=== PATIENT | female | born 1960 | race Caucasian/White ===

== ENCOUNTER → 2018-02-02 09:23 | Outpatient (CLI) | payer OTHER, SELFPAY ==
--- NOTE | 2018-02-02 09:26 | RAD_ITS ---
STUDY: X-RAY - LEFT KNEE REASON FOR EXAM: Chronic pain. TECHNIQUE: 4 view(s) of the knee. COMPARISON: Radiograph report 11/24/2012. FINDINGS: Normal visualized distal femur. Normal visualized proximal tibia and fibula. Normal proximal tibiofibular articulation. There is mild arthrosis of the medial femorotibial compartment with small marginal osteophytes and mild joint space narrowing. Normal lateral femorotibial compartment. Normal patellofemoral articulation. There are small densities overlying the distal femoral diaphysis on the AP upright view, not included in the lateral [id number]. RAD/Knee 4 or More Views IMPRESSION: Mild arthrosis of the medial femorotibial compartment. Electronically Signed: Tha Alvarenga MD at 9:53 EDT Tel , Service support ,
== END ==
PROVIDERS: Family Provider Physician Assistant; PCP Physician Assistant; Visit Provider Orthopaedic Surgery
DX: M25.562 Pain in left knee (principal)
CPT/HCPCS: 73564

== ENCOUNTER → 2018-06-07 12:41 | Outpatient (CLI) | payer OTHER, SELFPAY ==
--- NOTE | 2018-06-07 12:44 | BI_ITS ---
MAMMOGRAPHY - BILATERAL SCREENING REASON FOR EXAM: Female, 58 years old. Routine annual screening examination. PERTINENT HISTORY: Non-contributory. TECHNIQUE: Digital bilateral breast adeel (3D mammographic acquisition) in the CC and MLO projections. 2-D mediolateral oblique (MLO) and craniocaudad (CC) views of both breasts were obtained. CAD: Full Field Digital Mammography with Computer Added Detection was performed. COMPARISON: Comparison is made with prior study dated December 17, 2015 and November 10, 2012. FINDINGS: Breast Composition: There are scattered areas of fibroglandular density. There are no dominant masses or suspicious calcifications. Stable small bilateral axillary lymph nodes. No other significant abnormalities are identified. There has been no significant change since the prior study. BI/SCREENING MAMM (CAD), BILAT IMPRESSION: Stable bilateral screening mammogram. Yearly follow-up mammogram recommended. (A) ASSESSMENT CATEGORY: BIRADS Category 2: Benign. A letter regarding these results will be sent to the patient by the facility within 30 days. Approximately 10% of breast cancers are not detected by mammography. A normal mammogram should not delay biopsy of a clinically suspicious abnormality. [id number] Electronically Signed: Mannie Dial MD at 15:49 EDT Tel [phone], Service support ,
== END ==
PROVIDERS: Family Provider Physician Assistant; PCP Physician Assistant
DX: Z12.31 Encounter for screening mammogram for malignant neoplasm of breast (principal)
CPT/HCPCS: 77063; 77067

== ENCOUNTER → 2018-07-28 12:33 | Outpatient (CLI) | payer OTHER, SELFPAY ==
--- NOTE | 2018-07-28 12:36 | RAD_ITS ---
STUDY: X-RAY - LEFT HAND REASON FOR EXAM: Female, 58 years old. Pain and swelling for one week involving the fourth digit TECHNIQUE: 3 view(s) of the hand. COMPARISON: None. FINDINGS: Normal radiocarpal articulation. Normal distal radioulnar joint. Normal visualized carpal bones. Normal carpal articulations Normal carpometacarpal articulation of the thumb. Normal second through fifth carpometacarpal joints. Normal metacarpi. Normal metacarpophalangeal joint of the thumb. Normal interphalangeal joint of the thumb. Normal proximal and distal phalanges of the thumb. Normal metacarpophalangeal joints of the second through fifth fingers. Normal proximal and distal interphalangeal joints of the second through fifth fingers. Normal phalanges of the second through fifth fingers. There is soft tissue swelling of the fourth digit adjacent to the PIP joint. RAD/Hand Min 3 Views IMPRESSION: Fourth digit soft tissue swelling without demonstrated fracture. Electronically Signed: Oswaldo Solorio MD at 16:27 EST , Service support ,
--- OUTSIDE RECORDS SUMMARY | 2018-09-13 07:37 | XMS RPT_ITS | Continuity of Care Document ---
:1960 Author Organization [facility] Address [address] [facility] [address] [place] [address] Phone Care Team Providers Name Role Phone Yoanna Chow DO Unavailable Physical Therapy, [facility] Unavailable Susie Brown Unavailable Dr. Dev Herzog Unavailable Pan Carrillo DO Unavailable Erica Tadeo Unavailable Unavailable SCOTT Santoyo Unavailable Unavailable Bobbi Forrest Unavailable Unavailable Unavailable Unavailable Problems Name Dates Details Abortions/Miscarriages Comments: 1 Status: Active Acute sinusitis, unspecified (J01.90, 461.9) Status: Active Adverse reaction to drug, initial encounter (T88.7XXA, E947.9) Status: Active Arthralgia of right hip (M25.551, 719.45) Status: Active Back pain, acute (M54.9, 724.5) Status: Active BMI 31.0-31.9,adult (Z68.31, V85.31) Status: Active BMI 33.0-33.9,adult (Z68.33, V85.33) Status: Active Breast cancer screening (Z12.39, V76.10) Status: Active Bronchitis (J40, 490) Comments: cough productive of yellow green phlegmX 7 day. getting slightly better today, no blood.Started with sore throat.No runny nose, sinus pain, naslal congwestion, fever, SOB, wheeze.No asthma/COPD Status: Active Chest pain at rest (R07.9, 786.50) Status: Active Colon cancer screening (Renamed from Encounter for screening for malignant neoplasm of colon) (Z12.11, V76.51) Status: Active Colon polyp (K63.5, 211.3) Comments: pt sees [facility] Status: Active Contact dermatitis, unspecified contact dermatitis type, unspecified trigger (L25.9, 692.9) Status: Active Cough (R05, 786.2) Status: Active Deliveries (Parity) Comments: 2 Status: Active Dyshidrosis (L30.1, 705.81) Status: Active Dysuria (R30.0, 788.1) Status: Active Dysuria (R30.0, 788.1) Status: Active Eczema (L30.9, 692.9) Status: Active Hypothyroidism (E03.9, 244.9) Status: Active Lymphadenopathy (R59.1, 785.6) Status: Active Muscle strain (T14.8XXA, 848.9) Status: Active Non-smoker (Z78.9, V49.89) Status: Active Obesity (E66.9, 278.00) Status: Active Postmenopausal (Renamed from Postmenopausal status) (Z78.0, V49.81) Status: Active Pregnancies () Comments: 3 Status: Active Pre-operative examination (Z01.818, V72.84) Comments: recetnly started on thyriod med will checlk labs right before surgery to assure better. only slightly off to start Status: Active Rash (R21, 782.1) Status: Active Rash (R21, 782.1) Comments: suspect ring worm --if no better will bx Status: Active Sinusitis, bacterial (J32.9, 473.9) Status: Active Sore throat (J02.9, 462) Status: Active Unspecified Diagnosis Status: Active URI, acute (J06.9, 465.9) Status: Active Vaginal itching (N89.8, 698.1) Status: Active Vaginal yeast infection (B37.3, 112.1) Status: Active Medications Name Dates Details Augmentin 305-125 MG Oral Tablet 1 Tablet bid for 10 days Quantity: 20 {Tablet} Refills: 0 Ordered:09-Jun-2018 Sweta Chow DO, DO, Kathleen Start : 09-Jun-2018 Active LEVOTHYROXINE SODIUM, 75MCG (Oral Capsule) 1 qd (75 MCG) Active Supplements 1 qd Active Comments:ultra pollen, thyroven, adaptogen, alkamin, sea mineral concentrate BENADRYL, 25MG (Oral Tablet) 1 (one) Tablet q6-8hrs prn for 0 days Quantity: 30 {Tablet} Refills: 0 Ordered:15-Jan-2015 Bobbi Santoyo LPN Start : 21-Jan-2014 End : 15-Jan-2015 Inactive BIAXIN, 500MG (Oral Tablet) 1 (one) Tablet bid for 0 days Quantity: 20 {Tablet} Refills: 0 Ordered:08-Dec-2015 Geremias Kramer Start : 10-Nov-2015 End : 08-Dec-2015 Inactive CPD boest 80/20 .5ml qd Inactive CPD Dhea 25mg 1 qd Inactive CPD progeste 100mg/0.5ml 1 prn Inactive Diflucan 150 MG Oral Tablet 1 (one) Tablet Daily x 1 day for 1 days Quantity: 1 {Tablet} Refills: 0 Ordered:06-Apr-2018 Bobbi Forrest Start : 06-Apr-2018 End : 07-Apr-2018 Inactive Diprolene AF 0.05 % External Cream apply to affected Cream bid for 0 days Quantity: 15 {Gram} Refills: 0 Ordered:05-May-2016 Little Zarate LPN Start : 29-Dec-2015 End : 05-May-2016 Inactive ESTRADIOL, 1MG (Oral Tablet) 1 tab qd (1 MG) Inactive Comments:Pt didnt know the actual strength of this pill. ETODOLAC ER, 400MG (Oral Tablet Extended Release 24 Hour) 2 (two) Tablet ER 24HR qd with food for 0 days Quantity: 20 {Tablet} Refills: 0 Ordered:26-Sep-2013 Sweta Chow DO, DO, Kathleen Start : 26-Sep-2013 End : 26-Sep-2013 Inactive HYDROCHLOROTHIAZIDE, 25MG (Oral Tablet) 1 (one) Tablet qd for 0 days Quantity: 30 {Tablet} Refills: 0 Ordered:15-Jan-2015 Bobbi Santoyo LPN Start : 26-Sep-2013 End : 15-Jan-2015 Inactive Hydrocodone-Acetaminophen 5-325 MG Oral Tablet 1 (one) Tablet Tablet prn for 3 days Refills: 0 Ordered:28-May-2016 Bobbi Santoyo LPN Start : 08-Dec-2015 End : 28-May-2016 Inactive KETOCONAZOLE, 2% (External Cream) 1 (one) tsp tsp bid on affected area for 0 days Quantity: 15 {Tube} Refills: 0 Ordered:21-Jan-2014 Saritha Duran LPN Start : 26-Sep-2013 End : 21-Jan-2014 Inactive Comments:15 gram tube LEVAQUIN, 500MG (Oral Tablet) 1 Tablet Daily for 0 days Quantity: 10 {Tablet} Refills: 0 Ordered:14-Oct-2008 SHANNON Rodriguez Start : 14-Oct-2008 End : 30-Jan-2009 Inactive MELOXICAM, 15MG (Oral Tablet) 1 Tablet prn for 30 days Refills: 0 Ordered:10-Nov-2015 Bobbi Santoyo LPN Start : 15-Jan-2015 End : 10-Nov-2015 Inactive Neurontin 300 MG Oral Capsule 1 (one) Capsule Capsule qhs for 4 nights then bid for 0 days Quantity: 30 {Capsule} Refills: 0 Ordered:05-May-2016 Little Zarate LPN Start : 08-Dec-2015 End : 05-May-2016 Inactive OSCAL 500/200 D-3, [id number]-[id number] (Oral Tablet) 1 bid for 0 days Refills: 0 Ordered:08-Dec-2015 Geremias Kramer End : 08-Dec-2015 Inactive PREDNISONE, 10MG (Oral Tablet) 3 (three) Tablet daily for 7 days Quantity: 21 {Tablet} Refills: 0 Ordered:21-Jan-2014 Jenifer TURCIOS Katie Start : 21-Jan-2014 End : 28-Jan-2014 Inactive Comments:with food TOPICORT LP, 0.05% (External Cream) Cream bid for 0 days Quantity: 1 {Cream} Refills: 0 Ordered:20-Jan-2011 Bobbi Santoyo LPN Start : 22-Apr-2009 End : 20-Jan-2011 Inactive VAGIFEM, 25MCG (Vaginal Tablet) 1 2 x weekly for 0 days Refills: 0 Ordered:8-Sep-SHANNON Liu End : 22-Apr-2009 Inactive Valium 5 MG Oral Tablet 1 (one) Tablet Tablet tid for 10 days Refills: 0 Ordered:05-May-2016 Little Zarate LPN Start : 08-Dec-2015 End : 05-May-2016 Inactive WESTCORT, 0.2% (External Ointment) 1 Ointment q am for 0 days Quantity: 60 {Ointment} Refills: 1 Ordered:20-Jan-2011 Bobbi Santoyo LPN Start : 21-Jul-2010 End : 20-Jan-2011 Inactive Allergies and Adverse Reactions Name Dates Details No Known Drug Allergies (Allergy) Status: Active Past Medical History Name Dates Details Bloating (R14.0, 787.3) Status: Inactive as of 15-Jan-2015 Contact dermatitis due to poison hannah (L23.7, 692.6) Status: Inactive as of 08-Dec-2015 Cramp in limb (R25.2, 729.82) Comments: increase water hold water pill. if not better get labs. had before surgery not think related to DVT. Status: Inactive as of 26-Sep-2013 Fever (R50.9, 780.60) Status: Resolved as of 30-Jan-2009 Hip bursitis (726.5) Status: Inactive as of 26-Sep-2013 Hip pain, acute (719.45) Status: Inactive as of 26-Sep-2013 Hot flashes (N95.1, 627.2) Status: Inactive as of 26-Sep-2013 Itching (L29.9, 698.9) Status: Inactive as of 08-Dec-2015 Knee pain, left (M25.562, 719.46) Comments: b/l knee pain Status: Inactive as of 15-Jan-2015 Low back pain without sciatica, unspecified back pain laterality (724.2) Status: Inactive as of 26-Sep-2013 Pain of hand, unspecified laterality (M79.643, 729.5) Comments: R Status: Resolved as of 30-Jan-2009 Pain of muscle of abdomen (M79.1, 729.1) Status: Resolved as of 15-Dec-2015 Pain of toe, unspecified laterality (M79.676, 729.5) Comments: injury got caught on couch Status: Inactive as of 26-Sep-2013 Rib pain on left side (R07.81, 786.50) Status: Inactive as of 08-Dec-2015 Stress reaction (F43.0, 308.9) Status: Inactive as of 26-Sep-2013 Swelling of limb (M79.89, 729.81) Comments: watch salt only use moibc rarely. Status: Inactive as of 26-Sep-2013 trigger thumb Comments: talk about treatment so bad want injected Status: Inactive as of 30-Jan-2009 Upper respiratory disease (J39.9, 478.9) Status: Inactive as of 08-Dec-2015 WWV Comments: yanira rodrigez 2002 polyps goidn to repeat Status: Inactive as of 30-Jan-2009 Procedures Procedure Dates Details Appendectomy Completed Comments: 10/27 Hysterectomy, Total Completed Comments: 1995 Tonsillectomy Completed Comments: as a child vein ligation in legs 2007 Completed Date Value Details 15-Jan-2016 Inital Evaluation (1) - PT Result: Comments: See Note; NOTES: [facility] Physical Therapy [facility] [address] [place] [address]. [address] [place] [address] Fax [facility]HABILITATION [facility] INITIAL EVALUATION MR#: [id number] Acct: [id number] Name: JHONNY PACK Rep #: [id number] : 1960 55 From: Garret Abarca PT, ATC Referring Dr.: Yoanna Chow DO Status: REG RCR Insurance: [facility] OUT OF STATE Patient's Visit Information JHONNY PACK is a 55 year old F referred to Physical Therapy by Yoanna Chow with a diagnosis of LBP. Date of Evaluation: 12/17/15 Physical Therapist: Garret Abarca - Visit Plan Frequency: 1x/Week Duration: 2 Weeks - Subjective Subjective: Pt reports pain for 2 weeks. Pt reports her pain began in her right abdomen that radiated to her LB. Pt reports her pain progressively worsened to the point of not being able to stand upright. Pt reports she does jhave a Hx of LBP, but notes the pain usually would just go a way. Pt reports she went to the ER 3 days ago secondary to the severity of her LBP. Pt has been taking a nerve jordyn and advil and notes her pain is getting much better. Sleep diff seconday to pain. 3/10 at rest, 9/10 in the ER. - Pain LBP Pain Intensity (Out of 10): 3 Pain Intensity Range: 9 - Objective Neuro: B LE sensation is WNL to light touch. B patellar tendon reflex= 2/3. LE MMT : B knee flex= 4-/5. All other B LE MMT= 5/5 throughout. L/S ROM: R SB and extension are both min noland. Both of those movements provoke pain. repeated movements: REIL decreased pain - Goals Goal 1:: Pt will be I with HEP after next Rx Goal Time Frame: 2 Weeks - Rehabilitation Potential Physical Therapy Diagnosis: LBP, decreased ROM, and LE weakness secondary to L/S disc derrangelment Rehabil itation Potential: Good - Anticipated Interventions Patient/Client Instruction: Educate patient on: Condition, Plan of Care For the Purpose of:: To prevent re-injury Therapeutic Exercise to Include : Dynamic Lumbar Stabilization, Renaldo Exercises For the Purpose of:: To decrease pain, To increase ROM, To improve muscle performance and motor function Cryotherapy (ice pack, ice massage): Yes Th ermo therapy (hot pack): Yes For the Purpose of:: To decrease pain Thank you for the opportunity to evaluate your patient. For Medicare and Medicare HMO plans, please review the plan of care and approve it. It will need to be FAXED BACK to us at [phone] for Medicare purposes. Please let me know if there are questions or concerns regarding this plan of care. Physician Signature:____ Date: <Electronically signed by Garret Abarca PT, ATC> 01/15/16 1653 CC: Yoanna Chow DO DT: 6 [facility] Signed For Medicare only, by signing this I certify the plan of care. Physicians Signature Date 15-Jan-2016 PT D/C of Non Returning Pt (1) Result: Comments: See Note; NOTES: [facility] Physical Therapy [facility] [address] [place] [address] Fax REHABILITATION [facility] DISCHARGE SUMMARY MR#: [id number] Acct: [id number] Name: JHONNY PACK Rep #: [id number] : 1960 55 From: Garret Abarca PT, ATC Referring Dr.: Yoanna Chow DO Status: REG R CR Insurance: [employer] OUT OF STATE HP - Discharge Summary (1) - Patient Information JHONNY PACK was seen in my office for initial evaluation on 12/17/15. The following Plan of Care was es tablished for this patient: Initial Frequency: 1x/Week Initial Duration: 2 Weeks - Anticipated Interventions Patient/Client Instruction: Educate patient on: Condition, Plan of Care For the Purpos e of:: To prevent re-injury Therapeutic Exercise to Include: Dynamic Lumbar Stabilization, Renaldo Exercises For the Purpose of:: To decrease pain, To increase ROM, To improve muscle performance and motor function Cryotherapy (ice pack, ice massage): Yes Thermo therapy (hot pack): Yes For the Purpose of:: To decrease pain This patient was last seen in our office 12/17/15. Pertinent comments reg arding their Physical therapy will appear below: Pt was evaluated and issued a HEP on the date of 12/17/15. A followup appointment was scheduled on 01/14/16, however, pt cancelled that appointment noting she felt much better and did not need to come back. Therefore, pt is discharged with Rx goals being achieved At this point I will be discontinuing this patient from physical therapy. I would be hap py to see this patient again in the future if found appropriate by the physician. Thank you! Garret Abarca <Electronically signed by Garret Abarca PT, ATC> 01/15/16 1653 CC: Yoanna Chow DO [facility] Signed 17-Dec-2015 Bilat Scrn Digital AND CAD Result: Comments: See Note; NOTES: [facility] Imaging Services [address] [place] [address] Verdana 4d Bilat Scrn Digital AND CAD MR#: [id number] Acct: [id number] Name: JHONNY PACK Rep #: [id number] : 1960 F 55 From: Mannie Dial MD PCP: Yoanna Chow DO Status: REG CLI Study: Bilat Scrn Digital AND CAD Date of Exam: 12/17/15 Exam# [id number] Ord ering Dr: Yoanna Chow DO MAMMOGRAPHY - BILATERAL SCREENING REASON FOR EXAM: Female, 55 years old. Routine annual screening examination. PERTINENT HISTORY: Non-contributory. TECHNIQUE: Di gital bilateral breast tomosynthesis (3-D mammographic acquisition) in the CC and MLO projections. Synthesized 2-D images (C-View reconstruction from tomosynthesis acquisition) providing bilateral saba ast CC and MLO views. Mediolateral oblique (MLO) and craniocaudad (CC) views of both breasts were obtained. CAD: Full Field Digital Mammography with Computer Added Detection was performed. COMPARIS ON: Comparison is made with prior study dated November 10, 2012 and October 28, 2011. FINDINGS: Breast Composition: There are scattered areas of fibroglandular densit y. There are no dominant masses or suspicious calcifications. No other significant abnormalities are identified. There has been no significant change since the prior study. IMPRESSION: Stable bilateral screening mammogram. Yearly follow- up mammogram recommended. (A) ASSESSMENT CATEGORY: BIRADS Category 1: Negative. A letter regarding these results will be sent to the patient by the facility within 30 days. Approximately 10% of breast cancers are not detected by mammography. A normal mammogram should not delay biopsy of a clinically suspicious abnormality. [id number] Electronically Signed: Mannie Dial MD at 9:48 EDT Tel [phone], Service support [phone], Paddy C: Yoanna Chow DO Television Cameraman: Signed 10-Dec-2015 12 Lead Electrocardiogram Result: Comments: See Note; NOTES: [facility] Cardiovascular Services [address] [place] [address] 12 Lead EKG 12/07/151426 MR#: [id number] Acct: [id number] Name: JHONNY PHELAN Rep #: [id number] : 1960 55 From: Ronnell Alegria MD Attending Dr: Status: DEP ER Ordering Dr: Ravin Bear MD Date: 12/07/15 Location: ED Sex: F C Admitted: Test Reason : Blood Pressure : / mmHG Vent. Rate : 070 BPM Atrial Rate : 070 BPM P-R Int : 136 ms QRS Dur : 080 ms QT Int : 402 ms P-R-T Axes : 012 031 023 degrees QTc Int : 434 ms Normal sinus rhythm Hilaria l ECG Confirmed by DAY SHAFER, RONNELL ([id number]), editor newspaper RINKU FRY ([id number]) on 12/10/2015 12:54:34 PM Referred By: NICCI Confirmed By:RONNELL ALEGRIA MD 12/10/15 1254 Date Ronnell Alegria MD CC: Yoanna Chow DO Date Dictated: 12/07/151426 Date Transcribed: 12/07/151426 Television Cameraman: Signed 08-Dec-2015 Hip 2-3 Views with Pelvis Result: Comments: See Note; NOTES: [facility] Imaging Services [address] [place] [address] Verdana 4d Hip 2-3 Views with Pelvis MR#: [id number] Acct: [id number] Name: JHONNY GRANGER Rep #: [id number] : 1960 F 55 From: Carmen Webb MD PCP: Yoanna Chow DO Status: REG CLI Study: Hip 2-3 Views with Pelvis Date of Exam: 12/08/15 Exam# [id number] Ordering Dr: Yoanna Chow DO STUDY: X-RAY - PELVIS AND RIGHT HIP REASON FOR EXAM: Female, 55 years old. Painful right hip TECHNIQUE: Radiological exam, hip, unilateral, with pelvis when performed; 2 or 3 views. COMPARISON: CT scan December 05, 2015 CT scan pelvis FINDINGS: There is a non-specific bowel gas pattern. There is a nonspecific surgical clip adjacent to the right iliac crest. There is mild degenerative change of the visualized SI joints. Normal bilateral superior and inferior pubic rami. Normal pubic symphysis. Normal bilateral ischial tuberosit ies. Normal visualized femoral heads. Normal acetabulum. Normal hip joints. 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 No evidence of an acute fracture. Electronically Signed: Carmen Webb MD at 13:57 EDT Tel , Service support [phone], RAD/Hip 2-3 Views with Pelvis IMPRESSION: 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 No evidence of an acute fracture. Electronically Signed: Carmen Webb MD at 13:57 EDT Tel , Service support [phone], CC: Yoanna Chow DO Television Cameraman: Signed 08-Dec-2015 Emergency Department Summary Result: Comments: See Note; NOTES: [facility] Medical Records Department [address] [place] [id number] Emergency Department Summary MR#: [id number] Acct: [id number] Name: JHONNY PACK Rep #: [id number] : 1960 55 From: Ravin Bear MD PCP: Yoanna Chow DO Status: DEP ER DATE OF SERVICE: 12/07/2015 HISTORY OF PRESENT ILLNESS: A 55-year-old woman, who pr esents with 3 complaints, #1 right lower back pain and lower quadrant fullness. She was seen for the same symptoms on Tuesday and had an extensive workup, which was unremarkable. She now complains of h eartburn, indigestion that occurred yesterday morning that lasted 4-5 hours and yesterday evening that lasted for a prolonged period as well. She also complains of tightness in her chest. There is no radiation. There are no associated symptoms. There are no alleviating, precipitating or exacerbating factors. She denies history of coronary artery disease. She has no risk factors for coronary arter y disease. History of hypothyroidism. PAST SURGICAL HISTORY: Appendectomy. PRIMARY CARE PHYSICIAN: Payal Rowell DO PHYSICAL EXAMINATION: VITAL SIGNS: Unremarkable. GENERAL: She is a pleasant mi ddle-aged woman, who does not appear in much distress. HEENT: Unremarkable. NECK: Trachea midline. No carotid bruits. LUNGS: Clear to auscultation. HEART: Regular without murmur, gallop, or rub. AB DOMEN: Remarkable for tenderness and fullness in the lower quadrants. She has no guarding, rebound tenderness. Bowel sounds are present. There is no CVA tenderness. There is no evidence of trauma to t he back or abdomen. SKIN: There are no dermatologic lesions noted. NEUROLOGIC: She is alert. She is oriented x3 with a nonfocal neurologic exam. EMERGENCY DEPARTMENT COURSE: Because of the heartbur n, pressure sensation in her chest, EKG was obtained, which was normal. Troponin with multiple hours of pain yesterday and 8 hours of pain today is normal. CBC and electrolyte panel are normal. In lig ht of her negative workup, she was given a GI cocktail with resolution of her pressure, burning sensation. IMPRESSION: 1. Chest pain, gastrointestinal etiology. 2. Musculoskeletal right lower back pain. 3. Abdominal fullness, lower quadrants, unknown cause. DISPOSITION: Discharge. MD Paddy Harlye C: Payal Rowell DO T: NTS JOB: [id number] 12/08/15 0739 <Electronically signed by Ravin Bear MD> Date Ravin Bear MD Cosigner Signature (If Indicated): Date CC: Payal Rowell DO; Yoanna Chow DO Date Dictated: 12/07/151525 Date Transcribed: 12/07/151525 Television Cameraman: Signed 07-Dec-2015 Discharge Instruction Result: Comments: See Note; NOTES: [facility] Medical Records Department [address] [place], [place] [address] [address] Discharge Instruction 12/07/151521 MR#: [id number] Acct: [id number] Name: JHONNY PACK Rep #: [id number] : 1960 55 From: Ravin Bear MD PCP: Yoanna Chow DO Status: REG ER ED Disposition - Plan for ED Patient: Disposition: Home or Assisted Living Chief Complaint: Back Instructions: ED Gastritis Vs. Ulcer, ED Back Pain (Acute Or Chronic) Prescriptions: Diazepam [Valium] 5 mg PO TID #10 tablet Referrals: Yoanna Chow DO [Primary Care Pro vider] - Keep Will appointment What to do if you have Problems For any increased pain, shortness of breath, bleeding, nausea or vomiting, chest pain, or any unexpected problems, contact your docto r. Call [facility] ([phone]) or report to the closest Emergency Room. Call 911 if necessary. 12/07/15 152 <Electronically signed by Ravin Bear MD> Date ___ Ravin Bear MD Cosigner Signature (If Indicated): Date CC: Yoanna Chow DO 05-Dec-2015 Emergency Department Summary Result: Comments: See Note; NOTES: [facility] Medical Records Department [address] [place] [address] Emergency Department Summary MR#: [id number] Acct: [id number] Name: JHONNY PACK Rep #: [id number] : 1960 55 From: Kimberley Hale MD PCP: Yoanna Chow DO Status: DEP ER DATE OF SERVICE: 12/05/2015 CHIEF COMPLAINT: Right low back pain, right lower quadrant pain. HENNESSY HISTORY: The patient is a 55-year-old female who reports a 1-week history of right low back pain and right lower quadrant pain. It does not radiate down her legs. She denies any f ever. No dysuria, but she does leak urine when she first gets up out of bed in the morning. She has no blood in her urine. She does feel that she is urinating frequently. She has had no diarrhea or c onstipation. She has been taking gsez-puv-ziobjmi Aleve. She has an appointment to see her doctor on Tuesday, but pain worsened tonight and was not relieved with the Aleve. She does report that she rec ently got a new mattress. PHYSICAL EXAMINATION: VITAL SIGNS: Unremarkable. GENERAL: The patient is sitting upright in bed. HEART: Regular. LUNGS: Clear. ABDOMEN: Soft with mild suprapubic tendern ess. No guarding or rebound. She has mild mid right lumbar paraspinal tenderness. No true CVA tenderness, no skin changes. Normal strength and sensation, strong distal pulses, HOSPITAL COURSE: The patient has already had an appendectomy and a full hysterectomy. CBC and chemistry studies are unremarkable. Urine is negative. CT flank was obtained that shows no acute process. Disk space narrowing is noted at L5-S1 with osteopenia. The patient was given a dose of morphine and Zofran here. On repeat evaluation, she is more comfortable. We discussed her test results along with a cauda equina. How ever, there has been no trauma and not significant pain. I do not feel this represents cauda equina. She has good strength and sensation in the lower extremities. She will be treated with some Agu[place] o radames the weekend as needed and will follow up with her PCP as planned. She and her are both comfortable with this plan. DISPOSITION: Discharge. IMPRESSION: Right lower flank pain, uncerta in etiology. Kimberley Hale MD T: NTS JOB: [id number] 12/05/152299 <Electronically signed by Kimberley Hale MD> Date Velasquez Hale MD Cosigner Signature (If Indicated): Date CC: Yoanna Chow DO Date Dictated: 12/05/152131 Date Transcribed: 12/05/152131 Television Cameraman: Signed 05-Dec-2015 Discharge Instruction Result: Comments: See Note; NOTES: [facility] Medical Records Department [address] [place] [address] Discharge Instruction 12/05/152128 MR#: [id number] Acct: [id number] Name: JHONNY PACK Rep #: [id number] : 1960 55 From: Kimberley Hale MD PCP: Yoanna Chow DO Status: REG ER ED Disposition - Plan for ED Patient: Disposition: Home or Assisted Do [place] Chief Complaint: Complaint Instructions: ED Flank Pain, Uncertain Cause Prescriptions: Hydrocodone Bitart/Apap 5-325 [Aguanga 5/325] 1 - 2 tablet PO Q4H PRN PRN #20 tablet PRN Reason: Pain R eferrals: Yoanna Chow DO [Primary Care Provider] - Keep Will appointment What to do if you have Problems For any increased pain, shortness of breath, bleeding, nausea or vomiting, chest pain, or any unexpected problems, contact your doctor. Call [facility] ([phone]) or report to the closest Emergency Room. Call 911 if necessary. 12/05/152129 <Electronically signed by Kimberley Hale MD> Date Kimberley Hale MD Cosigner Signature (If Indicated): Date CC: Yoanna Chow DO 05-Dec-2015 Abdomen/Pelvis without Cont Result: Comments: See Note; NOTES: [facility] Imaging Services [address] [place] [address] Verdana 4d Abdomen/Pelvis without Cont MR#: [id number] Acct: [id number] Name: JHONNY PACK Rep #: [id number] : 1960 F 55 From: Kobe Gould MD PCP: Yoanna Chow DO Status: REG ER Study: Abdomen/Pelvis without Cont Date of Exam: 12/05/15 Exam# [id number] Order ing Dr: Kimberley Hale MD STUDY: CT ABDOMEN AND PELVIS WITHOUT CONTRAST REASON FOR EXAM: Female, 55 years old. Right lower quadrant pain worsening since last Tuesday, loss of bladder control when standing. History of hysterectomy and appendectomy. RADIATION DOSAGE (If Supplied By Facility): CTDIvol = ( 19.70 ) mGy, DLP = ( 895.00 ) mGycm TECHNIQUE: Transaxial images were obtained from the dome of the diaphragm to the symphysis pubis without oral contrast, and without intravenous contrast. Sagittal and coronal images were reconstructed. Individualized dose optimization techniques wer e used for this CT. COMPARISON: CT abdomen and pelvis 10/27/14. FINDINGS: Punctate left lower lobe pulmonary granulomas calcification. The visualized portions o f the heart are within normal limits. Hepatomegaly. Normal gallbladder and extrahepatic biliary system. Normal spleen. Redemonstrated punctate calcification in the proximal pancreatic body. Normal bilateral adrenal glands. Normal right kidney. Redemonstrate a 1 cm left renal cyst. Normal visualized stomach. Normal small intestine. Normal colon. There are surgical clips in the region of the appendix consistent with a prior appendectomy. Normal abdominal aorta. Normal inferior vena cava. Normal retroperitoneum. Normal urinary bladder. Normal abdominal wall. Marked disc space narrowi ng at L5-S1 along with osteopenia. IMPRESSION: No CT evidence of an acute intra-abdominal or pelvic process. Hepatomegaly and redemonstrated left renal cyst.. Status post appendectomy. Old granulomatous disease. Marked disc space narrowing at L5-S1 along with osteopenia. Electronically Signed: Kobe Gould MD at 20:51 EDT Tel , Service support [phone], CC: Kimberley Hale MD; Yoanna Chow DO Television Cameraman: Signed 20-Jan-2015 Lower Ext Joint Only (Routine) Result: Comments: See Note; NOTES: [facility] Imaging Services [address] [place] [address] MRI Report MR#: [id number] Acct: [id number] Name: JHONNY PACK Rep #: [id number] : 1960 F 54 From: Luis Olivier MD PCP: Yoanna Chow DO Status: REG CLI Study: Lower Ext Joint Only (Routine) Date of Exam: 01/20/15 Exam# [id number] Ordering Dr: Ozzy Barrow DO STUDY: MRI LEFT KNEE REASON FOR EXAM: Female, 54 years old. Left knee pain. Posterior knee instability. Symptoms for 3 year. Previous arthroscopy. TECHNIQUE: Standardized fat and water weighted pu lse sequences were obtained in all 3 orthogonal planes. COMPARISON: Prior MRI of the left knee on 02-13-13. FINDINGS: The patient is status post partial medial meniscectomy. There are no signs of recurrent tear of the meniscus remnant Normal hyaline cartilage of the medial femorotibial compartment. Normal medial femoral condyle and tibial plateau. Normal medial collateral ligamentous complex (MCL). Normal distal semimembranosus, gracilis and semitendinosus tendons. Normal lateral meniscus. Normal hyaline cartilage of the lateral femorotibial compar tment. Normal lateral femoral condyle and tibial plateau. Normal proximal tibiofibular articulation. Normal lateral collateral (fibular) ligament. Normal popliteus tendon. Normal b iceps femoris tendon. He noted is intrasubstance cystic degeneration of the anterior cruciate ligament Normal posterior cruciate ligament (PCL). Normal congruent patellofemoral articulation. Hilaria l hyaline cartilage of the patellofemoral compartment. Normal medial and lateral patellar retinaculum. Normal quadriceps tendon. Normal patellar tendon. There is linear fibrotic scarring of Hoffa's fat pad, consistent with postsurgical changes from prior arthroscopic portal placements. There is a moderate volume joint effusion. The soft tissues are unremarkable. The otherwise visualized osse ous structures are unremarkable. IMPRESSION: Status post arthroscopy and partial medial meniscectomy without recurrent tear of the meniscal remnant. Redemonst ration of intrasubstance cystic degeneration of the anterior cruciate ligament. Moderate volume joint effusion Electronically Signed: Luis Olivier MD, FACR at 11:45 EDT Tel , Service support [phone], CC: Ozzy Barrow; Yoanna Chow DO Television Cameraman: Signed 26-Oct-2014 Abdomen/Pelvis WITH Contrast Result: Comments: See Note; NOTES: [facility] Imaging Services [address] [place] [id number] CAT Scan Report MR#: [id number] Acct: [id number] Name: JHONNY PACK Rep #: [id number] : 1960 F 54 From: Maryellen Kumar MD PCP: Yoanna Chow DO Status: [facility] ER Study: Abdomen/Pelvis WITH Contrast Date of Exam: 10/27/14 Exam# [id number] Ordering Dr: Ozzy Vizcarra MD STUDY: CT ABDOMEN AND PELVIS WITH CONTRAST REASON FOR EXAM: Female, 54 years old. Right lower quadrant pain RADIATION DOSAGE (If Supplied By Facility): CTDIvol = ( 17.26 ) mGy, DLP = ( 1469.24 ) mGycm TECHNIQUE: Transaxial images were obtained from the dome of the diaphragm to the symphysis pubis with oral contrast. 100ML ml of Isovue 300 contrast was administered. Sagittal and coronal im ages were reconstructed. COMPARISON: None. FINDINGS: The visualized lung bases are unremarkable. The visualized portions of the heart are within normal limits. Normal liver. Normal gallbladder and extrahepatic biliary system. Normal spleen. There is a small punctate calcification of the pancreatic body duct. Normal bilateral adrenal glands. Normal rig ht kidney. There is a 1 x 1 cm cyst of the lower pole of the left kidney. Normal visualized stomach. Normal small intestine. Normal colon. There is a tubular, thick-walled appendix (1.6 cm), consist ent with acute appendicitis. It is located posterior to the cecum. There is periappendiceal inflammatory changes. The inflammatory process is extending adjacent to the ileal loops. Normal abdominal aorta. Normal inferior vena cava. Normal retroperitoneum. Normal urinary bladder. There are surgical armani of the abdominal wall. There is disc narrowing and bulging at L5-S1. IMPRESSION: Small Intrapancreatic duct calcification. 1 x 1 cm cyst of the lower pole of the left kidney. Acute appendicitis as described. Disc narrowing and bulging at L5-S1 . N.B. : The above information has been verbally conveyed by Maryellen Pena MD to [place], covering physician, on 10/27/2014 01:23:00 (ET). Electronically Signed: Maryellen Pena MD at 1:23 EDT , Service support [phone], N.B. : The above information has been verbally conveyed by Maryellen Pena MD to austin Ta, on 10/27/2014 01:23:00 (ET). CC: Ozzy Vizcarra MD; Yoanna Chow DO Television Cameraman: Signed Family History Unknown Family Member Name Dates Details Father Comments: kidney cancer, age 65 Status: Active First Degree Relatives Comments: paternal uncles withType II diabetes Status: Active Social History Name Dates Details Caffeine Use Comments: 2 cans diet soda, 2 cups coffee qd Status: Active No Drug Use Status: Active Non Drinker/No Alcohol Use Status: Active Non Smoker/No Tobacco Use Status: Active Tobacco use: Never smoker. Status: Active Smoking Status Name Dates Details Never smoker Vital Signs Date Test Result Details :47 Temperature 98 f Comments: Method: Temporal Pulse 82 /min Comments: Pattern: Regular Respiration Rate 18 /min Comments: Pattern: Unlabored O2 SAT 98 % Comments: Room air BP Systolic 122 mm[Hg] Comments: Patient Position: Sitting; Cuff Location: Left Arm; Cuff Size: Large BP Diastolic 82 mm[Hg] Comments: Patient Position: Sitting; Cuff Location: Left Arm; Cuff Size: Large Weight 186 lb Height 64 in Body Mass Index Calculated 31.93 kg/m2 Body Surface Area Calculated 1.9 m2 :03 Temperature 97.5 f Comments: Method: Temporal Pulse 79 /min Comments: Pattern: Regular Respiration Rate 18 /min Comments: Pattern: Unlabored O2 SAT 97 % Comments: Room air BP Systolic 110 mm[Hg] Comments: Patient Position: Sitting; Cuff Location: Left Arm; Cuff Size: Standard BP Diastolic 72 mm[Hg] Comments: Patient Position: Sitting; Cuff Location: Left Arm; Cuff Size: Standard Weight 185 lb Height 64 in Body Mass Index Calculated 31.75 kg/m2 Body Surface Area Calculated 1.89 m2 :58 Pulse 87 /min Comments: Pattern: Regular Respiration Rate 18 /min Comments: Pattern: Unlabored O2 SAT 97 % Comments: Room air BP Systolic 122 mm[Hg] Comments: Patient Position: Sitting; Cuff Location: Left Arm; Cuff Size: Standard BP Diastolic 78 mm[Hg] Comments: Patient Position: Sitting; Cuff Location: Left Arm; Cuff Size: Standard Weight 185 lb Height 64 in Body Mass Index Calculated 31.75 kg/m2 Body Surface Area Calculated 1.89 m2 :36 Pulse 81 /min Comments: Pattern: Regular Respiration Rate 18 /min Comments: Pattern: Unlabored O2 SAT 98 % Comments: Room air BP Systolic 142 mm[Hg] Comments: Patient Position: Sitting; Cuff Location: Left Arm; Cuff Size: Large BP Diastolic 80 mm[Hg] Comments: Patient Position: Sitting; Cuff Location: Left Arm; Cuff Size: Large Weight 170 lb Height 64 in Body Mass Index Calculated 29.18 kg/m2 Body Surface Area Calculated 1.83 m2 :03 Temperature 98.2 f Comments: Method: Temporal Pulse 67 /min Comments: Pattern: Regular Respiration Rate 16 /min Comments: Pattern: Unlabored O2 SAT 98 % Comments: Room air BP Systolic 120 mm[Hg] Comments: Patient Position: Sitting; Cuff Location: Left Arm; Cuff Size: Standard BP Diastolic 74 mm[Hg] Comments: Patient Position: Sitting; Cuff Location: Left Arm; Cuff Size: Standard Weight 180 lb Height 64 in Body Mass Index Calculated 30.9 kg/m2 Body Surface Area Calculated 1.87 m2 :22 Pulse 79 /min Comments: Pattern: Regular O2 SAT 97 % Comments: Room air BP Systolic 120 mm[Hg] Comments: Patient Position: Sitting; Cuff Location: Left Arm; Cuff Size: Large BP Diastolic 78 mm[Hg] Comments: Patient Position: Sitting; Cuff Location: Left Arm; Cuff Size: Large Weight 193 lb Height 64 in Body Mass Index Calculated 33.13 kg/m2 Body Surface Area Calculated 1.93 m2 :36 Temperature 98.5 f Comments: Method: Oral Pulse 76 /min Comments: Pattern: Regular Respiration Rate 18 /min Comments: Pattern: Unlabored O2 SAT 96 % Comments: Room air BP Systolic 122 mm[Hg] Comments: Patient Position: Sitting; Cuff Location: Left Arm; Cuff Size: Large BP Diastolic 80 mm[Hg] Comments: Patient Position: Sitting; Cuff Location: Left Arm; Cuff Size: Large Weight 193 lb Height 64 in Body Mass Index Calculated 33.13 kg/m2 Body Surface Area Calculated 1.93 m2 :22 Temperature 98.3 f Pulse 93 /min Comments: Pattern: Regular Respiration Rate 15 /min Comments: Pattern: Unlabored O2 SAT 98 % Comments: Room air BP Systolic 158 mm[Hg] Comments: Patient Position: Sitting; Cuff Location: Left Arm; Cuff Size: Standard BP Diastolic 88 mm[Hg] Comments: Patient Position: Sitting; Cuff Location: Left Arm; Cuff Size: Standard Weight 193 lb Height 64 in Body Mass Index Calculated 33.13 kg/m2 Body Surface Area Calculated 1.93 m2 :56 Temperature 97.8 f Comments: Method: Temporal Pulse 93 /min Comments: Pattern: Regular Respiration Rate 18 /min Comments: Pattern: Unlabored O2 SAT 95 % Comments: Room air BP Systolic 122 mm[Hg] Comments: Patient Position: Sitting; Cuff Location: Left Arm; Cuff Size: Large BP Diastolic 70 mm[Hg] Comments: Patient Position: Sitting; Cuff Location: Left Arm; Cuff Size: Large Weight 193 lb Height 64 in Body Mass Index Calculated 33.13 kg/m2 Body Surface Area Calculated 1.93 m2 :46 Pulse 70 /min Comments: Pattern: Regular Respiration Rate 18 /min Comments: Pattern: Unlabored O2 SAT 98 % Comments: Room air BP Systolic 120 mm[Hg] Comments: Patient Position: Sitting; Cuff Location: Left Arm; Cuff Size: Large BP Diastolic 82 mm[Hg] Comments: Patient Position: Sitting; Cuff Location: Left Arm; Cuff Size: Large Weight 174.5 lb Height 64 in Body Mass Index Calculated 29.95 kg/m2 Body Surface Area Calculated 1.85 m2 :15 Temperature 98.3 f Comments: Method: Oral Pulse 80 /min Comments: Pattern: Regular Respiration Rate 16 /min O2 SAT 96 % Comments: Room air BP Systolic 122 mm[Hg] Comments: Patient Position: Sitting; Cuff Location: Left Arm; Cuff Size: Standard BP Diastolic 80 mm[Hg] Comments: Patient Position: Sitting; Cuff Location: Left Arm; Cuff Size: Standard Weight 169 lb Height 64 in Body Mass Index Calculated 29.01 kg/m2 Body Surface Area Calculated 1.82 m2 :04 Temperature 98.7 f Comments: Method: Oral Pulse 75 /min Comments: Pattern: Regular Respiration Rate 20 /min Comments: Pattern: Unlabored O2 SAT 98 % Comments: Room air BP Systolic 118 mm[Hg] Comments: Patient Position: Sitting; Cuff Location: Left Arm; Cuff Size: Large BP Diastolic 82 mm[Hg] Comments: Patient Position: Sitting; Cuff Location: Left Arm; Cuff Size: Large Weight 170 lb Height 64 in Body Mass Index Calculated 29.18 kg/m2 Body Surface Area Calculated 1.83 m2 :02 Temperature 98.3 f Comments: Method: Oral Pulse 76 /min Comments: Pattern: Regular Respiration Rate 20 /min Comments: Pattern: Unlabored O2 SAT 98 % Comments: Room air BP Systolic 120 mm[Hg] Comments: Patient Position: Sitting; Cuff Location: Left Arm; Cuff Size: Large BP Diastolic 78 mm[Hg] Comments: Patient Position: Sitting; Cuff Location: Left Arm; Cuff Size: Large Weight 168 lb Height 64 in Body Mass Index Calculated 28.84 kg/m2 Body Surface Area Calculated 1.82 m2 :19 Pulse 72 /min Comments: Pattern: Regular Respiration Rate 18 /min Comments: Pattern: Unlabored BP Systolic 128 mm[Hg] Comments: Patient Position: Sitting; Cuff Location: Left Arm; Cuff Size: Standard BP Diastolic 84 mm[Hg] Comments: Patient Position: Sitting; Cuff Location: Left Arm; Cuff Size: Standard Weight 168 lb Height 64 in Body Mass Index Calculated 28.84 kg/m2 Body Surface Area Calculated 1.82 m2 :54 Temperature 97.2 f Comments: Method: Oral Pulse 60 /min Comments: Pattern: Regular Respiration Rate 18 /min Comments: Pattern: Unlabored BP Systolic 124 mm[Hg] Comments: Patient Position: Sitting; Cuff Location: Left Arm; Cuff Size: Large BP Diastolic 78 mm[Hg] Comments: Patient Position: Sitting; Cuff Location: Left Arm; Cuff Size: Large Weight 168 lb Height 64 in Body Mass Index Calculated 28.84 kg/m2 Body Surface Area Calculated 1.82 m2 :55 Temperature 97.6 f Comments: Method: Oral Pulse 64 /min Comments: Pattern: Regular Respiration Rate 18 /min Comments: Pattern: Unlabored BP Systolic 100 mm[Hg] Comments: Patient Position: Sitting; Cuff Location: Left Arm; Cuff Size: Standard BP Diastolic 70 mm[Hg] Comments: Patient Position: Sitting; Cuff Location: Left Arm; Cuff Size: Standard Weight 158 lb Height 64 in Body Mass Index Calculated 27.12 kg/m2 Body Surface Area Calculated 1.77 m2 :37 Temperature 97 f Comments: Method: Oral Pulse 60 /min Comments: Pattern: Regular Respiration Rate 16 /min Comments: Pattern: Unlabored BP Systolic 102 mm[Hg] Comments: Patient Position: Sitting; Cuff Location: Left Arm; Cuff Size: Standard BP Diastolic 62 mm[Hg] Comments: Patient Position: Sitting; Cuff Location: Left Arm; Cuff Size: Standard Weight 159.3125 lb Height 64 in Body Mass Index Calculated 27.35 kg/m2 Body Surface Area Calculated 1.78 m2 :37 Pulse 60 /min Comments: Pattern: Regular Respiration Rate 16 /min Comments: Pattern: Unlabored BP Systolic 108 mm[Hg] Comments: Patient Position: Sitting; Cuff Location: Left Arm; Cuff Size: Standard BP Diastolic 62 mm[Hg] Comments: Patient Position: Sitting; Cuff Location: Left Arm; Cuff Size: Standard Weight 154.3125 lb Height 64 in Body Mass Index Calculated 26.49 kg/m2 Body Surface Area Calculated 1.75 m2 :35 Temperature 98.5 f Comments: Method: Oral Pulse 60 /min Comments: Pattern: Regular Respiration Rate 16 /min Comments: Pattern: Unlabored BP Systolic 98 mm[Hg] Comments: Patient Position: Supine; Cuff Location: Left Arm; Cuff Size: Standard BP Diastolic 64 mm[Hg] Comments: Patient Position: Supine; Cuff Location: Left Arm; Cuff Size: Standard Weight 150.0625 lb Height 64 in Body Mass Index Calculated 25.76 kg/m2 Body Surface Area Calculated 1.73 m2 :50 Temperature 98.1 f Comments: Method: Oral Pulse 68 /min Comments: Pattern: Regular Respiration Rate 18 /min Comments: Pattern: Unlabored BP Systolic 104 mm[Hg] Comments: Patient Position: Sitting; Cuff Location: Left Arm; Cuff Size: Standard BP Diastolic 72 mm[Hg] Comments: Patient Position: Sitting; Cuff Location: Left Arm; Cuff Size: Standard Weight 155 lb Height 64 in Body Mass Index Calculated 26.61 kg/m2 Body Surface Area Calculated 1.76 m2 :35 Temperature 98.1 f Pulse 72 /min Comments: Pattern: Regular Respiration Rate 18 /min Comments: Pattern: Unlabored BP Systolic 96 mm[Hg] Comments: Patient Position: Sitting; Cuff Location: Left Arm; Cuff Size: Standard BP Diastolic 76 mm[Hg] Comments: Patient Position: Sitting; Cuff Location: Left Arm; Cuff Size: Standard :01 Temperature 98.2 f Comments: Method: Oral Pulse 72 /min Comments: Pattern: Regular Respiration Rate 16 /min Comments: Pattern: Unlabored BP Systolic 122 mm[Hg] Comments: Patient Position: Sitting; Cuff Location: Left Arm; Cuff Size: Standard BP Diastolic 74 mm[Hg] Comments: Patient Position: Sitting; Cuff Location: Left Arm; Cuff Size: Standard Weight 0 lb Height 0 in Head Circumference 0.00 cm :00 Temperature 98 f Comments: Method: Oral Pulse 88 /min Comments: Pattern: Regular Respiration Rate 18 /min Comments: Pattern: Unlabored BP Systolic 118 mm[Hg] Comments: Patient Position: Sitting; Cuff Location: Left Arm; Cuff Size: Large BP Diastolic 70 mm[Hg] Comments: Patient Position: Sitting; Cuff Location: Left Arm; Cuff Size: Large Weight 149 lb Height 0 in Head Circumference 0.00 cm :46 Pulse 60 /min Comments: Pattern: Regular Respiration Rate 18 /min Comments: Pattern: Unlabored BP Systolic 120 mm[Hg] Comments: Patient Position: Sitting; Cuff Location: Left Arm; Cuff Size: Standard BP Diastolic 82 mm[Hg] Comments: Patient Position: Sitting; Cuff Location: Left Arm; Cuff Size: Standard Weight 149 lb Height 0 in Head Circumference 0.00 cm :45 Temperature 98.2 f Comments: Method: Oral Pulse 70 /min Comments: Pattern: Regular Respiration Rate 18 /min Comments: Pattern: Unlabored BP Systolic 120 mm[Hg] Comments: Patient Position: Sitting; Cuff Location: Left Arm; Cuff Size: Standard BP Diastolic 80 mm[Hg] Comments: Patient Position: Sitting; Cuff Location: Left Arm; Cuff Size: Standard Weight 149 lb Height 0 in Head Circumference 0.00 cm Results Date Description Value Details [id number] URINE MITUL CULTURE-IDENTIFICATN Comments: PATIENT NOT FASTINGPERFORMED BY: [facility] [id number] [facility] [id number] Information: SRC:UC ([id number]) Result 1 MUG (Normal) Comments: Mixed urogenital flora1,000 Colonies/mL Urine Culture,Comprehensive Final report (Normal) 30-Mar-2018 Urinalysis, Office ([id number]) UA - LEUKOCYTE ESTERASE Negative (Normal) UA - NITRITE Negative (Normal) URINE UROBILINGN FINESSE TIMED Normal mg/dL (Normal) UA - PROTEIN Negative mg/dL (Normal) UA - PH 5.0 (Normal) UA - BLOOD Negative (Normal) UA - SPECIFIC GRAVITY 1.005 (Normal) UA - KETONES Negative mg/dL (Normal) UA - BILIRUBIN Negative (Normal) UA - GLUCOSE Negative (Normal) [id number] Upper Respiratory Culture Comments: PERFORMED BY: [address] [id number] Information: SRC:TH Result 1 RRF (Normal) Comments: Routine respiratory jeanna Upper Respiratory Culture Final report (Normal) [id number] Throat Culture ([id number]) Comments: PATIENT NOT FASTINGPERFORMED BY: [facility] [id number] Information: [id number] SRC: Result 1 RRF (Normal) Comments: Routine respiratory jeanna Upper Respiratory Culture Final report (Normal) [id number] Urinalysis, Office ([id number]) UA - LEUKOCYTE ESTERASE Negative (Normal) UA - NITRITE Negative (Normal) URINE UROBILINGN IFNESSE TIMED Normal mg/dL (Normal) UA - PROTEIN Negative mg/dL (Normal) UA - PH 6 (Abnormal) UA - BLOOD Negative (Normal) UA - SPECIFIC GRAVITY 1.030 (Abnormal) UA - KETONES Negative mg/dL (Normal) UA - BILIRUBIN Negative (Normal) UA - GLUCOSE Negative (Normal) [id number]:00 Basic Metabolic Profile (BMP) Comments: [facility] [id number] [place], [address] GAP 7 (Normal) Range: 5-15 CO2 24.0 mmol/L (Normal) Range: 21.0-32.0 CL 110 mmol/L (Abnormal) Range: 98-107 K 3.8 mmol/L (Normal) Range: 3.5-5.1 NA 141 mmol/L (Normal) Range: 136-145 CA 9.0 mg/dL (Normal) Range: 8.5-10.1 BUN/CRE 18.5 {RATIO} (Normal) Range: 10-20 Estimated CRCL 57.92 ml/min (Normal) EST GFR - AA 77 mL/min (Normal) Comments: GFR Calc EST GFR 64 mL/min (Normal) Comments: Non- GFR Calc CREAT,SERUM 0.97 mg/dL (Normal) Range: 0.55-1.20 Comments: The validity of the calculated GFR AND GFRAA in patients over70 years has not been determined. Clinical correlation isessential. BUN 18 mg/dL (Normal) Range: 7-18 GLU 101 mg/dL (Normal) Range: 70-110 [id number]-[id number]:00 CBC W/Diff, Automated Comments: [facility] [id number] [place], [place], [id number] Absolute Lymph 2.73 {X10_3/ul} (Normal) Range: 0.83-4.51 Absolute Neut 5.1 {X10_3/uL} (Normal) Range: 2.0-7.7 IM GRAN % 0.200 % (Normal) Range: 0.0-0.9 Comments: IG% - Immature Granulocytes (promyelocytes, myelocytes andmetamyelocytes) > 1% indicates that a LEFT SHIFT is Present. BASO% 0.3 % (Normal) Range: 0-1 EO% 1.0 % (Normal) Range: 0-5 MONO% 10.2 % (Abnormal) Range: 0-10 LY% 30.7 % (Normal) Range: 19-41 NEUT% 57.6 % (Normal) Range: 47-70 MPV 10.0 fL (Normal) Range: 6.2-12.0 PLT 259 K/mm3 (Normal) Range: 150-450 RDW SD 44.0 fL (Abnormal) Range: 35.1-43.9 RDW CV 13.5 % (Normal) Range: 11.6-14.6 MCHC 33.4 {g/gl} (Normal) Range: 32-36 MCH 29.8 pg (Normal) Range: 27.0-32.0 MCV 89.3 fL (Normal) Range: 81-99 HCT 40.7 % (Normal) Range: 37-47 HGB 13.6 g/dL (Normal) Range: 12.0-15.0 RBC 4.56 {M/mm3} (Normal) Range: 4.2-5.4 WBC 8.9 K/mm3 (Normal) Range: 4.4-11.0 [id number]:50 Urinalysis, Complete Comments: Order Date: 12/05/15How was Urine Obtained? [facility] [address] [place] [address], [address] MUCUS, URINE 0 SEEN {/hpf} (Normal) BACTERIA 0 SEEN {/hpf} (Normal) SQUAM EPI 0-5 SEEN {/hpf} (Normal) Range: 5-10 RBC-UA 0 SEEN {/hpf} (Normal) Range: 0-5 WBC 0 SEEN {/hpf} (Normal) Range: 0-5 LEUK ESTERASE Negative /ul (Normal) OCCULT BLOOD-UR Negative /ul (Normal) NITRITE UR Negative (Normal) UROBILI Normal mg/dL (Normal) PROT DIPSTX Negative mg/dL (Normal) pH UR 6.5 (Normal) Range: 5.0 - 8.0 SP.GR. DIPSTX 1.010 (Normal) Range: 1.002-1.030 KETONE UR Negative mg/dL (Normal) BILIRUBIN URINE Negative mg/dL (Normal) GLUCOSE, UR Normal mg/dL (Normal) CLARITY Clear (Normal) COLOR Yellow (Normal) :07 ANTINUCLEAR ANTIBODIES DIRECT Comments: Test performed at:[facility] [address] [place] [address] CLEVE-DIRECT Negative (Normal) Comments: Performed at: - [facility] [id number] Director: Yomi Dorman PhD, Phone: [phone] [id number] CRP Comments: Test performed at:[facility] [address] [place] [address] C-REACTIVE PROT < 2.90 mg/L (Normal) Range: 0.0-3.0 Comments: C-Reactive Protein (CRP) provides useful information for thediagnosis, therapy and monitoring of inflammatory processesand associated diseases. For the evaluation of Relative Riskfor Cardiovascular Dise ase, a High Sensitivity CRP (HSCRP)should be ordered. : HLA B27 Negative (Normal) Comments: Test performed at:[facility] [address] [place] [id number] Comments: [facility] CLIA ID Number [id number] test was performed using PCR (Polymerase ChainReaction)/SSOP (Sequence Specific Oligonucleotide Probes)technique. SBT (Sequence Based Typing) and/ or SSP(Sequence Specific Primers) may be used as supplementalmethods when necessary. Please contact HLA CustomerService at if you have any questions. Director of HLA Laboratory Dr Carlos Obando, PhDPerformed at: [facility] [address] [place], [place] [id number] Director: Carlos Obando PhD, Phone: [phone] 01-Sli-014416:07 Rheumatoid Factor Comments: Test performed at:[facility] [address] [place] [place] [address] RHEUMATOID FAC < 10.0 {IU/mL} (Normal) 16-Vcp-080840:50 Basic Metabolic Profile (BMP) Comments: Test performed at:[facility] [address] [facility]. [place], [place] [id number] GAP 7 (Normal) Range: 5-15 CO2 25.0 mmol/L (Normal) Range: 21.0-32.0 CL 104 mmol/L (Normal) Range: 98-107 K 3.5 mmol/L (Normal) Range: 3.5-5.1 NA 136 mmol/L (Normal) Range: 136-145 CA 8.9 mg/dL (Normal) Range: 8.5-10.1 BUN/CRE 15.6 {RATIO} (Normal) Range: 10-20 Estimated CRCL 63.14 ml/min (Normal) EST GFR - AA 85 mL/min (Normal) EST GFR 70 mL/min (Normal) CREAT,SERUM 0.9 mg/dL (Normal) Range: 0.6-1.0 BUN 14 mg/dL (Normal) Range: 7-18 GLU 115 mg/dL (Abnormal) Range: 70-110 Comments: Fasting Glucose result from 110 to <126 mg/dLsuggests IMPAIRED HOMEOSTASIS per A.D.A. criteria. :50 CBC W/Diff, Automated Comments: Test performed at:[facility] [address] [facility] [place] [address] Absolute Lymph 1.18 {X10_3/ul} (Normal) Range: 0.83-4.51 Absolute Neut 11.4 {X10_3/uL} (Abnormal) Range: 2.0-7.7 IM GRAN % 0.200 % (Normal) Range: 0.0-0.9 Comments: IG% - Immature Granulocytes (promyelocytes, myelocytes andmetamyelocytes) > 1% indicates that a LEFT SHIFT is Present. BASO% 0.1 % (Normal) Range: 0-1 EO% 0.1 % (Normal) Range: 0-5 MONO% 9.7 % (Normal) Range: 0-10 LY% 8.4 % (Abnormal) Range: 19-41 NEUT% 81.5 % (Abnormal) Range: 47-70 MPV 10.7 fL (Normal) Range: 6.2-12.0 PLT 232 K/mm3 (Normal) Range: 150-450 RDW SD 42.2 fL (Normal) Range: 35.1-43.9 RDW CV 13.0 % (Normal) Range: 11.6-14.6 MCHC 34.0 {g/gl} (Normal) Range: 32-36 MCH 30.5 pg (Normal) Range: 27.0-32.0 MCV 89.7 fL (Normal) Range: 81-99 HCT 41.8 % (Normal) Range: 37-47 HGB 14.2 g/dL (Normal) Range: 12.0-15.0 RBC 4.66 {M/mm3} (Normal) Range: 4.2-5.4 WBC 14.0 K/mm3 (Abnormal) Range: 4.4-11.0 34-Bpe-501027:50 Urinalysis, Complete Comments: Order Date: 10/26/14How was Urine Obtained? CLEAN CATCHTest performed at:[facility] [address] [place], [place] [id number] MUCUS, URINE 0 SEEN {/hpf} (Normal) BACTERIA 0 SEEN {/hpf} (Normal) SQUAM EPI 0 SEEN {/hpf} (Normal) Range: 5-10 RBC-UA 0-5 SEEN {/hpf} (Normal) Range: 0-5 WBC 0 SEEN {/hpf} (Normal) Range: 0-5 LEUK ESTERASE Negative /ul (Normal) OCCULT BLOOD-UR 10 /ul (Abnormal) NITRITE UR Negative (Normal) UROBILI Normal mg/dL (Normal) PROT DIPSTX Negative mg/dL (Normal) pH UR 7.0 (Normal) Range: 5.0 - 8.0 SP.GR. DIPSTX 1.010 (Normal) Range: 1.002-1.030 KETONE UR 5 mg/dL (Abnormal) BILIRUBIN URINE Negative mg/dL (Normal) GLUCOSE, UR Normal mg/dL (Normal) CLARITY Clear (Normal) COLOR Yellow (Normal) 58-Xdy-551491:59 MITUL CULTURE-OTHER (81349) Comments: PATIENT NOT FASTINGPERFORMED BY: [facility] [facility] [id number] Information: SRC:THRT [id number] Result 1 RRF (Normal) Comments: Routine respiratory jeanna Upper Respiratory Culture Final report (Normal) 50-Yff-191198:24 Rapid Strep Test, Office (46374) Rapid Strep Test, Office Negative (Normal) 77-Esa-469922:55 TSH (17790) Comments: PATIENT NOT FASTINGPERFORMED BY: [facility] [facility] [id number] Information: [id number] TSH 1.560 {uIU/mL} (Normal) Range: 0.450-4.500 35-Cuy-537775:07 TOE(S) MIN 2 VIEWS Radiology Report See Note (Normal) Comments: PROCEDURE: X-RAY LEFT FOOT, FIFTH TOE REASON FOR EXAM: Female, 52 years old. Pain and bruising followinginjury. TECHNIQUE: Three view(s) of the toe was obtained. COMPARISON: None. FINDINGS:Norm al visualized metatarsus. There is a nondisplaced oblique fractureofthe proximal phalanx of the fifth toe. Soft tissue swelling. Normal visualized metatarsophalangeal (M.T.P) joint. Normal visualized interphalangeal joints. IMPRESSION:Nondisplaced oblique fracture along the proximal phalanx of the fifth toewith overlying soft tissue swelling. Signed:Mannie Dial M.D.December 26, 2012 at 3:28:33 PM [id number] Signed GP/GP If you are the referring physician and would like to consult with theradiologist who provided this interpretation, please contact Cristian Marti at [phone]. If this radiologist is unavailable, youwill be directed to another radiologist to assist. If you are a patient with a question regarding this report, pleasecontactyour referring physician mike gibbs. Professional Interpretation Provided By: [employer], Phone , These documents contain legally protected and confidential healthinformation intended only for the us e of the individual or entity namedabove. If you are not the intended recipient, you are hereby notifiedthatany disclosure, copying, distribution, or other use of these documents isstrictly prohibited. If you have received this information in error,pleasenotify the sender immediately and arrange for the return or destructionofthese documents. Dictated on 12/26/12 1431 by Abelardo Dial MD ribed on 12/26/12 1532 by ITS IMPORTSign by Mannie Dial MD on 12/26/12 1533 Sign by: Mannie Dial MD 71-Naf-998789:23 HIP MIN 2 VIEWS Radiology Report See Note (Normal) Comments: PROCEDURE: X-RAY - RIGHT HIP REASON FOR EXAM: Female, 52 years old. Acute hip pain. TECHNIQUE: Two views of the hip. COMPARISON: None. FINDINGS: Normal femoral head, neck, intertrochanteric reg ion and visualizedproximalfemur. Normal acetabulum. Normal hip joint. Normal visualized superior and inferior pubic rami and ischialtuberosities. IMPRESSION:Normal x-ray examination of the hip. Signed :Thierry Barrios M.D.November 24, 2012 at 11:11:15 PM [id number] Signed [place] If you are the referring physician and would like to consult with theradiologist who provided this inte rpretation, please contact Thierry Otero M.D. at [phone]. If this radiologist is unavailable, youwillbe directed to another radiologist to assist. If you are a patient with a question regardi ng this report, pleasecontactyour referring physician directly. Professional Interpretation Provided By: [employer], Phone , These documents contain legally protected and confidential healthinformation intended only for the use of the individual or entity namedabove. If you are not the intended recipient, you are hereby notifiedthatany disclosure, copying, distribution, or other use of these documents isstrictly prohibited. If you have received this information in error,pleasenotify the sender immediately and arrange for the return or destructionofthese documents. D ictated on 11/24/12 1523 by Thierry Barrios MDTranscribed on 11/24/122312 by ITS IMPORTSign by Thierry Barrios MD on 11/24/122313 Sign by: Thierry Barrios MD 57-Rkq-016589:23 KNEE 4 OR MORE VIEWS Radiology Report See Note (Normal) Comments: PROCEDURES: X-RAY - LEFT KNEE REASON FOR EXAM: Female, 52 years old. Acute pain. TECHNIQUE: Four views of the knee. COMPARISON: None. FINDINGS:Normal medial femorotibial compartment . Normal la teral femorotibialcompartment. Normal patellofemoral articulation. Normal visualized distal femur. Normal visualized proximal tibia andfibula. Normal proximal tibiofibular articulation. IMPRESSION:No rmal x-ray examination of the knee. Signed:Thierry Barrios M.D.November 24, 2012 at 11:13:45 PM [id number] Signed [place] If you are the referring physician and would like to consult with theradiologist who provided this interpretation, please contact Thierry Otero M.D. at [phone]. If this radiologist is unavailable, youwillbe directed to another radiologist to assist. If you are a patient with a question regarding this report, pleasecontactyour referring physician directly. Professional Interpretation Provided By: [employer], Phone , Thes e documents contain legally protected and confidential healthinformation intended only for the use of the individual or entity namedabove. If you are not the intended recipient, you are hereby notifiedt hatany disclosure, copying, distribution, or other use of these documents isstrictly prohibited. If you have received this information in error,pleasenotify the sender immediately and arrange for the re turn or destructionofthese documents. Dictated on 11/24/12 1542 by Thierry Barrios MDTranscribed on 11/24/12 2315 by ITS IMPORTSign by Thierry Barrios MD on 11/24/12 2316 Sign by: Thierry Barrios MD 04-Noe-383627:23 KNEE 4 OR MORE VIEWS Radiology Report See Note (Normal) Comments: PROCEDURES: X-RAY - RIGHT KNEE REASON FOR EXAM: Female, 52 years old. Acute knee pain. TECHNIQUE: Four views of the knee. COMPARISON: None. FINDINGS:Normal medial femorotibial rika rtment. Nor mal lateral femorotibialcompartment. Normal patellofemoral articulation. Normal visualized distal femur. Normal visualized proximal tibia andfibula. Normal proximal tibiofibular articulation. IMPRESS ION:Normal x-ray examination of the knee. Signed:Thierry Barrios M.D.November 24, 2012 at 11:14:45 PM [id number] Signed [place] If you are the referring physician and would like to co nsult with theradiologist who provided this interpretation, please contact Thierry Otero M.D. at [phone]. If this radiologist is unavailable, youwillbe directed to another radiologist to beth greenfield. If you are a patient with a question regarding this report, pleasecontactyour referring physician directly. Professional Interpretation Provided By: [employer], Phone ,Fax These documents contain legally protected and confidential healthinformation intended only for the use of the individual or entity namedabove. If you are not the intended recipient, you are hereby not ifiedthatany disclosure, copying, distribution, or other use of these documents isstrictly prohibited. If you have received this information in error,pleasenotify the sender immediately and arrange for the return or destructionofthese documents. Dictated on 11/24/12 1542 by Sophie SHAFER,ThierryTranscribed on 11/24/12 2316 by ITS IMPORTSign by Sophie SHAFER,Thierry on 11/24/12 2317 Sign by: Thierry Barrios MD 23-Gzw-672980:49 TSH ([id number]) Comments: PATIENT NOT FASTINGPERFORMED BY: [facility] [facility] [id number] TSH 3.400 {uIU/mL} (Normal) Range: 0.450-4.500 62-Syv-014455:49 CBC (Auto) (04823) Comments: PATIENT NOT FASTINGPERFORMED BY: [facility] [facility] [id number] Information: [id number] Platelets 226 {x10E3/uL} (Normal) Range: 140-415 RDW 13.0 % (Normal) Range: 11.7-15.0 MCHC 33.2 g/dL (Normal) Range: 32.0-36.0 MCH 29.9 pg (Normal) Range: 27.0-34.0 MCV 90 fL (Normal) Range: 80-98 Hematocrit 42.5 % (Normal) Range: 34.0-44.0 Hemoglobin 14.1 g/dL (Normal) Range: 11.5-15.0 RBC 4.72 {x10E6/uL} (Normal) Range: 3.80-5.10 WBC 4.5 {x10E3/uL} (Normal) Range: 4.0-10.5 91-Xeo-110628:49 Metabolic Panel, Basic Comments: PATIENT NOT FASTINGPERFORMED BY: [facility] [facility] [id number] ([id number]) Calcium, Serum 9.2 mg/dL (Normal) Range: 8.7-10.2 Carbon Dioxide, Total 24 mmol/L (Normal) Range: 20-32 Chloride, Serum 104 mmol/L (Normal) Range: 97-108 Potassium, Serum 4.1 mmol/L (Normal) Range: 3.5-5.2 Sodium, Serum 140 mmol/L (Normal) Range: 134-144 BUN/Creatinine Ratio 22 (Normal) Range: 9-23 eGFR If Africn Am 99 mL/min/1.73 (Normal) eGFR If NonAfricn Am 86 mL/min/1.73 (Normal) Creatinine, Serum 0.81 mg/dL (Normal) Range: 0.57-1.00 BUN 18 mg/dL (Normal) Range: 6-24 Glucose, Serum 79 mg/dL (Normal) Range: 65-99 19-Aug-20109:43 KIDNEY Radiology Report See Note (Normal) Comments: CLINICAL:This is a 50-year-old female patient with history of low back pain. RENAL ULTRASOUND TECHNIQUE:The kidneys and bladder were evaluated at real-time sonographically withstatic persaud scale images o btained for image documentation. COMPARISON:None. FINDINGS:Normal location of the right kidney. Normal length of the right kidney.The right kidney measures 11.1 cm. There is no focal parenchymalthinn ingof the right kidney. There is no right renal mass or cyst. There arenoright renal calculi. There is no right hydronephrosis. There is no dilatation of the visualized distal right ureter. There i snodemonstrated right ureteral calculus. Normal location of the left kidney. Normal length of the left kidney.Theleft kidney measures 11.1 cm. There is no focal parenchymal thinningofthe left kidney . There is no left renal mass or cyst. There are noleftrenal calculi. There is no left hydronephrosis. There is no dilatation of the visualized distal left ureter. There is nodemonstrated left uret eral calculus. There is a minimally distended urinary bladder. The visualized aorta and IVC are unremarkable. IMPRESSION:Normal ultrasound examination of the bilateral kidneys. Dictated on 08/19/10 0 940 by Elizabeth Dialranscribed on 08/19/10 1116 by ITS IMPORTSign by Mannie Dial on 08/19/10 1117 Sign by: Mannie Dial 10-Aug-2010 FREE T3 2.6 pg/mL Range: 2.18-3.98 14:23 (Normal) 10-Aug-2010 T4 FREE DIRECT 0.85 ng/dL Range: 0.76-1.46 14:23 (Normal) 10-Aug-2010 TSH 4.32 {uIU/mL} Range: 0.358-3.74 14:23 (Abnormal) 77-Lot-88950:56 Urinalysis, Office (80745) UA - BILIRUBIN Negative (Normal) UA - BLOOD Hemolyzed Trace (Normal) UA - GLUCOSE Negative (Normal) UA - KETONES Negative mg/dL (Normal) UA - LEUKOCYTE ESTERASE Negative (Normal) UA - NITRITE Negative (Normal) UA - PH 7.0 (Normal) UA - PROTEIN Negative mg/dL (Normal) UA - SPECIFIC GRAVITY 1.015 (Normal) URINE UROBILINGN FINESSE TIMED 2 mg/dL (Normal) 2-Kzy-425421:04 Urinalysis, Office (03808) UA - BILIRUBIN Negative (Normal) UA - BLOOD Negative (Normal) UA - GLUCOSE Negative (Normal) UA - KETONES Negative mg/dL (Normal) UA - LEUKOCYTE ESTERASE Trace (Normal) UA - NITRITE Negative (Normal) UA - PH 6.0 (Normal) UA - PROTEIN Negative mg/dL (Normal) UA - SPECIFIC GRAVITY 1.010 (Normal) URINE UROBILINGN FINESSE TIMED 2 mg/dL (Normal) 7-Nxe-267495:08 INFLUENZA IMMUNOASSY DIRECT OPTICAL OBSERV ([id number]) Comments: a and b INFLUENZA IMMUNOASSY DIRECT OPTICAL OBSERV neg (Normal) 0-Uzz-208236:59 HAND,MIN 3 VIEWS (MT) Radiology Report See Note (Normal) Comments: Exam Number: [id number] RIGHT HAND, 3 VIEWS INDICATIONPain. COMPARISONNone. FINDINGSBone mineralization is within normal limits. No acute fracture ordislocation. Joint spaces are unremarkable. No radi opaque foreignbody is seen. IMPRESSIONUnremarkable right hand. Reported By: CARMEN HUNT M.D. 62-Hao-325371:44 CBC HCT 37.7 % (Normal) Range: 37-47 HGB 12.9 g/dL (Normal) Range: 12.0-16.0 MCH 31.1 pg (Normal) Range: 27.0-32.0 MCHC 34.4 g/dL (Normal) Range: 32-36 MCV 90.3 fL (Normal) Range: 81-99 MPV 9.0 fL (Normal) Range: 6.5-12.0 PLT 221 K/mm3 (Normal) Range: 150-450 RBC 4.17 {M/mm3} (Abnormal) Range: 4.2-5.4 RDW 12.9 % (Normal) Range: 11.6-14.6 WBC 4.6 K/mm3 (Normal) Range: 4.4-11.0 :44 COMP METABOLIC A/G 1.1 {RATIO} (Normal) Range: 0.9-2.4 ALB 3.6 g/dL (Normal) Range: 3.4-5.0 ALK P 60 U/L (Normal) Range: 50-136 ALT 33 U/L (Normal) Range: 30-65 AST 20 U/L (Normal) Range: 15-37 BUN 15 mg/dL (Normal) Range: 7-18 BUN/CRE 16.7 {RATIO} (Normal) Range: 10-20 CA 8.7 mg/dL (Normal) Range: 8.5-10.1 CL 108 mmol/L (Abnormal) Range: 98-107 CO2 27.9 mmol/L (Normal) Range: 21.0-32.0 CREAT,SERUM 0.9 mg/dL (Normal) Range: 0.6-1.0 GAP 6 (Normal) Range: 5-15 GLOB 3.2 g/dL (Normal) Range: 2.7-4.2 GLU 85 mg/dL (Normal) Range: 70-110 K 3.9 mmol/L (Normal) Range: 3.5-5.1 NA 142 mmol/L (Normal) Range: 136-145 T BILI 0.72 mg/dL (Normal) Range: 0.00-1.00 T PROT 6.8 g/dL (Normal) Range: 6.4-8.2 :44 LIPID CHOL 186 mg/dL (Normal) Comments: <200 mg/dL Desirable 200-240 mg/dL Borderline >240 mg/dL High Risk HDL 72 mg/dL (Normal) Comments: Reference Range HDL <40 mg/dL Low HDL Cholesterol HDL >or= 60 mg/dL High HDL Cholesterol LDL 103 mg/dL (Normal) Range: 0-130 TRIG 53 mg/dL (Normal) Comments: Serum Triglycerides Reference Interval Normal <150 mg/dL Borderline high 150 - 199 mg/dL High 200 - 499 mg/dL Very High > or = 500 mg/dL VLDL 11 mg/dL (Normal) Range: 5-40 Plan of Care Name Dates Details Instructions Sinusitis, bacterial : *URI Symptoms Indication: Sinusitis, bacterial Sinusitis, bacterial : *Antibiotic Usage Education - Female Indication: Sinusitis, bacterial Vaginal yeast infection : Yeast Infection (Candidiasis) *: yeast infection Indication: Vaginal yeast infection Dysuria : Follow up if no improvement or if symptoms worsen Indication: Dysuria BMI 31.0-31.9,adult : Eprescribed prescriptions (G8553) Indication: BMI 31.0-31.9,adult Non-smoker : Eprescribed prescriptions (G8553) Indication: Non-smoker Bronchitis : Eprescribed prescriptions (G8553) Indication: Bronchitis Bronchitis : *Antibiotic Usage Education - Female Indication: Bronchitis Bronchitis : *URI Treatment Indication: Bronchitis Cough : *URI Treatment Indication: Cough Cough : *URI Symptoms Indication: Cough Cough : *Antibiotic Usage Education - Female Indication: Cough Cough : Eprescribed prescriptions (G8553) Indication: Cough Contact dermatitis, unspecified contact dermatitis type, unspecified trigger : Eprescribed prescriptions (G8553) Indication: Contact dermatitis, unspecified contact dermatitis type, unspecified trigger Arthralgia of right hip : Diet, Exercise, and Wt loss Indication: Arthralgia of right hip Arthralgia of right hip : Reviewed Diagnostic Tests Indication: Arthralgia of right hip Back pain, acute : Follow up - Make appt after diagnostic tests Indication: Back pain, acute Back pain, acute : Eprescribed prescriptions (G8553) Indication: Back pain, acute Back pain, acute : Reviewed Lab Indication: Back pain, acute Back pain, acute : Reviewed Diagnostic Tests Indication: Back pain, acute Back pain, acute : Reviewed Extraction Supervisor Letter Indication: Back pain, acute Back pain, acute : Eprescribed prescriptions (G8553) Indication: Back pain, acute Back pain, acute : Urinary Tract Infection in Women *: uti Indication: Back pain, acute Cough : Eprescribed prescriptions (G8553) Indication: Cough Cough : *URI Symptoms Indication: Cough Cough : *Antibiotic Usage Education - Female Indication: Cough Contact dermatitis due to poison hannah : Poison Hannah Education Indication: Contact dermatitis due to poison hannah Acute sinusitis, unspecified : *Antibiotic Usage Education - Female Indication: Acute sinusitis, unspecified Hip bursitis : Hip Bursa Indication: Hip bursitis Knee pain, left : Allergies: allergies Indication: Knee pain, left Dyshidrosis : Continue Current Prescription(s) Indication: Dyshidrosis Acute sinusitis, unspecified : *URI Treatment Indication: Acute sinusitis, unspecified Acute sinusitis, unspecified : Antibiotic Usage Education - Female Indication: Acute sinusitis, unspecified Acute sinusitis, unspecified : URI Symptoms Indication: Acute sinusitis, unspecified trigger thumb : Trigger Point Injections Indication: trigger thumb trigger thumb : *Trigger Point Injections Indication: trigger thumb Planned Observations Throat Culture (22143)Indication: Sore throat On: 8-Khw-198587:00 Request Rapid Strep Test, Office (95031)Indication: Sore throat On: 7-Tiv-596775:00 Request THROAT CULTURE (09462)Indication: Sore throat On: 57-Ooc-595414:40 Request Rapid Strep Test, Office (08050)Indication: Sore throat On: 46-Avp-722178:44 Request Renal function Panel (60297)Indication: Cramp in limb On: 79-Syb-354273:07 Request Creatine Kinase Total (28299)Indication: Cramp in limb On: 80-Kpv-235555:07 Request TSH (53838)Indication: Hot flashes On: 17-Yzt-724920:39 Request T4, FREE (THYROXINE) (46543)Indication: Hot flashes On: 25-Jbw-294975:39 Request T3, FREE (TRIDOTHYRONINE) (02877)Indication: Hot flashes On: 20-Cxw-252403:39 Request CBC (Auto) (68771)Indication: WWV On: 10-Wnq-955218:12 Request Metabolic Panel, Comprehensive (10123)Indication: WWV On: 13-Fpx-375678:12 Request Lipid Panel (74935)Indication: WWV On: 45-Izi-999001:12 Request Planned Procedures DEXA SCAN AXIAL SKELETON (28161)By: On: 09-Jun-2018 Intent Yoanna Chow DO, DO, Kathleen MAMMOGRAM, SCREENING, BOTH BREAST On: 17-Dec-2015 Intent (74158)By: Yoanna Chow DO, DO, Kathleen MRI LUMBAR AND SACRAL SPINE W On: 08-Dec-2015 Intent CONTRAST (98686)By: Yoanna Chow DO, DO, Kathleen X-RAY OF HIP, AP VIEW (21885)By: On: 08-Dec-2015 Intent Claudine DOYoanna Claudine DOYoanna MRI OF ABDOMEN (WITH CONTRAST) On: 08-Dec-2015 Intent (30930)By: Yoanna Chow DO Comments: extending into muscles laterally from RLQ/Pelvic area Yoanna Chow DO Solu -Medrol Injection, 125 mg On: 21-Jan-2014 Intent (J2930)By: Charlene Burgess CNP Comments: Lot: [id number]: 06/2016Amt: 125mg/2mlRoute: IMSite: LUOQ Gluteal, pt tolerated without difficulty or c/o voiced.Given by: SCOTT Villarreal Eprescribed prescriptions (G8553)By: On: 31-Oct-2013 Intent Yoanna Chow DO, DO, Kathleen SPECIMEN HNDLNG/TRNSPRT, OFFC > LAB On: 31-Oct-2013 Intent (89861)By: Yoanna Chow DO Claudine DOYoanna Eprescribed prescriptions (G8553)By: On: 26-Sep-2013 Intent Claudine DOYoanna Claudine DOYoanna Radiology - Toe(s) - LeftBy: Claudine On: 26-Dec-2012 Intent Yoanna RAYMOND Claudine DOYoanna Comments: attention 5th (baby) toe Doppler Ultrasound b/lBy: Claudine DO, On: 24-Nov-2012 Intent Yoanna Chow DOYoanna Comments: attention posterior fossa Radiology - Hip - RightBy: Claudine On: 24-Nov-2012 Intent DOSolYoanna Claudine DO, Yoanna Radiology - Knee - RightBy: Claudine On: 24-Nov-2012 Intent DOSolYoanna Claudine DO, Yoanna Radiology - Knee - LeftBy: Claudine On: 24-Nov-2012 Intent DO, Yoanna Claudine DO, Yoanna Eprescribed prescriptions (G8553)By: On: 24-Nov-2012 Intent Bobbi Santoyo LPN EKG (49285)By: Bobbi Santoyo LPN On: 17-Dec-[address] - OtherBy: Roseline Barnett MD On: 11-Nov-2010 Intent Comments: left jaw with mass. Ultrasound - RenalBy: Anibal SHAFER, On: 10-Aug-2010 Intent Roseline Monsalve Radiology - Hand - RightBy: Claudine On: 23-Aug-2008 Intent Yoanna RAYMOND DO, Kathleen Planned Medications INJECTION, METHYLPREDNISOLONE SODIUM SUCCINATE, UP TO 125 MG Ordered: 21-Jan-2014 Pending Charlene Burgess CNP Instructions Name Dates Details BMI 31.0-31.9,adult : How to access health information online Indication: BMI 31.0-31.9,adult BMI 31.0-31.9,adult : How to access health information online - Detail Indication: BMI 31.0-31.9,adult Vaginal yeast infection : Patient Instructions Indication: Vaginal yeast infection Non-smoker : How to access health information online Indication: Non-smoker Non-smoker : How to access health information online - Detail Indication: Non-smoker Non-smoker : Patient Instructions Indication: Non-smoker Bronchitis : How to access health information online Indication: Bronchitis Bronchitis : How to access health information online - Detail Indication: Bronchitis Cough : How to access health information online Indication: Cough Cough : How to access health information online - Detail Indication: Cough Cough : Patient Instructions Indication: Cough Contact dermatitis, unspecified contact dermatitis type, unspecified trigger : How to access health information online Indication: Contact dermatitis, unspecified contact dermatitis type, unspecified trigger Contact dermatitis, unspecified contact dermatitis type, unspecified trigger : How to access health information online - Detail Indication: Contact dermatitis, unspecified contact dermatitis type, unspecified trigger Arthralgia of right hip : Patient Instructions Indication: Arthralgia of right hip Back pain, acute : How to access health information online Indication: Back pain, acute Back pain, acute : How to access health information online - Detail Indication: Back pain, acute Back pain, acute : Patient Instructions Indication: Back pain, acute Cough : How to access health information online Indication: Cough Cough : How to access health information online - Detail Indication: Cough Cough : Patient Instructions Indication: Cough Muscle strain : How to access health information online Indication: Muscle strain Muscle strain : How to access health information online - Detail Indication: Muscle strain Muscle strain : Patient Instructions Indication: Muscle strain Acute sinusitis, unspecified : Patient Instructions Indication: Acute sinusitis, unspecified Rash : Patient Instructions Indication: Rash Pain of toe, unspecified laterality : Patient Instructions Indication: Pain of toe, unspecified laterality Knee pain, left : Patient Instructions Indication: Knee pain, left Encounters Office Visit On: 09-Jun-2018 10:45 Encounter Reason: Sinusitis - No changes in management were made at the last visit. Symptoms include nasal congestion, cheek pressure, upper tooth pain, ear fullness, ear pain, ear pressure and headache. Onset was sudden End: 09-Jun-2018 11:50 2 day(s) ago. The symptoms occur constantly. The patient describes this as moderate in severity. Current treatment includes increased oral fluid intake and non- prescription analgesics.Encounter Diagnosis: Sinusitis, bacterial, BMI 31.0-31.9,adult, Non-smoker, Colon cancer screening (Renamed from Encounter for screening for malignant neoplasm of colon), Postmenopausal (Renamed from Postmenopausal status) [facility] Annotation/Addendum On: 06-Apr-2018 10:07 Encounter Diagnosis: Vaginal itching, Vaginal yeast infection End: 06-Apr-2018 10:08 [facility] Office Visit On: 30-Mar-2018 15:02 Encounter Reason: UTI - The urinary symptoms are described as burning. The symptoms have been occurring for 3 days. The patient has been using antibiotics (just finished atb). Note for Infection: Symptoms started 3 day End: 30-Mar-2018 15:24 s ago after finishing an antibiotic for ear. Symptoms include vaginal itching, burning and burning with urination. No vaginal discharge, fever, or chills, frequency or urgency, abd pain or back pain.Encounter Diagnosis: Non-smoker, BMI 31.0-31.9,adult, Vaginal yeast infection, Dysuria, Vaginal itching [facility] Office Visit On: 16-Mar-2018 11:55 Encounter Reason: Upper Respiratory Infection (URI) - No changes in management were made at the last visit. Symptoms include sneezing, nasal congestion, runny nose, sore throat, hoarseness, dry cough and general malaise, End: 16-Mar-2018 12:38 while symptoms do not include fever or chills. Onset was sudden 4 day(s) ago. The symptoms occur constantly.Encounter Diagnosis: BMI 31.0-31.9,adult, Non-smoker, Sore throat, URI, acute [facility] Office Visit On: 28-May-2016 8:32 Encounter Reason: Cold Symptoms - Onset was 1 week(s) ago.Encounter Diagnosis: Bronchitis, Cough End: 28-May-2016 9:09 [facility] Office Visit On: 05-May-2016 10:59 Encounter Reason: Cold Symptoms - Onset was 1 week(s) ago.Encounter Diagnosis: Cough, Sore throat, Bronchitis End: 05-May-2016 16:59 [facility] Office Visit On: 29-Dec-2015 10:22 Encounter Reason: Rash - No changes in management were made at the last visit. Symptoms include skin blistering, pain, pruritus and skin redness. The skin rash is located on the left leg and right leg. Onset was sudden. End: 29-Dec-2015 10:53 There is no known event that preceded symptom onset. The symptoms occur constantly. The patient describes this as moderate in severity and worsening. The patient is not currently being treated for this problem.Encounter Diagnosis: Rash, Contact dermatitis, unspecified contact dermatitis type, unspecified trigger [facility] Phone Encounter On: 17-Dec-2015 15:11 Encounter Diagnosis: Breast cancer screening End: 17-Dec-2015 15:16 [facility] Office Visit On: 15-Dec-2015 14:34 Encounter Diagnosis: Arthralgia of right hip, Pain of muscle of abdomen, Back pain, acute End: 15-Dec-2015 15:36 [facility] Office Visit On: 08-Dec-2015 10:39 Encounter Reason: UTI - The urinary symptoms are described as flank pain (front and back pain) and incontinence (usually only when she stands up because she is bent over). The symptoms have been occurring for 8 days and End: 08-Dec-2015 15:44 have been ??increasing (at times). The urine is described as yellow. The symptoms have been associated with abdominal pain and low back pain. The patient denies the use of antibiotics., [ADDITIONAL REASON] Follow up ER - Reason for hospitalization abdominal pain. Hospitalization details include: chest pain Patient has been compliant with instructions. Current medication use: experien cing side effects (tightness in my chest). The patient does not feel well, has decreased energy level (has no energy and unexplained weight gain) and is sleeping poorly. Patient sleeps 7 hours per night . Nutrition: inappropriate diet and supplemental vitamins. Encounter Diagnosis: Back pain, acute, BMI 33.0-33.9,adult, Pain of muscle of abdomen, Arthralgia of right hip, Chest pain at rest, Adverse reaction to drug, initial encounter [facility] Office Visit On: 10-Nov-2015 11:54 Encounter Reason: Upper Respiratory Infection (URI) - No changes in management were made at the last visit. Symptoms include nasal congestion, runny nose, hoarseness, productive cough and wheezing. Onset was sudden 5 day End: 10-Nov-2015 12:48 (s) ago. The symptoms occur constantly. The patient describes this as moderate in severity and worsening. Current treatment includes non-prescription cold medication.Encounter Diagnosis: Upper respiratory disease, Cough [facility] Office Visit On: 15-Jan-2015 15:41 Encounter Reason: Rib PainEncounter Diagnosis: Rib pain on left side, Muscle strain End: 15-Jan-2015 16:39 [facility] Office Visit On: 21-Jan-2014 13:09 Encounter Reason: Skin Problems - The onset of the skin problems has been sudden and they have been occurring in a persistent pattern for 3 days. The course has been increasing. The problem is characterized as a rash and End: 21-Jan-2014 13:34 itching. Lesions are described as red and raised above the skin. The spots were first seen on the neck. It spread to the lower extremity. There has been associated itching.Encounter Diagnosis: CONTACT DERMATITIS D/T POISON HANNAH, (692.6), Itching [facility] Office Visit On: 31-Oct-2013 14:03 Encounter Reason: Upper Respiratory Infection (URI) - The last clinic visit was 1 week(s) ago. No changes in management were made at the last visit. Symptoms include nasal congestion, runny nose, sore throat and dry coug End: 31-Oct-2013 15:21 h, while symptoms do not include fever or chills. Onset was sudden. The symptoms occur constantly. The patient describes this as moderate in severity and improving. Associated symptoms include headache, while associated symptoms do not include ear pain or ear plugging.Encounter Diagnosis: Sore throat, Upper respiratory disease, Acute sinusitis, unspecified (461.9) [facility] Office Visit On: 26-Sep-2013 10:00 Encounter Reason: Rash - The last clinic visit was month(s) ago. No changes in management were made at the last visit. Symptoms include pain, pruritus and skin redness. The skin rash is located on the right leg. There is End: 26-Sep-2013 15:46 no known event that preceded symptom onset., [ADDITIONAL REASON] Follow up for chronic medical issues - The patient feels well with minor complaints. Nutrition: balanced diet. Encounter Diagnosis: Rash (782.1), Hypothyroidism(244.9), Bloating, Colon polyp (211.3) [facility] Office Visit On: 26-Dec-2012 14:16 Encounter Reason: Foot Problem - This condition occurred following a specific injury. The injury involved the left foot. This occurred hour(s) ago at home. Symptoms include foot pain and foot swelling. Symptoms are locat End: 26-Dec-2012 14:55 ed in the left foot. Onset was sudden. The symptoms occur constantly. The patient describes symptoms as moderate in severity and unchanged. Current treatment includes ice. Note for Foot problem: toe g ot bent underneath and she manually put it back in place bc it was flpping around- l;ots of pain nad swelling Encounter Diagnosis: TOE PAIN (729.5) [facility] Office Visit On: 24-Nov-2012 10:44 Encounter Reason: Leg pain - The leg pain began gradually over time and has been occurring for years. The symptoms have been occurring in an increasing pattern. The symptoms are described as a cramping, discomfort, dull End: 24-Nov-2012 11:44 ache, ache and pain and are ??severe. The symptoms occur at rest and on exertion. There is involvement of the lower extremities (both). There are no precipitating factors. Aggravating factors include exertion. There are no relieving factors. Encounter Diagnosis: Knee pain, left (719.46), Hip bursitis (726.5), Hip pain, acute (719.45) [facility] Office Visit On: 10-Mar-2012 11:54 Encounter Diagnosis: Swelling of limb (729.81), Cramp in limb (729.82) End: 10-Mar-2012 12:10 [facility] Office Visit On: 17-Dec-2011 11:37 Encounter Reason: Pre-Op Visit - The procedure scheduled is a Tummy tuck on 5/17/12. The surgeon for the procedure will be DR. Briceño.Encounter Diagnosis: Pre- operative examination, unspecified (V72.84), Hypothyroidism(244.9) End: 17-Dec-2011 12:29 [facility] Office Visit On: 20-Jan-2011 9:31 Encounter Reason: Rash - The onset of the rash has been gradual and has been occurring in a persistent pattern for 6 months. The course has been recurrent (THE CREAMS WILL HELP BUT IT JUST COMES BACK). The rash is charac End: 20-Jan-2011 10:22 terized as red and raised above the skin. The rash was first seen on the upper extremity (RT HAND). There has been no progression. There has been associated itching. Note for Rash: DID SEE DR CAMILO Cochran SHE GAVE HER A CREAM (ULTRAVATE) AND NO HELP WITH IT. GETTING IT WET MAKES IT WORSEEncounter Diagnosis: Dyshidrosis (705.81) [facility] Office Visit On: 11-Nov-2010 11:34 Encounter Reason: Lumps - The onset of the lumps has been sudden and has been occurring in a persistent pattern for 3 weeks. The course has been increasing. The lumps are described as moderate.Encounter Diagnosis: lymphadenopathy (785.6) End: 11-Nov-2010 11:55 [facility] Office Visit On: 10-Aug-2010 9:50 Encounter Reason: Follow up for chronic medical issues - The patient feels well with minor complaints and has decreased energy level. Patient has been compliant with instructions. Current medication use: no side effects End: 10-Aug-2010 10:45 and compliant with dosing regimen. Patient sleeps 7 hours per night. Impact of disease: emotional impact-mild. Nutrition: balanced diet and supplemental vitamins. The medical issues the patient is following up for include other (obesity ). Encounter Diagnosis: Lumbago (724.2), Obesity (278.00), Colon polyp (211.3), Hot Flashes (782.62), Stress Reaction (308.4) [facility] Office Visit On: 21-Jul-2010 14:29 Encounter Reason: Rash - The onset of the rash has been sudden and has been occurring in a persistent pattern for 2 weeks. The course has been increasing. The rash is characterized as red and raised above the skin. The r End: 21-Jul-2010 22:51 tim was first seen on the upper extremity (right hand and fingers). There has been no progression. There has been associated itching, while there has been no chills, fever, loss of sensation or pain. Note for Rash: has contact dermatitis- Encounter Diagnosis: Eczema (692.9) [facility] Office Visit On: 22-Apr-2009 16:01 Encounter Reason: UTI - The urinary symptoms are described as painful urination and frequency. Encounter Diagnosis: SYMPTOMS INVOLVING URINARY SYSTEM; DYSURIA (788.1), Rash (782.1) End: 22-Apr-2009 16:22 [facility] Office Visit On: 14-Oct-2008 12:00 Encounter Reason: Sinus pain - The onset of the pain has been sudden and has been occurring in a persistent pattern for 2 days. The course has been recurrent. The pain is characterized as moderate and tightness. The pain End: 14-Oct-2008 12:35 is experienced upon awakening. The pain is described as being located in the entire head. The symptoms are not aggravated by noise or bright light. The symptoms have been associated with ear pain ,eye pain and fever. Encounter Diagnosis: FEVER (780.6), Acute sinusitis, unspecified (461.9) [facility] Office Visit On: 23-Aug-2008 10:46 Encounter Reason: Hand Pain - The onset of the hand pain has been sudden and has been occurring in a persistent pattern for 3 months. The course has been gradually worsening. The hand pain is severe. The hand pain is chirag End: 23-Aug-2008 11:02 racterized as a sharp stabbing. The hand pain is described as being located in the palmar hand (right hand by thumb. Last time she got a shot and it went away. But it started back up again in Nov not barrientos re if it is related to cold weather.). The hand pain is aggravated by physical activity. There have been no relieving factors. The symptoms have been associated with painful ROM and decreased ROM. Encounter Diagnosis: Hand Pain (719.44) [facility] Office Visit On: 04-Jan-2008 12:45 Encounter Reason: Physical female exam - Last seen more than 1 year ago. General health: feels well with minor complaints ,has decreased energy level and is sleeping poorly. The patient's appetite is normal. Nutrition: n End: 04-Jan-2008 13:19 ormal/adequate. Exercises 5 days per week. Sleeps on average 6 hours per night. Normal bowel and bladder habits. Safety measures include appropriate use of safety belts and home smoke detectors. Current emotional problems include depression. screening, colonoscopy (2002 ) ,screening, mammography (2006 ) ,screening, Pap smear (2005 Dr. Granda ) and screening, visual acuity (2006 ). Encounter Diagnosis: Swelling of limb (729.81), Obesity (278.00), Colon polyp (211.3), WWV, trigger thumb [facility] Office Visit On: 21-Jun-2006 9:52 Encounter Diagnosis: Unspecified Diagnosis End: 21-Jun-2006 9:57 [facility] Payers Kendra phipps guarantor
--- OUTSIDE RECORDS SUMMARY | 2018-09-13 07:38 | XMS RPT_ITS ---
:1960 Author Organization OHIP Care Team Providers Name Role Phone Yoanna Chow DO Attending Unavailable Yoanna Chow DO Referring Unavailable Yoanna Chow DO Consulting Unavailable DR. EDWARD SOLOMON DO Attending Unavailable JANETTE DOUGLAS, Alysha JACK Primary Care Unavailable Charlene Burgess Attending Unavailable Charelne Burgess Referring Unavailable Yoanna Chow Primary Care Unavailable Yoanna Chow Primary Care Unavailable Kimberley Hale Attending Unavailable Susie Brown Attending Unavailable Pérez Fatima Referring Unavailable Pérez Fatima Primary Care Unavailable Susie Brown Attending Unavailable Susie Brown Referring Unavailable Pérez Fatima Primary Care Unavailable Edward Solomon Attending Unavailable Pérez Fatima Primary Care Unavailable Bharti Mcallister Attending Unavailable Bharti Mcallister Referring Unavailable ClaudineYoanna telles Primary Care Unavailable PROBLEMS PROBLEMS DATE TYPE CONDITION / CODE ATTENDING STATUS SOURCE 09/05/2018 Unknown M79.645 - Pain in [place], Bharti Active [facility] left finger(s) / Community M79.645(ICD-10) Hospital Repository 06/27/2018 Unknown Z12.31 - Edward Solomon Active [facility] Encounter for [facility] screening Hospital mammogram for Repository malignant neoplasm of breast / Z12.31(ICD-10) 05/09/2018 Admitting Cele, NEHA RAYMOND, Active [facility] Diagnosis unspecified / EDWARD Chauhan E03.9(ICD-10) Repository 05/09/2018 Admitting Encounter for NEHA RAYMOND DR. Active [facility] Diagnosis screening for [facility] other suspected Repository endocrine disorder / Z13.29(ICD-10) 05/09/2018 Admitting Encounter for NEHA RAYMOND DR. Active [facility] Diagnosis screening for [facility] diseases of the Repository blood and blood-forming organs and certain disorders inv / Z13.0(ICD-10) 05/09/2018 Admitting Encounter for NEHA RAYMOND, Active [facility] Diagnosis screening for [facility] other metabolic Repository disorders / Z13.228(ICD-10) 02/02/2018 Unknown M25.562 - [facility] left knee / [facility] M25.562(ICD-10) Hospital Repository 02/02/2018 Unknown M17.12 - Chicorelli, Active [place] Unilateral [facility] osteoarthritis, Repository left knee / M17.12(ICD-10) PROCEDURES PROCEDURES No Procedure Records FoundRESULTS RESULTS OT GENERAL EVALUATION Observed: 08/23/2018 Status: F Source: [place] 8:50 AM [facility] REPOSITORY [facility] Occupational Therapy [address] [place] [address] / REHABILITATION SERVICES INITIAL EVALUATION MR#: [id number] Acct: [id number] Name: JHONNY FELICIANO Rep #: [id number] : 1960 58 From: Laila Ames OTR/Mckayla, KOBIT Referring Dr.: Bharti Mcallister Status: REG RCR Insurance: [employer] Eval Date: SELF PAY INSURANCE Patient's Visit Information JHONNY FELICIANO is a 58 year old F, referred to Occupational Therapy by Bharti Mcallister, with a diagnosis of left RF pain. Date of Evaluation: 08/22/18 Occupational Therapist: Laila Ames, NATASHAR/Mckayla, CHT - Subjective Subjective: Pt states she woke up four weeks ago with left finger pain and swelling. Pt did see her doctor and when swelling did not go away- pt did go to the ER to have her ring removed. pt states she is having difficulty with motion and swelling. pt is right handed- pt states she feels more pain with activities- pt states she is using a wrap around her finger- states she did not notice a change in swelling- - Pain left hand 1 Pain Intensity Range: 0, 6 - ROM MP: right RF 0/90 left 0/90 PIP: right RF 0/110 left 0/110 DIP: right RF 0/50 left 0/40 - Strength Statement Clerks Manager: right 35# left 35# Lateral Pinch: right 10# left 12# Tripod Pinch: right 10# left 10# - Edema PIP: rigt RF 5.2 left RF 5.5 - Goals Goal:: pt will demo the ability to wear her wedding ring ind. with no report of pain by d/c Goal:: pt will demo a reduction in left RF edema by .5 and the ability for pt to wear her ring by d/c - Rehabilitation General Assessment: pt demo with edema in left RF- she is unable to wear her wedding ring. Pt would benefit from skilled OT services 1x week for 4 weeks to decrease edema to left RF. Today pt was ed. on end range motion ex, edema control venessa. and use of digi sleeve to decrease edema. Pt demo understanding of ex. given and agreed to POC. Rehabilitation Potential: Good - Anticipated Interventions Anticipated Interventions: Edema Control, Modalities - Visit Plan Frequency: Every Other Week Duration: 6 Weeks TEXT: Thank you for the opportunity to evaluate your patient. For Medicare and Medicare HMO plans, please review the plan of care and approve it. It will need to be FAXED BACK to us at [phone] for Medicare purposes. Please let me know if there are questions or concerns regarding this plan of care. Physician Signature: Date: <Electronically signed by Laila BENNETT CHT> 08/23/18 0850 CC: Bharti Mcallister; Yoanna Chow DO MK Signed For Medicare only, by signing this I certify the plan of care. Physicians Signature Date EMERGENCY DEPARTMENT Observed: 08/01/2018 Status: F Source: [place] SUMMARY 12:32 AM [facility] REPOSITORY [facility] Medical Records Department [address] [place] [address] Emergency Department Summary 07/31/18 1531 MR#: [id number] Acct: [id number] Name: JHONNY FELICIANO Rep #: [id number] : 1960 58 From: Kimberley Hale MD PCP: Yoanna Chow DO Status: DEP ER - ER Visit Summary Date of Service: 07/31/18 Chief Complaint: Fourth finger pain and swelling History of Present Illness: The patient is a 58 F reports swelling to the left fourth finger for the past 1 week. She denies any injury. No signs of infection. She was seen by her PCPs office last week. X-rays revealed soft tissue swelling only. Labs were unremarkable. Patient was told to follow-up with either orthopedics or the emergency room if she was not improving. She was not able to see orthopedics until late August so came to the ER today. Patient has not felt ill. She does have full range of motion of her finger without difficulty. Physical Examination: Vital signs significant for blood pressure of 153/90, otherwise unremarkable. Patient sitting upright in bed no acute distress. Left upper extremity examination reveals left fourth finger edema distal to her rings. She has no focal erythema or warmth. She has full range of motion of the digit with good cap refill. Test Results: [] Emergency Department Course and Treatment: Surgical loop was used to assist in removing her rings. At this time there is no sign of acute infection. My suspicion is that the rings were just tight enough to block venous return from her finger. She was instructed on icing and elevating her hand above the level of her heart tonight. If she develops any focal erythema, warmth, pain, or sign of infection she is to return immediately for repeat evaluation. She voices understanding and agreement. Treatment Plan: [] Disposition: Discharge Impression: Left fourth finger edema This note was generated with Remoov dictation software. It may contain incorrect words, spelling, and punctuation that were not noted in review of the chart prior to signing ED Disposition - Plan for ED Patient: Disposition: Home or Assisted Living Chief Complaint: Other, Pain/Inj Referrals: Yoanna Chow DO [Primary Care Provider] - Additional Instructions: Your ring was removed from your left 4th finger. Sit with it elevated tonight above the level of your heart with an ice pack as discussed. Return for redness, excessive warmth, focal pain at the joints, or difficulty moving the finger. What to do if you have Problems For any increased pain, shortness of breath, bleeding, nausea or vomiting, chest pain, or any unexpected problems, contact your Primary Care Provider. Call [facility] ([phone]) or report to the closest Emergency Room. Call 911 if necessary. 08/01/18 0032 <Electronically signed by Kimberley Hale MD> Date Kimberley Hale MD Cosigner Signature (If Indicated): Date CC: Yoanna Chow DO DISCHARGE INSTRUCTION Observed: 07/31/2018 Status: F Source: MAYELIN 3:33 PM [facility] Medical Records Department [address] [place] [address] Discharge Instruction 07/31/18 1531 MR#: [id number] Acct: [id number] Name: JHONNY FELICIANO Rep #: [id number] : 1960 58 From: Kmiberley Hale MD PCP: Yoanna Chow DO Status: PRE ER ED Disposition - Plan for ED Patient: Disposition: Home or Assisted Living Chief Complaint: Other, Pain/Inj Referrals: Yoanna Chow DO [Primary Care Provider] - Additional Instructions: Your ring was removed from your left 4th finger. Sit with it elevated tonight above the level of your heart with an ice pack as discussed. Return for redness, excessive warmth, focal pain at the joints, or difficulty moving the finger. What to do if you have Problems For any increased pain, shortness of breath, bleeding, nausea or vomiting, chest pain, or any unexpected problems, contact your Primary Care Provider. Call [facility] ([phone]) or report to the closest Emergency Room. Call 911 if necessary. 07/31/18 1533 <Electronically signed by Kimberley Hale MD> Date Kimberley Hale MD Cosigner Signature (If Indicated): Date CC: Yoanna Chow DO HAND MIN 3 VIEWS Observed: 07/28/2018 Status: F Source: [place] 12:36 PM [facility] Imaging Services [address] [place] [address] Hand Min 3 Views MR#: [id number] Acct: [id number] Name: JHONNY FELICIANO Rep #: [id number] : 1960 F 58 From: Oswaldo Solorio MD PCP: Yoanna Chow DO Status: REG CLI Study: Hand Min 3 Views Date of Exam: 07/28/18 Exam# [id number] Ordering Dr: Charlene Burgess OCULAR PATHOLOGIST-C STUDY: X-RAY - LEFT HAND REASON FOR EXAM: Female, 58 years old. Pain and swelling for one week involving the fourth digit TECHNIQUE: 3 view(s) of the hand. COMPARISON: None. FINDINGS: Normal radiocarpal articulation. Normal distal radioulnar joint. Normal visualized carpal bones. Normal carpal articulations Normal carpometacarpal articulation of the thumb. Normal second through fifth carpometacarpal joints. Normal metacarpi. Normal metacarpophalangeal joint of the thumb. Normal interphalangeal joint of the thumb. Normal proximal and distal phalanges of the thumb. Normal metacarpophalangeal joints of the second through fifth fingers. Normal proximal and distal interphalangeal joints of the second through fifth fingers. Normal phalanges of the second through fifth fingers. There is soft tissue swelling of the fourth digit adjacent to the PIP joint. RAD/Hand Min 3 Views IMPRESSION: Fourth digit soft tissue swelling without demonstrated fracture. Electronically Signed: Oswaldo Solorio MD at 16:27 EST , Service support , CC: Charlene Burgess NP; Yoanna Chow DO Block Mechanic: Signed SCREENING MAMM (CAD), Observed: 06/07/2018 Status: F Source: [place] BILAT 12:45 PM [facility] REPOSITORY [facility] Imaging Services [address] [place] [address] SCREENING MAMM (CAD), BILAT MR#: [id number] Acct: [id number] Name: JHONNY FELICIANO Rep #: [id number] : 1960 F 58 From: Mannie Dial MD PCP: MISAEL Ivory Status: REG CLI Study: SCREENING MAMM (CAD), BILAT Date of Exam: 06/07/18 Exam# [id number] Ordering Dr: Edward Solomon DO MAMMOGRAPHY - BILATERAL SCREENING REASON FOR EXAM: Female, 58 years old. Routine annual screening examination. PERTINENT HISTORY: Non-contributory. TECHNIQUE: Digital bilateral breast adeel (3D mammographic acquisition) in the CC and MLO projections. 2-D mediolateral oblique (MLO) and craniocaudad (CC) views of both breasts were obtained. CAD: Full Field Digital Mammography with Computer Added Detection was performed. COMPARISON: Comparison is made with prior study dated December 17, 2015 and November 10, 2012. FINDINGS: Breast Composition: There are scattered areas of fibroglandular density. There are no dominant masses or suspicious calcifications. Stable small bilateral axillary lymph nodes. No other significant abnormalities are identified. There has been no significant change since the prior study. BI/SCREENING MAMM (CAD), BILAT IMPRESSION: Stable bilateral screening mammogram. Yearly follow-up mammogram recommended. (A) ASSESSMENT CATEGORY: BIRADS Category 2: Benign. A letter regarding these results will be sent to the patient by the facility within 30 days. Approximately 10% of breast cancers are not detected by mammography. A normal mammogram should not delay biopsy of a clinically suspicious abnormality. [id number] Electronically Signed: Mannie Dial MD at 15:49 EDT Tel [phone], Service support , CC: MISAEL Fatima; Edward Solomon DO Block Mechanic: Signed TSH Collected: 05/09/2018 Status: F Source: [facility] 3:28 PM [facility] REPOSITORY TYPE CODE TESTS RESULT OUT OF RANGE REFERENCE UNITS LAB TSH(LOINC) 0.36-3.74 mcIU/mL TSH 1.95 Performed By: #### TSH, LIPID, CMP, GFR #### [place] [id number] LIPID Collected: 05/09/2018 Status: F Source: [facility] 3:28 PM [facility] REPOSITORY TYPE CODE TESTS RESULT OUT OF REFERENCE UNITS RANGE LAB CHOL(LOINC 0-200 mg/dL ) Cholesterol High 219 Result Comment: Cholesterol Reference Interval: Less than 200 Desirable 200-239 Borderline high risk 240 and above High risk LAB TRIG(LOINC) 0-150 mg/dL Triglycerides High 157 Result Comment: Triglyceride Reference Interval: Less than 150 Normal 150-199 Borderline high risk 200-499 High risk 500 or higher Very high risk LAB HD(LOINC) 40-60 mg/dL HDL High Cholesterol 64 LAB LDL(LOINC) 0-130 mg/dL LDL Cholesterol 124 Performed By: #### TSH, LIPID, CMP, GFR #### [place] [id number] CMP Collected: 05/09/2018 Status: F Source: [facility] 3:28 PM [facility] REPOSITORY TYPE CODE TESTS RESULT OUT OF REFERENCE UNITS RANGE LAB GLU(LOINC) 70-105 mg/dL Glucose Level 79 LAB NA(LOINC) 136-145 mmol/L Sodium Level 138 LAB K(LOINC) 3.5-5.1 mmol/L Potassium Level 4.4 LAB CL(LOINC) 98-107 mmol/L Chloride 103 LAB CO2(LOINC) 22-29 mmol/L CO2 27 LAB EBAL(LOINC mEq/L ) Electrolyte Balance 8.0 LAB BUN(LOINC) 7-18 mg/dL BUN High 19 LAB CRE(LOINC) 0.55-1.02 mg/dL Creatinine Lvl (s) 0.90 LAB BC(LOINC) 7-27 ratio BUN/Creatinine 21 Ratio LAB CA(LOINC) 8.4-10.2 mg/dL Calcium Lvl 9.6 LAB PROT(LOINC 6.4-8.2 G/dL ) Total Protein 6.9 LAB ALB(LOINC) 3.5-5.0 G/dL Albumin Level 3.8 LAB GLB(LOINC) G/dL Globulin 3.1 LAB AG(LOINC) 1.1-2.5 ratio A/G Ratio 1.2 LAB BILT(LOINC 0.2-1.0 mg/dL ) Bili Total 0.5 LAB AP(LOINC) 40-135 U/L Alk Phos 84 LAB AST(LOINC) 10-40 U/L AST/SGOT 14 LAB ALT(LOINC) 10-35 U/L ALT/SGPT 22 Performed By: #### TSH, LIPID, CMP, GFR #### [place] [address] .GFR Collected: 05/09/2018 Status: F Source: [facility] 3:28 PM [facility] REPOS[facility] TYPE CODE TESTS RESULT OUT OF REFERENCE UNITS RANGE LAB GFRAA(LOINC ml/min/1.73 ) sqm GFR 79 [place] Result Comment: GFR Population mean for , Non- Americans Ages 20-29 = 116 mL/min/1.73 sq.m. Ages 30-39 = 107 mL/min/1.73 sq.m. Ages 40-49 = 99 mL/min/1.73 sq.m. Ages 50-59 = 93 mL/min/1.73 sq.m. Ages 60-69 = 85 mL/min/1.73 sq.m. Ages 70+ = 75 mL/min/1.73 sq.m. Chronic Kidney Disease: Less than 60 mL/min/1.73 square meters End Stage Renal Disease: Less than 15 mL/min/1.73 square meters LAB GFRNO(LOINC) ml/min/1.73sqm GFR Non- 65 Result Comment: GFR Population mean for , Non- Americans Ages 20-29 = 116 mL/min/1.73 sq.m. Ages 30-39 = 107 mL/min/1.73 sq.m. Ages 40-49 = 99 mL/min/1.73 sq.m. Ages 50-59 = 93 mL/min/1.73 sq.m. Ages 60-69 = 85 mL/min/1.73 sq.m. Ages 70+ = 75 mL/min/1.73 sq.m. Chronic Kidney Disease: Less than 60 mL/min/1.73 square meters End Stage Renal Disease: Less than 15 mL/min/1.73 square meters Performed By: #### TSH, LIPID, CMP, GFR #### [facility] [address] [place] [address] ORTHOPEDIC VISIT Observed: 02/02/2018 Status: F Source: [place] REPORT 12:33 PM [facility] REPOSITORY [facility] Orthopaedics AND Sports Medicine [address] [place] [address] 5 [place] [address] OFFICE VISIT Date of Service: 02/02/18 MR#: [id number] Acct: [id number] Name: JHONNY FELICIANO Rep #: [id number] : 1960 Provider: Susie Brown DO Age/Sex: 57/F [place] [facility] Status: Signed Intake Intake Visit Reasons: LEFT KNEE Is patient in pain?: Yes Pain scale (1-10): 7 Allergies oxycodone HCl [From Percocet] Adverse Reaction (Verified 12/07/15 14:09) Nausea Medications Levothyroxine [Synthroid] 75 mcg PO DAILY 06/13/13 [History Confirmed 12/07/15] Hydrocodone Bitart/Apap 5-325 [Modena 5/325] 1 - 2 tab PO Q4H PRN PRN #20 tab 12/05/15 [Rx Confirmed 12/07/15] Diazepam [Valium] 5 mg PO TID #10 tab 12/07/15 [Rx] PFSH Social History Smoking Status: Never smoker HPI LEFT KNEE: Details: JHONNY FELICIANO is a 57 year old F here today for increasing left knee pain. She has had a knee scope, injections, aspirations, MRI in 2014 and has tried a brace but has not worn it recently. She complains of swelling and pain with flexion, walking and stairs. Denies numbness, tingling or other associated symptoms. Patient has tried to lose weight but it tends to fluctuate. ROS Musc Reports limited joint movement, Reports stiffness, Reports joint pain, Reports joint swelling, Reports abnormal walking, Reports as per HPI Neuro Yes abnormal walking Office Procedures Ortho Injections Injections Yes Knee Left Details: Obtained consent for injection. Under sterile conditions, injected the patients left knee with a 10cc cocktail of 8cc bupivacaine and 2cc kenalog . The patient tolerated the injection well without any noted complication. Patient should call our office if redness develops, pain worsens or if they have any concerns. Office Meds Kenalog Performing Provider: Susie Brown DO Administered by: Susie Brown DO on 02/02/18 10:10 Dose Route Admin Location Lot Number Expiration DateNDC Bottle Filler 2 mg Intra-Articularleft knee [id number] 12/13/18 7385-7940-26 [facility] Assessment AND Plan 1. Primary osteoarthritis of left knee M17.12 Plan X-rays were reviewed. There is no obvious fracture, dislocation, or lucency noted, progressing OA is noted in the medial compartment. Her treatment options are steroid injection, gateman brace and if the conservative treatment fails consult for TKA. She can have injections every 3-4 months. Instructed to adjust her diet plan and work on strengthening to reduce the force through the anterior knee. Follow up in 3 months or sooner if pain, swelling, numbness or associated symptoms, or concerns develop. All questions answered. Patient in agreement of plan. 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 ([id number]) 02/02/18 1233 <Electronically signed by Susie Brown DO> Date Susie Brown DO Cosigner Signature: Date (if applicable) CC: KNEE 4 OR MORE Observed: 02/02/2018 Status: F Source: [place] SEEMA 9:26 AM [facility] REPOSITORY [facility] Imaging Services [address] [place] [address] Knee 4 or More Views MR#: [id number] Acct: [id number] Name: JHONNY FELICIANO Rep #: [id number] : 1960 F 57 From: Tha Alvarenga MD PCP: MISAEL Ivory Status: REG CLI Study: Knee 4 or More Views Date of Exam: 02/02/18 Exam# [id number] Ordering Dr: Susie Brown DO STUDY: X-RAY - LEFT KNEE REASON FOR EXAM: Chronic pain. TECHNIQUE: 4 view(s) of the knee. COMPARISON: Radiograph report 11/24/2012. FINDINGS: Normal visualized distal femur. Normal visualized proximal tibia and fibula. Normal proximal tibiofibular articulation. There is mild arthrosis of the medial femorotibial compartment with small marginal osteophytes and mild joint space narrowing. Normal lateral femorotibial compartment. Normal patellofemoral articulation. There are small densities overlying the distal femoral diaphysis on the AP upright view, not included in the lateral jmabf-da-mcdy. RAD/Knee 4 or More Views IMPRESSION: Mild arthrosis of the medial femorotibial compartment. Electronically Signed: Tha Alvarenga MD at 9:53 EDT Tel , Service support , CC: MISAEL Fatima; Susie Brown DO Block Mechanic: Signed ALLERGIES ALLERGIES DATE TYPE / CODE NAME / CODE REACTION SEVERITY SOURCE 12/07/2015 Drug oxycodone Nausea Unknown [facility] Allergy/416 HCl/[id number]( Hospital 521927(SNOM XNORM) Repository ED CT) ENCOUNTERS ENCOUNTERS ADMIT/DISCHARGE ACCOUNT NUMBER ADMITTING ENCOUNTER LOCATION SOURCE CLASS 09/05/2018 [id number] Ambulatory [facility] ding:OT Repository 09/04/2018 [id number] Ambulatory Building:[facility] Practices Repository 07/31/2018/07/31/20 [id number] Emergency [address] ding:ED Repository 07/28/2018 [id number] Ambulatory [facility] ding:MTLAB Repository 06/07/2018 [id number] Ambulatory [facility] ding:OPBI Repository 05/09/2018/05/13/20 [id number] Ambulatory BBuilding:DR [place] [facility] access hospital Repository 02/02/2018 [id number] Ambulatory [facility] ding:HPRAD Repository 02/02/2018/02/03/20 [id number] Ambulatory BMSBuilding: [facility] Repository PAYERS PAYERS ENCOUNTER GUARANTOR PAYER SUBSCRIBER SOURCE 09/05/2018 JHONNY De Leon Primary Insurance:S JHONNY De Leon Mayelin [id number] FOR CASMEYDOB: [facility] [place] [facility] Number: [id number], [place] [id number] Repository [address]Vfs: 330) Date:[id number] [phone] () [address] [place] [phone]: 09/05/2018 Secondary NOT GIVENUNK [place] Insurance:SELF PAY [facility] Number: Effective Repository Date:2018-08-17 09/04/2018 Jhonny De Leon Primary Bhavna L OHIP Practices CasmeyDOB: Insurance: CasmeyDOB: Repository [id number] [facility]: [id number] Platinum [id number] [address] [place], [place] Date:4957-35-93QzmlAlloway, [place] [address]Vlt: ([phone]) Name:[address] [address]Gus: [address] [place] [address] [phone] () ()Tel: [phone]: [phone] 09/04/2018 Secondary Bhavna L OHIP Practices Insurance:ReferralsPo CasmeyDOB: Repository licy Number: [id number] Effective Date: - [address] [id number] Name:F [place], [place] [address]Wvo: () 09/04/2018 Tertiary Bhavna L OHIP Practices Insurance:[place] CasmeyDOB: Repository /BSPolicy Number: [id number] [address] Date: - [place], [place] [id number] [address]Dec: (330) Name:[facility] [phone] () [id number] [id number]: 09/04/2018 Tertiary Bhavna L OHIP Practices Insurance:AETGeo JeanmeyDOB: Repository Number: [id number] [address] Date: - [place], [place] [id number] [id number]: (330) Name:[facility] [id number] [phone] () HERO DE LA PAZ [id number]: 09/04/2018 Tertiary Bhavna L OHIP Practices Insurance:United TedmeyDOB: Repository [facility] CarePolicy [id number] Number: [address] [id number] [place], [place] Date:2014-08-15 [address]Qej: [phone]) 1887-06-08Kbod [phone] () Name:[facility] [address] [address]ED: 09/04/2018 Tertiary Bhavna L OHIP Practices Insurance:[place] CasmeyDOB: Repository /[facility]OSPITALolicy Number: [id number] [address] Date:2015-08-15 - [place], [place] [id number] [id number]: ([phone]) Name:[phone] () [address]86[address], [place] [id number]: 07/31/2018 LOYCE A Primary Insurance:WPS LOYCE A Mayelin [id number] FOR CASMEYDOB: [facility] [place] [facility]EBanner [facility] Centericy Number: [id number], [place] [id number] Repository [address]Kfe: ([phone]) Date:5740-27-33GL [phone] () [address] [place] [phone]: 07/31/2018 Secondary NOT GIVENUNK [place] Insurance:SELF PAY [facility] Number: Effective Repository Date:2018-07-31 07/28/2018 LOYCE A Primary Insurance:WPS LOYCE A [place] [id number] FOR CASMEYDOB: [facility] Number: [id number], [place] [id number] Repository [address]Lon: ([phone]) Date:5036-01-56NG [phone] () [address] [place] [phone]: 07/28/2018 Secondary NOT GIVENUNK [place] Insurance:SELF PAY [facility] Number: Effective Repository Date:2018-07-28 06/07/2018 LOYCE A Primary LOYCE A [place] [id number] Insurance: CASMEYDOB[facility] Number: [id number], [place] [id number] Repository [address]Zur: ([phone]) Date:0881-24-16DLKHOZ [phone] () [facility] [address], [place] [address]IM: 06/07/2018 Secondary NOT GIVENUNK [place] Insurance:SELF PAY [facility] Number: Effective Repository Date:2018-05-10 05/09/2018 LOYCE A Primary ROBINA L CASMEYDOB: [facility] CASMEYDOB: Insurance: [id number] [facility] CHAMPUSPolicy Number: [address] [place] [address] Repository [place] [id number] [place] Date:2017-02-26 [address]Ufs: [phone]: [phone] [id number] [phone] Name:[facility] Box (HP)Tel: (000) (HP)Tel: ([phone]) [id number] Hospital [facility] 000-0000 () 000-0000 () [place] [address]XD: 02/02/2018 LOYCE A Primary Insurance:[facility] LOYCE A [place] [id number] FOR CASMEYDOB: [facility]EB[facility] Hospitaly Number: [id number] [place], [place] [id number] Repository [address]Zqw: ([phone]) Date:4890-61-63GH [phone] () [address] [place] [phone]: 02/02/2018 Secondary NOT GIVENUNK [place] Insurance:SELF PAY [facility] Number: Effective Repository Date:2018-02-02 02/02/2018 LOYCE A Primary NOT GIVENUNK [place] [id number] Insurance:SELF [facility]Y [facility] [place] Number: Effective Repository [id number]: ([phone]) Date:2018-01-12 [phone] ()
--- OUTSIDE RECORDS SUMMARY | 2018-09-13 07:38 | XMS RPT_ITS | Continuity of Care Document ---
:1960 Author Organization [facility] Address [address] [facility] [address] [place] [address] Phone Care Team Providers Name Role Phone Yoanna Chow DO Unavailable Physical Therapy, [facility] Unavailable Susie rBown Unavailable Dr. Dev Herzog Unavailable Pan Carrillo DO Unavailable Erica Tadeo Unavailable Unavailable SCOTT Santoyo Unavailable Unavailable Charlene Burgess CNP Unavailable Unavailable Unavailable Problems Name Dates Details [...] Status: Active Eczema (L30.9, 692.9) Status: Active Finger pain, left (M79.645, 729.5) Comments: denies hurting finger, but joint swelling Status: Active Hypothyroidism (E03.9, 244.9) Status: Active [...] 112.1) Status: Active Medications Name Dates Details LEVOTHYROXINE SODIUM, 75MCG (Oral Capsule) Active 1 qd (75 MCG) Supplements Active 1 qd Comments: ultra pollen, thyroven, adaptogen, alkamin, sea mineral concentrate Augmentin 875-125 MG Oral Tablet 1 Tablet bid for 10 days Quantity: 20 {Tablet} Refills: 0 Ordered:09-Jun-2018 Sweta Chow DO, DO, Kathleen Start : 09-Jun-2018 End : 19-Jun-2018 Inactive BENADRYL, 25MG (Oral Tablet) 1 (one) Tablet [...] End : 05-May-2016 Inactive OSCAL 500/200 D-3, 090-178AZ-AKOZ (Oral Tablet) 1 bid for 0 days Refills: 0 Ordered:08-Dec-2015 Geremias Kramer End : 08-Dec-2015 Inactive PREDNISONE, 10MG (Oral Tablet) 3 (three) Tablet daily for 7 days Quantity: 21 {Tablet} Refills: 0 Ordered:21-Jan-2014 Charlene Burgess CNP Start : 21-Jan-2014 End : 28-Jan-2014 Inactive Comments:with food TOPICORT LP, 0.05% (External Cream) Cream bid for 0 days Quantity: 1 {Cream} Refills: 0 Ordered:20-Jan-2011 Bobbi Santoyo LPN Start : 22-Apr-2009 End : 20-Jan-2011 Inactive VAGIFEM, 25MCG (Vaginal Tablet) 1 2 x weekly for 0 days Refills: 0 Ordered:22-Apr-2009 SHANNON Rodriguez End : 22-Apr-2009 Inactive Valium 5 MG Oral Tablet 1 (one) Tablet Tablet tid for 10 days Refills: 0 Ordered:05-May-2016 Ellito CHAVEZ [place] Start : 08-Dec-2015 End : 05-May-2016 Inactive [...] - PT Result: Comments: See Note; NOTES: [facility] [address] [place] [address]. [address] [place] [address] Fax REHABILITATION [facility] INITIAL EVALUATION MR#: [id number] Acct: [id number] Name: JHONNY PACK Rep #: [id number] : 1960 55 From: Garret Abarca PT, ATC Referring DrAlysha: Yoanna Chow DO Status: REG RCR Insurance: [facility] OUT OF STATE Patient's Visit Information [...] to be FAXED BACK to us at [phone] for Medicare purposes. Please let me know if there are questions or concerns regarding this plan of care. Physician Signature:____ Date: <Electronically signed by Garret Abarca PT, ATC> 01/15/16 1653 CC: Yoanna Chow DO DT: 6 [facility] Signed For Medicare only, by signing this I certify the plan of care. Physicians Signature Date 15-Jan-2016 PT D/C of Non Returning Pt (1) Result: Comments: See Note; NOTES: [facility] [address] [facility] [place] [address] Fax REHABILITATION [facility] DISCHARGE SUMMARY MR#: [id number] Acct: [id number] Name: JHONNY PACK Rep #: [id number] : 1960 55 From: Garret Abarca PT, ATC Referring DrAlysha: Yoanna Chow DO Status: REG R CR Insurance: [employer] OUT OF STATE HP - Discharge Summary [...] in our office 12/17/15. Pertinent comments reg milanding their Physical therapy will appear below: Pt [...] ATC> 01/15/16 1653 CC: Yoanna Chow DO [facility] Signed 17-Dec-2015 Bilat Scrn Digital AND CAD Result: Comments: See Note; NOTES: [facility] Imaging Services [address] [place] [address] Verdana 4d Bilat Scrn Digital AND CAD MR#: [id number] Acct: [id number] Name: JHONNY PACK Rep #: [id number] : 1960 F 55 From: Mannie Dial MD PCP: Yoanna Chow DO Status: REG CLI Study: Bilat Scrn Digital AND CAD Date of Exam: 12/17/15 Exam# [id number] Ord ering Dr: Yoanna Chow DO MAMMOGRAPHY [...] delay biopsy of a clinically suspicious abnormality. 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 Operator: Signed 10-Dec-2015 12 Lead Electrocardiogram Result: Comments: See Note; NOTES: [facility] Cardiovascular Services [address] [place] [address] 12 Lead EKG 12/07/151426 MR#: [id number] Acct: [id number] Name: JHONNY PHELAN Rep #: [id number] : 1960 55 From: Ronnell Alegria MD [...] ECG Confirmed by DAY SHAFER, RONNELL ([id number]), web content editor RINKU FRY ([id number]) on 12/10/2015 12:54:34 PM Referred By: NICCI Confirmed By:RONNELL ALEGRIA MD 12/10/15 1254 Date Ronnell Alegria MD CC: Yoanna Chow DO Date Dictated: 12/07/151426 Date Transcribed: 12/07/151426 Single Spindle Screw Machine Operator: Signed 08-Dec-2015 Hip 2-3 Views with Pelvis Result: Comments: See Note; NOTES: [facility] Imaging Services [address] [place] [address] Verdana 4d Hip 2-3 Views with Pelvis MR#: [id number] Acct: [id number] Name: JHONNY GRANGER Rep #: [id number] : 1960 F 55 From: Carmen Webb MD PCP: Yoanna Chow DO Status: REG CLI Study: Hip 2-3 Views with Pelvis Date of Exam: 12/08/15 Exam# [id number] Ordering Dr: Yoanna Chow DO STUDY: X-RAY [...] at 13:57 EDT Tel , Service support [phone], RAD/Hip 2-3 Views with Pelvis IMPRESSION: 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 No evidence of an acute fracture. Electronically Signed: Carmen Webb MD at 13:57 EDT Tel , Service support [phone], CC: Yoanna Chow DO Single Spindle Screw Machine Operator: Signed 08-Dec-2015 Emergency Department Summary Result: Comments: See Note; NOTES: [facility] Medical Records Department [address] [place] [address] Emergency Department Summary MR#: [id number] Acct: [id number] Name: JHONNY PACK Rep #: [id number] : 1960 55 From: Ravin Bear MD [...] quadrants, unknown cause. DISPOSITION: Discharge. MD Paddy Harley C: Payal Rowell DO T: NTS JOB: [id number] 12/08/15 0739 <Electronically signed by Ravin eBar MD> Date Ravin Bear MD Cosigner Signature (If Indicated): Date CC: Payal Rowell DO; Yoanna Chow DO Date Dictated: 12/07/151525 Date Transcribed: 12/07/151525 Single Spindle Screw Machine Operator: Signed 07-Dec-2015 Discharge Instruction Result: Comments: See Note; NOTES: [facility] Medical Records Department [address] [place] [address] Discharge Instruction 12/07/151521 MR#: [id number] Acct: [id number] Name: JHONNY PACK Rep #: [id number] : 1960 55 From: Ravin Bear MD [...] contact your docto r. Call Doctors [facility] ([phone]) or report to the closest Emergency Room. Call 911 if necessary. 12/07/151526 <Electronically signed by Ravin Bear MD> Date ___ Ravin Bear MD Cosigner Signature (If Indicated): Date CC: Yoannamahnaz Chow 05-Dec-2015 Emergency Department Summary Result: Comments: See Note; NOTES: [facility] Medical Records Department [address] [facility] [place] [address] Emergency Department Summary MR#: [id number] Acct: [id number] Name: JHONNY PACK Rep #: [id number] : 1960 55 From: Kimberley Hale MD PCP: Yoanna Chow DO Status: [facility] DATE OF SERVICE: 12/05/2015 CHIEF COMPLAINT: Right [...] or c onstipation. She has been taking xhhr-rvr-gcsdxoq Aleve. She has an appointment to see [...] extremities. She will be treated with some [place] o radames the weekend as needed and will follow up with her PCP as planned. She and her are both comfortable with this plan. DISPOSITION: Discharge. IMPRESSION: Right lower flank pain, uncerta in etiology. Kimberley Hale MD T: [facility] JOB: [id number] 12/05/152299 <Electronically signed by Kimberley Hale MD> Date Velasquez Hale MD Cosigner Signature (If Indicated): Date CC: Yoanna Chow DO Date Dictated: 12/05/152131 Date Transcribed: 12/05/152131 Single Spindle Screw Machine Operator: Signed 05-Dec-2015 Discharge Instruction Result: Comments: See Note; NOTES: [facility] Medical Records Department [address] [place] [address] Discharge Instruction 12/05/152128 MR#: [id number] Acct: [id number] Name: JHONNY PACK Rep #: [id number] : 1960 55 From: Kimberley Hale MD PCP: Yoanna Chow DO Status: REG ER ED Disposition - Plan for ED Patient: Disposition: Home or Assisted Do [place] Chief Complaint: Complaint Instructions: ED Flank Pain, Uncertain Cause Prescriptions: Hydrocodone Bitart/Apap 5-325 [[place] 5/325] 1 - 2 tablet PO Q4H PRN PRN #20 tablet PRN Reason: Pain R eferrals: Yoanna Chow DO [Primary Care Provider] - Keep Will appointment What to do if you have Problems For any increased pain, shortness of breath, bleeding, nausea or vomiting, chest pain, or any unexpected problems, contact your doctor. Call Doctors Registry ([phone]) or report to the closest Emergency Room. Call 911 if necessary. 12/05/152129 <Electronically signed by Kimberley Hale MD> Date Kimberley Hale MD Cosigner Signature (If Indicated): Date CC: Yoanna Chow DO 05-Dec-2015 Abdomen/Pelvis without Cont Result: Comments: See Note; NOTES: [facility] Imaging Services [address] [place] [address] Verdana 4d Abdomen/Pelvis without Cont MR#: [id number] Acct: [id number] Name: JHONNY PACK Rep #: [id number] : 1960 F 55 From: Kobe Gould MD PCP: Yoanna Chow DO Status: REG ER Study: Abdomen/Pelvis without Cont Date of Exam: 12/05/15 Exam# [id number] Order ing Dr: Kimberley Hale MD STUDY: [...] at 20:51 EDT Tel , Service support [phone], CC: Kimberley Hale MD; Yoanna Chow DO Single Spindle Screw Machine Operator: Signed 20-Jan-2015 Lower Ext Joint Only (Routine) Result: Comments: See Note; NOTES: [facility] Imaging Services [address] [place] [address] MRI Report MR#: [id number] Acct: [id number] Name: JHONNY PACK Rep #: [id number] : 1960 F 54 From: Luis Olivier MD PCP: Yoanna Chow DO Status: REG CLI Study: Lower Ext Joint Only (Routine) Date of Exam: 01/20/15 Exam# [id number] Ordering Dr: Ozzy Barrow DO STUDY: MRI [...] at 11:45 EDT Tel , Service support [phone], CC: Ozzy Barrow; Yoanna Chow DO Single Spindle Screw Machine Operator: Signed 26-Oct-2014 Abdomen/Pelvis WITH Contrast Result: Comments: See Note; NOTES: [facility] Imaging Services [address] [place] [address] CAT Scan Report MR#: [id number] Acct: [id number] Name: JHONNY PACK Rep #: [id number] : 1960 F 54 From: Maryellen Kumar MD PCP: Yoanna Chow DO Status: [facility] ER Study: Abdomen/Pelvis WITH Contrast Date of Exam: 10/27/14 Exam# [id number] Ordering Dr: Ozzy Vizcarra MD STUDY: CT [...] verbally conveyed by Maryellen Pena MD to [place] [facility] physician, on 10/27/2014 01:23:00 (ET). Electronically Signed: Maryellen Pena MD at 1:23 EDT , Service support [phone], N.B. : The above information has been verbally conveyed by Maryellen Pena MD to austin Ta on 10/27/2014 01:23:00 (ET). CC: Ozzy Vizcarra MD; Yoanna Chow DO Single Spindle Screw Machine Operator: Signed Family History Unknown Family Member Name [...] smoker Vital Signs Date Test Result Details :40 Temperature 97.8 f Comments: Method: Temporal Pulse 72 /min Comments: Pattern: Regular Respiration Rate 16 /min Comments: Pattern: Unlabored O2 SAT 96 % Comments: Room air BP Systolic 122 mm[Hg] Comments: Patient Position: Sitting; Cuff Location: Left Arm; Cuff Size: Standard BP Diastolic 84 mm[Hg] Comments: Patient Position: Sitting; Cuff Location: Left Arm; Cuff Size: Standard Weight 186 lb Height 64 in Body Mass Index Calculated 31.93 kg/m2 Body Surface Area Calculated 1.9 m2 38-Qqi-351351:47 Temperature 98 f Comments: Method: Temporal Pulse [...] 0.00 cm Results Date Description Value Details 99-Gvl-784449:04 URINE MITUL CULTURE-IDENTIFICATN Comments: PATIENT NOT FASTINGPERFORMED BY: [facility] [id number] Information: SRC: ([id number]) Result 1 MUG (Normal) Comments: Mixed urogenital flora1,000 Colonies/mL Urine Culture,Comprehensive Final report (Normal) 30-Mar-2018 Urinalysis, Office (13339) UA - LEUKOCYTE ESTERASE Negative (Normal) UA - NITRITE Negative (Normal) URINE UROBILINGN FINESSE TIMED Normal mg/dL (Normal) UA - PROTEIN Negative mg/dL (Normal) UA - PH 5.0 (Normal) UA - BLOOD Negative (Normal) UA - SPECIFIC GRAVITY 1.005 (Normal) UA - KETONES Negative mg/dL (Normal) UA - BILIRUBIN Negative (Normal) UA - GLUCOSE Negative (Normal) 8-Wnp-626872:30 Upper Respiratory Culture Comments: PERFORMED BY: [facility] [id number] Information: SRC: Result 1 RRF (Normal) Comments: Routine respiratory jeanna Upper Respiratory Culture Final report (Normal) 44-Sjr-659304:42 Throat Culture (47606) Comments: PATIENT NOT FASTINGPERFORMED BY: [facility] [id number] Information: [id number] SRC: Result 1 RRF (Normal) Comments: Routine respiratory jeanna Upper Respiratory Culture Final report (Normal) 37-Nss-413737:40 Urinalysis, Office (44017) UA - LEUKOCYTE ESTERASE Negative (Normal) UA - NITRITE Negative (Normal) URINE UROBILINGN FINESSE TIMED Normal mg/dL (Normal) UA - PROTEIN Negative mg/dL (Normal) UA - PH 6 (Abnormal) UA - BLOOD Negative (Normal) UA - SPECIFIC GRAVITY 1.030 (Abnormal) UA - KETONES Negative mg/dL (Normal) UA - BILIRUBIN Negative (Normal) UA - GLUCOSE Negative (Normal) 60-Zly-57601:00 Basic Metabolic Profile (BMP) Comments: [facility] [address] [place], [place], [address] GAP 7 (Normal) Range: 5-15 CO2 24.0 [...] 7-18 GLU 101 mg/dL (Normal) Range: 70-110 63-Gkx-32328:00 CBC W/Diff, Automated Comments: [facility] [address] [place], [address] Absolute Lymph 2.73 {X10_3/ul} (Normal) Range: 0.83-4.51 [...] 4.2-5.4 WBC 8.9 K/mm3 (Normal) Range: 4.4-11.0 31-Elz-130455:50 Urinalysis, Complete Comments: Order Date: 12/05/15How was Urine Obtained? CLEAN [facility] [address] [place] [address], [address] MUCUS, URINE 0 SEEN {/hpf} (Normal) [...] (Normal) CLARITY Clear (Normal) COLOR Yellow (Normal) 32-Yda-996189:07 ANTINUCLEAR ANTIBODIES DIRECT Comments: Test performed at:[facility] [address] [place] [address] CLEVE-DIRECT Negative (Normal) Comments: Performed at: - [facility] [id number] Director: Yomi Dorman PhD, Phone: [phone] 92-Pam-284425:07 CRP Comments: Test performed at:[facility] [address] [place], [place] [address] C-REACTIVE PROT < 2.90 mg/L (Normal) Range: 0.0-3.0 Comments: C-Reactive Protein (CRP) provides useful information for thediagnosis, therapy and monitoring of inflammatory processesand associated diseases. For the evaluation of Relative Riskfor Cardiovascular Dise ase, a High Sensitivity CRP (HSCRP)should be ordered. : HLA B27 Negative (Normal) Comments: Test performed at:[facility] [address] [place] [address] 07 Comments: HLA-B*27 NegativeA Lab CLIA ID Number [id number] test was performed using PCR (Polymerase ChainReaction)/SSOP (Sequence Specific Oligonucleotide Probes)technique. SBT (Sequence Based Typing) and/ or SSP(Sequence Specific Primers) may be used as supplementalmethods when necessary. Please contact HLA CustomerService at if you have any questions. Director of HLA Laboratory Dr Carlos Obando, PhDPerformed at: 2Q - [facility] [place], [place] [id number] Director: Carlos Obando PhD, Phone: [phone] Rheumatoid Factor Comments: Test performed at:[facility] [address] [place] [address] RHEUMATOID FAC < 10.0 {IU/mL} (Normal) 91-Nyl-626483:50 Basic Metabolic Profile (BMP) Comments: Test performed at:[facility] [address] [place] [address] GAP 7 (Normal) Range: 5-15 CO2 25.0 [...] <126 mg/dLsuggests IMPAIRED HOMEOSTASIS per A.D.A. criteria. 37-Txh-710157:50 CBC W/Diff, Automated Comments: Test performed at:[facility] [address] [place] [address] Absolute Lymph 1.18 {X10_3/ul} (Normal) Range: 0.83-4.51 [...] 4.2-5.4 WBC 14.0 K/mm3 (Abnormal) Range: 4.4-11.0 18-Rag-577994:50 Urinalysis, Complete Comments: Order Date: 10/26/14How was Urine Obtained? CLEAN CATCHTest performed at:[facility] [address] [place], [place] [address] MUCUS, URINE 0 SEEN {/hpf} (Normal) BACTERIA [...] (Normal) CLARITY Clear (Normal) COLOR Yellow (Normal) 03-Hdr-402912:59 MITUL CULTURE-OTHER (34109) Comments: PATIENT NOT FASTINGPERFORMED BY: [facility] [id number] Information: SRC:THRT [id number] Result 1 RRF (Normal) Comments: Routine respiratory jeanna Upper Respiratory Culture Final report (Normal) 30-Mdy-708889:24 Rapid Strep Test, Office (86051) Rapid Strep Test, Office Negative (Normal) 92-Wli-123027:55 TSH (89833) Comments: PATIENT NOT FASTINGPERFORMED BY: [employer] [facility]ACK[facility] Networks6370 [facility] [id number] Information: [id number] TSH 1.560 {uIU/mL} (Normal) Range: 0.450-4.500 46-Ifl-427290:07 TOE(S) MIN 2 VIEWS Radiology Report See [...] Dial M.D.December 26, 2012 at 3:28:33 PM [id number] Signed GP/GP If you are the referring physician and would like to consult with theradiologist who provided this interpretation, please contact Cristian Marti at . If this radiologist is unavailable, youwill be directed to another radiologist to assist. If you are a patient with a question regarding this report, pleasecontactyour referring physician mike gibbs. Professional Interpretation Provided By: [employer], Phone , These documents contain legally protected [...] 12/26/12 1533 Sign by: Mannie Dial MD 53-Rqr-579456:23 HIP MIN 2 VIEWS Radiology Report See [...] Barrios M.D.November 24, 2012 at 11:11:15 PM [id number] Signed [place] If you are the referring physician and would like to consult with theradiologist who provided this inte rpretation, please contact Thierry Otero M.D. at [phone]. If this radiologist is unavailable, youwillbe directed to another radiologist to assist. If you are a patient with a question regardi ng this report, pleasecontactyour referring physician directly. Professional Interpretation Provided By: [employer], Phone , These documents contain legally protected [...] 11/24/12 1523 by Thierry Barrios MDTranscribed on 11/24/12 2313 by ITS IMPORTSign by Thierry Barrios MD on 11/24/12 2314 Sign by: Thierry Barrios MD 70-Gnd-225569:23 KNEE 4 OR MORE VIEWS Radiology Report [...] IMPRESSION:No rmal x-ray examination of the knee. Signed:Julieth MonteroD.November 24, 2012 at 11:13:45 PM [id number] Signed [place] If you are the referring physician and would like to consult with theradiologist who provided this interpretation, please contact Thierry Otero M.D. at [phone]. If this radiologist is unavailable, youwillbe directed to another radiologist to assist. If you are a patient with a question regarding this report, pleasecontactyour referring physician directly. Professional Interpretation Provided By: [employer], Phone , Thes e documents contain legally [...] 11/24/12 2316 Sign by: Thierry Barrios MD 65-Ras-631611:23 KNEE 4 OR MORE VIEWS Radiology Report [...] ION:Normal x-ray examination of the knee. Signed:Thierry Bariros M.D.November 24, 2012 at 11:14:45 PM [id number] Signed [place] If you are the referring physician and would like to co nsult with theradiologist who provided this interpretation, please contact Thierry Otero M.D. at [phone]. If this radiologist is unavailable, ellyllbe directed to another radiologist to beth greenfield. If you are a patient with a question regarding this report, pleasecontactyour referring physician directly. Professional Interpretation Provided By: [employer], Phone ,Fax These documents contain legally protected [...] 1542 by Thierry Barrios MDTranscribed on 11/24/12 2316 by ITS IMPORTSign by Thierry Barrios MD on 11/24/127 Sign by: Thierry Barrios MD 80-Ewj-645991:49 TSH (15185) Comments: PATIENT NOT FASTINGPERFORMED BY: [facility]Snsled3602 [facility] [id number] TSH 3.400 {uIU/mL} (Normal) Range: 0.450-4.500 37-Bas-792597:49 CBC (Auto) (04842) Comments: PATIENT NOT FASTINGPERFORMED BY: [facility]Zqtmrr9617 [facility] [id number] Information: [id number] Platelets 226 {x10E3/uL} (Normal) Range: 140-415 RDW 13.0 % (Normal) Range: 11.7-15.0 MCHC 33.2 g/dL (Normal) Range: 32.0-36.0 MCH 29.9 pg (Normal) Range: 27.0-34.0 MCV 90 fL (Normal) Range: 80-98 Hematocrit 42.5 % (Normal) Range: 34.0-44.0 Hemoglobin 14.1 g/dL (Normal) Range: 11.5-15.0 RBC 4.72 {x10E6/uL} (Normal) Range: 3.80-5.10 WBC 4.5 {x10E3/uL} (Normal) Range: 4.0-10.5 70-Xdt-192777:49 Metabolic Panel, Basic Comments: PATIENT NOT FASTINGPERFORMED BY: [facility]Toolse8847 [facility] [id number] (63082) Calcium, Serum 9.2 mg/dL (Normal) Range: 8.7-10.2 [...] TSH 4.32 {uIU/mL} Range: 0.358-3.74 14:23 (Abnormal) 86-Vke-07045:56 Urinalysis, Office (86105) UA - BILIRUBIN Negative (Normal) UA - BLOOD Hemolyzed Trace (Normal) UA - GLUCOSE Negative (Normal) UA - KETONES Negative mg/dL (Normal) UA - LEUKOCYTE ESTERASE Negative (Normal) UA - NITRITE Negative (Normal) UA - PH 7.0 (Normal) UA - PROTEIN Negative mg/dL (Normal) UA - SPECIFIC GRAVITY 1.015 (Normal) URINE UROBILINGN FINESSE TIMED 2 mg/dL (Normal) 8-Qbw-224088:04 Urinalysis, Office (01440) UA - BILIRUBIN Negative (Normal) UA - BLOOD Negative (Normal) UA - GLUCOSE Negative (Normal) UA - KETONES Negative mg/dL (Normal) UA - LEUKOCYTE ESTERASE Trace (Normal) UA - NITRITE Negative (Normal) UA - PH 6.0 (Normal) UA - PROTEIN Negative mg/dL (Normal) UA - SPECIFIC GRAVITY 1.010 (Normal) URINE UROBILINGN FINESSE TIMED 2 mg/dL (Normal) 8-Luv-352559:08 INFLUENZA IMMUNOASSY DIRECT OPTICAL OBSERV (16193) Comments: a and b INFLUENZA IMMUNOASSY DIRECT OPTICAL OBSERV neg (Normal) 3-Ibd-922397:59 HAND,MIN 3 VIEWS (MT) Radiology Report See Note (Normal) Comments: Exam Number: [id number] RIGHT HAND, 3 VIEWS INDICATIONPain. COMPARISONNone. FINDINGSBone mineralization is within normal limits. No acute fracture ordislocation. Joint spaces are unremarkable. No radi opaque foreignbody is seen. IMPRESSIONUnremarkable right hand. Reported By: CARMEN HUNT M.D. :44 CBC HCT 37.7 % (Normal) Range: 37-47 [...] T PROT 6.8 g/dL (Normal) Range: 6.4-8.2 76-Pwc-199003:44 LIPID CHOL 186 mg/dL (Normal) Comments: <200 [...] Plan of Care Name Dates Details Instructions Non-smoker : Eprescribed prescriptions (G8553) Indication: Non-smoker Sinusitis, bacterial : *URI Symptoms Indication: Sinusitis, [...] pain, acute Back pain, acute : Reviewed Commercial Sales Manager Letter Indication: Back pain, acute Back pain, [...] Point Injections Indication: trigger thumb Planned Observations URIC ACID BLOOD (65862)Indication: Finger pain, left On: 85-Xuu-419169:20 Request Throat Culture (52115)Indication: Sore throat On: 8-Efc-273173:00 Request Rapid Strep Test, Office (00933)Indication: Sore throat On: 4-Hsk-876691:00 Request THROAT CULTURE (63196)Indication: Sore throat On: 94-Jdj-131302:40 Request Rapid Strep Test, Office (95417)Indication: Sore throat On: 27-Ivx-916405:44 Request Renal function Panel (35460)Indication: Cramp in limb On: 50-Iep-591584:07 Request Creatine Kinase Total (36358)Indication: Cramp in limb On: 33-Uhm-812266:07 Request TSH (59738)Indication: Hot flashes On: 31-Zqm-814989:39 Request T4, FREE (THYROXINE) (12773)Indication: Hot flashes On: 69-Jph-429594:39 Request T3, FREE (TRIDOTHYRONINE) (95433)Indication: Hot flashes On: 66-Vdo-797940:39 Request CBC (Auto) (64703)Indication: WWV On: 43-Gxa-049524:12 Request Metabolic Panel, Comprehensive (92329)Indication: WWV On: 43-Mdi-409148:12 Request Lipid Panel (52140)Indication: WWV On: [id number] Request Planned Procedures XR HAND COMPLETE (94348)By: Jenifer On: 28-Jul-2018 Intent Charlene TURCIOS Comments: left DEXA SCAN AXIAL SKELETON (51418)By: On: 09-Jun-2018 Intent Yoanna Chow DO, DO, Kathleen MAMMOGRAM, SCREENING, BOTH BREAST On: 17-Dec-2015 Intent (26393)By: Yoanna Chow DO, DO, Kathleen MRI LUMBAR AND SACRAL SPINE W On: 08-Dec-2015 Intent CONTRAST (04990)By: Yoanna Chow DO, DO, Kathleen X-RAY OF HIP, AP VIEW (02581)By: On: 08-Dec-2015 Intent Yoanna Chow DO, DO, Kathleen MRI OF ABDOMEN (WITH CONTRAST) On: 08-Dec-2015 Intent (03658)By: Yoanna Chow DO Comments: extending into muscles laterally from RLQ/Pelvic area Yoanna Chow DO Solu -Medrol Injection, 125 mg On: 21-Jan-2014 Intent (J2930)By: Charlene Burgess CNP Comments: Lot: [id number]: 06/2016Amt: 125mg/2mlRoute: IMSite: LUOQ Gluteal, pt tolerated without difficulty or c/o voiced.Given by: SCOTT Villarreal Eprescribed prescriptions (G8553)By: On: 31-Oct-2013 Intent Yoanna Chow DO, DO, Kathleen SPECIMEN HNDLNG/TRNSPRT, OFFC > LAB On: 31-Oct-2013 Intent (89608)By: Claudine DO, Yoanna Claudine DO, Yoanna Eprescribed prescriptions (G8553)By: On: 26-Sep-2013 Intent Cluadine DORonaldoYoanna Claudine DO, Yoanna Radiology - Toe(s) - LeftBy: Claudine On: 26-Dec-2012 Intent DOYoanna Claudine DOYoanna Comments: attention 5th (baby) toe Doppler Ultrasound b/lBy: Claudine DO, On: 24-Nov-2012 Intent Yoanna Chow DOYoanna Comments: attention posterior fossa Radiology - Hip - RightBy: Claudine On: 24-Nov-2012 Intent DO, Yoanna Claudine DO, Yoanna Radiology - Knee - RightBy: Claudine On: 24-Nov-2012 Intent DO, Yoanna Claudine DO, Yoanna Radiology - Knee - LeftBy: Claudine On: 24-Nov-2012 Intent DO, Yoanna Claudine DO, Yoanna Eprescribed prescriptions (G8553)By: On: 24-Nov-2012 Intent Bobbi Santoyo LPN EKG (96669)By: Bobbi Santoyo LPN On: 17-Dec-[address] - OtherBy: Roseline Barnett MD On: 11-Nov-2010 Intent Comments: left jaw with mass. Ultrasound - RenalBy: Anibal SHAFER, On: 10-Aug-2010 Intent Roseline Monsalve Radiology - Hand - RightBy: Claudine On: 23-Aug-2008 Intent Yoanna RAYMOND DO, Kathleen Planned Medications INJECTION, METHYLPREDNISOLONE SODIUM SUCCINATE, UP TO 125 MG Ordered: 21-Jan-2014 Pending Charlene Burgess CNP Instructions Name Dates Details Finger pain, left : Patient Instructions Indication: Finger pain, left Non-smoker : How to access health information online Indication: Non-smoker Non-smoker : How to access health information online - Detail Indication: Non-smoker Non-smoker : Patient Instructions Indication: Non-smoker BMI 31.0-31.9,adult : How to access health [...] Knee pain, left Encounters Office Visit On: 28-Jul-2018 11:39 Encounter Reason: Edema - The onset of the edema has been acute and has been occurring for 4 days. Note for Edema: left ring finger and painfulEncounter Diagnosis: BMI 31.0-31.9,adult, Non-smoker, Finger pain, left End: 28-Jul-2018 12:21 [facility] Office Visit On: 09-Jun-2018 10:45 Encounter Reason: [...] procedure scheduled is a Tummy tuck on 12/30/11. The surgeon for the procedure will be [...] But it started back up again in Jun not barrientos re if it is related [...] 21-Jun-2006 9:57 [facility] Payers Kendra Pack; moise guarantor
== END ==
PROVIDERS: Family Provider Internal Medicine; PCP Internal Medicine; Referring Provider Nurse Practitioner; Visit Provider Nurse Practitioner
DX: M79.645 Pain in left finger(s) (principal)
CPT/HCPCS: 73130

== ENCOUNTER 2018-07-31 14:59 | Emergency (ER) | payer OTHER, SELFPAY ==
[2018-07-31 15:00] VITALS: BP 153/90; PULSE 75; RESP 16; TEMP 36.8; O2SAT 98; BMI 31.7
--- NOTE | 2018-07-31 15:31 | ED.VISSUMM ---
- ER Visit Summary Date of Service: 07/31/18 Chief Complaint: Fourth finger pain and swelling History of Present Illness: The patient is a 58 F reports swelling to the left fourth finger for the past 1 week. She denies any injury. No signs of infection. She was seen by her PCPs office last week. X-rays revealed soft tissue swelling only. Labs were unremarkable. Patient was told to follow-up with either orthopedics or the emergency room if she was not improving. She was not able to see orthopedics until late August so came to the ER today. Patient has not felt ill. She does have full range of motion of her finger without difficulty. Physical Examination: Vital signs significant for blood pressure of 153/90, otherwise unremarkable. Patient sitting upright in bed no acute distress. Left upper extremity examination reveals left fourth finger edema distal to her rings. She has no focal erythema or warmth. She has full range of motion of the digit with good cap refill. Test Results: [] Emergency Department Course and Treatment: Surgical loop was used to assist in removing her rings. At this time there is no sign of acute infection. My suspicion is that the rings were just tight enough to block venous return from her finger. She was instructed on icing and elevating her hand above the level of her heart tonight. If she develops any focal erythema, warmth, pain, or sign of infection she is to return immediately for repeat evaluation. She voices understanding and agreement. Treatment Plan: [] Disposition: Discharge Impression: Left fourth finger edema This note was generated with [employer] dictation software. It may contain incorrect words, spelling, and punctuation that were not noted in review of the chart prior to signing ED Disposition - Plan for ED Patient: Disposition: Home or Assisted Living Chief Complaint: Other, Pain/Inj Referrals: Yoanna Chow DO [Primary Care Provider] - Additional Instructions: Your ring was removed from your left 4th finger. Sit with it elevated tonight above the level of your heart with an ice pack as discussed. Return for redness, excessive warmth, focal pain at the joints, or difficulty moving the finger.
[2018-07-31 15:43] VITALS: PULSE 88; RESP 16; O2SAT 98
--- OUTSIDE RECORDS SUMMARY | 2018-11-02 08:06 | XMS RPT_ITS ---
:1960 Author Organization OHIP Care Team Providers Name Role Phone DR. EDWARD SOLOMON DO Attending Unavailable JANETTE DOUGLAS, MRAlysha JACK Primary Care Unavailable Yoanna Chow DO Attending Unavailable Yoanna Chow DO Referring Unavailable Yoanna Chow DO Consulting Unavailable Charlene Burgess Attending Unavailable Charlene Burgess Referring Unavailable Yoanna Chow Primary Care [...] M79.645 - Pain in [place], Bharti Active [place] left finger(s) / Community M79.645(ICD-10) Hospital Repository 06/27/2018 Unknown Z12.31 - Edward Solomon Active [place] Encounter for [facility] screening Hospital mammogram for Repository malignant neoplasm of breast / Z12.31(ICD-10) 05/09/2018 Admitting Cele, NEHA RAYMOND, Active [facility] Diagnosis unspecified / EDWARD Chauhan E03.9(ICD-10) Repository 05/09/2018 Admitting Encounter for NEHA RAYMOND DR. Active [facility] Diagnosis screening for EDWARD [facility] other suspected Repository endocrine disorder / Z13.29(ICD-10) 05/09/2018 Admitting Encounter for NEHA RAYMOND DR. Active [facility] Diagnosis screening for [facility] diseases of the Repository blood and blood-forming organs and certain disorders inv / Z13.0(ICD-10) 05/09/2018 Admitting Encounter for NEHA RAYMOND, Active [facility] Diagnosis screening for EDWARD [facility] other metabolic Repository disorders / Z13.228(ICD-10) 02/02/2018 Unknown M25.562 - Pain in [facility], Active [place] left knee / [facility] M25.562(ICD-10) Hospital Repository 02/02/2018 Unknown M17.12 - Chicorelli, Active [place] Unilateral [facility] Hospital osteoarthritis, Repository left knee / M17.12(ICD-10) PROCEDURES PROCEDURES No Procedure Records FoundRESULTS RESULTS OT GENERAL EVALUATION Observed: 08/23/2018 Status: F Source: [place] 8:50 AM [facility] REPOSITORY [facility] Occupational Therapy [address] [place] [address] / REHABILITATION SERVICES INITIAL EVALUATION MR#: [id number] Acct: [id number] Name: JHONNY FELICIANO Rep #: [id number] : 1960 58 From: Laila Ames OTR/Mckayla, [...] right RF 0/50 left 0/40 - Strength Medical Claims Processor: right 35# left 35# Lateral Pinch: right [...] to be FAXED BACK to us at [phone] for Medicare purposes. Please let me know if there are questions or concerns regarding this plan of care. Physician Signature: Date: <Electronically signed by Laila BENNETT CHT> 08/23/18 0850 CC: Bharti Mcallister; Yoanna Chow DO MK Signed For Medicare only, by signing this I certify the plan of care. Physicians Signature Date EMERGENCY DEPARTMENT Observed: 08/01/2018 Status: F Source: [place] SUMMARY 12:32 AM [facility] REPOSITORY [facility] Medical Records Department [address] [facility] [place] [address] Emergency Department Summary 07/31/18 1531 MR#: [id number] Acct: [id number] Name: JHONNY FELICIANO Rep #: [id number] : 1960 58 From: Kimberley Hale MD [...] finger edema This note was generated with [employer] dictation software. It may contain incorrect words, [...] your Primary Care Provider. Call [facility] ([phone]) or report to the closest Emergency Room. Call 911 if necessary. 08/01/18 0032 <Electronically signed by Kimberley Hale MD> Date Kimberley Hale MD Cosigner Signature (If Indicated): Date CC: Yoanna Chow DO DISCHARGE INSTRUCTION Observed: 07/31/2018 Status: F Source: [place] 3:33 PM [facility] Medical Records Department [address] [place] [address] Discharge Instruction 07/31/18 1531 MR#: [id number] Acct: [id number] Name: JHONNY FELICIANO Rep #: [id number] : 1960 58 From: Kimberley Hale MD [...] your Primary Care Provider. Call [facility] ([phone]) or report to the closest Emergency Room. Call 911 if necessary. 07/31/18 1533 <Electronically signed by Kimberley Hale MD> Date Kimberley Hale MD Cosigner Signature (If Indicated): Date CC: Yoanna Chow DO HAND MIN 3 VIEWS Observed: 07/28/2018 Status: F Source: [place] 12:36 PM [facility] Imaging Services [address] [place] [address] Hand Min 3 Views MR#: [id number] Acct: [id number] Name: JHONNY FELICIANO Rep #: [id number] : 1960 F 58 From: Oswaldo Solorio MD PCP: Yoanna Chow DO Status: REG CLI Study: Hand Min 3 Views Date of Exam: 07/28/18 Exam# [id number] Ordering Dr: Charlene Burgess CAR LUBRICATOR-C STUDY: X-RAY - LEFT HAND REASON FOR [...] CC: Charlene Burgess NP; Yoanna Chow DO Pipe Fitter: Signed SCREENING MAMM (CAD), Observed: 06/07/2018 Status: F Source: [place] BILAT 12:45 PM [facility] REPOSITORY [facility] Imaging Services [address] [place] [address] SCREENING MAMM (CAD), BILAT MR#: [id number] Acct: [id number] Name: JHONNY FELICIANO Rep #: [id number] : 1960 F 58 From: Mannie Dial MD PCP: MISAEL Ivory Status: REG CLI Study: SCREENING MAMM (CAD), BILAT Date of Exam: 06/07/18 Exam# [id number] Ordering Dr: Edward Solomon DO MAMMOGRAPHY - [...] delay biopsy of a clinically suspicious abnormality. [id number] Electronically Signed: Mannie Dial MD at 15:49 EDT Tel [phone], Service support , CC: MISAEL Fatima; Edward Solomon DO Pipe Fitter: Signed TSH Collected: 05/09/2018 Status: F Source: [facility] 3:28 PM [facility] EMERGENCY DEPARTMENT REPOSITORY TYPE CODE TESTS RESULT OUT OF RANGE REFERENCE UNITS LAB TSH(LOINC) 0.36-3.74 mcIU/mL TSH 1.95 Performed By: #### TSH, LIPID, CMP, GFR #### [place] [id number] LIPID Collected: 05/09/2018 Status: F Source: [facility] 3:28 PM [facility] EMERGENCY DEPARTMENT REPOSITORY TYPE CODE TESTS RESULT OUT OF [...] By: #### TSH, LIPID, CMP, GFR #### [place] [address] CMP Collected: 05/09/2018 Status: F Source: [facility] 3:28 PM [facility] EMERGENCY DEPARTMENT REPOSITORY TYPE CODE TESTS RESULT OUT OF [...] By: #### TSH, LIPID, CMP, GFR #### [place] [address] .GFR Collected: 05/09/2018 Status: F Source: [facility] 3:28 PM [facility]OUNDATION REPOSITORY TYPE CODE TESTS RESULT OUT OF REFERENCE UNITS RANGE LAB GFRAA(LOINC ml/min/1.73 ) sqm GFR 79 [place] Result Comment: GFR Population mean for , [...] By: #### TSH, LIPID, CMP, GFR #### [facility] [address] [place] [address] ORTHOPEDIC VISIT Observed: 02/02/2018 Status: F Source: [place] REPORT 12:33 PM [facility] REPOSITORY [facility] Orthopaedics AND Sports Medicine [address] [place] [address] 5 [place] [address] OFFICE VISIT Date of Service: 02/02/18 MR#: [id number] Acct: [id number] Name: JHONNY FELICIANO Rep #: [id number] : 1960 Provider: Susie Brown DO Age/Sex: 57/F Location[place] [facility] [place]: Signed Intake Intake Visit Reasons: LEFT KNEE Is patient in pain?: Yes Pain scale (1-10): 7 Allergies oxycodone HCl [From Percocet] Adverse Reaction (Verified 12/07/15 14:09) Nausea Medications Levothyroxine [Synthroid] 75 mcg PO DAILY 06/13/13 [History Confirmed 12/07/15] Hydrocodone Bitart/Apap 5-325 [[place] 5/325] 1 - 2 tab PO Q4H [...] Route Admin Location Lot Number Expiration DateNDC Print Support Specialist 2 mg Intra-Articularleft knee [id number] 12/13/18 5744-8562-61 [facility] Assessment AND Plan 1. Primary osteoarthritis of left knee M17.12 Plan X-rays were reviewed. There is no obvious fracture, dislocation, or lucency noted, progressing OA is noted in the medial compartment. Her treatment options are steroid injection, steel unloader brace and if the conservative treatment fails [...] knee M17.12 Osteoarthritis type: primary Additional Codes adjunct communications faculty member.knee (03410) 02/02/18 1233 <Electronically signed by Susie Brown DO> Date Susie Brown DO Cosigner Signature: Date (if applicable) CC: KNEE 4 OR MORE Observed: 02/02/2018 Status: F Source: [place] SEEMA 9:26 AM [facility] REPOSITORY [facility] Imaging Services [address] [facility] [place] [address] Knee 4 or More Views MR#: [id number] Acct: [id number] Name: JHONNY FELICIANO Rep #: [id number] : 1960 F 57 From: Tha Alvarenga MD PCP: MISAEL Ivory Status: REG CLI Study: Knee 4 or More Views Date of Exam: 02/02/18 Exam# [id number] Ordering Dr: Susie Brown DO STUDY: X-RAY [...] upright view, not included in the lateral zgsce-fu-dopw. RAD/Knee 4 or More Views IMPRESSION: Mild arthrosis of the medial femorotibial compartment. Electronically Signed: Tha Alvarenga MD at 9:53 EDT Tel , Service support , CC: MISAEL Fatima; Susie Brown DO Pipe Fitter: Signed ALLERGIES ALLERGIES DATE TYPE / CODE NAME / CODE REACTION SEVERITY SOURCE 12/07/2015 Drug oxycodone Nausea Unknown [facility] Allergy/416 HCl/[id number]( Hospital 852562(SNOM XNORM) Repository ED CT) ENCOUNTERS ENCOUNTERS ADMIT/DISCHARGE ACCOUNT NUMBER ADMITTING ENCOUNTER LOCATION SOURCE CLASS 09/05/2018 [id number] Ambulatory [facility] ding:OT Repository 09/04/2018 5355 Ambulatory Building:[facility] Practices Repository 07/31/2018/07/31/20 [id number] Emergency [address] ding:ED Repository 07/28/2018 [id number] Ambulatory [facility] ding:MTLAB Repository 06/07/2018 [id number] Ambulatory [facility] ding:OPBI Repository 05/09/2018/05/13/20 [id number] Ambulatory BBuilding:DR [place] [facility] Repository 02/02/2018 [id number] Ambulatory [facility] ding:HPRAD Repository 02/02/2018/02/03/20 [id number] Ambulatory BMSBuilding: [place] 18 [facility] Repository PAYERS PAYERS ENCOUNTER GUARANTOR PAYER SUBSCRIBER SOURCE 09/05/2018 JHONNY [place] Primary Insurance:S JHONNY De Leon [place] [id number] FOR CASMEYDOB: [facility] [place] [facility]CAREPolicy Number: [id number] [id number] Repository [address]Ilq: 330) Date:7432-23-88[phone] () [address] [place] [phone]: 09/05/2018 Secondary NOT GIVENUNK [place] Insurance:SELF PAY [facility] Number: Effective Repository Date:2018-08-17 09/04/2018 Jhonny De [place] Primary Bhavna L OHIP Practices CasmeyDOB: Insurance: CasmeyDOB: Repository [id number] [facility] Number: [id number] [place] [id number] [address] [place], [place] Date:0303-69-32DrloNaples, [place] [address]Ddn: ([phone]) Name:[address] [address]Swe: [address] [place] [address] [phone] () ()Tel: [phone]: [phone] 09/04/2018 Secondary Bhavna L OHIP Practices Insurance:ReferralsPo CasmeyDOB: Repository licy Number: [id number] Effective Date: - [address] 2608-13-30Ault Name:F [place], [place] [address]Bhp: () 09/04/2018 Tertiary Bhavna L OHIP Practices Insurance:[place] CasmeyDOB: Repository /BSPolicy Number: [id number] [address] e Date: - [place], [place] 8878-97-07Ljoy [address]Wxj: ([phone]) Name:[facility] [phone] () [id number] [place] [id number]: 09/04/2018 Tertiary Bhavna L OHIP Practices Insurance:AETGeo JeanmeyDOB: Repository Number: [id number] [address] Date: - [place], [place] 8101-50-61Myvk [address]Gvn: ([phone]) Name:[facility] [id number] [phone] () [place] [id number]: 09/04/2018 Tertiary Bhavna L OHIP Practices Insurance:United TedmeyDOB: Repository [facility] CarePolicy [id number] Number: [address] [id number] [place] Date:2014-08-15 [address]Opl: [phone] [phone] () Name:[facility] [address]Spckuwe [place] [address]NL: 09/04/2018 Tertiary Bhavna L OHIP Practices Insurance:[place] CasmeyDOB: Repository /[facility]ITAL[facility] Number: [id number] [address] Date:2015-08-15 - [place] 5741-74-17Dmtb [address]Grb: ([phone]) Name:[phone] () [id number], [place] [id number]: 07/31/2018 LOYCE A Primary Insurance:WPS LOYCE A [place] [id number] FOR CASMEYDOB: Community [place] [facility] Number: [id number], [place] [id number] Repository [address]Zmt: ([phone]) Date:4639-54-54FM [phone] () [address] [place] [phone]: 07/31/2018 Secondary NOT GIVENUNK [place] Insurance:SELF PAY [facility] Number: Effective Repository Date:2018-07-31 07/28/2018 LOYCE A Primary Insurance:WPS LOYCE A [place] [id number] FOR CASMEYDOB: [facility] Number: [id number], [place] [id number] Repository [address]Dzx: ([phone]) Date:0068-28-27EH [phone] () [address] [place] [phone]: 07/28/2018 Secondary NOT GIVENUNK [place] Insurance:SELF PAY [facility] Number: Effective Repository Date:2018-07-28 06/07/2018 LOYCE A Primary LOYCE A [place] [id number] Insurance: CASMEYDOB: [facility] Number: [id number], [place] [id number] Repository [address]Zjc: ([phone]) Date:0339-57-99SDCEPQ [phone] () [facility] [address], [place] [address]VS: 06/07/2018 Secondary NOT GIVENUNK [place] Insurance:SELF PAY [facility] Number: Effective Repository Date:2018-05-10 05/09/2018 LOYCE A Primary ROBINA L CASMEYDOB: [facility] CASMEYDOB: Insurance: [id number] [facility] CHAMPUSPolicy Number: 3 [place] Repository [place] [id number] [place] Date:2017-02-26 [address]Cle: [phone]: [phone]) [phone] [phone] Name:[facility] [place] [place] Box (HP)Tel: (000) (HP)Tel: [phone]) [phone] [facility] [phone] () [phone] () [place] [address]MT: 02/02/2018 LOYCE A Primary Insurance:[facility] LOYCE A [place] [id number] FOR CASMEYDOB: Community [place] [facility] Centery Number: [id number] [place], [place] [id number] Repository [address]Luk: ([phone]) Date:6437-90-25GO [phone] () [address] [place] [phone]: 02/02/2018 Secondary NOT GIVENUNK [place] Insurance:SELF PAY [facility] Number: Effective Repository Date:2018-02-02 02/02/2018 LOYCE A Primary NOT GIVENUNK [place] [id number] Insurance:SELF PAY [facility] [place] Number: Effective Repository [id number]: ([phone]) Date:2018-01-12 [phone] ()
== END 2018-07-31 15:44 | disposition home or self-care (01) ==
LOC: ED 15:42
PROVIDERS: Emergency Provider Emergency Medicine; Family Provider Internal Medicine; PCP Internal Medicine
DX: R60.0 Localized edema (principal)
CPT/HCPCS: 99282

== ENCOUNTER 2018-10-03 13:00 | Outpatient (RCR) | payer OTHER, SELFPAY ==
--- NOTE | 2018-08-22 13:53 | HP.OTEVAL_ITS ---
Patient's Visit Information STEPHEN FELICIANO is a 58 year old F, referred to Occupational Therapy by Bharti Mcallister, with a diagnosis of left RF pain. Date of Evaluation: 08/22/18 Occupational Therapist: Laila Ames, OTR/L, CHT - Subjective Subjective: Pt states she woke up four weeks ago with left finger pain and swelling. Pt did see her doctor and when swelling did not go away- pt did go to the ER to have her ring removed. pt states she is having difficulty with motion and swelling. pt is right handed- pt states she feels more pain with activities- pt states she is using a wrap around her finger- states she did not notice a change in swelling- - Pain left hand 1 Pain Intensity Range: 0, 6 - ROM MP: right RF 0/90 left 0/90 PIP: right RF 0/110 left 0/110 DIP: right RF 0/50 left 0/40 - Strength Reverberatory Furnace Operator: right 35# left 35# Lateral Pinch: right 10# left 12# Tripod Pinch: right 10# left 10# - Edema PIP: rigt RF 5.2 left RF 5.5 - Goals Goal:: pt will demo the ability to wear her wedding ring ind. with no report of pain by d/c Goal:: pt will demo a reduction in left RF edema by .5 and the ability for pt to wear her ring by d/c - Rehabilitation General Assessment: pt demo with edema in left RF- she is unable to wear her wedding ring. Pt would benefit from skilled OT services 1x week for 4 weeks to decrease edema to left RF. Today pt was ed. on end range motion ex, edema control venessa. and use of digi sleeve to decrease edema. Pt demo understanding of ex. given and agreed to POC. Rehabilitation Potential: Good - Anticipated Interventions Anticipated Interventions: Edema Control, Modalities - Visit Plan Frequency: Every Other Week Duration: 6 Weeks TEXT: Thank you for the opportunity to evaluate your patient. For Medicare and Medicare HMO plans, please review the plan of care and approve it. It will need to be FAXED BACK to us at [phone] for Medicare purposes. Please let me know if there are questions or concerns regarding this plan of care. Physician Signature: Date:
--- NOTE | 2018-10-03 13:22 | HP.OTDCSUM ---
HP - OT D/C Summary It has been my pleasure to treat STEPHEN FELICIANO under orders from Bharti Mcallister, for the diagnosis of left RF pain for a total of 4 visit(s). Please see the following information for a summary of their discharge status. - Overall Improvement % Improvement: 80 - Objective Objective/Function: left PIP 5.5 a reduction. right PIP 5.2. left RF PIP 0/102. left RF DIP 0/65. right 35# left rn forensic 45# - Goals Patient Goals: Regain Mobility, Decrease Swelling/Stiffness, Decrease Sensitivity Other: be able to wear ring again Goal:: pt will demo the ability to wear her wedding ring ind. with no report of pain by d/c Goal:: pt will demo a reduction in left RF edema by .5 and the ability for pt to wear her ring by d/c - Plan Plan: d/c - D/C Information Discharge Comments: pt was seen for 4 visits following a left RF injury. Pt demo great gains with ROM and strength. Pt still c/o edema that limits her ind. with donning her wedding band. Pt has been ed. on edema contorl venessa. and has been instructed to use them for about 6 months prior to attempting to put her wedding band on or getting it sized. pt has met all goals with ROM, and strength. Pt d/c with HEP to cont with edema control. If there are questions or concerns regarding this patient's occupational therapy, please fell free to call me at [phone]. Thank you for the referral of this patient. Sincerely, Laila Amse, OTR/L, CHT
== END 2018-10-03 19:00 | disposition home or self-care (01) ==
LOC: OT 13:00
PROVIDERS: Family Provider Internal Medicine; PCP Internal Medicine; Referring Provider Physician Assistant; Visit Provider Physician Assistant
DX: M79.645 Pain in left finger(s) (principal)
CPT/HCPCS: 97110; 97140; 97166; 97530

== ENCOUNTER 2018-11-20 20:11 | Emergency (ER) | payer OTHER, SELFPAY ==
[2018-11-20 20:12] VITALS: BP 144/96; PULSE 74; RESP 16; TEMP 36.6; O2SAT 95; BMI 33.5
--- NOTE | 2018-11-20 21:20 | ED.VIS.LOWEX ---
History of Present Illness Chief Complaint: Wound Detail of Chief Complaint: Pain left toe status post nail removal Informant: Patient Occurred: Today Onset: Today Context: Sudden Onset Timing: Continuous Quality of Pain: Dull, Throbbing Location: Second left toe Current Severity: Mild Maximum Severity: Severe Worsened by: Walking Relieved by: Nothing, decreased with ibuprofen Associated Symptoms: Negative for: Parasthesia, Weakness, Loss of Funtion Narrative: Patient seen by cooling room attendant for chronically infected left second toenail. The toenail was removed. She had pain as she was leaving the office of the cooling room attendant. She did not informant. She did contact him and he recommended NSAIDs and she does not have contraindication. Patient states she is still having severe pain. She denies fever, chills night sweats. She is not diabetic. There is no history rheumatic fever, heart murmur, SPE or being immune suppressed. Past Medical History - Allergies and Home Meds Allergies/Adverse Reactions: Allergies oxycodone HCl [From Percocet] Adverse Reaction (Verified 11/20/18 20:14) Nausea Primary Care Physician: Yoanna Chow DO [Primary Care Provider] - Prior records reviewed: Yes Surgical History: - - Removal left second toenail Lives: Spouse/ Significant Other Smoking Status: Never smoker Alcohol: None Drugs: None Review of Systems General: Denies: Chills, Fever, Malaise, Sweats Musculoskeletal: Reports: Extremity Pain - Second left toe. Denies: Myalgias, Arthralgias, Back pain, Swelling Skin: Reports: Rash, Wounds Endocrine: Denies: Polyuria, Polydipsia Hematologic: Denies: Easy bruising, Easy bleeding Physical Exam Vital Signs/Narrative: Vital Signs Temp Pulse Resp BP Pulse Ox 11/20/18 20:12 97.9 F 74 16 144/96 H 95 - Extremity Exam Right Ankle: Negative for: Abrasion, Contusion, Deformity, Edema, Hematoma, Limited ROM, - Right Foot: Negative for: Abrasion, Contusion, Deformity, Edema, Hematoma, Limited ROM, - Right Toe: Negative for: Abrasion, Contusion, Deformity, Edema, Hematoma, Limited ROM, - - White count is the nail has been removed. There is erythema of the second toe. There is no lymphangitis. DP and PT pulse are palpable. General: Well nourished, Well developed Head: Normocephalic, Atraumatic Eyes: Perrl, EOMI Cardiovascular: Regular rate, Regular rhythm, No murmurs Respiratory: No distress Skin: Normal color, Rash Neurological: Alert, Oriented x3, Cranial nerves II-XII grossly intact, Normal Strength, Normal Sensation Psychological: Normal affect Diagnostic/Tx/Re-eval - Medical Decision Making Patient with pain status post removal of toenail second left toe. Will prescribe opiate analgesia. Patient reports nausea with Percocet, which is not an allergy ED Disposition - Plan for ED Patient: Disposition: Home or Assisted Living Diagnosis: Status post surgical removal of nail matrix of toe of left foot Instructions: ED Post Op Pain Prescriptions: Hydrocodone Bitart/Apap 5-325 [[place] 5MG-325MG] 1 tab PO Q6H PRN PRN 3 Days #10 tab PRN Reason: Pain Referrals: Yoanna Chow DO [Primary Care Provider] -
--- NOTE | 2018-11-20 21:25 | ED.DCSUM_ITS ---
History of Present Illness Chief Complaint: Wound Detail of Chief Complaint: Pain left toe status post nail removal Informant: Patient Occurred: Today Onset: Today Context: Sudden Onset Timing: Continuous Quality of Pain: Dull, Throbbing Location: Second left toe Current Severity: Mild Maximum Severity: Severe Worsened by: Walking Relieved by: Nothing, decreased with ibuprofen Associated Symptoms: Negative for: Parasthesia, Weakness, Loss of Funtion Narrative: Patient seen by apartment rental agent for chronically infected left second toenail. The toenail was removed. She had pain as she was leaving the office of the apartment rental agent. She did not informant. She did contact him and he recommended NSAIDs and she does not have contraindication. Patient states she is still having severe pain. She denies fever, chills night sweats. She is not diabetic. There is no history rheumatic fever, heart murmur, SPE or being immune suppressed. Past Medical History - Allergies and Home Meds Allergies/Adverse Reactions: Allergies oxycodone HCl [From Percocet] Adverse Reaction (Verified 11/20/18 20:14) Nausea Primary Care Physician: Yoanna Chow DO [Primary Care Provider] - Prior records reviewed: Yes Surgical History: - - Removal left second toenail Lives: Spouse/ Significant Other Smoking Status: Never smoker Alcohol: None Drugs: None Review of Systems General: Denies: Chills, Fever, Malaise, Sweats Musculoskeletal: Reports: Extremity Pain - Second left toe. Denies: Myalgias, Arthralgias, Back pain, Swelling Skin: Reports: Rash, Wounds Endocrine: Denies: Polyuria, Polydipsia Hematologic: Denies: Easy bruising, Easy bleeding Physical Exam Vital Signs/Narrative: Vital Signs Temp Pulse Resp BP Pulse Ox 11/20/18 20:12 97.9 F 74 16 144/96 H 95 - Extremity Exam Right Ankle: Negative for: Abrasion, Contusion, Deformity, Edema, Hematoma, Limited ROM, - Right Foot: Negative for: Abrasion, Contusion, Deformity, Edema, Hematoma, Limited ROM, - Right Toe: Negative for: Abrasion, Contusion, Deformity, Edema, Hematoma, Limited ROM, - - White count is the nail has been removed. There is erythema of the second toe. There is no lymphangitis. DP and PT pulse are palpable. General: Well nourished, Well developed Head: Normocephalic, Atraumatic Eyes: Perrl, EOMI Cardiovascular: Regular rate, Regular rhythm, No murmurs Respiratory: No distress Skin: Normal color, Rash Neurological: Alert, Oriented x3, Cranial nerves II-XII grossly intact, Normal Strength, Normal Sensation Psychological: Normal affect Diagnostic/Tx/Re-eval - Medical Decision Making Patient with pain status post removal of toenail second left toe. Will prescribe opiate analgesia. Patient reports nausea with Percocet, which is not an allergy ED Disposition - Plan for ED Patient: Disposition: Home or Assisted Living Diagnosis: Status post surgical removal of nail matrix of toe of left foot Instructions: ED Post Op Pain Prescriptions: Hydrocodone Bitart/Apap 5-325 [[place] 5MG-325MG] 1 tab PO Q6H PRN PRN 3 Days #10 tab PRN Reason: Pain Referrals: Yoanna Chow DO [Primary Care Provider] -
[2018-11-20 21:49] VITALS: PULSE 72; RESP 16; O2SAT 97
== END 2018-11-20 21:50 | disposition home or self-care (01) ==
LOC: ED 21:39
PROVIDERS: Emergency Provider Emergency Medicine; Family Provider Internal Medicine; PCP Internal Medicine
DX: M79.675 Pain in left toe(s) (principal); G89.18 Other acute postprocedural pain; Z98.890 Other specified postprocedural states
CPT/HCPCS: 99282

== ENCOUNTER → 2019-05-03 16:02 | Outpatient (CLI) | payer OTHER, SELFPAY ==
--- NOTE | 2019-05-03 16:15 | CT_ITS ---
HISTORY: MASS, LATERAL NECK, RIGHT SIDE TECHNIQUE: Helically acquired images were obtained of the neck following the intravenous administration of 70 ml of Isovue 370 Iodinated, IV contrast. A radiation dose optimization technique was used for this scan. COMPARISON: None FINDINGS: # of images incl. paperwork: 311 Pulmonary venous congestion. Within the cervical spine and upper thoracic spine there is minimal degenerative disc disease and some facet arthropathy. Prevertebral and paraspinal soft tissues are normal. Mastoid air cells are free of disease. Visualized paranasal sinuses are free of disease. The ascending thoracic aorta is minimally distended to 4.2 cm. The aortic arch is elongated and slightly tortuous. Trace calcific plaque at the ligamentum arteriosum. Patient has a normal anatomic variant, origin of the left vertebral artery directly from the aortic arch. Flow is normal within the brachiocephalic artery, bilateral common carotid, subclavian, and vertebral arteries. Both vertebral arteries remain patent within their respective vertebral foramina to join and form the basilar artery. Flow is normal within bilateral CCAs, ICAs, and ECAs. Bilateral ICA remains patent into the brain do demonstrate flow to the ACAs and MCAs. The basilar artery fills and provides flow to the leather carver. The anterior communicating artery is patent. The airway is widely patent. The thyroid, submandibular, and parotid glands are normal. No adenopathy. Within the cervical spine bony alignment is normal. Some degenerative disc disease. Some arthropathy. CT/Soft Tissue Neck WITH Contrast IMPRESSION: Some degenerative disease within the thoracic aorta. Some mild pulmonary venous congestion. No right-sided neck mass or nodule perceived. No adenopathy. Individualized dose optimization techniques were used for this CT. at 0354 Reported and signed by: Roberto Hatfield MD Electronically Signed: Roberto Hatfield MD at 3:53 EDT Tel , Service support ,
== END ==
PROVIDERS: Family Provider Internal Medicine; PCP Internal Medicine; Referring Provider Internal Medicine; Visit Provider Internal Medicine
DX: R22.1 Localized swelling, mass and lump, neck (principal)
CPT/HCPCS: 70491; Q9967

== ENCOUNTER → 2019-06-12 10:21 | Outpatient (CLI) | payer OTHER, SELFPAY ==
--- NOTE | 2019-06-12 10:27 | BI_ITS ---
MAMMOGRAPHY - BILATERAL SCREENING REASON FOR EXAM: Female, 59 years old. Routine annual screening examination. PERTINENT HISTORY: Non-contributory. TECHNIQUE: Digital bilateral breast jomar (3D mammographic acquisition) in the CC and MLO projections. 2-D mediolateral oblique (MLO) and craniocaudad (CC) views of both breasts were obtained. CAD: Full Field Digital Mammography with Computer Added Detection was performed. COMPARISON: Comparison is made with prior study June 07, 2018 and December 17, 2015. FINDINGS: Breast Composition: There are scattered areas of fibroglandular density. There are no dominant masses or suspicious calcifications. Stable small benign-appearing bilateral axillary lymph nodes. No other significant abnormalities are identified. There has been no significant change since the prior study. BI/SCREEN MAMM (CAD) W/JOMAR BILAT IMPRESSION: Stable bilateral screening mammogram. Yearly follow-up mammogram recommended. (A) ASSESSMENT CATEGORY: BIRADS Category 2: Benign. A letter regarding these results will be sent to the patient by the facility within 30 days. Approximately 10% of breast cancers are not detected by mammography. A normal mammogram should not delay biopsy of a clinically suspicious abnormality. [id number] Electronically Signed: Mannie Dial, at 14:55 EDT , Service support ,
== END ==
PROVIDERS: Family Provider Internal Medicine; PCP Internal Medicine
DX: Z12.31 Encounter for screening mammogram for malignant neoplasm of breast (principal)
CPT/HCPCS: 77063; 77067

== ENCOUNTER 2019-09-23 18:29 | Emergency (ER) | payer OTHER, SELFPAY ==
[2019-09-23 18:29] VITALS: BP 156/91; PULSE 85; RESP 16; TEMP 36.6; O2SAT 96; BMI 34.3
--- NOTE | 2019-09-23 18:42 | ED.VIS.GEN ---
History of Present Illness Chief Complaint: Wound Detail of Chief Complaint: Burning pain distal right long finger Informant: Patient Onset: Days Context: Sudden Onset Timing: Continuous Quality: Burning Location: Distal PIP joint Current Severity: Mild Maximum Severity: Moderate Worsened by: Touch Relieved by: Nothing Associated Symptoms: Reported initially blisters and drainage also paper cut Narrative: Patient is a 59-year-old [id number] woman who has no history of diabetes on no immunosuppressive meds who presents with burning pain distal aspect of the right long finger. She states she was seen by nurse practitioner and placed on cephalexin. She also has a rash on the palm of her hands. She does admit to having her hands in water a lot. She denies symptoms to suggest ray nods phenomenon. She has a history of peripheral arterial disease. He has no symptoms to suggest autoimmune disorder. Prior similar symptoms: No Recent Illness/Hospitalization: Yes - Past Medical History (1) No significant past medical history Status: Acute Past Medical History - Allergies and Home Meds Allergies/Adverse Reactions: Allergies oxycodone HCl [From Percocet] Adverse Reaction (Verified 11/20/18 20:14) Nausea Primary Care Physician: Yoanna Chow DO [Primary Care Provider] - Prior records reviewed: Yes Surgical History: noncontributory, - - Removal left second toenail Lives: Spouse/ Significant Other Smoking Status: Never smoker Drugs: None Review of Systems General: Denies: Chills, Fever, Malaise Gastrointestinal: Denies: Nausea, Vomiting Musculoskeletal: Denies: Myalgias, Arthralgias, Neck pain, Back pain, Swelling, Extremity Pain, -, - Skin: Reports: Rash - Dyshidrotic eczema right hand and open wounds distal right long finger radial side. Neurological: Reports: - - Pain distal right long finger. Denies: Weakness, Parasthesia Hematologic: Denies: Easy bruising, Easy bleeding Physical Exam Vital Signs/Narrative: Vital Signs Temp Pulse Resp BP Pulse Ox 09/23/19 18:29 98 F 85 16 156/91 H 96 Inital Vital Signs reviewed: Yes General: Well nourished, Well developed, No Acute Distress Head: Normocephalic, Atraumatic Eyes: Perrl, EOMI. Negative for: Pale conjunctiva, Scleral icterus ENT: Moist mucous membranes, No rhinorrhea Cardiovascular: Regular rate Respiratory: No distress Extremities: Tenderness, - - There is swelling of the right long finger compared to her other digits and left long finger. There is no fluctuance. There is no erythema. There is open wounds noted distal radial long finger. There is no pain the patient over the flexor tendon sheath. There is no pain with active or passive flexion extension at the DIP or PIP joint. There is no bogginess or swelling of the MCP joint of the long finger. There is evidence of dyshidrotic eczema. This involves all of her digits and the palm of her right hand.. Negative for: Nontender, No edema Skin: Normal color, Rash - Initially described Neurological: Alert, Oriented x3, Cranial nerves II-XII grossly intact, Normal Strength, Normal Sensation Psychological: Normal affect Diagnostic/Tx/Re-eval - Medical Decision Making History of blisters with drainage and now pain that is suggestive of neuropathy suspect patient had herpetic hilda. Patient was informed there is no treatment at this point. She was instructed to apply Eucerin cream 2-3 times a day and thick coat at night for her dry skin. Patient was informed of this pain becomes unbearable there is medication; however, there are potentially significant side effects with that medication. ED Disposition - Plan for ED Patient: Disposition: Home or Assisted Living Diagnosis: Neuropathic pain of finger of right hand, Dyshidrotic eczema Instructions: Atopic Dermatitis (Eczema) Referrals: Yoanna Chow DO [Primary Care Provider] - Additional Instructions: This done your symptoms and description of rash I suspect you have what is known as herpetic hilda. This is the cause of your burning pain. At this point there is no specific treatment.
== END 2019-09-23 19:00 | disposition home or self-care (01) ==
PROVIDERS: Emergency Provider Emergency Medicine; PCP Internal Medicine
DX: M79.2 Neuralgia and neuritis, unspecified (principal); M79.641 Pain in right hand; L30.1 Dyshidrosis [pompholyx]; Z88.5 Allergy status to narcotic agent
CPT/HCPCS: 99282

== ENCOUNTER → 2020-07-23 13:25 | Outpatient (CLI) | payer OTHER, SELFPAY ==
--- NOTE | 2020-07-23 13:25 | BI_ITS ---
MAMMOGRAPHY - BILATERAL SCREENING REASON FOR EXAM: Female, 60 years old. Routine annual screening examination. PERTINENT HISTORY: Non-contributory. TECHNIQUE: Digital bilateral breast jomar (3D mammographic acquisition) in the CC and MLO projections. 2-D mediolateral oblique (MLO) and craniocaudad (CC) views of both breasts were obtained. CAD: Full Field Digital Mammography with Computer Added Detection was performed. COMPARISON: Comparison is made with prior study dated 06/12/2019 and 06/07/2018. FINDINGS: Breast Composition: There are scattered areas of fibroglandular density. There are no dominant masses or suspicious calcifications. Stable benign-appearing bilateral axillary No other significant abnormalities are identified. There has been no significant change since the prior study. BI/SCREEN MAMM (CAD) W/JOMAR BILAT IMPRESSION: Stable bilateral screening mammogram. Yearly follow-up mammogram recommended. (A) ASSESSMENT CATEGORY: BIRADS Category 2: Benign. A letter regarding these results will be sent to the patient by the facility within 30 days. Approximately 10% of breast cancers are not detected by mammography. A normal mammogram should not delay biopsy of a clinically suspicious abnormality. [id number] Pending Final Proof Editing
== END ==
PROVIDERS: PCP Internal Medicine
DX: Z12.31 Encounter for screening mammogram for malignant neoplasm of breast (principal)
CPT/HCPCS: 77063; 77067

== ENCOUNTER → 2020-08-11 13:16 | Outpatient (CLI) | payer OTHER, SELFPAY ==
--- NOTE | 2020-08-11 13:18 | US_ITS ---
STUDY: SUPERFICIAL ULTRASOUND - RIGHT NECK. REASON FOR EXAM: Female, 60 years old. RIGHT NECK AREA OF PALP LUMP TECHNIQUE: A superficial ultrasound was performed with real-time and static persaud-scale imaging. COMPARISON: None. FINDINGS: Images in the region of clinical concern reveal an elongated hypoechoic structure with fatty hilum consistent with a lymph node measuring 1.1 x 1.0 x 0.3 cm. This maintains normal morphology. US/Head/Neck Soft Tissue IMPRESSION: Lymph node in the region of clinical concern measuring 1.1 x 1.0 x 0.3 cm with normal appearing morphology. No distinct mass or fluid collection. Electronically Signed: Griselda Gill MD at 3:25 EST , Service support ,
== END ==
PROVIDERS: PCP Internal Medicine; Referring Provider Internal Medicine; Visit Provider Internal Medicine
DX: R22.9 Localized swelling, mass and lump, unspecified (principal)
CPT/HCPCS: 76536

== ENCOUNTER 2020-10-15 18:01 | Outpatient (RCR) | payer OTHER, SELFPAY ==
--- NOTE | 2020-10-29 09:54 | HP.PTEVAL_ITS ---
Patient's Visit Information STEPHEN FELICIANO is a 60 year old F referred to Physical Therapy by Dr. Susie Brown DO with a diagnosis of B knee pain. Date of Evaluation: 10/15/20 Physical Therapist: Albert Grimaldo DPT - Visit Plan Frequency: 2x /Week Duration: 4 Weeks Plan: Start in aquatic setting working on BLE strength and knee extension ROM. - Subjective Pt is here today for her initial evaluation with diagnosis of B knee pain. Pt. reports having overall increasing knee pain for a few years and has finally decided to get them checked. She did get them looked at previously, early last year and was given a injection which helped. She had only went to this physician due to her previous physician being on leave due to COVID. She followed up with Dr. Brown who offered PT, bracing or injection and patient chose PT. Pt. i s having pain with standing, walking, and stairs. She reports swelling throuhgout B knees. No N/T noted, and no giving out. Pt. reports pain through B medial compartment of knees. - Pain R knee Pain Intensity (Out of 10): 3 Pain Intensity Range: 1, 6 L knee Pain Intensity (Out of 10): 2 Pain Intensity Range: 1, 6 - Objective POSTURE: Pt. lacks TKE in stance in BLEs, crouched pattern. FH posture. Normal iliac crest heights. PALPATION: Pt. has tenderness at B medial joint lines and posterior medial compartment. NEURO: normal sensation, normal DTR of BLEs. Pt. is able to rise on heels and toes without issues. ROM: R knee 0-6-118deg, L knee 0-10-122deg. Hip: flexion 120deg bilat, ext 10deg bilat. Tightness throughout B hamstrings and hip flexors. MMT: Pt. has 5-/5 general strength throughout BLEs, except 4+/5 B knee ext and 4-/5 B hip abduction. GAIT: Pt. ambulates without AD. Pt. has antalgic pattern during L stance phase of gait. Pt. lacks TKE in B knees. STAIRS: heavy use of BHR, descends in lateral fashion, loading RLE mostly. - Goals Goal 1:: LTG: Pt. to be I with HEP. Goal Time Frame: 4-6 Weeks Goal 2:: LTG: Pt. to have increased B knee extension to 0deg allowing for improved gait mechanics. Goal Time Frame: 4-6 Weeks Goal 3:: LTG: Pt. to have increased knee extension and hip abd strength by 1/2 grade. Goal Time Frame: 4-6 Weeks Goal 4:: LTG: Pt. to ambulate unlimited distances with 0-1/10 pain in BLEs. Goal Time Frame: 4-6 Weeks - Rehabilitation Potential Physical Therapy Diagnosis: Pt. has signs and symptoms consistent with B knee OA. Pt. has limited ROM and increased weaknes. Pt. would benefit from working into increase ROM and strength. Rehabilitation Potential: Good - Anticipated Interventions Patient/Client Instruction: Educate patient on: Condition, Plan of Care, Risk Factors, Benefits of Fitness Program For the Purpose of:: To decrease pain, To decrease swelling/inflammation, To increase ROM, To improve nutrient delivery to tissue Therapeutic Exercise to Include: Strength training, Power training, Endurance training, In an aquatic setting For the Purpose of:: To decrease pain, To decrease swelling/inflammation, To increase ROM, To improve nutrient delivery to tissue, To increase oxygenation perfusion, To improve muscle performance and motor function, To improve gait and locomotor functions, To improve health of tissue, To decrease soft tissue restriction, To increase flexibility/ROM Thank you for the opportunity to evaluate your patient. For Medicare and Medicare HMO plans, please review the plan of care and approve it. It will need to be FAXED BACK to us at [phone] for Medicare purposes. For Medicare only, by signing this I certify the plan of care. Please let me know if there are questions or concerns regarding this plan of care. Physician Signature: Date:
--- NOTE | 2021-01-19 16:52 | HP.PT.NRP ---
STEPHEN FELICIANO was seen in my office for initial evaluation on 10/15/20. The following Plan of Care was established for this patient: Initial Frequency: 2x /Week Initial Duration: 4 Weeks Patient/Client Instruction: Educate patient on: Condition, Plan of Care, Risk Factors, Benefits of Fitness Program For the Purpose of:: To decrease pain, To decrease swelling/inflammation, To increase ROM, To improve nutrient delivery to tissue Therapeutic Exercise to Include: Strength training, Power training, Endurance training, In an aquatic setting For the Purpose of:: To decrease pain, To decrease swelling/inflammation, To increase ROM, To improve nutrient delivery to tissue, To increase oxygenation perfusion, To improve muscle performance and motor function, To improve gait and locomotor functions, To improve health of tissue, To decrease soft tissue restriction, To increase flexibility/ROM This patient was last seen in our office 10/15/20. Pertinent comments regarding their Physical therapy will appear below: Pt. was seen for her initial evaluation with diagnosis of bilateral knee OA. Pt. did not return for any follow up therapy and will be DC from PT at this point in time. At this point I will be discontinuing this patient from physical therapy. I would be happy to see this patient again in the future if found appropriate by the physician. Thank you! AME AlvaradoT
== END 2020-10-15 19:00 | disposition home or self-care (01) ==
LOC: PT 18:01
PROVIDERS: PCP Internal Medicine; Visit Provider Orthopaedic Surgery
DX: M17.0 Bilateral primary osteoarthritis of knee (principal)
CPT/HCPCS: 97161

== ENCOUNTER → 2021-06-25 14:50 | Outpatient (CLI) | payer OTHER, SELFPAY ==
--- NOTE | 2021-06-25 15:20 | RAD_ITS ---
EXAM: XR CHEST, 2 VIEWS CLINICAL INDICATION: COUGH TECHNIQUE: Frontal and lateral views of the chest. This report was created using [employer] report generation technology. COMPARISON: 12.07.15 FINDINGS: LUNGS AND PLEURAL SPACES: Unremarkable. No consolidation or edema. No pneumothorax. No effusion. HEART: Unremarkable. Cardiac silhouette not enlarged. MEDIASTINUM: Central airways and mediastinal contour are unremarkable. BONES/JOINTS: Unremarkable. SOFT TISSUES: Unremarkable. RAD/Chest PA and Lateral IMPRESSION: No radiographic evidence of acute cardiopulmonary disease. Electronically Signed: Garret Don MD at 16:33 EST , Service support ,
== END ==
PROVIDERS: PCP Internal Medicine; Referring Provider Internal Medicine; Visit Provider Internal Medicine
DX: R05.9 Cough, unspecified (principal)
CPT/HCPCS: 71046

== ENCOUNTER 2021-06-28 20:10 | Emergency (ER) | payer OTHER, SELFPAY ==
[2021-06-28 20:11] VITALS: BP 176/126; PULSE 107; RESP 24; TEMP 36.6; O2SAT 98; BMI 36.3
[2021-06-28 20:44] VITALS: O2SAT 97
--- NOTE | 2021-06-28 20:53 | EDS_ITS ---
HPI HPI - URI History of Present Illness Chief Complaint: Cough Informant: patient Onset/Context/Timing Onset: Weeks Context: Gradual Onset Timing: Continuous Current Severity: Mild Maximum Severity: Mild Worsened by: Not Worsened By Swallowing and Eating Solids Associated Symptoms Associated Symptoms: Positive for Nasal Congestion, Headache, Sinus Pressure, Shortness of Breath and Productive Cough; Negative for Nausea, Vomiting and Hemoptysis Narrative Narrative: 11-year-old female past medical history of hypothyroidism. 2 weeks ago her watches her grandson who had a cough. He was diagnosed with otitis and had a negative Covid test however then the patient, her and other family members all became ill with similar symptoms. The rest of gotten better. Those that were tested all tested negative for Covid but she is progressively gotten worse. She denies vomiting or diarrhea. She has a cough and now wheezing. She was on a Z-Evert this past week and has not gotten any better nicely feels worse. She had a reported negative chest x-ray and negative Covid test in the last 7 days. Prior similar symptoms: Yes Recent Illness/Hospitalization: No ROS ROS ED ROS Narrative Cough, sinus congestion, headache and wheezing. Review of Systems ROS Unobtainable: Denies due to encephalopathy Constitutional Constitutional ED: Reports chills and fever(s) Eyes Eyes: Denies change in vision ENT ENT ED: Reports rhinorrhea; Denies ear pain Cardiovascular Cardiovascular: Denies chest pain or palpitations Respiratory/Chest Respiratory/Chest: Reports cough and dyspnea Gastrointestinal Gastrointestinal: Denies abdominal pain, diarrhea, nausea or vomiting Genitourinary Genitourinary ED: Denies dysuria Musculoskeletal Musculoskeletal: Denies myalgias Integumentary Denies rash Neurologic Neurologic: Denies headache(s) Psychiatric Psychiatric: Denies depression Endocrine Endocrinology: Denies polyuria Hematologic/Lymphatic Hematologic/Lymphatic: Denies easy bruising Allergic/Immunologic Allergic/Immunologic ED: Denies urticaria [facility] Medical History Rachel's disease Thyroid disorder Home Medications levothyroxine 88 mcg capsule 88 mcg PO DAILY 09/01/20 [History Last Taken Unknown] thyrovin PO DAILY 10/14/20 [History Last Taken Unknown] levofloxacin 500 mg PO DAILY #7 tab 06/28/21 [Rx Last Taken Unknown] prednisone 40 mg PO DAILY 7 Days #14 tab 06/28/21 [Rx Last Taken Unknown] Allergy/AdvReac Type Severity Reaction Status Date / Time oxycodone HCl [From Percocet] AdvReac Nausea Verified 06/28/21 20:43 Surgical History H/O: hysterectomy Hx of appendectomy Social History Smoking Status: Never smoker EXAM Physical Exam Narrative Exam Narrative: Middle-aged woman no acute distress vital signs stable afebrile blood pressure elevated 176/126. Pulse ox 90% on room air no signs hypoxia. HEENT exam TMs normal bilaterally. Posterior pharynx moist and pink. No particular frontal or maxillary sinus tenderness. Neck nontender no meningismus no lymphadenopathy. Lungs dry cough with few scattered expiratory wheezes bilaterally. No rales or rhonchi. Heart regular rate and rhythm no murmur rate about 100. Abdomen soft nontender. Moving all 4 extremities. Calves nontender no edema. Neurologically awake and alert with no focal motor deficits. Const Vital Signs: 06/28/21 20:11 06/28/21 20:44 Temperature 97.8 F Temperature Source Oral Pulse Rate 107 H Respiratory Rate 24 H Respiratory Effort Short of Breath Respiratory Depth Normal Respiratory Pattern Tachypnea Blood Pressure 176/126 H Blood Pressure Mean 142 Pulse Ox 98 Oxygen Delivery Method Room Air Positive well nourished and well developed; Negative for obese, cachectic or contractures General Appearance ED: well developed and NAD; Negative for cachectic, contractures, cyanotic, diaphoretic or pallor Nutritional Appearance: Negative for cachectic or obese HEENT Reports TM's clear and moist mucous membranes; Denies dry mucous membranes normocephalic and atraumatic Face and Sinus: Negative for sinus tenderness, maxillary instability or facial tenderness External Ear: external ears normal External Auditory Canal: EAC's normal Tympanic Membrane ED: Yes TM's clear Mouth ED: No dry mucous membranes Mouth: No dry mucous membranes Throat: Negative for posterior oropharynx normal Eyes PERRL and EOMs intact bilaterally General Eye ED: Negative for pale conjunctiva or scleral icterus Neck no lymphadenopathy, supple, no meningeal signs and no JVD General: Negative for anterior neck swelling or lymphadenopathy Resp normal respiratory effort and No clear to auscultation bilaterally Auscultation: wheezes; Negative for rales or rhonchi Cardio S1 normal heart sound, S2 normal heart sound and no murmurs Rate: regular rate Rhythm: regular rhythm GI non-tender, non-distended and no masses Auscultation: normoactive bowel sounds; Negative for hyperactive bowel sounds Palpation: soft; Negative for tender or guarding Back/Spine no CVA tenderness and normal ROM General Back: Negative for CVA tenderness Cervical Spine: Negative for cervical spine tenderness Extremity normal to inspection and full ROM General Extremety ED: Negative for cyanosis or tenderness General Extremity: Negative for cyanosis Psych mental status grossly normal Skin General Skin Exam: Negative for jaundice or pallor Lesions: no lesions Rashes: no rashes MDM MDM MDM Narrative Medical decision making narrative: Female with 12-day history of URI symptoms. Not getting better in spite of antibiotics. Now wheezing. She will be started on p.o. prednisone I will repeat a Covid test and a chest x-ray. Does not need lab work. Repeat exam patient doing well. She and I discussed her test results. She will be placed on Levaquin and prednisone and outpatient follow-up. Lab Data Attestation: I reviewed the patient's lab results. Lab results narrative: Covid test negative. Radiography Diagnostic Testing: Clinical Impression(s) from Imaging Studies Chest X-Ray 06/28/21 21:03 IMPRESSION: 1. Subtle area of atelectasis versus infiltrate in the RIGHT infrahilar region. Remaining lung zones clear. 2. No consolidation, congestive failure or effusion. Electronically Signed: Pan Shin MD at 21:32 EST Tel , Service support , Chest x-ray portable, 1 view interpreted by myself shows questionable infiltrate right hilar region also interpreted by the radiologist as similar. This could also be atelectasis. I did compare to the prior film. Discharge Plan Triage Chief Complaint: Cough ED Provider: Ilan Vizcarra Dx/Rx/DC Orders Clinical Impression: Pneumonia Instructions: ED Pneumonia (Adult) Prescriptions: New levofloxacin 500 mg tablet 500 mg PO DAILY Qty: 7 RF: 0 prednisone 20 mg tablet 40 mg PO DAILY 7 Days Qty: 14 RF: 0 No Action levothyroxine 88 mcg capsule 88 mcg PO DAILY RF: 0 thyrovin PO DAILY RF: 0 Primary Care Provider: Yoanna Chow Referrals: Yoanna Chow, [Primary Care Provider] - 3-5 Days if not improving Activity Restrictions/Additional Instructions: Plenty fluids and rest. Tylenol and Motrin for pain and fever. Prednisone daily for wheezing and lung inflammation. Levaquin daily for possible pneumonia and/or sinusitis. You should progressively be starting to feel better at around 3 to 5 days if not you need to follow-up with your primary care physician. Disposition Disposition: Home, Self Care
[2021-06-28] MEDS: predniSONE 20 MG Tablet 60 MG PO (20:54)
--- NOTE | 2021-06-28 21:03 | RAD_ITS ---
INDICATION: cough EXAMINATION/TECHNIQUE: X-RAY - XR Chest 1 View COMPARISON: 06/25/2021 FINDINGS: LIFE-SUPPORT AND LINES: 1. None HEART AND VESSELS: The cardiac silhouette, pulmonary vasculature have normal appearance. No evidence of congestive failure. LUNGS AND PLEURAL SPACES: Lungs are clear with the exception of subtle area of infrahilar infiltrate versus atelectasis on the RIGHT. No consolidation, no effusion. MEDIASTINUM AND HILAR REGIONS: No masses adenopathy noted. No areas of calcification. Visualized upper airway is normal in position. BONY ELEMENTS: No acute bony changes noted. RAD/Chest 1 View (Portable) IMPRESSION: 1. Subtle area of atelectasis versus infiltrate in the RIGHT infrahilar region. Remaining lung zones clear. 2. No consolidation, congestive failure or effusion. Electronically Signed: Pan Shin MD at 21:32 EST Tel , Service support ,
[2021-06-28] MEDS: Acetaminophen 500 MG Tablet 1000 MG PO (21:25)
[2021-06-28] MEDS: levoFLOXacin 750 MG Tablet PO (21:47)
[2021-06-28 21:51] VITALS: BP 141/85; O2SAT 95
== END 2021-06-28 21:56 | disposition home or self-care (01) ==
PROVIDERS: Emergency Provider Emergency Medicine; PCP Internal Medicine
DX: J18.9 Pneumonia, unspecified organism (principal); E03.9 Hypothyroidism, unspecified
CPT/HCPCS: 71045; 87426; 99283

== ENCOUNTER → 2021-08-11 10:56 | Outpatient (CLI) | payer OTHER, SELFPAY ==
--- NOTE | 2021-08-11 11:01 | US_ITS ---
STUDY: RENAL ULTRASOUND - COMPLETE REASON FOR EXAM: Female, 61 years old. Back and flank pain TECHNIQUE: Ultrasound evaluation of the kidneys was performed with real-time and static driscoll-scale imaging. COMPARISON: None. FINDINGS: RIGHT KIDNEY: Normal location of the right kidney, which is normal in size. The right kidney measures 10.2 x 5.1 x 3.9 cm. There is a normal cortex of the right kidney. The renal cortex measures 1.3 cm. There is no right renal mass or cyst. There are no right renal calculi. There is no right hydronephrosis, there is an extrarenal pelvis. DISTAL RIGHT URETER: There is non-visualization of the distal right ureter. There is no demonstrated right ureterovesical junction calculus. There is a visualized right ureteral jet. LEFT KIDNEY: Normal location of the left kidney, which is normal in size. The left kidney measures 10.6 x 4.2 x 4.6 cm. There is a normal cortex of the left kidney. The renal cortex measures 1.1 cm. There is no left renal mass or cyst. There are no left renal calculi. There is no left hydronephrosis. DISTAL LEFT URETER: There is non-visualization of the distal left ureter. There is no demonstrated left ureterovesical junction calculus. There is a visualized left ureteral jet. AORTA: There is no elongation or tortuosity of the abdominal aorta. I.V.C.: The IVC is patent. BLADDER: The distended urinary bladder has a volume of 281.29 ml. The empty urinary bladder has a volume of less than 5 ml. There is a normal wall thickness of the distended urinary bladder. There is no demonstrated mass within the urinary bladder. There are no demonstrated bladder calculi. US/Kidney and Bladder IMPRESSION: No suspicious sonographic findings Electronically Signed: Clint Guerrero MD at 11:57 EST , Service support ,
== END ==
PROVIDERS: PCP Internal Medicine; Referring Provider Nurse Practitioner; Visit Provider Nurse Practitioner
DX: M54.9 Dorsalgia, unspecified (principal)
CPT/HCPCS: 76770

== ENCOUNTER 2021-09-04 12:15 | Outpatient (CLI) | payer OTHER, SELFPAY ==
--- NOTE | 2021-09-04 12:21 | BI_ITS ---
MAMMOGRAPHY - BILATERAL SCREENING REASON FOR EXAM: Female, 61 years old. Routine annual screening examination. PERTINENT HISTORY: Non-contributory. TECHNIQUE: Digital bilateral breast jomar (3D mammographic acquisition) in the CC and MLO projections. 2-D mediolateral oblique (MLO) and craniocaudad (CC) views of both breasts were obtained. CAD: Full Field Digital Mammography with Computer Added Detection was performed. COMPARISON: Comparison is made with prior study dated 07/23/2020 and 06/12/2019. FINDINGS: Breast Composition: There are scattered areas of fibroglandular density. There are no dominant masses or suspicious calcifications. Stable asymmetry of breast tissue with more breast tissue is seen in the retroareolar region of the right breast as compared to the left side. Stable appearance of the bilateral axillary lymph nodes. No other significant abnormalities are identified. There has been no significant change since the prior study. BI/SCRN MAMM (CAD)W/JOMAR BILAT IMPRESSION: Stable bilateral screening mammogram. Yearly follow-up mammogram recommended. (A) ASSESSMENT CATEGORY: BIRADS Category 2: Benign. A letter regarding these results will be sent to the patient by the facility within 30 days. Approximately 10% of breast cancers are not detected by mammography. A normal mammogram should not delay biopsy of a clinically suspicious abnormality. [id number] Electronically Signed: Mannie Dial MD at 13:17 EST , Service support ,
== END 2021-09-04 23:59 | disposition short-term general hospital (02) ==
LOC: OPBI 12:16
PROVIDERS: PCP Internal Medicine
DX: Z12.31 Encounter for screening mammogram for malignant neoplasm of breast (principal)
CPT/HCPCS: 77063; 77067

== ENCOUNTER 2022-03-02 10:19 | Emergency (ER) | payer OTHER, SELFPAY ==
[2022-03-02 10:20] VITALS: BP 175/105; PULSE 90; RESP 18; TEMP 36.2; O2SAT 95; BMI 36.0
[2022-03-02] MEDS: Oxymetazoline 0.05% 1 SPRAY SPRAY.BTL 2 SPRAY NASAL (11:08)
--- NOTE | 2022-03-02 11:27 | EX.ED.DYSGE1 ---
HPI History of Present Illness Chief Complaint: Nosebleed Informant: patient Narrative Narrative: Patient is a 61-year-old female no significant past medical history presenting with epistaxis. Patient states she started having a nosebleed around 545 this morning and it bled for about an hour despite pressure. It did stop and then she started cleaning her house. She was vacuuming and then the bleeding started again around 930. She decided come to the emergency room for further evaluation. She is not on any blood thinners. Denies any trauma. States she is had mild nosebleeds before but none were they recurred so quickly after stopping and she is never had large clots passed before. She denies any lightheadedness or dizziness. She does note that she is feeling overwhelmed because her son left for the [place] this morning. No other complaints at this time. Has previously seen Dr. Mock ENT for vocal cord evaluation but not for epistaxis. [facility] Medical History Rachel's disease Thyroid disorder Home Medications levothyroxine 88 mcg capsule 88 mcg PO DAILY 09/01/20 [History Last Taken Unknown] Allergy/AdvReac Type Severity Reaction Status Date / Time oxycodone HCl [From Percocet] AdvReac Nausea Verified 03/02/22 10:21 Surgical History H/O: hysterectomy Hx of appendectomy Social History Smoking Status: Never smoker ROS [facility] ED Constitutional Constitutional ED: Denies chills or fever(s) Eyes Eyes: Denies change in vision ENT ENT ED: Reports other Details: Positive epistaxis?right ; Denies ear pain, rhinorrhea or sore throat Cardiovascular Cardiovascular: Denies chest pain Respiratory/Chest Respiratory/Chest: Denies cough or dyspnea Gastrointestinal Gastrointestinal: Denies abdominal pain, nausea or vomiting Musculoskeletal Musculoskeletal: Denies arthralgias or myalgias Integumentary Denies rash Neurologic Neurologic: Denies headache(s) or weakness Psychiatric Psychiatric: Denies anxiety Hematologic/Lymphatic Hematologic/Lymphatic: Denies easy bleeding or easy bruising EXAM Physical Exam Const Vital Signs: 03/02/22 10:20 03/02/22 11:46 Temperature 97.2 F L Temperature Source Temporal Pulse Rate 90 88 Respiratory Rate 18 18 Blood Pressure 175/105 H 129/86 H Blood Pressure Mean 128 Pulse Ox 95 98 Oxygen Delivery Method Room Air Positive well nourished and well developed General Appearance ED: well developed and NAD; Negative for pallor HEENT Reports TM's clear and moist mucous membranes HEENT Narrative: Some red blood noted in the right nares but no active bleeding. No obvious bleeding vessel noted on bilateral septum. No large clots appreciated. No bleeding or clot noted in the oropharynx. Negative for trauma or tenderness Tympanic Membrane ED: Yes TM's clear Eyes PERRL and EOMs intact bilaterally Neck no lymphadenopathy and supple Chest Wall inspection of chest normal Resp normal respiratory effort and clear to auscultation bilaterally Cardio regular rate, regular rhythm and no murmurs GI non-distended Extremity normal to inspection Neuro oriented x3, CN's II-XII intact bilaterally and no sensory deficits noted Motor Exam: Negative for general weakness Skin no rashes or lesions noted and no wounds General Skin Exam: Negative for pallor MDM MDM MDM Narrative Medical decision making narrative: Evaluated for epistaxis. She appears nontoxic in no acute distress. Blood pressure is mildly elevated 175/105 however I do not think that is the cause of her epistaxis and probably more related to stress of the situation. Direct pressure was applied prior to my arrival patient has no further bleeding. I did have her blow out any potential clots however there is no blood clots retained. Afrin then sprayed into the nose bilaterally. Patient tolerated this well with no further bleeding. We will ambulate. If patient is no further bleeding will discharge home to follow-up with ENT outpatient. I do not think patient requires packing at this time. There is no obvious area amenable to cautery at this time. Repeat blood pressure normalized. Patient no further bleeding with ambulation. Discharge Plan Triage Chief Complaint: Nosebleed ED Provider: Yadira Clarke Dx/Rx/DC Orders Clinical Impression: Acute anterior epistaxis Prescriptions: No Action levothyroxine 88 mcg capsule 88 mcg PO DAILY Primary Care Provider: Yoanna Chow Referrals: Yoanna Chow, [Primary Care Provider] - Benjamin Villalpando MD [STAFF PHYSICIAN] - As Needed (if not improving ) Disposition Disposition: Home, Self Care Discharge Date/Time: 03/02/22 11:47
[2022-03-02 11:46] VITALS: BP 129/86; PULSE 88; RESP 18; O2SAT 98
== END 2022-03-02 11:47 | disposition home or self-care (01) ==
PROVIDERS: Emergency Provider Emergency Medicine; PCP Internal Medicine; Visit Provider Emergency Medicine
DX: R04.0 Epistaxis (principal); E06.3 Autoimmune thyroiditis; Z79.899 Other long term (current) drug therapy
CPT/HCPCS: 99282

== ENCOUNTER → 2022-03-26 | Outpatient (CLI) | payer OTHER, SELFPAY ==
--- NOTE | 2022-03-26 13:28 | CT_ITS ---
STUDY: CT SOFT TISSUE NECK WITH CONTRAST REASON FOR EXAM: Female, 61 years old. R NECK MASS MARKED WITH BB X 1 YEAR RADIATION DOSAGE (If Supplied By Facility): CTDIvol = ( 17.97 ) mGy, DLP = ( 543.34 ) mGycm TECHNIQUE: The patient was scanned in a multi-detector CT scanner. High resolution transaxial imaging was performed following intravenous administration of IV 100mL [id number]-300. Sagittal and coronal images were reconstructed. Individualized dose optimization techniques were used for this CT. COMPARISON: Neck soft tissue May 03, 2019 FINDINGS: Normal bilateral parotid glands. Normal bilateral ramp agent spaces. Normal bilateral parapharyngeal spaces. Normal bilateral carotid spaces. There is a BB marker just posterior to the right ear. There is no visualized soft tissue. This is just behind the parotid gland which appears fatty infiltrated normal. There are multiple subcentimeter mediastinal lymph nodes. Leftward nasal spur. Normal bilateral sublingual and submandibular glands and spaces. Normal visualized nasopharynx. Normal retropharyngeal space. Normal perivertebral space. Normal visualized bilateral faucial tonsils. The visualized tongue, tongue base and oropharynx are normal. The visualized cervical lymph nodes (levels I-) are within normal size limits, and maintain normal morphology. There is no demonstrated solid or cystic mass lesion. There is no abnormal contrast enhancement. Normal epiglottis, bilateral vallecula and hypopharynx. The pre-epiglottic and paraglottic adipose spaces are normal. Normal visualized bilateral piriform sinuses, aryepiglottic folds, vocal cords, and arytenoid-cricoid articulations. Normal subglottic trachea. Normal bilateral lobes of the thyroid gland. Normal visualized pulmonary apices. Normal visualized paranasal sinuses. Normal visualized cervical spine. CT/Soft Tissue Neck WITH Contrast IMPRESSION: Nonvisualized space-occupying mass within the neck. There is no visualized underlying mass or nodularity within the underlying region of the right side vocal cords. Underlying this area is a normal-appearing sternocleidomastoid muscle and vessels. Electronically Signed: Carmen Webb MD at 7:59 EDT ,
== END | disposition home or self-care (01) ==
LOC: CT 13:25
PROVIDERS: PCP Internal Medicine; Referring Provider Otolaryngology; Visit Provider Otolaryngology
DX: R22.1 Localized swelling, mass and lump, neck (principal)
CPT/HCPCS: 70491

== ENCOUNTER 2022-04-02 20:30 | Emergency (ER) | payer OTHER, SELFPAY ==
[2022-04-02 20:31] VITALS: BP 145/102; PULSE 105; RESP 15; TEMP 36.4; O2SAT 95; BMI 36.0
--- NOTE | 2022-04-02 20:39 | RAD_ITS ---
EXAM: XR RIGHT HUMERUS, 2 OR MORE VIEWS CLINICAL INDICATION: FALL TECHNIQUE: Frontal and lateral views of the right humerus. This report was created using [employer] report generation technology. COMPARISON: None. FINDINGS: BONES/JOINTS: Unremarkable. No acute fracture. No subluxation. Normal alignment. Preservation of the joint space. No sclerotic or destructive changes observed. SOFT TISSUES: Unremarkable. No soft tissue swelling or gas. No radiopaque foreign body. RAD/Humerus min 2 Views IMPRESSION: Negative right humerus x-rays. Electronically Signed: Armando Lizarraga MD at 21:31 EDT ,
--- NOTE | 2022-04-02 20:39 | RAD_ITS ---
EXAM: XR RIGHT FOOT COMPLETE, 3 OR MORE VIEWS CLINICAL INDICATION: FALL TECHNIQUE: Frontal, lateral and oblique views of the right foot. This report was created using [employer] report generation technology. COMPARISON: None. FINDINGS: BONES/JOINTS: Mild degenerative changes of the first metatarsophalangeal joint without hallux varus deformity. Bone island suspected involving the distal shaft/neck of the third metatarsal. No acute or healing fracture or malalignment. No unusual lytic or sclerotic lesions of bone. Prominent type II accessory navicular with degenerative changes of the synchondrosis. Prominent plantar calcaneal enthesophyte. No significant tibiotalar joint effusion. SOFT TISSUES: Diffuse soft tissue swelling. No radiopaque foreign body. RAD/Foot min 3 Views IMPRESSION: No acute or healing fracture or malalignment Electronically Signed: Armando Lizarraga MD at 21:27 EDT ,
--- NOTE | 2022-04-02 21:01 | RAD_ITS ---
EXAM: XR RIGHT ANKLE COMPLETE, 3 OR MORE VIEWS CLINICAL INDICATION: FALL TECHNIQUE: Frontal, lateral and oblique views of the right ankle. This report was created using [employer] report generation technology. COMPARISON: None. FINDINGS: BONES/JOINTS: Prominent plantar calcaneal enthesophyte. Tiny posterior calcaneal enthesophyte. No acute or healing fracture or malalignment. No significant tibiotalar joint effusion. Ankle mortise is intact. Tiny cortical avulsion fracture at the fibular tip. No sclerotic or destructive changes observed. SOFT TISSUES: Soft tissues swelling along the lateral greater than medial malleolus. No radiopaque foreign body. RAD/Ankle min 3 Views IMPRESSION: 1. Tiny cortical avulsion fracture at the fibular tip. 2. Soft tissues swelling along the lateral malleolus. Electronically Signed: Armando Lizarraga MD at 21:18 EDT ,
--- NOTE | 2022-04-02 23:24 | EDS_ITS ---
HPI HPI - Fall History of Present Illness Chief Complaint: Fall Narrative Narrative: 61-year-old female presenting after mechanical fall. States he was backing out of a car with a shop vac and tripped over the mat. She fell injuring her right upper arm and twisting her right ankle. She was ambulatory on scene. She states there was a lot of cars in the parking lot of the hospital and she was able to walk all the way up from a distance. She does have antalgic gait. She took nothing for pain prior to arrival. She complains of pain in the right lateral aspect of the right ankle as well as the right mid bicep region PFSH [facility] Medical History Rachel's disease Thyroid disorder Home Medications levothyroxine 88 mcg capsule 88 mcg PO DAILY 09/01/20 [History Last Taken Unknown] Allergy/AdvReac Type Severity Reaction Status Date / Time oxycodone HCl [From Percocet] AdvReac Nausea Verified 04/02/22 20:35 Surgical History H/O: hysterectomy Hx of appendectomy Social History Smoking Status: Never smoker ROS ROS ED Constitutional Constitutional ED: Denies chills or fever(s) Eyes Eyes: Denies change in vision or diplopia ENT ENT ED: Denies rhinorrhea or sore throat Cardiovascular Cardiovascular: Denies chest pain or palpitations Respiratory/Chest Respiratory/Chest: Denies cough or dyspnea Gastrointestinal Gastrointestinal: Denies abdominal pain or constipation Genitourinary Genitourinary ED: Denies dysuria or hematuria Musculoskeletal Musculoskeletal: Reports other Details: Right arm pain, right ankle pain Integumentary Denies abscess or rash Neurologic Neurologic: Denies headache(s) or paresthesias EXAM Physical Exam Const Vital Signs: 04/02/22 20:31 04/02/22 22:35 Temperature 97.5 F L Temperature Source Temporal Pulse Rate 105 H Respiratory Rate 15 Respiratory Effort Normal Blood Pressure 145/102 H Blood Pressure Mean 116 Pulse Ox 95 Oxygen Delivery Method Room Air Positive well nourished General Appearance ED: NAD HEENT Reports normocephalic atraumatic Eyes PERRL and EOMs intact bilaterally Neck full ROM and no lymphadenopathy Chest Wall palpation of chest normal Resp normal respiratory effort Cardio regular rate and regular rhythm Extremity Extremity Narrative: There is tenderness to palpation in the mid right bicep. Does not appear to any bicep tears. Patient has full range of motion in flexion of the bicep. The right shoulder is nontender to palpation. Patient is full range of motion of the right shoulder. There is no bruising here. Right ankle: There is tenderness at the lateral aspect of the right ankle over the lateral malleoli. No obvious deformities. There are some mild bruising and swelling here. This does extend into the right lateral foot. No pain with the navicular. No pain at the base of the fifth metatarsal. Right foot neurovascular intact brisk cap refill to all 5 toes Neuro oriented x3 and CN's II-XII intact bilaterally Sensorium / Orientation: alert and oriented to person Motor Exam: strength 5/5 throughout Psych mental status grossly normal Skin Skin Narrative: Bruising is noted above MDM MDM MDM Narrative Medical decision making narrative: Patient offered analgesia she states that she will take a Motrin when she gets home. She does not want thing here. X-rays of the right foot and right humerus on my interpretation shows no acute fracture or subluxation. The radiologist agree. X-rays of the right ankle do show a small cortical avulsion fracture at the distal fibular region. No other acute fractures. Radiology agrees with this as well. Patient was placed in a walking boot. She is given follow-up with podiatry. She will take Tylenol and ibuprofen for pain. She does not need crutches as she is ambulatory. Impression: 1. Mechanical fall 2. Right arm contusion 3. Avulsion fracture right distal fibula 4. Right foot contusion Lab Data Attestation: I reviewed the patient's lab results. Radiography Diagnostic Testing: Clinical Impression(s) from Imaging Studies Foot X-Ray 04/02/22 20:39 IMPRESSION: No acute or healing fracture or malalignment Electronically Signed: Armando Lizarraga MD at 21:27 EDT , Humerus X-Ray 04/02/22 20:39 IMPRESSION: Negative right humerus x-rays. Electronically Signed: Armando Lizarraga MD at 21:31 EDT , Ankle X-Ray 04/02/22 21:01 IMPRESSION: 1. Tiny cortical avulsion fracture at the fibular tip. 2. Soft tissues swelling along the lateral malleolus. Electronically Signed: Armando Lizarraga MD at 21:18 EDT , Discharge Plan Triage Chief Complaint: Fall ED Provider: Mikel Fisher Dx/Rx/DC Orders Prescriptions: No Action levothyroxine 88 mcg capsule 88 mcg PO DAILY Primary Care Provider: Yoanna Chow Referrals: Yoanna Chow DO [Primary Care Provider] -
== END 2022-04-02 23:44 | disposition home or self-care (01) ==
PROVIDERS: Emergency Provider Student in an Organized Health Care Education/Training Program; PCP Internal Medicine; Visit Provider Student in an Organized Health Care Education/Training Program
DX: S82.401A Unspecified fracture of shaft of right fibula, initial encounter for closed fracture (principal); W01.0XXA Fall on same level from slipping, tripping and stumbling without subsequent striking against object, initial encounter; Y92.481 Parking lot as the place of occurrence of the external cause; S90.31XA Contusion of right foot, initial encounter; E06.3 Autoimmune thyroiditis
CPT/HCPCS: 73060; 73610; 73630; 99282

== ENCOUNTER → 2022-06-17 | Outpatient (CLI) | payer OTHER, SELFPAY ==
--- NOTE | 2022-06-17 16:59 | MRI_ITS ---
STUDY: MRI RIGHT SHOULDER REASON FOR EXAM: Female, 62 years old. Right shoulder pain. Right shoulder sprain. TECHNIQUE: Standardized fat and water weighted pulse sequences were obtained in all 3 orthogonal planes. COMPARISON: Right humerus x-rays dated April 02, 2022. FINDINGS: Marked supraspinatus tendinosis with thickening of the posterior fibers, thinning of the anterior fibers and a full thickness partial width tear of far anterior fibers measuring 13 mm in widest diameter comparing coronal series 5 images 12-16). Infraspinatus tendinosis with thickening and increased signal intensity without a full-thickness tear (coronal series 5 images 6-11). Subscapularis tendinosis with a longitudinal partial tear of the distal fibers and medial subluxation/dislocation of the long head of the biceps into the partial tear (hidden lesion) (axial series 2 images 7-13). Normal teres minor tendon. Normal supraspinatus muscle. Normal infraspinatus muscle. Normal subscapularis muscle. Normal teres minor muscle. Mild arthrosis of the glenohumeral joint with a large septated glenohumeral joint effusion (axial series 2 images 5-17). Cystic change of the lateral aspect of the humeral head (axial series 2 image 8). Normal biceps labral complex. Medial dislocation of the long head of the biceps, as described above. Increased signal intensity within the superior labrum without a detached tear (coronal series 5 image 11). Normal capsulo- ligamentous complex. Normal rotator interval. AC joint hypertrophy with minimal narrowing of the subacromial space (coronal series 5 images 8-12). There is a Type II morphology (curved), with a neutral orientation. Moderate amount of fluid in the subacromial-subdeltoid bursa (coronal series 5 images 7-11). Normal visualized coracohumeral and coracoacromial ligaments. Normal quadrilateral space. Normal axillary space. Normal deltoid muscle. Normal trapezius muscle. MRI/Upper Ext Joint Only(Routine) IMPRESSION: Marked supraspinatus tendinosis with a full-thickness partial width tear of the anterior fibers as described. Infraspinatus tendinosis without a full-thickness tear. Subscapularis tendinosis with a longitudinal partial tear of the distal fibers and medial dislocation of the long head of the biceps into the partial longitudinal tear (hidden lesion). Mild arthrosis of the glenohumeral joint. Cystic change in the humeral head. Increased signal intensity within the superior labrum without a detached tear. AC joint hypertrophy with narrowing of the subacromial space. Moderate to large glenohumeral joint effusion with moderate fluid in the subacromial-subdeltoid bursa. Electronically Signed: Luis E Wesley, at 9:32 EDT ,
== END | disposition home or self-care (01) ==
LOC: MRI 16:53
PROVIDERS: PCP Internal Medicine; Visit Provider Physician Assistant
DX: S43.491D Other sprain of right shoulder joint, subsequent encounter (principal)
CPT/HCPCS: 73221

== ENCOUNTER → 2022-10-18 | Outpatient (CLI) | payer OTHER, SELFPAY ==
--- NOTE | 2022-10-18 14:41 | CT_ITS ---
STUDY: CT CHEST WITH CONTRAST REASON FOR EXAM: Female, 62 years old. CHEST PAIN AT REST RADIATION DOSAGE (If Supplied By Facility): CTDIvol = ( 20.14 ) mGy, DLP = ( 653.00 ) mGycm TECHNIQUE: Transaxial imaging was performed following intravenous administration of IV 100mL Isovue-300. Multiplanar coronal and sagittal images were reformatted. Individualized dose optimization techniques were used for this CT. COMPARISON: Comparison is made with prior chest radiograph dated June 28, 2021. FINDINGS: CHEST The lungs are normal. There is no demonstrated pleural abnormality. Normal heart and pericardium. No coronary calcification is seen. There are multiple small lymph nodes within the mediastinum, which are normal in size and morphology most compatible with reactive lymph hyperplasia. Normal hilar regions. Normal unenhanced pulmonary arteries. Normal aorta arch and descending thoracic aorta. There are multi-level degenerative changes of the thoracic spine. There is no demonstrated abnormality of the visualized upper abdomen. CT/Chest WITH Contrast IMPRESSION: No acute abnormality is present. Electronically Signed: Mannie Dial MD at 15:21 EST ,
--- NOTE | 2022-10-18 15:04 | ECHOCS_ITS ---
Reason For Study: Chest Pain Procedure This was a 2D Doppler, Color Flow transthoracic echocardiogram. The study was technically difficult. Contrast injection was performed. Exam performed in department. Left Ventricle Normal LV size. Left ventricular systolic function is normal. The estimated ejection fraction is 65 %. Stage 1 diastolic dysfunction. No regional wall motion abnormalities noted. Right Ventricle Normal RV size. Normal systolic function. Atria Normal left atrium. Normal right atrium. Mitral Valve Normal mitral valve. Tricuspid Valve Normal tricuspid valve. Mild tricuspid valve insufficiency. Pulmonary artery systolic pressure is 28 mmHg. Aortic Valve Trisinus/trileaflet aortic valve. Pulmonic Valve The pulmonic valve is not well visualized. Great Vessels Mild to moderately dilated aortic root. The pulmonary artery is normal size. Normal inferior vena cava. Pericardium/Pleural No pericardial effusion. Medication 20 gauge I.V. with prn adaptor inserted into right arm. Diluted definity 2.5ml given slow IV push to enhance endocardial definition. MMode/2D Measurements & Calculations LVIDd: 4.6 cm IVSd: 1.1 cm Ao root diam: 4.3 cm LVIDs: 2.8 cm LVPWd: 0.78 cm LA dimension: 3.3 cm FS: 38.0 % LAV(MOD-bp): 31.8 ml LA A4 area: 11.5 cm2 LAV(MOD-bp) Indexed: 15.8 ml/m2 LAV(MOD-sp2): 38.8 ml LAV(MOD-sp4): 24.6 ml Time Measurements MV dec time: 0.23 sec Doppler Measurements & Calculations MV E max rodrigue: 66.4 cm/sec Lat Peak E' Rodrigue: 13.7 cm/sec Med Peak E' Rodrigue: 9.4 cm/sec MV A max rodrigue: 96.3 cm/sec E/E' lat: 4.8 E/E' med: 7.1 MV E/A: 0.69 MV V2 max: 102.0 cm/sec MV dec slope: 294.9 cm/sec2 Ao V2 max: 128.4 cm/sec MV max P.2 mmHg Ao max P.6 mmHg MV V2 mean: 55.8 cm/sec MV mean P.5 mmHg MV V2 VTI: 18.5 cm LV V1 max: 121.9 cm/sec PA V2 max: 100.2 cm/sec TR max rodrigue: 248.1 cm/sec LV V1 max P.0 mmHg PA V2 mean: 72.2 cm/sec TR max P.6 mmHg ECHO/Echo Complete W/ Contrast Interpretation Summary Normal LV size. Left ventricular systolic function is normal. The estimated ejection fraction is 65 %. Stage 1 diastolic dysfunction. Pulmonary artery systolic pressure is 28 mmHg. Mild to moderately dilated aortic root. Contrast injection was performed. Ordering Physician: Yoanna Chow Performed By: Mark Hernández RCS
[2022-10-18 15:11] LABS: CREATININE FINGERSTICK 1.2 mg/dL (0.55-1.02)
== END | disposition home or self-care (01) ==
LOC: CT 14:38
PROVIDERS: PCP Internal Medicine; Visit Provider Internal Medicine
DX: R07.9 Chest pain, unspecified (principal)
CPT/HCPCS: 71260; 93306; Q9957; Q9967; A4216; C8929

== ENCOUNTER → 2023-01-03 | Outpatient (CLI) | payer OTHER, SELFPAY ==
--- NOTE | 2023-01-03 10:06 | VDUE_ITS ---
Reason For Study: RUE PAIN Right Proximal Left Proximal Right jugular vein is spontaneous, widely Left subclavian vein is spontaneous, widely patent, phasic, with no intraluminal patent, phasic, with no intraluminal echogenicity noted. echogenicity noted. Right subclavian vein is spontaneous, widely patent, phasic, with no intraluminal echogenicity noted. Right Lower Arm Right radial vein is compressible. Right ulnar vein is compressible. Right Arm Right axillary vein is spontaneous, patent, phasic, competent, compressible and demonstrates augmentation. Right brachial vein is compressible. Right cephalic vein is compressible. Right basilic vein is compressible. Patient Safety IMAGE #8 is the Radial V. VL/Venous Duplex US, Unilateral Interpretation Summary Deep veins of the right upper extremity are patent and compressible segmentally . There is no evidence of deep vein thrombosis. Superficial veins of the right upper extremity are patent and compressible segm entally. There is no evidence of superficial vein thrombosis. Ordering Physician: Yoanna Chow Referring Physician: Yoanna Chow Performed By: Rach Ag, AYANNA, RVT ???
== END | disposition home or self-care (01) ==
LOC: CVS 10:02
PROVIDERS: PCP Internal Medicine; Referring Provider Internal Medicine; Visit Provider Internal Medicine
DX: M79.601 Pain in right arm (principal)
CPT/HCPCS: 93971

== ENCOUNTER 2023-03-20 12:02 | Emergency (ER) | payer OTHER, SELFPAY ==
[2023-03-20 12:02] VITALS: BP 130/110; PULSE 98; RESP 18; TEMP 35.9; O2SAT 96; BMI 35.4
[2023-03-20 12:08] VITALS: O2SAT 95
--- NOTE | 2023-03-20 12:24 | EDS_ITS ---
HPI HPI - URI History of Present Illness Chief Complaint: Shortness of Breath Detail of Chief Complaint: Sore throat and cough. Informant: patient Onset/Context/Timing Onset: Days Context: Gradual Onset Timing: Continuous Current Severity: Mild Maximum Severity: Mild Associated Symptoms Associated Symptoms: Positive for Shortness of Breath and Nonproductive cough; Negative for Nausea, Vomiting or Diarrhea Narrative Narrative: 62-year-old female history of hypothyroidism.. States that her recently had strep throat as any other family numbers. She has had a nonproductive cough recently was worked up felt to be a viral bronchitis. She also developed a sore throat last several days and felt fatigued. She went to make sure she did not have strep throat or was developing pneumonia. She denies any hemoptysis. No nausea Prior similar symptoms: Yes Recent Illness/Hospitalization: No ROS ROS ED ROS Narrative Sore throat. Cough. Fatigue. Review of Systems ROS Unobtainable: Denies due to encephalopathy Constitutional Constitutional ED: Denies chills or fever(s) Eyes Eyes: Denies blurry vision ENT ENT ED: Reports sore throat; Denies ear pain or rhinorrhea Cardiovascular Cardiovascular: Denies chest pain Respiratory/Chest Respiratory/Chest: Reports cough and dyspnea Gastrointestinal Gastrointestinal: Denies abdominal pain Genitourinary Genitourinary ED: Denies dysuria Musculoskeletal Musculoskeletal: Denies arthralgias Integumentary Denies abscess Neurologic Neurologic: Denies headache(s) Psychiatric Psychiatric: Denies anxiety Endocrine Endocrinology: Denies cold intolerance Hematologic/Lymphatic Hematologic/Lymphatic: Denies easy bleeding Allergic/Immunologic Allergic/Immunologic ED: Denies mouth swelling PFSH PFSH Medical History Rachel's disease Thyroid disorder Home Medications levothyroxine 88 mcg capsule 88 mcg PO DAILY 09/01/20 [History Last Taken Unknown] naltrexone 8 mg-bupropion 90 mg tablet,extended release (Contrave) 2 tab PO BID 03/20/23 [History Last Taken Unknown] Allergy/AdvReac Type Severity Reaction Status Date / Time oxycodone HCl [From Percocet] AdvReac Nausea Verified 04/02/22 20:35 Surgical History H/O: hysterectomy Hx of appendectomy Social History household members: spouse Smoking Status: Never smoker EXAM Physical Exam Narrative Exam Narrative: Well-appearing 62-year-old female. Vital signs are stable. She is afebrile. She does not look septic or toxic. Her pulse ox is 96% on room air no signs hypoxia. HEENT exam TMs normal bilaterally. Posterior pharynx unremarkable. No erythema or exudate. Status post tonsillectomy. No swelling. No trouble swallowing or breathing. No stridor or drooling. Moist mucous membranes. Neck nontender no lymphadenopathy. Lungs clear equal symmetrical bilaterally. No rales, rhonchi or wheezing. Heart regular rate and rhythm no murmur. Rate about 90. Abdomen is soft and nontender. Moving all 4 extremities. Calves are nontender without edema or cords. Neurologically she is awake alert with no focal motor deficits. Const Vital Signs: 03/20/23 12:02 03/20/23 12:08 Temperature 96.7 F L Temperature Source Temporal Pulse Rate 98 Respiratory Rate 18 Respiratory Effort Short of Breath Respiratory Depth Shallow Respiratory Pattern Normal Blood Pressure 130/110 H Blood Pressure Mean 116 Pulse Ox 96 Oxygen Delivery Method Room Air Room Air Positive well nourished and well developed; Negative for cachectic or contractures General Appearance ED: well developed and NAD; Negative for cachectic, contractures, cyanotic or diaphoretic Nutritional Appearance: Negative for cachectic HEENT Reports moist mucous membranes; Denies dry mucous membranes normocephalic and atraumatic; Negative for scalp tenderness Face and Sinus: Negative for sinus tenderness, maxillary instability or facial tenderness Mouth ED: No dry mucous membranes Mouth: No dry mucous membranes Teeth and Gingiva: Negative for caries Throat: posterior oropharynx normal; Negative for tonsils abnormal or posterior oropharynx abnormal Eyes PERRL and EOMs intact bilaterally General Eye ED: Negative for pale conjunctiva or scleral icterus Neck no lymphadenopathy, supple, no meningeal signs and no JVD General: Negative for anterior neck swelling or lymphadenopathy Resp normal respiratory effort and clear to auscultation bilaterally Effort and Inspection: Negative for retractions Auscultation: Negative for rales, rhonchi or wheezes Cardio S1 normal heart sound, S2 normal heart sound and no murmurs Rate: regular rate Rhythm: regular rhythm GI non-tender, non-distended and no masses Inspection: Negative for abdominal distention Auscultation: normoactive bowel sounds Palpation: soft; Negative for tender or guarding Back/Spine no CVA tenderness; Negative for normal ROM General Back: Negative for CVA tenderness Cervical Spine: Negative for cervical spine tenderness Thoracic Spine / Upper Back: Negative for thoracic spinal tenderness Lumbar Spine / Lower Back: Negative for lumbar spinal tenderness Sacrum: Negative for tenderness Extremity normal to inspection and full ROM General Extremety ED: Negative for cyanosis or tenderness General Extremity: Negative for cyanosis Neuro oriented x3 and CN's II-XII intact bilaterally Sensorium / Orientation: alert, oriented to person, oriented to place and oriented to time; Negative for orientation impaired, lethargic or stuporous Motor Exam: strength 5/5 throughout Psych Appearance: Negative for other Attitude: No agitated Mood & Affect: Negative for depressed, anxious or tearful Skin General Skin Exam: Negative for jaundice Lesions: no lesions Rashes: no rashes Trauma: Negative for abrasion MDM MDM MDM Narrative Medical decision making narrative: 62-year-old female URI symptoms. Rapid strep was obtained but clinically I do not think this is strep throat and she has had a prior tonsillectomy. Chest x- ray will be obtained to evaluate for possible pneumonia even though clinically I do not think this pneumonia either. Repeat exam at 139 unchanged. We discussed her normal test results. She will be discharged home treated as a viral syndrome. Follow-up with primary care physician as needed. Return if worse. History & Record Review Discussion w/independent historian: Patient Lab Data Lab results narrative: Rapid strep test is negative. Radiography Chest X-Ray - ED: 2 View, Read by ED Physician, Read by Radiologist, Normal, Heart, Lungs, Mediastinum, Bony Structures, No Acute Disease and Chronic Changes Diagnostic Testing: Clinical Impression(s) from Imaging Studies Chest X-Ray 03/20/23 12:25 IMPRESSION: No acute pulmonary process Electronically Signed: Clint Guerrero MD at 12:42 EDT , Discharge Plan Triage Chief Complaint: Shortness of Breath Other Complaint: Sore Throat ED Provider: Ilan Vizcarra Dx/Rx/DC Orders Clinical Impression: Viral URI Instructions: ED URI, Viral, No Abx (Adult) Prescriptions: No Action levothyroxine 88 mcg capsule 88 mcg PO DAILY Contrave 8-90 mg tablet extended release 2 tab PO BID Primary Care Provider: Yoanna Chow Referrals: Yoanna Chow, [Primary Care Provider] - 1 Week if not improving Activity Restrictions/Additional Instructions: Your rapid strep and chest x-ray were both normal. No signs of infection. Plenty of fluids and rest. Motrin and Tylenol. Follow-up with your doctor if not improving. Disposition Disposition: Home, Self Care
--- NOTE | 2023-03-20 12:25 | RAD_ITS ---
STUDY: X-RAY CHEST REASON FOR EXAM: Female, 62 years old. Fever and cough TECHNIQUE: PA and lateral views of the chest. COMPARISON: 06/28/2021 FINDINGS: EKG leads overlie the chest The lungs are clear and expanded. There is no demonstrated pleural abnormality. Normal size heart. Normal mediastinum and blanca. Normal visualized pulmonary arteries. Normal visualized aortic arch and descending thoracic aorta. Normal visualized thoracic spine. Normal visualized ribs, clavicles, and shoulders. There is no demonstrated abnormality of the visualized soft tissue structures of the upper abdomen. RAD/Chest PA and Lateral IMPRESSION: No acute pulmonary process Electronically Signed: Clint Guerrero MD at 12:42 EDT ,
[2023-03-20 13:48] VITALS: RESP 18
== END 2023-03-20 13:48 | disposition home or self-care (01) ==
PROVIDERS: Emergency Provider Emergency Medicine; PCP Internal Medicine; Visit Provider Emergency Medicine
DX: J06.9 Acute upper respiratory infection, unspecified (principal); B34.9 Viral infection, unspecified; E06.3 Autoimmune thyroiditis
CPT/HCPCS: 71046; 87880; 99282

== ENCOUNTER 2023-06-21 12:09 | Emergency (ER) | payer OTHER, SELFPAY ==
[2023-06-21 12:10] VITALS: BP 126/99; PULSE 97; RESP 18; TEMP 36.1; O2SAT 97; BMI 32.2
--- NOTE | 2023-06-21 12:22 | EDS_ITS ---
HPI <MISAEL Underwood - Last Filed: 06/21/23 13:31> History of Present Illness Chief Complaint: Chest Other Narrative Narrative: 3 days ago patient leaned over in her vehicle to get something out of the opposite door when she lost her balance and struck her left rib cage on the center console. The area was sore but seem to worsen after she took a walk. It woke her from sleep this morning. It did improve with Motrin. She has no shortness of breath or difficulty breathing. No abdominal pain. PFSH <MISAEL Underwood - Last Filed: 06/21/23 13:31> PFSH Medical History Rachel's disease Thyroid disorder Home Medications levothyroxine 88 mcg capsule 88 mcg PO DAILY 09/01/20 [History Last Taken Unknown] naltrexone 8 mg-bupropion 90 mg tablet,extended release (Contrave) 2 tab PO BID 03/20/23 [History Last Taken Unknown] naproxen 500 mg tablet (Naprosyn) 500 mg PO BID PRN pain #20 tabs 06/21/23 [Rx Last Taken Unknown] Allergy/AdvReac Type Severity Reaction Status Date / Time oxycodone HCl [From Percocet] AdvReac Nausea Verified 06/21/23 12:11 Surgical History H/O: hysterectomy Hx of appendectomy Social History household members: spouse Smoking Status: Never smoker ROS <MISAEL Underwood - Last Filed: 06/21/23 13:31> ROS ED ROS Narrative Constitutional: Negative for fever, chills, malaise. CVS: Positive for rib pain. Respiratory: Negative for shortness of breath. GI: Negative for abdominal pain, nausea, vomiting. EXAM <MISAEL Underwood Last Filed: 06/21/23 13:31> Physical Exam Narrative Exam Narrative: CONST: Patient sitting in no acute distress. EYES: Normal inspection. NECK: Normal inspection. RESP: No respiratory distress, CTAB. CVS: Regular rate and rhythm, no murmur, no gallop. Point tenderness left lower rib cage in the midclavicular line, no deformity or crepitus ABD: Soft and nontender, no guarding or rebound, nondistended. SKIN: Color normal, no rash, warm, dry, intact. EXTREMITIES: Normal appearance, 2+ radial and DP pulses. Moving all extremities, no tenderness. NEURO: Oriented x4. PSYCH: Normal affect. Const Vital Signs: 06/21/23 12:10 06/21/23 12:26 Temperature 97 F L Temperature Source Temporal Pulse Rate 97 Respiratory Rate 18 Respiratory Effort Normal Non-Labored Blood Pressure 126/99 H Blood Pressure Mean 108 Pulse Ox 97 Oxygen Delivery Method Room Air <Dr. Tessy Perdue DO - Last Filed: 06/21/23 13:29> Physical Exam Const Vital Signs: 06/21/23 12:10 06/21/23 12:26 Temperature 97 F L Temperature Source Temporal Pulse Rate 97 Respiratory Rate 18 Respiratory Effort Normal Non-Labored Blood Pressure 126/99 H Blood Pressure Mean 108 Pulse Ox 97 Oxygen Delivery Method Room Air MDM <MISAEL Underwood - Last Filed: 06/21/23 13:31> [facility] Narrative Medical decision making narrative: Patient has tenderness over left lower ribs from hitting a car console couple days ago. There is no external signs of injury. Normal heart and lung sounds. Stable vital signs. Rib series x-rays show no evidence of traumatic injury. She declined pain medication and is comfortable taking [id number]. She was discharged in stable condition. I have personally performed a face to face assessment of the patient and have reviewed the MERLENE Note. I performed a substantive portion of the visit including all aspects of the following. My greenwood findings include: History is [patient presents to the emergency department with injury to her left chest that occurred 4 days ago. Patient states that she was reaching across the vehicle to get something out of the car door and she was braced with her arm against the center console. Patient states that her arm slipped and her weight came down onto the center console with her left chest. Patient complaining of pain with certain movements. She denies shortness of breath.] Exam is [HEENT-PERRLA, EOMI. Cranial nerves II through XII grossly intact. TMs clear. Mucous membranes moist. No adenopathy. Cardiovascular-regular rate and rhythm without murmur or ectopy Lungs-clear to auscultation, chest wall stable without crepitus or subcu emp hysema. Patient has tenderness to palpation over the left anterior chest wall just inferior to her left breast that seems to reproduce her pain. There is no ecchymosis or bruising noted. Abdomen-normoactive bowel sounds, soft, nontender, no rebound or rigidity, no peritoneal signs. Extremities-intact ?4, normal range of motion, normal pulses, atraumatic] Medical Decison Making [x-rays of the left ribs and chest x-ray obtained showed no evidence of pneumothorax or obvious rib fractures on my interpretation. Radiology in agreement. Patient unable to take narcotics for pain. We will write a prescription for naproxen. Advised to follow-up with her primary care physician within next 3 to 5 days] Other additions or changes: [None] Radiography Diagnostic Testing: Clinical Impression(s) from Imaging Studies Ribs w/Chest X-Ray 06/21/23 12:32 IMPRESSION: RIBS: Normal x-ray examination of the ribs. CHEST: Stable minimal increased linear markings at the left lung base suggestive of mild scarring. Electronically Signed: Mannie Dial MD at 13:14 EST , <Dr. Tessy Perdue, DO - Last Filed: 06/21/23 13:29> [facility] Narrative Medical decision making narrative: I have personally performed a face to face assessment of the patient and have reviewed the MERLENE Note. I performed a substantive portion of the visit including all aspects of the following. My greenwood findings include: History is [patient presents to the emergency department with injury to her left chest that occurred 4 days ago. Patient states that she was reaching across the vehicle to get something out of the car door and she was braced with her arm against the center console. Patient states that her arm slipped and her weight came down onto the center console with her left chest. Patient complaining of pain with certain movements. She denies shortness of breath.] Exam is [HEENT-PERRLA, EOMI. Cranial nerves II through XII grossly intact. TMs clear. Mucous membranes moist. No adenopathy. Cardiovascular-regular rate and rhythm without murmur or ectopy Lungs-clear to auscultation, chest wall stable without crepitus or subcu emphysema. Patient has tenderness to palpation over the left anterior chest wall just inferior to her left breast that seems to reproduce her pain. There is no ecchymosis or bruising noted. Abdomen-normoactive bowel sounds, soft, nontender, no rebound or rigidity, no peritoneal signs. Extremities-intact ?4, normal range of motion, normal pulses, atraumatic] Medical Decison Making [x-rays of the left ribs and chest x-ray obtained showed no evidence of pneumothorax or obvious rib fractures on my interpretation. Radiology in agreement. Patient unable to take narcotics for pain. We will write a prescription for naproxen. Advised to follow-up with her primary care physician within next 3 to 5 days] Other additions or changes: [None] Radiography Diagnostic Testing: Clinical Impression(s) from Imaging Studies Ribs w/Chest X-Ray 06/21/23 12:32 IMPRESSION: RIBS: Normal x-ray examination of the ribs. CHEST: Stable minimal increased linear markings at the left lung base suggestive of mild scarring. Electronically Signed: Mannie Dial MD at 13:14 EST , Three-view x-rays of left ribs and chest x-ray obtained interpreted by myself as no evidence of fracture or pneumothorax. Radiology in agreement. Discharge Plan Triage Chief Complaint: Chest Other ED Midlevel Provider: Fay Billy ED Provider: Tessy Perdue Dx/Rx/DC Orders Clinical Impression: Contusion of rib on left side Instructions: Bone Contusion Prescriptions: New naproxen [Naprosyn] 500 mg tablet 500 mg PO BID PRN (Reason: pain) Qty: 20 0RF No Action levothyroxine 88 mcg capsule 88 mcg PO DAILY Contrave 8-90 mg tablet extended release 2 tab PO BID Primary Care Provider: Renee Grey Referrals: Renee Grey, [Primary Care Provider] - Activity Restrictions/Additional Instructions: Take Tylenol Motrin as needed. Use ice, you can also try [id number] lidocaine patches. Avoid aggravating activities. Follow-up with your primary care Disposition Disposition: Home, Self Care Discharge Date/Time: 06/21/23 13:30
--- NOTE | 2023-06-21 12:32 | RAD_ITS ---
STUDY: X-RAY - UNILATERAL RIBS ( LEFT ) WITH CHEST REASON FOR EXAM: Female, 63 years old. Left rib pain following injury. TECHNIQUE - RIBS: 5 view(s) of the ribs. TECHNIQUE - CHEST: Frontal and lateral views of the chest. COMPARISON: Comparison is made with prior chest regressed dated March 20, 2023. FINDINGS - RIBS: Normal visualized ribs without a demonstrated fracture. FINDINGS - CHEST: Stable minimal increased markings at the left lung base suggestive of a mild linear scarring. There is no demonstrated pleural abnormality. Normal size heart. Normal mediastinum and blanca. Normal visualized pulmonary arteries. There is atherosclerotic tortuosity of the aortic arch and descending thoracic aorta. There are diffuse degenerative changes of the visualized thoracic spine. Normal visualized ribs, clavicles, and shoulders. There is no demonstrated abnormality of the visualized soft tissue structures of the upper abdomen. RAD/Ribs Uni Min 3V w/PA Chest IMPRESSION: RIBS: Normal x-ray examination of the ribs. CHEST: Stable minimal increased linear markings at the left lung base suggestive of mild scarring. Electronically Signed: Mannie Dial MD at 13:14 EST ,
== END 2023-06-21 13:30 | disposition home or self-care (01) ==
PROVIDERS: Emergency Provider Emergency Medicine; Visit Provider Emergency Medicine
DX: S20.212A Contusion of left front wall of thorax, initial encounter (principal); W22.09XA Striking against other stationary object, initial encounter; Y93.89 Activity, other specified; Y92.818 Other transport vehicle as the place of occurrence of the external cause; E07.9 Disorder of thyroid, unspecified; Z79.899 Other long term (current) drug therapy; Z90.710 Acquired absence of both cervix and uterus; Z90.49 Acquired absence of other specified parts of digestive tract
CPT/HCPCS: 71101; 99282

== ENCOUNTER 2023-07-31 12:15 | Emergency (ER) | payer OTHER, SELFPAY ==
[2023-07-31 12:16] VITALS: BP 137/89; PULSE 95; RESP 18; TEMP 36.1; O2SAT 96; BMI 31.0
--- NOTE | 2023-07-31 12:44 | EX.ED.DYSGE1 ---
HPI <MISAEL Herndon - Last Filed: 07/31/23 15:22> History of Present Illness Chief Complaint: Headache Narrative Narrative: Patient presenting today with a headache that she has had since yesterday. She reports that she tested positive for COVID yesterday and has been symptomatic since . Her has COVID as well. She has had nausea, rhinorrhea, headache, mild cough, and a few episodes of vomiting. She reports that her headache was gradual in onset, she denies thunderclap headache. She reports that she called her PCP and asked what she should take and she encouraged her to come into the ED to be seen. She denies chest pain, shortness of breath, diarrhea. PFSH <MISAEL Herndon - Last Filed: 07/31/23 15:22> PFSH Medical History Rachel's disease Thyroid disorder Home Medications levothyroxine 88 mcg capsule 88 mcg PO DAILY 09/01/20 [History Last Taken Unknown] naltrexone 8 mg-bupropion 90 mg tablet,extended release (Contrave) 2 tab PO BID 03/20/23 [History Last Taken Unknown] naproxen 500 mg tablet (Naprosyn) 500 mg PO BID PRN pain #20 tabs 06/21/23 [Rx Last Taken Unknown] guaifenesin 600 mg tablet, extended release 12 hr (Mucinex) 600 mg PO BID #14 tabs 07/31/23 [Rx Last Taken Unknown] ondansetron 4 mg disintegrating tablet 4 mg PO Q8H PRN PRN Nausea #10 tabs 07/31/23 [Rx Last Taken Unknown] Allergy/AdvReac Type Severity Reaction Status Date / Time oxycodone HCl [From Percocet] AdvReac Nausea Verified 07/31/23 12:16 Surgical History H/O: hysterectomy Hx of appendectomy Social History household members: spouse Smoking Status: Never smoker ROS <MISAEL Herndon - Last Filed: 07/31/23 15:22> ROS ED Constitutional Constitutional ED: Denies chills or fever(s) Cardiovascular Cardiovascular: Denies chest pain or palpitations Respiratory/Chest Respiratory/Chest: Reports cough; Denies dyspnea or dyspnea on exertion Gastrointestinal Gastrointestinal: Reports nausea and vomiting; Denies abdominal pain, constipation or diarrhea Musculoskeletal Musculoskeletal: Denies arthralgias or myalgias Integumentary Denies rash Neurologic Neurologic: Reports headache(s); Denies paresthesias or weakness EXAM <MISAEL Herndon - Last Filed: 07/31/23 15:22> Physical Exam Const Vital Signs: 07/31/23 12:16 Temperature 97 F L Temperature Source Temporal Pulse Rate 95 Respiratory Rate 18 Blood Pressure 137/89 H Blood Pressure Mean 105 Pulse Ox 96 Oxygen Delivery Method Room Air Positive well nourished, well developed and no apparent distress General Appearance ED: well developed HEENT Reports normocephalic, head/scalp atraumatic and TM's clear Tympanic Membrane ED: Yes TM's clear bilateral Mouth ED: Yes moist mucous membranes normal Eyes PERRL and EOMs intact bilaterally Neck full ROM and supple Chest Wall inspection of chest normal Resp normal respiratory effort and clear to auscultation bilaterally Cardio regular rate and regular rhythm GI soft to palpation, non-tender, non-distended and no masses Back/Spine normal ROM and normal to inspection Extremity normal to inspection and full ROM Neuro oriented x3, CN's II-XII intact bilaterally, moves all extremities, no focal motor deficits and no sensory deficits noted Sensorium / Orientation: awake and alert Psych mental status grossly normal and thought process normal Skin no rashes or lesions noted and no wounds <Dr. Bennie Sweeney, - Last Filed: 07/31/23 13:24> Physical Exam Const Vital Signs: 07/31/23 12:16 Temperature 97 F L Temperature Source Temporal Pulse Rate 95 Respiratory Rate 18 Blood Pressure 137/89 H Blood Pressure Mean 105 Pulse Ox 96 Oxygen Delivery Method Room Air MDM <MISAEL Herndon - Last Filed: 07/31/23 15:22> [facility] Narrative Medical decision making narrative: Patient presenting with a headache after testing positive for COVID yesterday. She has been symptomatic since . She reports that she called her PCP to ask her what to take and she encouraged her to come into the ED to be seen. Patient is nontoxic-appearing and in no acute distress, vitals are unremarkable. I did offer to give patient a migraine cocktail including IV fluids, Reglan, Toradol, and Benadryl. However, patient does not want an IV line to be established and does not want IV fluids. She would prefer the medication be given p.o./IM. She will be given Zofran and Toradol. She is drinking fluids. I did discuss treatment with Paxlovid but patient is not interested. On reexamination she reports she still does have a slight headache but it is better. She is not interested in any additional treatment and would like to go home. She will be given an prescription for Mucinex and Zofran. She will be discharged home in stable condition and is comfortable with plan. <Dr. Bennie Sweeney, DO - Last Filed: 07/31/23 13:24> [facility] Treatment and Re-Evaluation :: I have personally performed a face to face assessment of the patient and have reviewed the MERLENE Note. I performed a substantive portion of the visit including all aspects of the following. My greenwood findings include: History: Patient presents with a headache that began yesterday. Patient describes it as a pressure sensation. Patient states it is mainly over the frontal portion of her head. Patient admits to some nausea with an episode of vomiting. Patient admits to some subjective fevers. Patient also admits to some photophobia. Patient states she was diagnosed with COVID-19 yesterday. Patient denies any chest pain or shortness of breath. Patient denies any paresthesias or weakness. Patient denies any sore throat or sinus pressure. Exam: Vital signs are stable. Patient is afebrile. Patient is in no acute distress. Oral mucosa is pink and moist. Neck is supple. Trachea is midline. There is no JVD. Heart was regular rate and rhythm. Lungs are clear and equal bilaterally. Abdomen is soft. Bowel sounds are normal. There is no tenderness. Cranial nerves II through XII are intact. There are no focal motor or sensory deficits noted. There is no tenderness to percussion over the frontal and maxillary sinuses. Medical Decision Making: Patient was given Toradol and Zofran here. Patient was advised that this is likely a result of her COVID-19 infection. Patient is was instructed to follow-up with her primary care physician in 5 to 7 days. Patient was instructed return if worse in any way. Patient understood and was agreeable with the plan. All questions were answered. Discharge Plan Triage Chief Complaint: Headache ED Midlevel Provider: Concha Bullard ED Provider: Bennie Sweeney Dx/Rx/DC Orders Clinical Impression: COVID-19, Headache Instructions: Coronavirus Disease 2019 (COVID-19): Caring for Yourself or Others Prescriptions: New ondansetron 4 mg tablet,disintegrating 4 mg PO Q8H PRN PRN (Reason: Nausea) Qty: 10 0RF guaifenesin [Mucinex] 600 mg tablet extended release 12hr 600 mg PO BID Qty: 14 0RF No Action levothyroxine 88 mcg capsule 88 mcg PO DAILY Contrave 8-90 mg tablet extended release 2 tab PO BID naproxen [Naprosyn] 500 mg tablet 500 mg PO BID PRN (Reason: pain) Qty: 20 0RF Primary Care Provider: Renee Grey Referrals: Renee Grey, [Primary Care Provider] - 5-7 Days Activity Restrictions/Additional Instructions: Return for any worsening of your symptoms. You can alternate Tylenol and ibuprofen every 4 hours. Disposition Disposition: Home, Self Care Discharge Date/Time: 07/31/23 14:23
[2023-07-31] MEDS: Ketorolac 15 MG/ML Vial IM (12:49)
[2023-07-31] MEDS: Ondansetron ODT 4 MG Tablet PO (12:49)
== END 2023-07-31 14:23 | disposition home or self-care (01) ==
PROVIDERS: Emergency Provider Emergency Medicine; Visit Provider Emergency Medicine
DX: U07.1 COVID-19 (principal); R51.9 Headache, unspecified
CPT/HCPCS: 96372; 99282; A4216

== ENCOUNTER → 2023-08-23 | Outpatient (CLI) | payer OTHER, SELFPAY ==
[2023-08-23 12:12] LABS: Absolute Lymphocyte Count 1.57 X10^3/uL (0.83-4.51); Absolute Neutrophil Count 4.3 X10^3/uL (2.0-7.7); Basophil# 0.06 X10^3/uL; Basophil% 0.9 % (0-1); Eosinophil# 0.09 X10^3/uL; Eosinophils% 1.4 % (0-5); Hematocrit 44.3 % (37-47); Hemoglobin 14.3 g/dL (12.0-15.0); Lymphocyte # 1.57 X10^3/ul (0.83-4.51); Mean Corp Hgb Conc 32.3 g/dL (32-36); Mean Corpuscular Hgb 29.9 pg (27.0-32.0); Mean Corpuscular Volume 92.5 fL (81-99); Mean Platelet Vol. 10.5 fl (6.2-12.0); Monocyte# 0.51 X10^3/uL; Monocyte% 7.8 % (0-10); NRBC Flagged by Analyzer 0 % (0-5); Neutrophil % 65.7 % (47-70); Platelet Count 322 K/mm3 (150-450); RBC Distribution Width CV 13.4 % (11.6-14.6); Red Blood Count 4.79 M/mm3 (4.2-5.4); White Blood Count 6.5 K/mm3 (4.4-11.0)
[2023-08-23 12:40] LABS: Anion Gap 4 (5-15); BUN 8 mg/dL (7-18); BUN/Creat Ratio 8.2 RATIO (10-20); Calcium,Total 8.9 mg/dL (8.5-10.1); Chloride 108 mmol/L (98-107); Creatinine, Serum 0.98 mg/dL (0.55-1.02); EST Glomerular Filtration Rate 62 mL/min (>60); Est Glom Filt Rate - Afr Amer 75 mL/min (>60); Glucose 98 mg/dL (74-106); Potassium 4.2 mmol/L (3.5-5.1); Sodium Level 140 mmol/L (136-145)
== END | disposition home or self-care (01) ==
LOC: LAB 11:19
PROVIDERS: Referring Provider Physician Assistant Surgical; Visit Provider Physician Assistant Surgical
DX: Z01.818 Encounter for other preprocedural examination (principal)
CPT/HCPCS: 36415; 80048; 85025

== ENCOUNTER → 2023-08-29 | Outpatient (CLI) | payer OTHER, SELFPAY ==
--- NOTE | 2023-08-29 07:07 | EKG12_ITS ---
Test Reason : PRE-OP Blood Pressure : / mmHG Vent. Rate : 070 BPM Atrial Rate : 070 BPM P-R Int : 146 ms QRS Dur : 080 ms QT Int : 386 ms P-R-T Axes : 008 018 011 degrees QTc Int : 416 ms Normal sinus rhythm Inferior infarct , age undetermined Abnormal ECG When compared with ECG of 07-DEC-2015 14:27, No significant change was found Confirmed by DAY SHAFER, LYN ([id number]), desk editor SOURAV VARGAS ([id number]) on 08/29/2023 2:22:07 PM Referred By: Angus Albert Confirmed By:LYN BERNSTEIN MD
--- OUTSIDE RECORDS SUMMARY | 2023-08-29 07:15 | XMS RPT_ITS | CCD ---
Author Name Unknown Address [address] [place] [address] Organization [facility] Care Team Providers Care Activated Sludge Attendant Name Role Phone Yoanna Chow Unavailable [facility] Unavailable Susie Brown Unavailable Dev Herzog Unavailable Pan Carrillo Unavailable Erica Tadeo Unavailable Unavailable Bobbi Santoyo Unavailable Unavailable Bobbi Forrest Unavailable Unavailable Unavailable Unavailable Charlene Burgess Unavailable Liu Campos Unavailable Unavailable Yoanna Chow Unavailable [facility] Unavailable [phone] Jasmeet Batres Unavailable Susie Brown Unavailable [phone] Dev Herzog Unavailable Pan Carrillo Unavailable Bobbi Santoyo Unavailable Unavailable Erica Tadeo Unavailable Unavailable Jenifer Katie Unavailable Unavailable Unavailable Kylee Medel Unavailable Unavailable Debra Choudhury Unavailable Unavailable Bobbi Forrest Unavailable Unavailable Samanta Dang Unavailable Unavailable Liu Campos Unavailable Unavailable Bobbi Santoyo Unavailable Unavailable Liu Sena Unavailable Unavailable Elina Arroyo Unavailable Unavailable DR EDWARD GREY DO Primary Care Physician Yoanna Chow DO Unavailable [facility] Unavailable Jasmeet Batres MD Unavailable Paulina Vazquez Unavailable Susie Brown Unavailable Dr. Dev Herzog Unavailable Pan Carrillo DO Unavailable Reyna Marroquin MA Unavailable Unavailable Ciesa COMMUNITY MIDWIFE, Katie Unavailable Nathen PER DIEM CLERK, Liu Unavailable Unavailable Gravius LABOR ECONOMICS TEACHER, Samanta Unavailable Unavailable Manchak LABOR ECONOMICS TEACHER, Bhavani Unavailable Unavailable Erica Tadeo Unavailable Unavailable Slarb PER DIEM CLERK, Kylee Unavailable Unavailable Unavailable Unavailable Yoanna Chow DO Unavailable Wally Vang Unavailable Ciesa, Charlene Unavailable Ciesa Charlene Unavailable NEHA RAYMOND, DR LEON Primary Care Physician Nicola LABOR ECONOMICS TEACHER, Kayela Unavailable Unavailable Amber PER DIEM CLERK, Paola Unavailable Unavailable Yoanna Chow DO Attending Unavailable Yoanna Chow DO Referring Unavailable Yoanna Chow DO Consulting Unavailable Manuel Mendez DO Unavailable [phone] NEHA RAYMOND, DR LEON Attending Unavailable NEHA RAYMOND, DR LEON Primary Care Unavailable NEHA RAYMOND, DR LEON Primary Care Unavailable NEHA RAYMOND, DR LEON Attending Unavailable NEHA RAYMOND, DR LEON Primary Care Unavailable NEHA RAYMOND, DR LEON Attending Unavailable VERA ARREAGA MD Attending Unavailable NEHA RAYMOND, DR LEON Primary Care Unavailable Allergies Allergy Classification Reported Allergen(s) Allergy Type Date of Onset Reaction(s) Facility (4 sources) Acetaminophen / oxyCODONE; Translations: [acetaminophen-oxy codone] Drug Allergy [facility] Medications Current Medications Medication Drug Class(es) Dates Sig (Normalized) Sig (Original) 12 hr buPROPion hydrochloride 90 mg / naltrexone hydrochloride 8 mg extended release oral tablet (1 source) Opioid Antagonist, Aminoketone Start: 03-08-2023 take 1 tablet by mouth once daily, then take 1 tablet by mouth once daily, then take 2 tablets by mouth twice daily Contrave 8 mg-90 mg oral tablet, extended release See Instructions, Take 1 tablet p.o. daily x1 week, increase by 1 tablet/day each subsequent week until daily maintenance dose of 2 tablets twice daily is achieved at the start of week for, # 70 tab(s), 0 Refill(s), [id number], 160.5, cm, 03/03/23 14:03:00 EDT, Height, kg, 03/03/23 14:03:00 EDT, Dosing Weight Start Date: 03/08/23 Status: Ordered Misc Medication (4 sources) Start: 10-23-2019 Misc Medication XenoStat, ThyroVen, 0 Refill(s), 90.45 Start Date: 10/23/19 Status: Ordered naproxen 500 mg oral tablet (1 source) Nonsteroidal Anti-inflammatory Drug Start: 03-12-2023 naproxen 500 mg oral tablet Dose : 500 mg = 1 tab(s), Oral, BID, PRN as needed for pain, # 20 tab(s), 0 Refill(s) Start Date: 03/12/23 Status: Ordered predniSONE 20 mg oral tablet (20 sources) Corticosteroid Start: 03-13-2023 End: 03-22-2023 prednisone 20mg tab (TAPER) Taper 40-30-20-10 x 2 days each dose, Oral, Daily, # 10 tab(s), 0 Refill(s) Start Date: 03/13/23 Stop Date: 03/22/23 Status: Ordered Completed/Discontinued Medications Medication Drug Class(es) Dates Sig (Normalized) Sig (Original) acetaminophen 325 mg / HYDROcodone bitartrate 5 mg oral tablet (20 sources) Opioid Agonist Start: 12-08-2015 End: 05-28-2016 Hydrocodone-Aceta minophen 5-325 MG Oral Tablet 1 (one) Tablet Tablet prn for 3 days Refills: 0 Ordered: 28-May-2016 Bobbi Santoyo RN Start : 08-Dec-2015 End : 28-May-2016 Inactive acyclovir 800 mg oral tablet (19 sources) Herpesvirus Nucleoside Analog DNA Polymerase Inhibitor, Herpes Simplex Virus Nucleoside Analog DNA Polymerase Inhibitor, Herpes Zoster Virus Nucleoside Analog DNA Polymerase Inhibitor Start: 12-14-2019 End: 12-21-2019 take 1 tablet by mouth once daily Acyclovir 800 MG Oral Tablet 1 (one) Tablet 5x daily for 7 days Quantity: 35 {Tablet} Refills: 0 Ordered: 14-Dec-2019 Charlene Burgess Start : 14-Dec-2019 End : 21-Dec-2019 Inactive amoxicillin 875 mg / clavulanate 125 mg oral tablet (20 sources) Penicillin-class Antibacterial Start: 11-07-2019 End: 11-21-2019 take 1 tablet by mouth twice daily at mealtime Amoxicillin-Pot Clavulanate 875-125 MG Oral Tablet 1 (one) Tablet PO BID for 14 days Quantity: 28 {Tablet} Refills: 0 Ordered: 07-Nov-2019 Claudine Yoanna Claudine RAYMOND Yoanna Start : 07-Nov-2019 End : 21-Nov-2019 Inactive Comments: Take with food Problems Active Problems Problem Classification Problem Date Documented Da te Episodic/Chronic Abdominal pain (20 sources) Pain in pelvis; Translations: [Pelvic pain] Resolved: 09-20-2022 07-20-2021 Episodic Past or Other Problems Problem Classification Problem Date Documented Date Episodic/Chronic Chronic obstructive pulmonary disease and bronchiectasis (20 sources) Chronic obstructive pulmonary disease and bronchiectasis Headache; including migraine (4 sources) Headache; including migraine Malaise and fatigue (2 sources) Other malaise; Translations: [Other malaise] Onset: 08-13-2022 Episodic Other connective tissue disease (8 sources) Pain in finger of left hand; Translations: [Finger pain, left] Resolved: 09-04-2018 09-04-2018 Results Test Name Value Interpretation Reference Range Facil it Vital Signs Date Time Vital Sign Value Performing Clinician Facility 03-12-2023 18:47-0400 Diastolic Blood Pressure Non-Invasive 83 1 VERA ARREAGA MD [facility] 03-12-2023 18:47-0400 Heart rate 82 /min VERA ARREAGA MD [facility] 03-12-2023 18:47-0400 Respiratory rate 15 /min VERA ARREAGA MD [facility] 03-12-2023 18:47-0400 Systolic Blood Pressure Non-Invasive 111 1 VERA ARREAGA MD [facility] 03-12-2023 18:34-0400 Diastolic Blood Pressure Non-Invasive 80 1 VERA ARREAGA MD [facility] 03-12-2023 18:34-0400 Heart rate 72 /min VERA ARREAGA MD [facility] 03-12-2023 18:34-0400 Respiratory rate 19 /min VERA ARREAGA MD [facility] 03-12-2023 18:34-0400 Systolic Blood Pressure Non-Invasive 129 1 VERA ARREAGA MD [facility] 03-12-2023 18:00-0400 Diastolic Blood Pressure Non-Invasive 90 1 VERA ARREAGA MD [facility] 03-12-2023 18:00-0400 Heart rate 83 /min VERA ARREAGA MD [facility] 03-12-2023 18:00-0400 Respiratory rate 17 /min VERA ARREAGA MD [facility] 03-12-2023 18:00-0400 Systolic Blood Pressure Non-Invasive 137 1 VERA ARREAGA MD [facility] 03-12-2023 16:42-0400 Body temperature 98.96 [degF] VERA ARREAGA MD [facility] 09-20-2022 14:49-0500 Body height 162.56 cm Haley Petersen CMA [facility] Work Phone: 09-20-2022 14:49-0500 Body mass index (BMI) [Ratio] 36.9 kg/m2 [facility]; [facility] Work Phone: 09-20-2022 14:49-0500 Body surface area Derived from formula 2.02 m2 [facility] Work Phone: 09-20-2022 14:49-0500 Body temperature 96.8 [degF] [facility]; [facility] Work Phone: 09-20-2022 14:49-0500 Body weight 97.52 kg [facility]; [facility] Work Phone: 09-20-2022 14:49-0500 Diastolic blood pressure 80 mm[Hg] [facility] Work Phone: Encounters Encounter Date Encounter Type Care Provider Facility Start: 03-12-2023 End: 03-12-2023 Emergency department patient visit VERA ARREAGA MD Facility:[facility] Start: 03-12-2023 End: 03-12-2023 Emergency department patient visit VERA ARREAGA MD [facility] Start: 01-12-2023 End: 01-12-2023 Phone Encounter Yoanna Chow DO Work Phone: [facility] Start: 12-29-2022 End: 01-05-2023 Patient encounter procedure Yoanna Bobon DO Work Phone: [facility] Start: 12-29-2022 End: 12-29-2022 Annotation/Addendum Yoanna Claudine DO Work Phone: [facility] Start: 11-24-2022 End: 11-25-[address] EDWARD GREY DO Facility:[facility] Start: 10-22-2022 End: 10-22-2022 Phone Encounter Yoanna Chow DO Work Phone: [facility] Start: 10-20-2022 End: 10-20-2022 Office outpatient visit 15 minutes Yoanna Claudine DO Work Phone: [facility] Start: 10-20-2022 ambulatory [facility] Start: 09-30-2022 End: 09-30-2022 Annotation/Addendum Yoanna Claudine DO Work Phone: [facility] Start: 09-20-2022 Review Yoanna Fearo n DO Work Phone: [facility] Start: 09-20-2022 End: 09-22-2022 Office outpatient visit 15 minutes Yoanna Claudine DO Work Phone: [facility] Start: 08-13-2022 End: 08-18-[address] EDWARD GREY DO Facility:[facility] Start: 08-13-2022 End: 08-17-[address] EDWARD GREY DO [facility] Start: 06-01-2022 End: 06-02-[address] EDWARD GREY DO Facility:[facility] Start: 11-20-2021 End: 11-20-[address] EDWARD GREY DO [facility] Start: 11-04-2021 End: 11-04-2021 Office outpatient visit 15 minutes Yoanna Claudine DO Work Phone: [facility] Start: 10-28-2021 End: 10-28-2021 Office outpatient visit 15 minutes Yoanna Claudine DO Work Phone: [facility] Start: 07-23-2021 Review Yoanna Fearo n DO Work Phone: [facility] Start: 07-20-2021 End: 07-20-2021 Office outpatient visit 25 minutes Yoanna Claudine DO Work Phone: [facility] Start: 06-26-2021 End: 07-06-2021 Phone Encounter Yoanna Claudine DO Work Phone: [facility] Start: 06-26-2021 End: 06-26-2021 Office outpatient visit 15 minutes Yoanna Claudine DO Work Phone: [facility] Start: 06-24-2021 End: 06-24-2021 Annotation/Addendum Yoanna Claudine DO Work Phone: [facility] Start: 06-22-2021 End: 06-22-2021 Office outpatient visit 10 minutes Yoanna Claudine DO Work Phone: [facility] Start: 06-10-2021 End: 06-10-[address] EDWARD GREY DO [facility] Start: 04-23-2021 End: 04-23-2021 Office outpatient visit 10 minutes Yoanna Claudine DO Work Phone: [facility] Start: 03-20-2021 End: 03-20-2021 Office outpatient visit 15 minutes Yoanna Claudine DO Work Phone: [facility] Start: 09-08-2020 End: 09-08-2020 Office outpatient visit 15 minutes Yoanna Claudine [facility] Start: 09-01-2020 End: 09-01-2020 Office outpatient visit 15 minutes Yoanna Claudine [facility] Start: 08-29-2020 End: 08-29-2020 Office outpatient visit 15 minutes Yoanna Claudine [facility] Start: 07-30-2020 End: 07-30-2020 Office outpatient visit 10 minutes Yoanna Claudine [facility] Start: 03-18-2020 End: 03-18-2020 Office outpatient visit 10 minutes Yoanna Claudine [facility] Start: 12-27-2019 End: 12-27-2019 Office outpatient visit 10 minutes Yoanna Claudine [facility] Start: 12-14-2019 End: 12-14-2019 Office outpatient visit 15 minutes Yoanna Claudine [facility] Start: 11-28-2019 End: 11-28-2019 Phone Encounter Yoanna Chow [facility] Start: 11-07-2019 End: 11-07-2019 Office outpatient visit 15 minutes Yoanna Claudine [facility] Start: 09-18-2019 End: 09-18-2019 Office outpatient visit 15 minutes Yoanna [facility] Start: 05-17-2019 End: 05-17-2019 Office outpatient visit 15 minutes Yoanna [facility] Start: 04-25-2019 End: 04-25-2019 Office outpatient visit 10 minutes Yoanna Doug[facility] Start: 09-04-2018 End: 09-04-2018 Office outpatient visit 25 minutes Yoanna Chow [facility] Start: 09-04-2018 Review Yoanna Chow [facility] Start: 08-07-2018 End: 08-07-2018 Lab Order Yoanna [facility] Start: 08-04-2018 End: 08-04-2018 Office outpatient visit 25 minutes Yoanna Doug[facility] Start: 07-28-2018 End: 07-28-2018 Office outpatient visit 10 minutes Yoanna Doug[facility] Start: 06-09-2018 End: 06-09-2018 Office outpatient visit 15 minutes Yoanna Doug[facility] Start: 04-06-2018 End: 04-06-2018 Annotation/Addendum Yoanna Doug[facility] Start: 03-30-2018 End: 03-30-2018 Office outpatient visit 15 minutes Yoanna Douglass [facility] Start: 03-16-2018 End: 03-16-2018 Office outpatient visit 15 minutes Yoanna Doug[facility] Start: 05-28-2016 End: 05-28-2016 Office outpatient visit 15 minutes Yoanna Douglass [facility] Start: 05-05-2016 End: 05-05-2016 Patient encounter Yoanna [facility] Start: 12-29-2015 End: 12-29-2015 Office outpatient visit 10 minutes Yoanna Douglass [facility] Start: 12-17-2015 End: 12-17-2015 Phone Encounter Yoanna [facility] Start: 12-15-2015 End: 12-15-2015 Office outpatient visit 15 minutes Yoanna Douglass [facility] Start: 12-08-2015 End: 12-08-2015 Office outpatient visit 40 minutes Yoanna Douglass [facility] Start: 11-10-2015 End: 11-10-2015 Office outpatient visit 15 minutes Yoanna Chow [facility] Start: 01-15-2015 End: 01-15-2015 Office outpatient visit 10 minutes Yoanna Chow [facility] Start: 01-21-2014 End: 01-21-2014 Office outpatient visit 15 minutes Yoanna Chow [facility] Start: 10-31-2013 End: 10-31-2013 Patient encounter Yoanna Chow [facility] Start: 09-26-2013 End: 09-26-2013 Patient encounter Yoanna Chow [facility] Start: 12-26-2012 End: 12-26-2012 Patient encounter Yoanna Chow [facility] Start: 11-24-2012 End: 11-24-2012 Patient encounter Yoanna Chow [facility] Start: 03-10-2012 End: 03-10-2012 Patient encounter Yoanna Chow [facility] Start: 12-17-2011 End: 12-17-2011 Patient encounter Yoanna Chow [facility] Start: 12-17-2011 End: 12-17-2011 Preprocedural examination done Yoanna Chow DO Work Phone: [facility] Start: 01-20-2011 End: 01-20-2011 Patient encounter Yoanna Chow [facility] Start: 11-11-2010 End: 11-11-2010 Patient encounter Yoanna Chow [facility] Start: 08-10-2010 End: 08-10-2010 Patient encounter Yoanna Chow [facility] Start: 07-21-2010 End: 07-21-2010 Patient encounter Yoanna Chow [facility] Start: 04-22-2009 End: 04-22-2009 Patient encounter Yoanna Chow [facility] Start: 10-14-2008 End: 10-14-2008 Patient encounter Yoanna Chow [facility] Start: 08-23-2008 End: 08-23-2008 Patient encounter Yoanna Chow [facility] Start: 01-04-2008 End: 01-04-2008 Patient encounter Yoanna Chow [facility] Start: 06-21-2006 End: 06-21-2006 Patient encounter Yoanna Chow [facility] Encounter for other preprocedural examination Yoannaarnel Bobon [facility] Work Phone: Procedures Date Procedure Procedure Detail Performing Clinician Start: 03-20-2023 End: 03-20-2023 Chest PA and Lateral Procedure Note: See Note; NOTES: [facility] Imaging Services [address] [place] [address] Chest PA and Lateral MR#: [id number] Acct: [id number] Name: JHONNY PACK Rep #: [id number] : 1960 F 62 From: Amador Guerrero MD PCP: Dr. Yoanna Chow DO Status: REG ER Study: Chest PA and Lateral Date of Exam: 03/20/23 Exam# [id number] Ordering Dr: Ilan Vizcarra MD STUDY: X-RAY CHEST REASON FOR EXAM: Female, 62 years old. Fever and cough TECHNIQUE: PA and lateral views of the chest. COMPARISON: 06/28/2021 FINDINGS: EKG leads overlie the chest The lungs are clear and expanded. There is no demonstrated pleural abnormality. Normal size heart. Normal mediastinum and blanca. Normal visualized pulmonary arteries. Normal visualized aortic arch and descending thoracic aorta. Normal visualized thoracic spine. Normal visualized ribs, clavicles, and shoulders. There is no demonstrated abnormality of the visualized soft tissue structures of the upper abdomen. RAD/Chest PA and Lateral IMPRESSION: No acute pulmonary process Electronically Signed: Clint Guerrero MD at 12:42 EDT , CC: Dr. Ilan Vizcarra MD; Dr. Yoanna Chow DO Core Analyst: Signed Yoanna Chow DO Work Phone: Start: 03-20-2023 End: 03-20-2023 Emergency Department Summary Procedure Note: See Note; NOT[facility]: [facility] [address] [place] [address] Emergency Department Summary 03/20/23 MR#: [id number] Acct: [id number] Name: JHONNY PACK Rep #: [id number] : [id number] 62 From: Ilan Vizcarra MD PCP: Dr. Yoanna Chow, DO Status:REG ER Location: ED HPI HPI - URI History of Present Illness Chief Complaint: Shortness of Breath Detail of Chief Complaint: Sore throat and cough. Informant: patient Onset/Context/Timing Onset: Days Context: Gradual Onset Timing: Continuous Current Severity: Mild Maximum Severity: Mild Associated Symptoms Associated Symptoms: Positive for Shortness of Breath and Nonproductive cough; Negative for Nausea, Vomiting or Diarrhea Narrative Narrative: 62-year-old female history of hypothyroidism.. States that her recently had strep throat as any other family numbers. She has had a nonproductive cough recently was worked up felt to be a viral bronchitis. She also developed a sore throat last several days and felt fatigued. She went to make sure she did not have strep throat or was developing pneumonia. She denies any hemoptysis. No nausea Prior similar symptoms: Yes Recent Illness/Hospitalization: No ROS ROS ED ROS Narrative Sore throat. Cough. Fatigue. Review of Systems ROS Unobtainable: Denies due to encephalopathy Constitutional Constitutional ED: Denies chills or fever(s) Eyes Eyes: Denies blurry vision ENT ENT ED: Reports sore throat; Denies ear pain or rhinorrhea Cardiovascular Cardiovascular: Denies chest pain Respiratory/Chest Respiratory/Chest: Reports cough and dyspnea Gastrointestinal Gastrointestinal: Denies abdominal pain Genitourinary Genitourinary ED: Denies dysuria Musculoskeletal Musculoskeletal: Denies arthralgias Integumentary Denies abscess Neurologic Neurologic: Denies headache(s) Psychiatric Psychiatric: Denies anxiety Endocrine Endocrinology: Denies cold intolerance Hematologic/Lymphatic Hematologic/Lymphatic: Denies easy bleeding Allergic/Immunologic Allergic/Immunologic ED: Denies mouth swelling PFSH PFSH Medical History Daniel's disease Thyroid disorder Home Medications levothyroxine 88 mcg capsule 88 mcg PO DAILY 09/01/20 [History Last Taken Unknown] naltrexone 8 mg-bupropion 90 mg tablet,extended release (Contrave) 2 tab PO BID 03/20/23 [History Last Taken Unknown] Allergy/AdvReac Type Severity Reaction Status Date / Time oxycodone HCl [From Percocet] AdvReac Nausea Verified 04/02/22 20:35 Surgical History H/O: hysterectomy Hx of appendectomy Social History household members: spouse Smoking Status: Never smoker EXAM Physical Exam Narrative Exam Narrative: Well-appearing 62-year-old female. Vital signs are stable. She is afebrile. She does not look septic or toxic. Her pulse ox is 96% on room air no signs hypoxia. HEENT exam TMs normal bilaterally. Posterior pharynx unremarkable. No erythema or exudate. Status post tonsillectomy. No swelling. No trouble swallowing or breathing. No stridor or drooling. Moist mucous membranes. Neck nontender no lymphadenopathy. Lungs clear equal symmetrical bilaterally. No rales, rhonchi or wheezing. Heart regular rate and rhythm no murmur. Rate about 90. Abdomen is soft and nontender. Moving all 4 extremities. Calves are nontender without edema or cords. Neurologically she is awake alert with no focal motor deficits. Const Vital Signs: 03/20/23 12:02 03/20/23 12:08 Temperature 96.7 F L Temperature Source Temporal Pulse Rate 98 Respiratory Rate 18 Respiratory Effort Short of Breath Respiratory Depth Shallow Respiratory Pattern Normal Blood Pressure 130/110 H Blood Pressure Mean 116 Pulse Ox 96 Oxygen Delivery Method Room Air Room Air Positive well nourished and well developed; Negative for cachectic or contractures General Appearance ED: well developed and NAD; Negative for cachectic, contractures, cyanotic or diaphoretic Nutritional Appearance: Negative for cachectic HEENT Reports moist mucous membranes; Denies dry mucous membranes normocephalic and atraumatic; Negative for scalp tenderness Face and Sinus: Negative for sinus tenderness, maxillary instability or facial tenderness Mouth ED: No dry mucous membranes Mouth: No dry mucous membranes Teeth and Gingiva: Negative for caries Throat: posterior oropharynx normal; Negative for tonsils abnormal or posterior oropharynx abnormal Eyes PERRL and EOMs intact bilaterally General Eye ED: Negative for pale conjunctiva or scleral icterus Neck no lymphadenopathy, supple, no meningeal signs and no JVD General: Negative for anterior neck swelling or lymphadenopathy Resp normal respiratory effort and clear to auscultation bilaterally Effort and Inspection: Negative for retractions Auscultation: Negative for rales, rhonchi or wheezes Cardio S1 normal heart sound, S2 normal heart sound and no murmurs Rate: regular rate Rhythm: regular rhythm GI non-tender, non-distended and no masses Inspection: Negative for abdominal distention Auscultation: normoactive bowel sounds Palpation: soft; Negative for tender or guarding Back/Spine no CVA tenderness; Negative for normal ROM General Back: Negative for CVA tenderness Cervical Spine: Negative for cervical spine tenderness Thoracic Spine / Upper Back: Negative for thoracic spinal tenderness Lumbar Spine / Lower Back: Negative for lumbar spinal tenderness Sacrum: Negative for tenderness Extremity normal to inspection and full ROM General Extremety ED: Negative for cyanosis or tenderness General Extremity: Negative for cyanosis Neuro oriented x3 and CN's II-XII intact bilaterally Sensorium / Orientation: alert, oriented to person, oriented to place and oriented to time; Negative for orientation impaired, lethargic or stuporous Motor Exam: strength 5/5 throughout Psych Appearance: Negative for other Attitude: No agitated Mood Affect: Negative for depressed, anxious or tearful Skin General Skin Exam: Negative for jaundice Lesions: no lesions Rashes: no rashes Trauma: Negative for abrasion MDM MDM MDM Narrative Medical decision making narrative: 62-year-old female URI symptoms. Rapid strep was obtained but clinically I do not think this is strep throat and she has had a prior tonsillectomy. Chest x-ray will be obtained to evaluate for possible pneumonia even though clinically I do not think this pneumonia either. Repeat exam at 139 unchanged. We discussed her normal test results. She will be discharged home treated as a viral syndrome. Follow-up with primary care physician as needed. Return if worse. History Record Review Discussion w/independent historian: Patient Lab Data Lab results narrative: Rapid strep test is negative. Radiography Chest X-Ray - ED: 2 View, Read by ED Physician, Read by Radiologist, Normal, Heart, Lungs, Mediastinum, Bony Structures, No Acute Disease and Chronic Changes Diagnostic Testing: Clinical Impression(s) from Imaging Studies Chest X-Ray 03/20/23 12:25 IMPRESSION: No acute pulmonary process Electronically Signed: Clint Guerrero MD at 12:42 EDT Reading Location ID and State: [facility] / [place] , Service support , Discharge Plan Triage Chief Complaint: Shortness of Breath Other Complaint: Sore Throat ED Provider: Ilan Vizcarra Dx/Rx/DC Orders Clinical Impression: Viral URI Instructions: ED URI, Viral, No Abx (Adult) Prescriptions: No Action levothyroxine 88 mcg capsule 88 mcg PO DAILY Contrave 8-90 mg tablet extended release 2 tab PO BID Primary Care Provider: Yoanna Chow Referrals: Yoanna Chow DO [Primary Care Provider] - 1 Week if not improving Activity Restrictions/Additional Instructions: Your rapid strep and chest x-ray were both normal. No signs of infection. Plenty of fluids and rest. Motrin and Tylenol. Follow-up with your doctor if not improving. Disposition Disposition: Home, Self Care What to do if you have Problems For any increased pain, shortness of breath, bleeding, nausea or vomiting, chest pain, or any unexpected problems, contact your Primary Care Provider. Call [facility] ([phone]) or report to the closest Emergency Room. Call 911 if necessary. 03/20/23 1341 <Electronically signed by Ilan Vizcarra MD> Cosigner Signature (if applicable): CC: Dr. Yoanna Chow DO Signed Yoanna Chow DO Work Phone: Start: 01-03-2023 End: 01-03-2023 Venous Duplex US, Unilateral Procedure Note: See Note; NOTES: [facility] [address] [place] [address] Venous Duplex US, Unilateral 01/03/23 1008 MR#: [id number] Acct: [id number] Name: JHONNY PACK Rep #: [id number] : 1960 62 From: Bennie Dee MD Attending Dr: Dr. Yoanna Chow DO Status: R EG CLI Ordering Dr: Yoanna Chow DO Date: 01/03/23 Location: [facility]S Sex: F C Admitted: Reason For Study: RUE PAIN Right Proximal Left Proximal Right jugular vein is spontaneous, widely Left subclavian vein is spontaneous, widely patent, phasic, with no intraluminal patent, phasic, with no intraluminal echogenicity noted. echogenicity noted. Right subclavian vein is spontaneous, widely patent, phasic, with no intraluminal echogenicity noted. Right Lower Arm Right radial vein is compressible. Right ulnar vein is compressible. Right Arm Right axillary vein is spontaneous, patent, phasic, competent, compressible and demonstrates augmentation. Right brachial vein is compressible. Right cephalic vein is compressible. Right basilic vein is compressible. Patient Safety IMAGE #8 is the Radial V. VL/Venous Duplex US, Unilateral Interpretation Summary Deep veins of the right upper extremity are patent and compressible segmentally. There is no evidence of deep vein thrombosis. Superficial veins of the right upper extremity are patent and compressible segmentally. There is no evidence of superficial vein thrombosis. Ordering Physician: Yoanna Chow Referring Physician: Yoanna Chow Performed By: Rach Ag, RDBENNY, RVT ??? 01/03/23 1255 Date Bennie Dee MD CC: Dr. Yoanna Chow DO Date Dictated: 01/03/23 1008 Date Transcribed: 01/03/23 1255 Core Analyst: Gretchen Chow DO Work Phone: Start: 10-18-2022 End: 10-18-2022 Echo Complete W/ Contrast Procedure Note: See Note; NOTES: [facility] [address] [place] [address] Echo Complete W/ Contrast 10/18/22 1521 MR#: [id number] Acct: [id number] Name: JHONNY PACK Rep #: [id number] : 1960 62 From: Ronnell Alegria MD Attending Dr: Dr. Yoanna Chow DO Status: R EG CLI Ordering Dr: Yoanna Chow DO Date: 10/18/22 Location: CT Sex: F C Admitted: Reason For Study: Chest Pain Procedure This was a 2D Doppler, Color Flow transthoracic echocardiogram. The study was technically difficult. Contrast injection was performed. Exam performed in department. Left Ventricle Normal LV size. Left ventricular systolic function is normal. The estimated ejection fraction is 65 %. Stage 1 diastolic dysfunction. No regional wall motion abnormalities noted. Right Ventricle Normal RV size. Normal systolic function. Atria Normal left atrium. Normal right atrium. Mitral Valve Normal mitral valve. Tricuspid Valve Normal tricuspid valve. Mild tricuspid valve insufficiency. Pulmonary artery systolic pressure is 28 mmHg. Aortic Valve Trisinus/trileaflet aortic valve. Pulmonic Valve The pulmonic valve is not well visualized. Great Vessels Mild to moderately dilated aortic root. The pulmonary artery is normal size. Normal inferior vena cava. Pericardium/Pleural No pericardial effusion. Medication 20 gauge I.V. with prn adaptor inserted into right arm. Diluted definity 2.5ml given slow IV push to enhance endocardial definition. MMode/2D Measurements Calculations LVIDd: 4.6 cm IVSd: 1.1 cm Ao root diam: 4.3 cm LVIDs: 2.8 cm LVPWd: 0.78 cm LA dimension: 3.3 cm FS: 38.0 % LAV(MOD-bp): 31.8 ml LA A4 area: 11.5 cm2 LAV(MOD-bp) Indexed: 15.8 ml/m2 LAV(MOD-sp2): 38.8 ml LAV(MOD-sp4): 24.6 ml Time Measurements MV dec time: 0.23 sec Doppler Measurements Calculations MV E max ashok: 66.4 cm/sec Lat Peak E' Ashok: 13.7 cm/sec Med Peak E' Ashok: 9.4 cm/sec MV A max ashok: 96.3 cm/sec E/E' lat: 4.8 E/E' med: 7.1 MV E/A: 0.69 MV V2 max: 102.0 cm/sec MV dec slope: 294.9 cm/sec2 Ao V2 max: 128.4 cm/sec MV max P.2 mmHg Ao max P.6 mmHg MV V2 mean: 55.8 cm/sec MV mean P.5 mmHg MV V2 VTI: 18.5 cm LV V1 max: 121.9 cm/sec PA V2 max: 100.2 cm/sec TR max ashok: 248.1 cm/sec LV V1 max P.0 mmHg PA V2 mean: 72.2 cm/sec TR max P.6 mmHg ECHO/Echo Complete W/ Contrast Interpretation Summary Normal LV size. Left ventricular systolic function is normal. The estimated ejection fraction is 65 %. Stage 1 diastolic dysfunction. Pulmonary artery systolic pressure is 28 mmHg. Mild to moderately dilated aortic root. Contrast injection was performed. Ordering Physician: Yoanna Chow Performed By: Mark Hernández RCS 10/18/22 1631 Date Ronnell Alegria MD CC: Dr. Yoanna Chow DO Date Dictated: 10/18/22 1521 Date Transcribed: 10/18/22 1631 Core Analyst: Signed Yoanna Chow DO Work Phone: Start: 10-18-2022 End: 10-18-2022 Chest WITH Contrast Procedure Note: See Note; NOTES: [facility] Imaging Services [address] [place] [address] Chest WITH Contrast MR#: [id number] Acct: [id number] Name: JHONNY PACK Rep #: [id number] : 1960 F 62 From: Mannie delaney MD PCP: Dr. Yoanna Chow DO Status: REG CLI Study: Chest WITH Contrast Date of Exam: 10/18/22 Exam# [id number] Ordering Dr: Yoanna Chow DO STUDY: CT CHEST WITH CONTRAST REASON FOR EXAM: Female, 62 years old. CHEST PAIN AT REST RADIATION DOSAGE (If Supplied By Facility): CTDIvol = ( 20.14 ) mGy, DLP = ( 653.00 ) mGycm TECHNIQUE: Transaxial imaging was performed following intravenous administration of IV 100mL Isovue-300. Multiplanar coronal and sagittal images were reformatted. Individualized dose optimization techniques were used for this CT. COMPARISON: Comparison is made with prior chest radiograph dated June 28, 2021. FINDINGS: CHEST The lungs are normal. There is no demonstrated pleural abnormality. Normal heart and pericardium. No coronary calcification is seen. There are multiple small lymph nodes within the mediastinum, which are normal in size and morphology most compatible with reactive lymph hyperplasia. Normal hilar regions. Normal unenhanced pulmonary arteries. Normal aorta arch and descending thoracic aorta. There are multi-level degenerative changes of the thoracic spine. There is no demonstrated abnormality of the visualized upper abdomen. CT/Chest WITH Contrast IMPRESSION: No acute abnormality is present. Electronically Signed: Mannie Dial MD at 15:21 EST , CC: Dr. Yoanna Chow DO Core Analyst: Signed Yoanna Chow DO Work Phone: Start: 06-17-2022 End: 06-18-2022 Upper Ext Joint Only(Routine) Procedure Note: See Note; NOTES: [facility] Imaging Services [address] [place] [address] Upper Ext Joint Only(Routine) MR#: [id number] Acct: [id number] Name: JHONNY PACK Rep #: [id number] : 1960 F 62 From: Luis E Wesley MD PCP: Dr. Yoanna Chow DO Status: REG CLI Study: Upper Ext Joint Only(Routine) Date of Exam: 08/17/21 Exam# [id number] Ordering Dr: Bharti Mcallister STUDY: MRI RIGHT SHOULDER REASON FOR EXAM: Female, 62 years old. Right shoulder pain. Right shoulder sprain. TECHNIQUE: Standardized fat and water weighted pulse sequences were obtained in all 3 orthogonal planes. COMPARISON: Right humerus x-rays dated April 02, 2022. FINDINGS: Marked supraspinatus tendinosis with thickening of the posterior fibers, thinning of the anterior fibers and a full thickness partial width tear of far anterior fibers measuring 13 mm in widest diameter comparing coronal series 5 images 12-16). Infraspinatus tendinosis with thickening and increased signal intensity without a full-thickness tear (coronal series 5 images 6-11). Subscapularis tendinosis with a longitudinal partial tear of the distal fibers and medial subluxation/dislocation of the long head of the biceps into the partial tear ( hidden lesion ) (axial series 2 images 7-13). Normal teres minor tendon. Normal supraspinatus muscle. Normal infraspinatus muscle. Normal subscapularis muscle. Normal teres minor muscle. Mild arthrosis of the glenohumeral joint with a large septated glenohumeral joint effusion (axial series 2 images 5-17). Cystic change of the lateral aspect of the humeral head (axial series 2 image 8). Normal biceps labral complex. Medial dislocation of the long head of the biceps, as described above. Increased signal intensity within the superior labrum without a detached tear (coronal series 5 image 11). Normal capsulo- ligamentous complex. Normal rotator interval. AC joint hypertrophy with minimal narrowing of the subacromial space (coronal series 5 images 8-12). There is a Type II morphology (curved), with a neutral orientation. Moderate amount of fluid in the subacromial-subdeltoid bursa (coronal series 5 images 7-11). Normal visualized coracohumeral and coracoacromial ligaments. Normal quadrilateral space. Normal axillary space. Normal deltoid muscle. Normal trapezius muscle. MRI/Upper Ext Joint Only(Routine) IMPRESSION: Marked supraspinatus tendinosis with a full-thickness partial width tear of the anterior fibers as described. Infraspinatus tendinosis without a full-thickness tear. Subscapularis tendinosis with a longitudinal partial tear of the distal fibers and medial dislocation of the long head of the biceps into the partial longitudinal tear ( hidden lesion ). Mild arthrosis of the glenohumeral joint. Cystic change in the humeral head. Increased signal intensity within the superior labrum without a detached tear. AC joint hypertrophy with narrowing of the subacromial space. Moderate to large glenohumeral joint effusion with moderate fluid in the subacromial-subdeltoid bursa. Electronically Signed: Luis E Wesley, at 9:32 EDT , CC: MISAEL Mcallister; Dr. Yoanna Chow DO Core Analyst: Signed Yoanna Chow DO Work Phone: Start: 04-02-2022 End: 04-02-2022 Emergency Department Summary Procedure Note: See Note; NOTES: [facility] Medical Records Department [address] [place] [address] Emergency Department Summary 04/02/22 MR#: [id number] Acct: [id number] Name: JHONNY PACK Rep #: [id number] : 1960 61 From: Mikel Fisher DO PCP: Dr. Yoanna Chow DO Status:REG ER Location: ED HPI HPI - Fall History of Present Illness Chief Complaint: Fall Narrative Narrative: 61-year-old female presenting after mechanical fall. States he was backing out of a car with a shop vac and tripped over the mat. She fell injuring her right upper arm and twisting her right ankle. She was ambulatory on scene. She states there was a lot of cars in the parking lot of the hospital and she was able to walk all the way up from a distance. She does have antalgic gait. She took nothing for pain prior to arrival. She complains of pain in the right lateral aspect of the right ankle as well as the right mid bicep region [facility] Medical History Daniel's disease Thyroid disorder Home Medications levothyroxine 88 mcg capsule 88 mcg PO DAILY 09/01/20 [History Last Taken Unknown] Allergy/AdvReac Type Severity Reaction Status Date / Time oxycodone HCl [From Percocet] AdvReac Nausea Verified 04/02/22 20:35 Surgical History H/O: hysterectomy Hx of appendectomy Social History Smoking Status: Never smoker ROS ROS ED Constitutional Constitutional ED: Denies chills or fever(s) Eyes Eyes: Denies change in vision or diplopia ENT ENT ED: Denies rhinorrhea or sore throat Cardiovascular Cardiovascular: Denies chest pain or palpitations Respiratory/Chest Respiratory/Chest: Denies cough or dyspnea Gastrointestinal Gastrointestinal: Denies abdominal pain or constipation Genitourinary Genitourinary ED: Denies dysuria or hematuria Musculoskeletal Musculoskeletal: Reports other Details: Right arm pain, right ankle pain Integumentary Denies abscess or rash Neurologic Neurologic: Denies headache(s) or paresthesias EXAM Physical Exam Const Vital Signs: 04/02/22 20:31 04/02/22 22:35 Temperature 97.5 F L Temperature Source Temporal Pulse Rate 105 H Respiratory Rate 15 Respiratory Effort Normal Blood Pressure 145/102 H Blood Pressure Mean 116 Pulse Ox 95 Oxygen Delivery Method Room Air Positive well nourished General Appearance ED: NAD HEENT Reports normocephalic atraumatic Eyes PERRL and EOMs intact bilaterally Neck full ROM and no lymphadenopathy Chest Wall palpation of chest normal Resp normal respiratory effort Cardio regular rate and regular rhythm Extremity Extremity Narrative: There is tenderness to palpation in the mid right bicep. Does not appear to any bicep tears. Patient has full range of motion in flexion of the bicep. The right shoulder is nontender to pal pation. Patient is full range of motion of the right shoulder. There is no bruising here. Right ankle: There is tenderness at the lateral aspect of the right ankle over the lateral malleoli. No obvious deformities. There are some mild bruising and swelling here. This does extend into the right lateral foot. No pain with the navicular. No pain at the base of the fifth metatarsal. Right foot neurovascular intact brisk cap refill to all 5 toes Neuro oriented x3 and CN's II-XII intact bilaterally Sensorium / Orientation: alert and oriented to person Motor Exam: strength 5/5 throughout Psych mental status grossly normal Skin Skin Narrative: Bruising is noted above MDM MDM MDM Narrative Medical decision making narrative: Patient offered analgesia she states that she will take a Motrin when she gets home. She does not want thing here. X-rays of the right foot and right humerus on my interpretation shows no acute fracture or subluxation. The radiologist agree. X-rays of the right ankle do show a small cortical avulsion fracture at the distal fibular region. No other acute fractures. Radiology agrees with this as well. Patient was placed in a walking boot. She is given follow-up with podiatry. She will take Tylenol and ibuprofen for pain. She does not need crutches as she is ambulatory. Impression: 1. Mechanical fall 2. Right arm contusion 3. Avulsion fracture right distal fibula 4. Right foot contusion Lab Data Attestation: I reviewed the patient's lab results. Radiography Diagnostic Testing: Clinical Impression(s) from Imaging Studies Foot X-Ray 04/02/22 20:39 IMPRESSION: No acute or healing fracture or malalignment Electronically Signed: Armando Lizarraga MD at 21:27 EDT Reading Location ID and State: [facility] / [place] Tel , Service support , Humerus X-Ray 04/02/22 20:39 IMPRESSION: Negative right humerus x-rays. Electronically Signed: Armando Lizarraga MD at 21:31 EDT Reading Location ID and State: [facility] / [place] Tel , Service support , Ankle X-Ray 04/02/22 21:01 IMPRESSION: 1. Tiny cortical avulsion fracture at the fibular tip. 2. Soft tissues swelling along the lateral malleolus. Electronically Signed: Armando Lizarraga MD at 21:18 EDT Reading Location ID and State: [facility] / [place] Tel , Service support , Discharge Plan Triage Chief Complaint: Fall ED Provider: Mikel Fisher Dx/Rx/DC Orders Prescriptions: No Action levothyroxine 88 mcg capsule 88 mcg PO DAILY Primary Care Provider: Yoanna Chow Referrals: Yoanna Chwo, DO [Primary Care Provider] - What to do if you have Problems For any increased pain, shortness of breath, bleeding, nausea or vomiting, chest pain, or any unexpected problems, contact your Primary Care Provider. Call [facility] ([phone]) or report to the closest Emergency Room. Call 911 if necessary. 04/02/222328 <Electronically signed by Mikel Fisher DO> Cosigner Signature (if applicable): CC: Dr. Yoanna Chow DO Signed Yoanna Chow DO Work Phone: Start: 04-02-2022 End: 04-02-2022 Ankle min 3 Views Procedure Note: See Note; NOTES: [facility] Imaging Services [address] [place] [address] Ankle min 3 Views MR#: [id number] Acct: [id number] Name: JHONNY PACK Rep #: [id number] : 1960 F 61 From: Armando Lizarraga MD PCP: Dr. Yoanna Chow DO Status: PRE ER Study: Ankle min 3 Views Date of Exam: 04/02/22 Exam# [id number] Ordering Dr: Provider,Ed P. EXAM: XR RIGHT ANKLE COMPLETE, 3 OR MORE VIEWS CLINICAL INDICATION: FALL TECHNIQUE: Frontal, lateral and oblique views of the right ankle. This report was created using [employer] report generation technology. COMPARISON: None. FINDINGS: BONES/JOINTS: Prominent plantar calcaneal enthesophyte. Tiny posterior calcaneal enthesophyte. No acute or healing fracture or malalignment. No significant tibiotalar joint effusion. Ankle mortise is intact. Tiny cortical avulsion fracture at the fibular tip. No sclerotic or destructive changes observed. SOFT TISSUES: Soft tissues swelling along the lateral greater than medial malleolus. No radiopaque foreign body. RAD/Ankle min 3 Views IMPRESSION: 1. Tiny cortical avulsion fracture at the fibular tip. 2. Soft tissues swelling along the lateral malleolus. Electronically Signed: Armando Lizarraga MD at 21:18 EDT , CC: Dr. Yoanna Chow DO; ED PHYSICIAN PROVIDER Core Analyst: Signed Yoanna Chow DO Work Phone: Start: 04-02-2022 End: 04-02-2022 Foot min 3 Views Procedure Note: See Note; NOTES: [facility] Imaging Services [address] [place] [address] Foot min 3 Views MR#: [id number] Acct: [id number] Name: JHONNY PACK Rep #: [id number] : 1960 F 61 From: Armando Lizarraga MD PCP: Dr. Yoanna Chow DO Status: PRE ER Study: Foot min 3 Views Date of Exam: 04/02/22 Exam# [id number] Ordering Dr: Provider,Ed P. EXAM: XR RIGHT FOOT COMPLETE, 3 OR MORE VIEWS CLINICAL INDICATION: FALL TECHNIQUE: Frontal, lateral and oblique views of the right foot. This report was created using [employer] report generation technology. COMPARISON: None. FINDINGS: BONES/JOINTS: Mild degenerative changes of the first metatarsophalangeal joint without hallux varus deformity. Bone island suspected involving the distal shaft/neck of the third metatarsal. No acute or healing fracture or malalignment. No unusual lytic or sclerotic lesions of bone. Prominent type II accessory navicular with degenerative changes of the synchondrosis. Prominent plantar calcaneal enthesophyte. No significant tibiotalar joint effusion. SOFT TISSUES: Diffuse soft tissue swelling. No radiopaque foreign body. RAD/Foot min 3 Views IMPRESSION: No acute or healing fracture or malalignment Electronically Signed: Armando Lizarraga MD at 21:27 EDT Reading Location ID and State: [facility] / [place] Tel , Service support , CC: Dr. Yoanna Chow DO; ED PHYSICIAN PROVIDER Core Analyst: Signed Yoanna Chow DO Work Phone: Start: 04-02-2022 End: 04-02-2022 Humerus min 2 Views Procedure Note: See Note; NOTES: [facility] Imaging Services [address] [place] [address] Humerus min 2 Views MR#: [id number] Acct: [id number] Name: JHONNY PACK Rep #: [id number] : 1960 F 61 From: Armando Lizarraga MD PCP: Dr. Yoanna Chow, Status: PRE ER Study: Humerus min 2 Views Date of Exam: 04/02/22 Exam# [id number] Ordering Dr: Provider,Ed P. EXAM: XR RIGHT HUMERUS, 2 OR MORE VIEWS CLINICAL INDICATION: FALL TECHNIQUE: Frontal and lateral views of the right humerus. This report was created using [employer] report generation technology. COMPARISON: None. FINDINGS: BONES/JOINTS: Unremarkable. No acute fracture. No subluxation. Normal alignment. Preservation of the joint space. No sclerotic or destructive changes observed. SOFT TISSUES: Unremarkable. No soft tissue swelling or gas. No radiopaque foreign body. RAD/Humerus min 2 Views IMPRESSION: Negative right humerus x-rays. Electronically Signed: Armando Lizarraga MD at 21:31 EDT Reading Location ID and State: [facility] / [place] Tel , Service support , CC: Dr. Yoanna Chow DO; ED PHYSICIAN PROVIDER Core Analyst: Signed Yoanna Chow DO Work Phone: Start: 03-26-2022 End: 03-28-2022 Soft Tissue Neck WITH Contrast Procedure Note: See Note; NOTES: [facility] Imaging Services [address] [place] [address] Soft Tissue Neck WITH Contrast MR#: [id number] Acct: [id number] Name: JHONNY PACK Rep #: [id number] : 1960 F 61 From: Carmen Webb MD PCP: Dr. Yoanna Chow DO Status: REG CLI Study: Soft Tissue Neck WITH Contrast Date of Exam: 0 03/26/22 Exam# [id number] Ordering Dr: Benjamin Villalpando MD STUDY: CT SOFT TISSUE NECK WITH CONTRAST REASON FOR EXAM: Female, 61 years old. R NECK MASS MARKED WITH BB X 1 YEAR RADIATION DOSAGE (If Supplied By Facility): CTDIvol = ( 17.97 ) mGy, DLP = ( 543.34 ) mGycm TECHNIQUE: The patient was scanned in a multi-detector CT scanner. High resolution transaxial imaging was performed following intravenous administration of IV 100mL Isovue-300. Sagittal and coronal images were reconstructed. Individualized dose optimization techniques were used for this CT. COMPARISON: Neck soft tissue May 03, 2019 FINDINGS: Normal bilateral parotid glands. 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 Normal bilateral parapharyngeal spaces. Normal bilateral carotid spaces. There is a BB marker just posterior to the right ear. There is no visualized soft tissue. This is just behind the parotid gland which appears fatty infiltrated normal. There are multiple subcentimeter mediastinal lymph nodes. Leftward nasal spur. Normal bilateral sublingual and submandibular glands and spaces. Normal visualized nasopharynx. Normal retropharyngeal space. Normal perivertebral space. Normal visualized bilateral faucial tonsils. The visualized tongue, tongue base and oropharynx are normal. The visualized cervical lymph nodes (levels I-) are within normal size limits, and maintain normal morphology. There is no demonstrated solid or cystic mass lesion. There is no abnormal contrast enhancement. Normal epiglottis, bilateral vallecula and hypopharynx. The pre-epiglottic and paraglottic adipose spaces are normal. Normal visualized bilateral piriform sinuses, aryepiglottic folds, vocal cords, and arytenoid-cricoid articulations. Normal subglottic trachea. Normal bilateral lobes of the thyroid gland. Normal visualized pulmonary apices. Normal visualized paranasal sinuses. Normal visualized cervical spine. CT/Soft Tissue Neck WITH Contrast IMPRESSION: Nonvisualized space-occupying mass within the neck. There is no visualized underlying mass or nodularity within the underlying region of the right side vocal cords. Underlying this area is a normal-appearing sternocleidomastoid muscle and vessels. Electronically Signed: Carmen Jon, MD at 7:59 EDT , CC: Dr. Yoanna Chow DO; Dr. Benjamin Villalpando MD Core Analyst: Signed Yoanna Chow DO Work Phone: Start: 03-02-2022 End: 03-02-2022 Emergency Department Summary Comments: See Note; NOTES: [facility] Medical Records Department [address] [place] [address] Emergency Department Summary 03/02/22 MR#: [id number] Acct: [id number] Name: JHONNY PACK Rep #: [id number] : 1960 61 From: Yadira Clarke DO PCP: Dr. Yoanna Chow DO Status:DEP ER Location: ED HPI History of Present Illness Chief Complaint: Nosebleed Informant: patient Narrative Narrative: Patient is a 61-year-old female no significant past medical history presenting with epistaxis. Patient states she started having a nosebleed around 545 this morning and it bled for about an hour despite pressure. It did stop and then she started cleaning her house. She was vacuuming and then the bleeding started again around 930. She decided come to the emergency room for further evaluation. She is not on any blood thinners. Denies any trauma. States she is had mild nosebleeds before but none were they recurred so quickly after stopping and she is never had large clots passed before. She denies any lightheadedness or dizziness. She does note that she is feeling overwhelmed because her son left for the [place] this morning. No other complaints at this time. Has previously seen Dr. Mock ENT for vocal cord evaluation but not for epistaxis. [facility] Medical History Daniel's disease Thyroid disorder Home Medications levothyroxine 88 mcg capsule 88 mcg PO DAILY 09/01/20 [History Last Taken Unknown] Allergy/AdvReac Type Severity Reaction Status Date / Time oxycodone HCl [From Percocet] AdvReac Nausea Verified 03/02/22 10:21 Surgical History H/O: hysterectomy Hx of appendectomy Social History Smoking Status: Never smoker ROS ROS ED Constitutional Constitutional ED: Denies chills or fever(s) Eyes Eyes: Denies change in vision ENT ENT ED: Reports other Details: Positive epistaxis???right ; Denies ear pain, rhinorrhea or sore throat Cardiovascular Cardiovascular: Denies chest pain Respiratory/Chest Respiratory/Chest: Denies cough or dyspnea Gastrointestinal Gastrointestinal: Denies abdominal pain, nausea or vomiting Musculoskeletal Musculoskeletal: Denies arthralgias or myalgias Integumentary Denies rash Neurologic Neurologic: Denies headache(s) or weakness Psychiatric Psychiatric: Denies anxiety Hematologic/Lymphatic Hematologic/Lymphatic: Denies easy bleeding or easy bruising EXAM Physical Exam Const Vital Signs: 03/02/22 10:20 03/02/22 11:46 Temperature 97.2 F L Temperature Source Temporal Pulse Rate 90 88 Respiratory Rate 18 18 Blood Pressure 175/105 H 129/86 H Blood Pressure Mean 128 Pulse Ox 95 98 Oxygen Delivery Method Room Air Positive well nourished and well developed General Appearance ED: well developed and NAD; Negative for pallor HEENT Reports TM's clear and moist mucous membranes HEENT Narrative: Some red blood noted in the right nares but no active bleeding. No obvious bleeding vessel noted on bilateral septum. No large clots appreciated. No bleeding or clot noted in the oropharynx. Negative for trauma or tenderness Tympanic Membrane ED: Yes TM's clear Eyes PERRL and EOMs intact bilaterally Neck no lymphadenopathy and supple Chest Wall inspection of chest normal Resp normal respiratory effort and clear to auscultation bilaterally Cardio regular rate, regular rhythm and no murmurs GI non-distended Extremity normal to inspection Neuro oriented x3, CN's II-XII intact bilaterally and no sensory deficits noted Motor Exam: Negative for general weakness Skin no rashes or lesions noted and no wounds General Skin Exam: Negative for pallor MDM MDM MDM Narrative Medical decision making narrative: Evaluated for epistaxis. She appears nontoxic in no acute distress. Blood pressure is mildly elevated 175/105 however I do not think that is the cause of her epistaxis and probably more related to stress of the situation. Direct pressure was applied prior to my arrival patient has no further bleeding. I did have her blow out any potential clots however there is no blood clots retained. Afrin then sprayed into the nose bilaterally. Patient tolerated this well with no further bleeding. We will ambulate. If patient is no further bleeding will discharge home to follow-up with ENT outpatient. I do not think patient requires packing at this time. There is no obvious area amenable to cautery at this time. Repeat blood pressure normalized. Patient no further bleeding with ambulation. Discharge Plan Triage Chief Complaint: Nosebleed ED Provider: Yadira Clarke Dx/Rx/DC Orders Clinical Impression: Acute anterior epistaxis Prescriptions: No Action levothyroxine 88 mcg capsule 88 mcg PO DAILY Primary Care Provider: Yoanna Chow Referrals: Yoanna Chow DO [Primary Care Provider] - Benjamin Villalpando MD [STAFF PHYSICIAN] - As Needed (if not improving ) Disposition Disposition: Home, Self Care Discharge Date/Time: 03/02/22 11:47 What to do if you have Problems For any increased pain, shortness of breath, bleeding, nausea or vomiting, chest pain, or any unexpected problems, contact your Primary Care Provider. Call [facility] ([phone]) or report to the closest Emergency Room. Call 911 if necessary. 03/02/22 1213 <Electronically signed by Yadira Clarke DO> Cosigner Signature (if applicable): CC: Dr. Yoanna Chwo DO Signed Yoanna Chow DO Work Phone: Start: 01-08-2022 End: 01-08-2022 Urgent Care Visit Report Comments: See Note; NOTES: [facility] [address] [place] [address] [address] [place] [address] OFFICE VISIT Date of Service: 01/08/22 MR#: [id number] Acct: [id number] Name: JHONNY PACK Rep #: [id number] : 1960 Provider: MISAEL Garay Age/Sex: 61/F Location: [email or web address] Status: Signed Intake Vital Signs 01/08/22 09:46 Height 5 ft 4 in Weight: 209 lb BMI 35.9 BP 132/94 H Blood Pressure Location Lt brachial Position Sitting Respiration 15 Pulse 76 Pulse Source Monitor Temp 97.1 F L Temp Source Temporal Pulse Oximetry (%) 98 Oxygen Delivery Method room air Intake Visit Reasons: INFECTED MIDDLE FINGER ON RT HAND Chief Complaint: Skin irritation left middle finger Allergies oxycodone HCl [From Percocet] Adverse Reaction (Verified 01/08/22 09:46) Nausea Medications levothyroxine 88 mcg capsule 88 mcg PO DAILY 09/01/20 [History Confirmed 01/08/22] cephalexin 500 mg capsule 500 mg PO Q12H 10 Days #20 cap 01/08/22 [Rx Confirmed 01/08/22] PFSH Medical History Daniel's disease Thyroid disorder Surgical History H/O: hysterectomy Hx of appendectomy Social History Smoking Status: Never smoker HPI HPI Chief Complaint: Skin irritation left middle finger Details: JHONNY PACK, is a 61 F who presents to the office today for initial evaluation of what she believes to be an infection of her left middle finger. Patient states that she recently was doing gardening and pulled on a plant root causing several small abrasions to her left middle finger. Patient states that since that time she has had increased irritation to the same. She denies numbness, tingling or loss range of motion. No other associated symptoms or alleviating/aggravating factors. ROS Const Constitutional: No other (6 system ROS completed with pertinent findings in the HPI otherwise normal.) Exam Const General: cooperative and healthy appearing Resp Effort Inspection: normal respiratory effort Cardio Rate: regular rate Skin General: no rashes or lesions noted (See exception in extremities exam) Neuro General: patient alert and CN's II-XI intact bilaterally Extrem General: full ROM, capillary refill normal and normal exam except as noted Other: Several small areas of erythema to the volar left middle finger with what appears to be dyshidrotic eczema overlying. Psych Appearance: grossly normal Mental Status: mental status grossly normal Coding Level of Care Code Off vis,new,level 3 Diagnoses Staph skin infection L08.9; B95.8 Assessment and Plan Assessment and Plan (1) Staph skin infection: Status: Acute Plan - Surinder DOUGLAS, PA: Keflex as prescribed today. Encouraged to get plenty of rest, drink lots of clear liquids, and use Tylenol or Ibuprofen (unless contraindicated) for fever and comfort. Patient also educated on other symptomatic management techniques. To be seen in 7-10 days if no improvement; sooner if worsening of symptoms. Patient advised of potential red flags and when appropriate to report to the ED. Patient verbalized understanding and agreement with all the above. Plan Details Other Medications: New: cephalexin 500 mg PO Q12H 10 days 20 caps 0RF 01/08/22 1002 <Electronically signed by Surinder DOUGLAS> Date Surinder DOUGLAS Cosigner Signature: Date (if applicable) CC: Yoanna Chow DO Work Phone: Start: 10-28-2021 End: 10-28-2021 L/S Spine Min 4 Views Comments: See Note; NOTES: [facility] Radiology [address] [place] [address] L/S Spine Min 4 Views MR#: [id number] Acct: [id number] Name: JHONNY PACK Rep #: [id number] : 1960 F 61 From: Sergio Vieyra DO PCP: Dr. Yoanna Chow DO Status: DEP AMB Study: L/S Spine Min 4 Views Date of Exam: 10/28/21 Exam# [id number] Ordering Dr: Charlene Burgess NP RESIDENTIAL HOUSEKEEPER-C INDICATION: PAIN EXAMINATION/TECHNIQUE: X-RAY - XR Spine Lumbar Min 4 Views COMPARISON: None. FINDINGS: VERTEBRAE: Preserved vertebral body height. No fracture. No spondylolisthesis. Preservation of the normal lumbar lordosis. Multilevel facet arthropathy most prominent at the L4-S1 levels. DISCS: Moderate disc height loss due to degenerative disc disease at the L5-S1 level. The remainder of the disc spaces are intact. INCLUDED ABDOMEN: Included bowel gas pattern is non-obstructive. There are a few scattered surgical clips in the abdomen. IMPRESSION: 1. No acute findings. 2. Multilevel facet arthropathy most prominent at the L4-S1 levels. 3. Moderate disc height loss due to degenerative disc disease at the L5-S1 level. Electronically Signed: Sergio Vieyra, at 11:35 EDT , RAD/L/S Spine Min 4 Views CC: RESIDENTIAL HOUSEKEEPER-C Charlene Burgess; Dr. Yoanna Chow DO Core Analyst: Signed Charlene Burgess Work Phone: Start: 09-04-2021 End: 09-04-2021 SCRN MAMM (CAD)W/RENZO BILAT Comments: See Note; NOTES: [facility] Imaging Services [address] [place] [address] SCRN MAMM (CAD)W/RENZO BILAT MR#: [id number] Acct: [id number] Name: JHONNY PACK Rep #: [id number] : 1960 F 61 From: Mannie delaney MD PCP: Dr. Yoanna Chow DO Status: REG CLI Study: SCRN MAMM (CAD)W/RENZO BILAT Date of Exam: 08/16 09/05 Exam# [id number] Ordering Dr: Edward Grey DO MAMMOGRAPHY - BILATERAL SCREENING REASON FOR EXAM: Female, 61 years old. Routine annual screening examination. PERTINENT HISTORY: Non-contributory. TECHNIQUE: Digital bilateral breast renzo (3D mammographic acquisition) in the CC and MLO projections. 2-D mediolateral oblique (MLO) and craniocaudad (CC) views of both breasts were obtained. CAD: Full Field Digital Mammography with Computer Added Detection was performed. COMPARISON: Comparison is made with prior study dated 07/23/2020 and 06/12/2019. FINDINGS: Breast Composition: There are scattered areas of fibroglandular density. There are no dominant masses or suspicious calcifications. Stable asymmetry of breast tissue with more breast tissue is seen in the retroareolar region of the right breast as compared to the left side. Stable appearance of the bilateral axillary lymph nodes. No other significant abnormalities are identified. There has been no significant change since the prior study. BI/SCRN MAMM (CAD)W/RENZO BILAT IMPRESSION: Stable bilateral screening mammogram. Yearly follow-up mammogram recommended. (A) ASSESSMENT CATEGORY: BIRADS Category 2: Benign. A letter regarding these results will be sent to the patient by the facility within 30 days. Approximately 10% of breast cancers are not detected by mammography. A normal mammogram should not delay biopsy of a clinically suspicious abnormality. [id number] Electronically Signed: Mannie Dial MD at 13:17 EST , Service support , CC: Dr. Yoanna Chow DO; Dr. Edward Grey DO Core Analyst: Signed Yoanna Chow DO Work Phone: Start: 08-11-2021 End: 08-11-2021 Kidney and Bladder Comments: See Note; NOTES: [facility] Imaging Services [address] [place] [address] Kidney and Bladder MR#: [id number] Acct: [id number] Name: JHONNY PACK Rep #: [id number] : 1960 F 61 From: Amador Guerrero MD PCP: Dr. Yoanna Chow, DO Status: REG CLI Study: Kidney and Bladder Date of Exam: 08/11/21 Exam# [id number] Ordering Dr: Charlene Burgess NP RESIDENTIAL HOUSEKEEPER-C STUDY: RENAL ULTRASOUND - COMPLETE REASON FOR EXAM: Female, 61 years old. Back and flank pain TECHNIQUE: Ultrasound evaluation of the kidneys was performed with real-time and static driscoll-scale imaging. COMPARISON: None. FINDINGS: RIGHT KIDNEY: Normal location of the right kidney, which is normal in size. The right kidney measures 10.2 x 5.1 x 3.9 cm. There is a normal cortex of the right kidney. The renal cortex measures 1.3 cm. There is no right renal mass or cyst. There are no right renal calculi. There is no right hydronephrosis, there is an extrarenal pelvis. DISTAL RIGHT URETER: There is non-visualization of the distal right ureter. There is no demonstrated right ureterovesical junction calculus. There is a visualized right ureteral jet. LEFT KIDNEY: Normal location of the left kidney, which is normal in size. The left kidney measures 10.6 x 4.2 x 4.6 cm. There is a normal cortex of the left kidney. The renal cortex measures 1.1 cm. There is no left renal mass or cyst. There are no left renal calculi. There is no left hydronephrosis. DISTAL LEFT URETER: There is non-visualization of the distal left ureter. There is no demonstrated left ureterovesical junction calculus. There is a visualized left ureteral jet. AORTA: There is no elongation or tortuosity of the abdominal aorta. I.V.C.: The IVC is patent. BLADDER: The distended urinary bladder has a volume of 281.29 ml. The empty urinary bladder has a volume of less than 5 ml. There is a normal wall thickness of the distended urinary bladder. There is no demonstrated mass within the urinary bladder. There are no demonstrated bladder calculi. US/Kidney and Bladder IMPRESSION: No suspicious sonographic findings Electronically Signed: Clint Guerrero MD at 11:57 EST , Service support , CC: RESIDENTIAL HOUSEKEEPERBertha Burgess; Dr. Yoanna Chow DO Core Analyst: Signed Charlene Burgess [employer] Work Phone: Start: 06-28-2021 End: 06-28-2021 Chest 1 View (Portable) Comments: See Note; NOTES: [facility] Imaging Services [address] [place] [address] Chest 1 View (Portable) MR#: [id number] Acct: [id number] Name: JHONNY PACK Rep #: [id number] : 1960 F 61 From: Pan Cochran PCP: Dr. Yoanna Chow, Status: REG ER Study: Chest 1 View (Portable) Date of Exam: 06/28/21 Exam# [id number] Ordering Dr: Ilan Vizcarra MD INDICATION: cough EXAMINATION/TECHNIQUE: X-RAY - XR Chest 1 View COMPARISON: 06/25/2021 FINDINGS: LIFE-SUPPORT AND LINES: 1. None HEART AND VESSELS: The cardiac silhouette, pulmonary vasculature have normal appearance. No evidence of congestive failure. LUNGS AND PLEURAL SPACES: Lungs are clear with the exception of subtle area of infrahilar infiltrate versus atelectasis on the RIGHT. No consolidation, no effusion. MEDIASTINUM AND HILAR REGIONS: No masses adenopathy noted. No areas of calcification. Visualized upper airway is normal in position. BONY ELEMENTS: No acute bony changes noted. RAD/Chest 1 View (Portable) IMPRESSION: 1. Subtle area of atelectasis versus infiltrate in the RIGHT infrahilar region. Remaining lung zones clear. 2. No consolidation, congestive failure or effusion. Electronically Signed: Pan Shin MD at 21:32 EST Tel , Service support , CC: Dr. Ilan Vizcarra MD; Dr. Yoanna Chow DO Core Analyst: Signed Yoanna Chow DO Work Phone: Start: 06-28-2021 End: 06-28-2021 Emergency Department Summary Comments: See Note; NOTES: [facility] Medical Records Department [address] [place] [address] Emergency Department Summary 06/28/21 MR#: [id number] Acct: [id number] Name: JHONNY PACK Rep #: [id number] : 1960 61 From: Ilan Vizcarra MD PCP: Dr. Yoanna Chow DO Status:DEP ER Location: ED HPI HPI - URI History of Present Illness Chief Complaint: Cough Informant: patient Onset/Context/Timing Onset: Weeks Context: Gradual Onset Timing: Continuous Current Severity: Mild Maximum Severity: Mild Worsened by: Not Worsened By Swallowing and Eating Solids Associated Symptoms Associated Symptoms: Positive for Nasal Congestion, Headache, Sinus Pressure, Shortness of Breath and Productive Cough; Negative for Nausea, Vomiting and Hemoptysis Narrative Narrative: 11-year-old female past medical history of hypothyroidism. 2 weeks ago her watches her grandson who had a cough. He was diagnosed with otitis and had a negative Covid test however then the patient, her and other family members all became ill with similar symptoms. The rest of gotten better. Those that were tested all tested negative for Covid but she is progressively gotten worse. She denies vomiting or diarrhea. She has a cough and now wheezing. She was on a Z-Evert this past week and has not gotten any better nicely feels worse. She had a reported negative chest x-ray and negative Covid test in the last 7 days. Prior similar symptoms: Yes Recent Illness/Hospitalization: No ROS ROS ED ROS Narrative Cough, sinus congestion, headache and wheezing. Review of Systems ROS Unobtainable: Denies due to encephalopathy Constitutional Constitutional ED: Reports chills and fever(s) Eyes Eyes: Denies change in vision ENT ENT ED: Reports rhinorrhea; Denies ear pain Cardiovascular Cardiovascular: Denies chest pain or palpitations Respiratory/Chest Respiratory/Chest: Reports cough and dyspnea Gastrointestinal Gastrointestinal: Denies abdominal pain, diarrhea, nausea or vomiting Genitourinary Genitourinary ED: Denies dysuria Musculoskeletal Musculoskeletal: Denies myalgias Integumentary Denies rash Neurologic Neurologic: Denies headache(s) Psychiatric Psychiatric: Denies depression Endocrine Endocrinology: Denies polyuria Hematologic/Lymphatic Hematologic/Lymphatic: Denies easy bruising Allergic/Immunologic Allergic/Immunologic ED: Denies urticaria PFSH PFSH Medical History Daniel's disease Thyroid disorder Home Medications levothyroxine 88 mcg capsule 88 mcg PO DAILY 09/01/20 [History Last Taken Unknown] thyrovin PO DAILY 10/14/20 [History Last Taken Unknown] levofloxacin 500 mg PO DAILY #7 tab 06/28/21 [Rx Last Taken Unknown] prednisone 40 mg PO DAILY 7 Days #14 tab 06/28/21 [Rx Last Taken Unknown] Allergy/AdvReac Type Severity Reaction Status Date / Time oxycodone HCl [From Percocet] AdvReac Nausea Verified 06/28/21 20:43 Surgical History H/O: hysterectomy Hx of appendectomy Social History Smoking Status: Never smoker EXAM Physical Exam Narrative Exam Narrative: Middle-aged woman no acute distress vital signs stable afebrile blood pressure elevated 176/126. Pulse ox 90% on room air no signs hypoxia. HEENT exam TMs normal bilaterally. Posterior pharynx moist and pink. No particular frontal or maxillary sinus tenderness. Neck nontender no meningismus no lymphadenopathy. Lungs dry cough with few scattered expiratory wheezes bilaterally. No rales or rhonchi. Heart regular rate and rhythm no murmur rate about 100. Abdomen soft nontender. Moving all 4 extremities. Calves nontender no edema. Neurologically awake and alert with no focal motor deficits. Const Vital Signs: 06/28/21 20:11 06/28/21 20:44 Temperature 97.8 F Temperature Source Oral Pulse Rate 107 H Respiratory Rate 24 H Respiratory Effort Short of Breath Respiratory Depth Normal Respiratory Pattern Tachypnea Blood Pressure 176/126 H Blood Pressure Mean 142 Pulse Ox 98 Oxygen Delivery Method Room Air Positive well nourished and well developed; Negative for obese, cachectic or contractures General Appearance ED: well developed and NAD; Negative for cachectic, contractures, cyanotic, diaphoretic or pallor Nutritional Appearance: Negative for cachectic or obese HEENT Reports TM's clear and moist mucous membranes; Denies dry mucous membranes normocephalic and atraumatic Face and Sinus: Negative for sinus tenderness, maxillary instability or facial tenderness External Ear: external ears normal External Auditory Canal: EAC's normal Tympanic Membrane ED: Yes TM's clear Mouth ED: No dry mucous membranes Mouth: No dry mucous membranes Throat: Negative for posterior oropharynx normal Eyes PERRL and EOMs intact bilaterally General Eye ED: Negative for pale conjunctiva or scleral icterus Neck no lymphadenopathy, supple, no meningeal signs and no JVD General: Negative for anterior neck swelling or lymphadenopathy Resp normal respiratory effort and No clear to auscultation bilaterally Auscultation: wheezes; Negative for rales or rhonchi Cardio S1 normal heart sound, S2 normal heart sound and no murmurs Rate: regular rate Rhythm: regular rhythm GI non-tender, non-distended and no masses Auscultation: normoactive bowel sounds; Negative for hyperactive bowel sounds Palpation: soft; Negative for tender or guarding Back/Spine no CVA tenderness and normal ROM General Back: Negative for CVA tenderness Cervical Spine: Negative for cervical spine tenderness Extremity normal to inspection and full ROM General Extremety ED: Negative for cyanosis or tenderness General Extremity: Negative for cyanosis Psych mental status grossly normal Skin General Skin Exam: Negative for jaundice or pallor Lesions: no lesions Rashes: no rashes MDM MDM MDM Narrative Medical decision making narrative: Female with 12-day history of URI symptoms. Not getting better in spite of antibiotics. Now wheezing. She will be started on p.o. prednisone I will repeat a Covid test and a chest x-ray. Does not need lab work. Repeat exam patient doing well. She and I discussed her test results. She will be placed on Levaquin and prednisone and outpatient follow-up. Lab Data Attestation: I reviewed the patient's lab results. Lab results narrative: Covid test negative. Radiography Diagnostic Testing: Clinical Impression(s) from Imaging Studies Chest X-Ray 06/28/21 21:03 IMPRESSION: 1. Subtle area of atelectasis versus infiltrate in the RIGHT infrahilar region. Remaining lung zones clear. 2. No consolidation, congestive failure or effusion. Electronically Signed: Pan Shin MD at 21:32 EST Tel , Service support , Chest x-ray portable, 1 view interpreted by myself shows questionable infiltrate right hilar region also interpreted by the radiologist as similar. This could also be atelectasis. I did compare to the prior film. Discharge Plan Triage Chief Complaint: Cough ED Provider: Ilan Vizcarra Dx/Rx/DC Orders Clinical Impression: Pneumonia Instructions: ED Pneumonia (Adult) Prescriptions: New levofloxacin 500 mg tablet 500 mg PO DAILY Qty: 7 RF: 0 prednisone 20 mg tablet 40 mg PO DAILY 7 Days Qty: 14 RF: 0 No Action levothyroxine 88 mcg capsule 88 mcg PO DAILY RF: 0 thyrovin PO DAILY RF: 0 Primary Care Provider: Yoanna Chow Referrals: Yoanna Chow DO [Primary Care Provider] - 3-5 Days if not improving Activity Restrictions/Additional Instructions: Plenty fluids and rest. Tylenol and Motrin for pain and fever. Prednisone daily for wheezing and lung inflammation. Levaquin daily for possible pneumonia and/or sinusitis. You should progressively be starting to feel better at around 3 to 5 days if not you need to follow- up with your primary care physician. Disposition Disposition: Home, Self Care What to do if you have Problems For any increased pain, shortness of breath, bleeding, nausea or vomiting, chest pain, or any unexpected problems, contact your Primary Care Provider. Call [facility] ([phone]) or report to the closest Emergency Room. Call 911 if necessary. 06/28/212223 <Electronically signed by Ilan Vizcarra MD> Cosigner Signature (if applicable): CC: Dr. Yoanna Chow DO Signed Yoanna Chow DO Work Phone: Start: 06-25-2021 End: 06-25-2021 Chest PA and Lateral Comments: See Note; NOTES: [facility] Imaging Services [address] [place] [address] Chest PA and Lateral MR#: [id number] Acct: [id number] Name: JHONNY PACK Rep #: [id number] : 1960 F 61 From: Garret Cochran PCP: Dr. Yoanna Chow, DO Status: REG CLI Study: Chest PA and Lateral Date of Exam: 06/25/21 Exam# [id number] Ordering Dr: Yoanna Chow DO EXAM: XR CHEST, 2 VIEWS CLINICAL INDICATION: COUGH TECHNIQUE: Frontal and lateral views of the chest. This report was created using [employer] report generation technology. COMPARISON: 12.07.15 FINDINGS: LUNGS AND PLEURAL SPACES: Unremarkable. No consolidation or edema. No pneumothorax. No effusion. HEART: Unremarkable. Cardiac silhouette not enlarged. MEDIASTINUM: Central airways and mediastinal contour are unremarkable. BONES/JOINTS: Unremarkable. SOFT TISSUES: Unremarkable. RAD/Chest PA and Lateral IMPRESSION: No radiographic evidence of acute cardiopulmonary disease. Electronically Signed: Garret Don MD at 16:33 EST , Service support , CC: Dr. Yoanna Chow DO Core Analyst: Signed Yoanna Chow DO Work Phone: Start: 10-29-2020 End: 10-29-2020 Inital Evaluation (1) - PT Comments: See Note; NOTES: [facility] Physical Therapy [facility] [facility] [place] [address] / REHABILITATION SERVICES INITIAL EVALUATION MR#: [id number] Acct: [id number] Name: JHONNY PACK Rep #: [id number] : 1960 60 From: Albert Grimaldo DPT Referring Dr.: Dr. Susie Brown, DO Status: REG RCR Insurance: [employer] Patient's Visit Information JHONNY PACK is a 60 year old F referred to Physical Therapy by Dr. Susie Brown DO with a diagnosis of B knee pain. Date of Evaluation: 10/15/20 Physical Therapist: Albert Grimaldo DPT - Visit Plan Frequency: 2x /Week Duration: 4 Weeks Plan: Start in aquatic setting working on BLE strength and knee extension ROM. - Subjective Pt is here today for her initial evaluation with diagnosis of B knee pain. Pt. reports having overall increasing knee pain for a few years and has finally decided to get them checked. She did get them looked at previously, early last year and was given a injection which helped. She had only went to this physician due to her previous physician being on leave due to COVID. She followed up with Dr. Brown who offered PT, bracing or injection and patient chose PT. Pt. is having pain with standing, walking, and stairs. She reports swelling throuhgout B knees. No N/T noted, and no giving out. Pt. reports pain through B medial compartment of knees. - Pain R knee Pain Intensity (Out of 10): 3 Pain Intensity Range: 1, 6 L knee Pain Intensity (Out of 10): 2 Pain Intensity Range: 1, 6 - Objective POSTURE: Pt. lacks TKE in stance in BLEs, crouched pattern. FH posture. Normal iliac crest heights. PALPATION: Pt. has tenderness at B medial joint lines and posterior medial compartment. NEURO: normal sensation, normal DTR of BLEs. Pt. is able to rise on heels and toes without issues. ROM: R knee 0-6-118deg, L knee 0-10-122deg. Hip: flexion 120deg bilat, ext 10deg bilat. Tightness throughout B hamstrings and hip flexors. MMT: Pt. has 5-/5 general strength throughout BLEs, except 4+/5 B knee ext and 4-/5 B hip abduction. GAIT: Pt. ambulates without AD. Pt. has antalgic pattern during L stance phase of gait. Pt. lacks TKE in B knees. STAIRS: heavy use of BHR, descends in lateral fashion, loading RLE mostly. - Goals Goal 1:: LTG: Pt. to be I with HEP. Goal Time Frame: 4-6 Weeks Goal 2:: LTG: Pt. to have increased B knee extension to 0deg allowing for improved gait mechanics. Goal Time Frame: 4-6 Weeks Goal 3:: LTG: Pt. to have increased knee extension and hip abd strength by 1/2 grade. Goal Time Frame: 4-6 Weeks Goal 4:: LTG: Pt. to ambulate unlimited distances with 0-1/10 pain in BLEs. Goal Time Frame: 4-6 Weeks - Rehabilitation Potential Physical Therapy Diagnosis: Pt. has signs and symptoms consistent with B knee OA. Pt. has limited ROM and increased weaknes. Pt. would benefit from working into increase ROM and strength. Rehabilitation Potential: Good - Anticipated Interventions Patient/Client Instruction: Educate patient on: Condition, Plan of Care, Risk Factors, Benefits of Fitness Program For the Purpose of:: To decrease pain, To decrease swelling/inflammation, To increase ROM, To improve nutrient delivery to tissue Therapeutic Exercise to Include: Strength training, Power training, Endurance training, In an aquatic setting For the Purpose of:: To decrease pain, To decrease swelling/inflammation, To increase ROM, To improve nutrient delivery to tissue, To increase oxygenation perfusion, To improve muscle performance and motor function, To improve gait and locomotor functions, To improve health of tissue, To decrease soft tissue restriction, To increase flexibility/ROM Thank you for the opportunity to evaluate your patient. For Medicare and Medicare HMO plans, please review the plan of care and approve it. It will need to be FAXED BACK to us at [phone] for Medicare purposes. For Medicare only, by signing this I certify the plan of care. Please let me know if there are questions or concerns regarding this plan of care. Physician Signature: D ate: <Electronically signed by Albert Grimaldo DPT> 10/29/20 0954 CC: Dr. Susie Brown DO; Dr. Yoanna Chow DO CLS Signed Yoanna Chow DO Work Phone: Start: 10-14-2020 End: 10-14-2020 Knee 4 or More Views Comments: See Note; NOTES: [facility] Radiology [address] [address] Knee 4 or More Views MR#: [id number] Acct: [id number] Name: JHONNY PACK Rep #: [id number] : 1960 F 60 From: Tha Cochran PCP: Dr. Yoanna Chow DO Status: DEP AMB Study: Knee 4 or More Views Date of Exam: 10/14/20 Exam# [id number] Ordering Dr: Susie Brown STUDY: X-RAY - LEFT KNEE REASON FOR EXAM: Chronic bilateral knee pain, no specific injury. TECHNIQUE: 4 view(s) of the knee. COMPARISON: Radiographs 02/02/2018. FINDINGS: Normal visualized distal femur. Normal visualized proximal tibia and fibula. Normal proximal tibiofibular articulation. There is mild joint space narrowing of the medial femorotibial compartment. Normal lateral femorotibial compartment. Normal patellofemoral articulation. There is a joint effusion. RAD/Knee 4 or More Views IMPRESSION: Mild arthrosis of the medial femorotibial compartment. Joint effusion. Electronically Signed: Tha Alvarenga MD at 11:38 EST Tel , Service support , CC: Dr. Susie Brown DO; Dr. Yoanna Chow DO Core Analyst: Signed Susie Brown Work Phone: Start: 10-14-2020 End: 10-14-2020 Orthopedic Visit Report Comments: See Note; NOTES: [facility] Orthopaedics Sports Medicine [address] [place] [address] [address] [place], [place] [address] OFFICE VISIT Date of Service: 10/14/20 MR#: [id number] Acct: [id number] Name: JHONNY PACK Rep #: [id number] : 1960 Provider: Dr. Susie carvalho DO Age/Sex: 60/F Location: [facility] Status: Signed Intake Intake Visit Reasons: Left knee Accompanied by: Self Is patient in pain?: Yes Allergies oxycodone HCl [From Percocet] Adverse Reaction (Verified 10/14/20 11:00) Nausea Medications levothyroxine 88 mcg capsule 88 mcg PO DAILY 09/01/20 [History Confirmed 10/14/20] thyrovin PO DAILY 10/14/20 [History] [facility] Medical History (Updated 10/14/20 @ 11:31 by Luma Huang) Thyroid disorder (Acute) Daniel's disease (Acute) Surgical History Hx of appendectomy (Resolved) H/O: hysterectomy (Resolved) Social History (Updated 10/14/20 @ 12:[address] Susie Brown DO) Smoking Status: Never smoker HPI Left knee: Details: Parts of this documentation were recorded by a scribe, this documentation accurately reflects the service provided and the decisions made by me, Dr. Susie Brown DO 10/14/20 1053. JHONNY PACK is a 60 year old F here today for c/o left knee pain and swelling. Last knee x-ray and last left knee injection was: 02/02/2018. Left knee injection lasted approx one year. Pain has been ongoing since 2005. However, patient states she saw [facility] last November in 2019 and received an injection from them. Patient cannot recall the provider's name. Left knee pain is located anterior, with radiation into her left calf. Reports some popping, clicking and snapping. Patient has difficulty with flexion. Left knee will feel like it will give out. Right knee pain: tightness in anterior. Denies popping, clicking and snapping. Denies sensation of knee giving out. Patient denies previous injections and surgeries with her right knee. Patient will use ice packs qhs, RICE and take Motrin, Tylenol or Advil for pain control. 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 ROS [facility] Reports system reviewed and no additional complaints, except as joseu, Reports joint pain Ortho Exam Right Knee Homans Sign: No Knee ROM: Yes ROM-Extension -20 to 0, Yes ROM-Flexion 0-140, Yes ROM-Passive Extension -10 to 0, Yes ROM-Passive Flexion 0-140 Examination: Yes Med jt line tenderness, Yes Crepitus, Yes Pain with flexion Quad Atrophy: Yes Patellar Tilt Normal: No Patella Grind: Yes Left Knee Knee ROM: Yes ROM-Extension -20 to 0, Yes ROM-Flexion 0-140, Yes ROM-Passive Extension -10 to 0, Yes ROM-Passive Flexion 0-140 Examination: Yes med jt line tenderness, Yes Crepitus, Yes Pain with flexion Quad Atrophy: Yes Stability: NML: Anterior Drawer, NML: Posterior Drawer, NML: Valgus 30, NML: Varus 30 Patellar Tilt Normal: No Patella Grind: Yes KNEE: narrowing joint space grinding Assessment Plan Problems 1. Primary osteoarthritis of left knee M17.12 2. Primary osteoarthritis of right knee M17.11 Plan Personally reviewed the patient's medical history, medications, surgeries and recent exams if available. Obtained X-rays of patient's bilateral knees. Personally reviewed X-rays. See chart for further details. Advised patient, she still has noted arthritis. Explained if patient has seven or more injections, can make your bones more brittle and weaken the cartilage. Explained viscosupplementation are good for arthritis. However, are not effective with patient's who have swelling issues. Explained patient can have degenerative tears in meniscus overtime due to her arthritis. Treatment options: do nothing, bracing with Kaelyn, steroid injections, viscosupplementation, and/or aquatic therapy. Advised patient to try aquatic therapy first and bracing with Kaelyn. Will obtain approval with patient's insurance for viscosupplementation. Patient will follow up once the office receives approval. All questions answered. Patient in agreement of plan. Follow up after aquatic therapy or sooner if pain, swelling, numbness or associated symptoms, or concerns develop. Orders Orders: Knee 4 or More Views Today M25.562 Knee 4 or More Views Today M25.561 Coding Level of Care Code Off vis,est,level 4 Diagnoses Primary osteoarthritis of left knee M17.12 Primary osteoarthritis of right knee M17.11 10/14/20 1227 <Electronically signed by Susie Brown DO> Date Susie Brown DO Cosigner Signature: Date (if applicable) CC: Yoanna Chow DO Work Phone: Start: 09-02-2020 End: 09-02-2020 Virtual Office Visit Comments: See Note; NOTES: [facility] Services [address] [place] [address] [place] [address] OFFICE VISIT Date of Service: 09/02/20 MR#: [id number] Acct: [id number] Patient: JHONNY PACK Rep #: [id number] : 1960 Provider: KORY Bartholomew Age/Sex: 60/F Location[place] [facility] Status: Signed Intake Vital Signs 09/02/20 Height 5 ft 4 in 09/02/20 Weight: 205 lb 09/02/20 BMI 35.2 Intake Visit Reasons: COVID-19 Chief Complaint: COVID-19 Allergies oxycodone HCl [From Percocet] Adverse Reaction (Verified 09/02/20 06:17) Nausea Medications Desoximetasone 1 applicatio TOPICAL QHS 09/23/19 [History Confirmed 09/02/20] levothyroxine 88 mcg capsule 88 mcg PO DAILY 09/01/20 [History Confirmed 09/02/20] PFSH Medical History Thyroid disorder (Acute) Surgical History Hx of appendectomy (Resolved) H/O: hysterectomy (Resolved) Social History (Updated 01/19/21 @ 10:09 by Pushpa Bartholomew RESIDENTIAL HOUSEKEEPER, RESIDENTIAL HOUSEKEEPER-C) Smoking Status: Never smoker HPI HPI Chief Complaint: COVID-19 Details: Patient was informed that this visit will be billed to patient. This visit was conducted during COVID-19 pandemic. Statement read to the patient: This telehealth visit is being offered today during her stay at home measures in response to the pandemic. It is subject to an office visit charge. The patient consents to continue. JHONNY PACK, is a 60 F who participates in a telephone office visit for review of her COVID-19 symptoms. Symptom onset occurred: August 25, 2020 Positive COVID-19 test occurred: August 31, 2020 The FDA has authorized the emergency use of monoclonal antibody treatment (bamlanivimab or casirivimab/imdevimab) for mild to moderate COVID-19 in adults and pediatric patients with positive results of direct SARS???[place] E???2 viral testing ages 12 and older, at least 40 kg, who were not at high risk for progressing to severe COVID-19 and or hospitalization. The significant known and potential risks (allergic reactions or side effects from injection including brief pain, bleeding, bruising of the skin, soreness, swelling, possible infection at the infusion site) and benefits (decrease chance of progression to severe COVID-19) of a monoclonal antibody infusion, and the extent to which such potential risks and benefits are unknown. Patients treated with monoclonal antibody infusion should continue to self isolate and use infection control measures (such as wear mask, isolate, social distance, avoid sharing personal items, clean and disinfect high touch surfaces, and frequent handwashing) according to the CDC guidelines. The fact sheet for patients, parents and caregivers will be provided prior to the administration of the medication. No drugs are approved by the FDA at this time to treat outpatients with mild or moderate symptoms of COVID-19. The following information was communicated to the patient or caregiver: Monoclonal antibody infusion is not an FDA approved drug. The FDA has authorized the emergency use of monoclonal antibody therapy. The patient had the option to refuse or accept treatment with monoclonal antibody therapy. The patient was informed that the number of people treated with monoclonal antibody therapy at this time is small. The potential benefits and the potential risks of monoclonal antibody therapy are not fully known. Potential benefits of monoclonal antibody include a reduced risk of progressing to severe COVID-19 infection. Potential risks or side effects of monoclonal antibody therapy include allergic reactions, side effects from injection including brief pain, bleeding, bruising of the skin, soreness, swelling, possible infection at the infusion site. The patient stated understanding of this information communicated and wished to proceed with monoclonal antibody infusion therapy. Current symptoms include: headache, general malaise, loss of taste and smell, and nasal congestion. ROS Const Constitutional: Positive for fatigue ( Slight ) and malaise ENT ENT: Positive for nasal congestion and other (Loss of taste and smell) Endo Endocrine: Positive for fatigue ( Slight ) and other (Loss of taste and smell) Exam Const General: cooperative, comfortable, no acute distress Orientation: alert, oriented x3 Resp Effort Inspection: normal respiratory effort, able to speak in complete sentences, no audible wheezes, no cough, no respiratory distress Neuro General: alert, oriented x3 Cognition: normal cognition Speech: speech normal Psych Mental Status: mental status grossly normal Mood: congruent mood Affect: normal affect Speech and Movement: speech clear Attitude: cooperative Thought Process: normal Thought Content: normal Judgment: judgment good Details: Details:: Exam was limited due to phone visit with no video. Quality Reporting Medication Reconciliation ([facility] 68) desoximetasone 0.25% 1 APPLICATIO topical QHS levothyroxine 88 mcg PO DAILY Assessment Plan Problems 1. COVID-19 U07.1 Plan The patient has decided not to move forward with monoclonal antibody treatment. She is aware that there is a 10-day treatment window, and today would be the last day that of treatment is available inside of that window. I have spent 15 minutes today reviewing labs, records and history. Time includes coordinating care. This also includes time I spent with the patient for exam, treatment plan and education as well as documenting clinical information. Coding Level of Care Code Attention Maulik Diagnoses COVID-19 U07.1 Time Spent (min) 15 Comment 07303 09/02/20 1010 <Electronically signed by Pushpa Bartholomew NP RESIDENTIAL HOUSEKEEPER-C> Date Pushpa Bartholomew NP RESIDENTIAL HOUSEKEEPER-C Cosigner Signature: Date (if applicable) CC: DO Yoanna Vogel Start: 08-11-2020 End: 08-12-2020 Head/Neck Soft Tissue Comments: See Note; NOTES: [facility] Imaging Services [address] [address] Head/Neck Soft Tissue MR#: [id number] Acct: [id number] Name: JHONNY PACK Rep #: [id number] : 1960 F 60 From: Griselda Gill MD PCP: Dr. Yoanna Chow DO Status: REG CLI Study: Head/Neck Soft Tissue Date of Exam: 08/11/20 Exam# [id number] Ordering Dr: Yoanna Chow DO STUDY: SUPERFICIAL ULTRASOUND - RIGHT NECK. REASON FOR EXAM: Female, 60 years old. RIGHT NECK AREA OF PALP LUMP TECHNIQUE: A superficial ultrasound was performed with real-time and static persaud-scale imaging. COMPARISON: None. FINDINGS: Images in the region of clinical concern reveal an elongated hypoechoic structure with fatty hilum consistent with a lymph node measuring 1.1 x 1.0 x 0.3 cm. This maintains normal morphology. US/Head/Neck Soft Tissue IMPRESSION: Lymph node in the region of clinical concern measuring 1.1 x 1.0 x 0.3 cm with normal appearing morphology. No distinct mass or fluid collection. Electronically Signed: Griselda Gill MD at 3:25 EST , Service support , CC: Dr. Yoanna Chow DO Core Analyst: Signed Yoanna Chow Work Phone: Start: 07-23-2020 End: 07-29-2020 SCREEN MAMM (CAD) W/RENZO BILAT Comments: See Note; NOTES: [facility] Imaging Services [address] [place] [address] SCREEN MAMM (CAD) W/RENZO BILAT MR#: [id number] Acct: [id number] Name: JHONNY PACK Rep #: [id number] : 1960 F 60 From: Mannie delaney MD PCP: Dr. Yoanna Chow, DO Status: [facility] Study: SCREEN MAMM (CAD) W/RENZO BILAT Date of Exam: 09/23/19 Exam# [id number] Ordering Dr: Edward Grey DO MAMMOGRAPHY - BILATERAL SCREENING REASON FOR EXAM: Female, 60 years old. Routine annual screening examination. PERTINENT HISTORY: Non-contributory. TECHNIQUE: Digital bilateral breast renzo (3D mammographic acquisition) in the CC and MLO projections. 2-D mediolateral oblique (MLO) and craniocaudad (CC) views of both breasts were obtained. CAD: Full Field Digital Mammography with Computer Added Detection was performed. COMPARISON: Comparison is made with prior study dated 06/12/2019 and 06/07/2018. FINDINGS: Breast Composition: There are scattered areas of fibroglandular density. There are no dominant masses or suspicious calcifications. Stable benign-appearing bilateral axillary No other significant abnormalities are identified. There has been no significant change since the prior study. BI/SCREEN MAMM (CAD) W/RENZO BILAT IMPRESSION: Stable bilateral screening mammogram. Yearly follow-up mammogram recommended. (A) ASSESSMENT CATEGORY: BIRADS Category 2: Benign. A letter regarding these results will be sent to the patient by the facility within 30 days. Approximately 10% of breast cancers are not detected by mammography. A normal mammogram should not delay biopsy of a clinically suspicious abnormality. [id number] Pending Final Proof Editing CC: Dr. Yoanna Chow DO; Dr. Edward Grey DO Core Analyst: Signed Yoanna Chow Start: 06-12-2019 End: 06-14-2019 SCREEN MAMM (CAD) W/RENZO BILAT Comments: See Note; NOTES: [facility] Imaging Services [address] [place] [address] SCREEN MAMM (CAD) W/RENZO BILAT MR#: [id number] Acct: [id number] Name: JHONNY PACK Rep #: [id number] : 1960 F 59 From: Mannie Dial MD PCP: Yoanna Chow DO Status: REG CLI Study: SCREEN MAMM (CAD) W/RENZO BILAT Date of Exam: 06/12/19 Exam# [id number] Ordering Dr: Edward Grey DO MAMMOGRAPHY - BILATERAL SCREENING REASON FOR EXAM: Female, 59 years old. Routine annual screening examination. PERTINENT HISTORY: Non-contributory. TECHNIQUE: Digital bilateral breast renzo (3D mammographic acquisition) in the CC and MLO projections. 2-D mediolateral oblique (MLO) and craniocaudad (CC) views of both breasts were obtained. CAD: Full Field Digital Mammography with Computer Added Detection was performed. COMPARISON: Comparison is made with prior study June 07, 2018 and December 17, 2015. FINDINGS: Breast Composition: There are scattered areas of fibroglandular density. There are no dominant masses or suspicious calcifications. Stable small benign-appearing bilateral axillary lymph nodes. No other significant abnormalities are identified. There has been no significant change since the prior study. BI/SCREEN MAMM (CAD) W/RENZO BILAT IMPRESSION: Stable bilateral screening mammogram. Yearly follow-up mammogram recommended. (A) ASSESSMENT CATEGORY: BIRADS Category 2: Benign. A letter regarding these results will be sent to the patient by the facility within 30 days. Approximately 10% of breast cancers are not detected by mammography. A normal mammogram should not delay biopsy of a clinically suspicious abnormality. [id number] Electronically Signed: Mannie Dial, at 14:55 EDT , Service support , CC: Yoanna Chow DO; Edward Grey DO Core Analyst: Signed Yoanna Chow Start: 05-03-2019 End: 05-04-2019 Soft Tissue Neck WITH Contrast Comments: See Note; NOTES: [facility] Imaging Services [address] [place] [address] Soft Tissue Neck WITH Contrast MR#: [id number] Acct: [id number] Name: JHONNY PACK Rep #: [id number] : 1960 F 58 From: Roberto Hatfield MD PCP: Yoanna Chow DO Status: REG CLI Study: Soft Tissue Neck WITH Contrast Date of Exam: 05/03/19 Exam# [id number] Ordering Dr: Yoanna Chow DO HISTORY: MASS, LATERAL NECK, RIGHT SIDE TECHNIQUE: Helically acquired images were obtained of the neck following the intravenous administration of 70 ml of Isovue 370 Iodinated, IV contrast. A radiation dose optimization technique was used for this scan. COMPARISON: None FINDINGS: # of images incl. paperwork: 311 Pulmonary venous congestion. Within the cervical spine and upper thoracic spine there is minimal degenerative disc disease and some facet arthropathy. Prevertebral and paraspinal soft tissues are normal. Mastoid air cells are free of disease. Visualized paranasal sinuses are free of disease. The ascending thoracic aorta is minimally distended to 4.2 cm. The aortic arch is elongated and slightly tortuous. Trace calcific plaque at the ligamentum arteriosum. Patient has a normal anatomic variant, origin of the left vertebral artery directly from the aortic arch. Flow is normal within the brachiocephalic artery, bilateral common carotid, subclavian, and vertebral arteries. Both vertebral arteries remain patent within their respective vertebral foramina to join and form the basilar artery. Flow is normal within bilateral CCAs, ICAs, and ECAs. Bilateral ICA remains patent into the brain do demonstrate flow to the ACAs and MCAs. The basilar artery fills and provides flow to the title officer. The anterior communicating artery is patent. The airway is widely patent. The thyroid, submandibular, and parotid glands are normal. No adenopathy. Within the cervical spine bony alignment is normal. Some degenerative disc disease. Some arthropathy. CT/Soft Tissue Neck WITH Contrast IMPRESSION: Some degenerative disease within the thoracic aorta. Some mild pulmonary venous congestion. No right-sided neck mass or nodule perceived. No adenopathy. Individualized dose optimization techniques were used for this CT. at 0354 Reported and signed by: Roberto Hatfield MD Electronically Signed: Roberto Hatfield MD at 3:53 EDT Tel , Service support , CC: Yoanna Chow DO Core Analyst: Signed Yoanna Chow Work Phone: Start: 11-20-2018 End: 11-20-2018 Emergency Department Summary Comments: See Note; NOTES: [facility] Medical Records Department [address] [place] [address] Emergency Department Summary 11/20/182119 MR#: [id number] Acct: [id number] Name: JHONNY PACK Rep #: [id number] : 1960 58 From: Ravin Bear MD PCP: Yoanna Chow DO Status: PRE ER History of Present Illness Chief Complaint: Wound Detail of Chief Complaint: Pain left toe status post nail removal Informant: Patient Occurred: Today Onset: Today Context: Sudden Onset Timing: Continuous Quality of Pain: Dull, Throbbing Location: Second left toe Current Severity: Mild Maximum Severity: Severe Worsened by: Walking Relieved by: Nothing, decreased with ibuprofen Associated Symptoms: Negative for: Parasthesia, Weakness, Loss of Funtion Narrative: Patient seen by riveter automobile brakes for chronically infected left second toenail. The toenail was removed. She had pain as she was leaving the office of the riveter automobile brakes. She did not informant. She did contact him and he recommended NSAIDs and she does not have contraindication. Patient states she is still having severe pain. She denies fever, chills night sweats. She is not diabetic. There is no history rheumatic fever, heart murmur, SPE or being immune suppressed. Past Medical History - Allergies and Home Meds Allergies/Adverse Reactions: Allergies oxycodone HCl [From Percocet] Adverse Reaction (Verified 11/20/18 20:14) Nausea Primary Care Physician: Yoanna Chow DO [Primary Care Provider] - Prior records reviewed: Yes Surgical History: - - Removal left second toenail Lives: Spouse/ Significant Other Smoking Status: Never smoker Alcohol: None Drugs: None Review of Systems General: Denies: Chills, Fever, Malaise, Sweats Musculoskeletal: Reports: Extremity Pain - Second left toe. Denies: Myalgias, Arthralgias, Back pain, Swelling Skin: Reports: Rash, Wounds Endocrine: Denies: Polyuria, Polydipsia Hematologic: Denies: Easy bruising, Easy bleeding Physical Exam Vital Signs/Narrative: Vital Signs 11/20/18 20:12 97.9 F 74 16 144/96 H 95 - Extremity Exam Right Ankle: Negative for: Abrasion, Contusion, Deformity, Edema, Hematoma, Limited ROM, - Right Foot: Negative for: Abrasion, Contusion, Deformity, Edema, Hematoma, Limited ROM, - Right Toe: Negative for: Abrasion, Contusion, Deformity, Edema, Hematoma, Limited ROM, - - White count is the nail has been removed. There is erythema of the second toe. There is no lymphangitis. DP and PT pulse are palpable. General: Well nourished, Well developed Head: Normocephalic, Atraumatic Eyes: Perrl, EOMI Cardiovascular: Regular rate, Regular rhythm, No murmurs Respiratory: No distress Skin: Normal color, Rash Neurological: Alert, Oriented x3, Cranial nerves II-XII grossly intact, Normal Strength, Normal Sensation Psychological: Normal affect Diagnostic/Tx/Re-eval - Medical Decision Making Patient with pain status post removal of toenail second left toe. Will prescribe opiate analgesia. Patient reports nausea with Percocet, which is not an allergy ED Disposition - Plan for ED Patient: Disposition: Home or Assisted Living Diagnosis: Status post surgical removal of nail matrix of toe of left foot Instructions: ED Post Op Pain Prescriptions: Hydrocodone Bitart/Apap 5-325 [[place] 5MG-325MG] 1 tab PO Q6H PRN PRN 3 Days #10 tab PRN Reason: Pain Referrals: Yoanna Chow, [Primary Care Provider] - What to do if you have Problems For any increased pain, shortness of breath, bleeding, nausea or vomiting, chest pain, or any unexpected problems, contact your Primary Care Provider. Call [facility] ([phone]) or report to the closest Emergency Room. Call 911 if necessary. 11/20/182127 <Electronically signed by Ravin Bear MD> Date Ravin Bear MD Cosigner Signature (If Indicated): Date CC: Yoanna Saunders Start: 10-04-2018 End: 10-04-2018 OT D/C Summary Comments: See Note; NOTES: [facility] [place] [address] / REHABILITATION SERVICES DISCHARGE SUMMARY MR#: [id number] Acct: [id number] Name: JHONNY PACK Rep #: [id number] : 1960 58 From: Laila Ames OTR/L, CHT Referring DrAlysha: Bharti Mcallister Status: REG RCR Eval Date: Discharge Date: HP - OT D/C Summary It has been my pleasure to treat JHONNY PACK under orders from Bharti Mcallister, for the diagnosis of left RF pain for a total of 4 visit(s). Please see the following information for a summary of their discharge status. - Overall Improvement % Improvement: 80 - Objective Objective/Function: left PIP 5.5 a reduction. right PIP 5.2. left RF PIP 0/102. left RF DIP 0/65. right 35# left cushion maker 45# - Goals Patient Goals: Regain Mobility, Decrease Swelling/Stiffness, Decrease Sensitivity Other: be able to wear ring again Goal:: pt will demo the ability to wear her wedding ring ind. with no report of pain by d/c Goal:: pt will demo a reduction in left RF edema by .5 and the ability for pt to wear her ring by d/c - Plan Plan: d/c - D/C Information Discharge Comments: pt was seen for 4 visits following a left RF injury. Pt demo great gains with ROM and strength. Pt still c/o edema that limits her ind. with donning her wedding band. Pt has been ed. on edema contorl venessa. and has been instructed to use them for about 6 months prior to attempting to put her wedding band on or getting it sized. pt has met all goals with ROM, and strength. Pt d/c with HEP to cont with edema control. If there are questions or concerns regarding this patient's occupational therapy, please fell free to call me at [phone]. Thank you for the referral of this patient. Sincerely, MARYA Quintana/Mckayla, CHT <Electronically signed by Laila MALHOTRA/Mckayla, CHT> 10/04/18 1428 CC: Bharti Mcallister; Yoanna Chow DO MK Signed Yoanna Chow Start: 08-23-2018 End: 08-23-2018 OT General Evaluation Comments: See Note; NOTES: [facility] [address] [place] [address]. [address] [place] [address] / REHABILITATION SERVICES INITIAL EVALUATION MR#: [id number] Acct: [id number] Name: JHONNY PACK Rep #: [id number] : 1960 58 From: Laila Ames OTR/Mckayla, KOBIT Referring Dr.: Bharti Mcallister Status: REG RCR Insurance: [facility] [email or web address] Eval Date: SELF PAY INSURANCE Patient's Visit Information JHONNY PACK is a 58 year old F, referred [...] right RF 0/50 left 0/40 - Strength Shoe Clerk: right 35# left 35# Lateral Pinch: right [...] to be FAXED BACK to us at [phone] for Medicare purposes. Please let me know if there are questions or concerns regarding this plan of care. Physician Signature: D ate: <Electronically signed by Laila BENNETT, CHT> 08/23/18 0850 CC: Bharti Mcallister; Yoanna Chow DO MK Signed For Medicare only, by signing this I certify the plan of care. Physicians Signature Date Yoanna Chow Start: 08-01-2018 End: 08-01-2018 Emergency Department Summary Comments: See Note; NOTES: [facility] Medical Records Department [address] [place] [address] Emergency Department Summary 07/31/18 1531 MR#: [id number] Acct: [id number] Name: JHONNY PACK Rep #: [id number] : 1960 58 From: Kimberley Hale MD [...] finger edema This note was generated with [employer]di[employer] software. It may contain incorrect words, spelling, [...] problems, contact your Primary Care Provider. Call [facility] ([phone]) or report to the closest Emergency Room. Call 911 if necessary. 08/01/18 0032 <Electronically signed by Kimberley Hale MD> Date Kimberley Hale MD Cosigner Signature (If Indicated): Date CC: Yoanna Stallingseen Claudine Start: 07-31-2018 End: 07-31-2018 Discharge Instruction Comments: See Note; NOTES: [facility] Medical Records Department [address] [place] [address] Discharge Instruction 07/31/18 1531 MR#: [id number] Acct: [id number] Name: JHONNY PACK Rep #: [id number] : 1960 58 From: Kimberley Hale MD [...] your Primary Care Provider. Call [facility] ([phone]) or report to the closest Emergency Room. Call 911 if necessary. 07/31/18 1533 <Electronically signed by Kimberley Hale MD> Date Kimberley Hale MD Cosigner Signature (If Indicated): Date CC: Yoanna Stallingseen Claduine Start: 07-28-2018 End: 07-29-2018 Hand Min 3 Views Comments: See Note; NOTES: [facility] Imaging Services [address] [place] [address] Hand Min 3 Views MR#: [id number] Acct: [id number] Name: BRADENSUZYSUNNY De Leon Rep #: [id number] : 1960 F 58 From: Oswaldo Solorio MD PCP: Yoanna Chow DO Status: REG CLI Study: Hand Min 3 Views Date of Exam: 07/28/18 Exam# [id number] Ordering Dr: Charlene Burgess NP-C STUDY: X-RAY - LEFT HAND REASON FOR [...] CC: Charlene Burgess NP; Yoanna Chow DO Core Analyst: Signed Charlene Burgess Work Phone: Start: 01-15-2016 End: 01-15-2016 Inital Evaluation (1) - PT Comments: See Note; NOTES: [facility] Therapy [address] [place] [address] Fax REHABILITATION SERVICES INITIAL EVALUATION MR#: [id number] Acct: [id number] Name: JHONNY PACK Rep #: [id number] : 1960 55 From: Garret Abarca PT, ATC Referring Dr.: Yoanna Chow DO Status: REG RCR Insurance: [employer] OUT OF STATE Patient's Visit Information JHONNY [...] notes the pain usually would just go away. Pt reports she went to the ER [...] touch. B patellar tendon reflex= 2/3. LE MMT: B knee flex= 4-/5. All other B [...] LE weakness secondary to L/S disc derrangelment Rehabilitation Potential: Good - Anticipated Interventions Patient/Client Instruction: [...] to be FAXED BACK to us at [phone] for Medicare purposes. Please let me know if there are questions or concerns regarding this plan of care. Physician Signature: D ate: <Electronically signed by Garret Abarca PT, ATC> 01/15/16 1650 CC: Yoanna Chow DO [facility] Signed For Medicare only, by signing this I certify the plan of care. Physicians Signature Date Yoanna Chow Start: 01-15-2016 End: 01-15-2016 PT D/C of Non Returning Pt (1) Comments: See Note; NOTES: [facility] [address] [place] [address]. [address] [place] [address] Fax REHABILITATION SERVICES DISCHARGE SUMMARY MR#: [id number] Acct: [id number] Name: JHONNY PACK Rep #: [id number] : 1960 55 From: Garret Abarca PT, ATC Referring DrAlysha: Yoanna Chow DO Status: REG RCR Insurance: [facility] OUT OF STATE HP - Discharge Summary (1) - Patient Information JHONNY PACK was seen in my office for initial evaluation on 12/17/15. The following Plan of Care was established for this patient: Initial Frequency: 1x/Week Initial [...] seen in our office 12/17/15. Pertinent comments regarding their Physical therapy will appear below: Pt [...] patient from physical therapy. I would be happy to see this patient again in the future if found appropriate by the physician. Thank you! Garret Abarca <Electronically signed by Garret Abarca PT, ATC> 01/15/16 1653 CC: Yoanna Chow DO [facility] Signed Yoanna Chow Start: 12-17-2015 End: 12-18-2015 Bilat Scrn Digital AND CAD Comments: See Note; NOTES: [facility] Imaging Services [address] [place] [address] Verdana 4d Bilat Scrn Digital AND CAD MR#: [id number] Acct: [id number] Name: JHONNY PACK Rep #: [id number] : 1960 F 55 From: Mannie Dial MD PCP: Yoanna Chow DO Status: REG CLI Study: Bilat Scrn Digital AND CAD Date of Exam: 12/17/15 Exam# [id number] Ordering Dr: Yoanna Chow DO MAMMOGRAPHY - BILATERAL SCREENING REASON FOR EXAM: Female, 55 years old. Routine annual screening examination. PERTINENT HISTORY: Non-contributory. TECHNIQUE: Digital bilateral breast tomosynthesis (3-D mammographic acquisition) in the CC and MLO projections. Synthesized 2-D images (C-View reconstruction from tomosynthesis acquisition) providing bilateral breast CC and MLO views. Mediolateral oblique (MLO) [...] study. IMPRESSION: Stable bilateral screening mammogram. Yearly follow-up mammogram recommended. (A) ASSESSMENT CATEGORY: BIRADS Category 1: Negative. A letter regarding these results will be sent to the patient by the facility within 30 days. Approximately 10% of breast cancers are not detected by mammography. A normal mammogram should not delay biopsy of a clinically suspicious abnormality. [id number] Electronically Signed: Mannie Dial MD at 9:48 EDT Tel [phone], Service support [phone], CC: Yoanna Chow DO Core Analyst: Signed Yoanna Chow Work Phone: Start: 12-10-2015 End: 12-10-2015 12 lead ECG Comments: See Note; NOTES: [facility] Cardiovascular Services [address] [place] [address] 12 Lead EKG 12/07/15 1427 MR#: [id number] Acct: [id number] Name: JHONNY PACK Rep #: [id number] : 1960 55 From: Ronnell Alegria MD [...] Int : 434 ms Normal sinus rhythm Normal ECG Confirmed by RONNELL ALEGRIA MD ([id number]), graphics editor RINKU FRY ([id number]) on 12/10/2015 12:54:34 PM Referred By: NICCI Confirmed By:RONNELL ALEGRIA MD 12/10/15 1254 Date Ronnell Alegria MD CC: Yoanna Chow DO Date Dictated: 12/07/15 142 Date Transcribed: 12/07/151426 Core Analyst: Signed Yoanna Chow Start: 12-08-2015 End: 12-12-2015 Hip 2-3 Views with Pelvis Comments: See Note; NOTES: [facility] Imaging Services [address] [place] [address] Verpapillion 4d Hip 2-3 Views with Pelvis MR#: [id number] Acct: [id number] Name: JHONNY PACK Rep #: [id number] : 1960 F 55 From: Carmen Webb MD PCP: Yoanna Chow DO Status: REG CLI Study: Hip 2-3 Views with Pelvis Date of Exam: 12/08/15 Exam# [id number] Ordering Dr: Yoanna Chow DO STUDY: X-RAY [...] rami. Normal pubic symphysis. Normal bilateral ischial tuberosities. Normal visualized femoral heads. Normal acetabulum. Normal hip joints. 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 No evidence of an acute fracture. 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 No evidence of an acute fracture. Electronically Signed: Carmen Webb MD at 13:57 EDT Tel , Service support [phone], CC: Yoanna Chow DO Core Analyst: Signed Yoanna Chow Work Phone: Start: 12-08-2015 End: 12-08-2015 Emergency Department Summary Comments: See Note; NOTES: [facility] Medical Records Department [address] [place] [address] Emergency Department Summary MR#: [id number] Acct: [id number] Name: JHONNY PACK Rep #: [id number] : 1960 55 From: Ravin Bear MD PCP: Yoanna Chow DO Status: [facility] ER DATE OF SERVICE: 12/07/2015 HISTORY OF PRESENT ILLNESS: A 55-year-old woman, who presents with 3 complaints, #1 right lower back pain and lower quadrant fullness. She was seen for the same symptoms on Tuesday and had an extensive workup, which was unremarkable. She now complains of heartburn, indigestion that occurred yesterday morning that lasted 4-5 hours and yesterday evening that lasted for a prolonged period as well. She also complains of tightness in her chest. There is no radiation. There are no associated symptoms. There are no alleviating, precipitating or exacerbating factors. She denies history of coronary artery disease. She has no risk factors for coronary artery disease. History of hypothyroidism. PAST SURGICAL HISTORY: Appendectomy. PRIMARY CARE PHYSICIAN: Payal Rowell DO PHYSICAL EXAMINATION: VITAL SIGNS: Unremarkable. GENERAL: She is a pleasant middle-aged woman, who does not appear in much distress. HEENT: Unremarkable. NECK: Trachea midline. No carotid bruits. LUNGS: Clear to auscultation. HEART: Regular without murmur, gallop, or rub. ABDOMEN: Remarkable for tenderness and fullness in the lower quadrants. She has no guarding, rebound tenderness. Bowel sounds are present. There is no CVA tenderness. There is no evidence of trauma to the back or abdomen. SKIN: There are no dermatologic lesions noted. NEUROLOGIC: She is alert. She is oriented x3 with a nonfocal neurologic exam. EMERGENCY DEPARTMENT COURSE: Because of the heartburn, pressure sensation in her chest, EKG was obtained, which was normal. Troponin with multiple hours of pain yesterday and 8 hours of pain today is normal. CBC and electrolyte panel are normal. In light of her negative workup, she was given a GI cocktail with resolution of her pressure, burning sensation. IMPRESSION: 1. Chest pain, gastrointestinal etiology. 2. Musculoskeletal right lower back pain. 3. Abdominal fullness, lower quadrants, unknown cause. DISPOSITION: Discharge. MD Paddy Harley C: Payal Rowell DO T: NTS JOB: [id number] 12/08/15 0739 <Electronically signed by Ravin Bear MD> Date Ravin Bear MD Cosigner Signature (If Indicated): Date CC: Payal Rowell DO; Yoanna Chow DO Date Dictated: 12/07/156 Date Transcribed: 12/07/151525 Core Analyst: Signed Yoanna Chow Start: 12-07-2015 End: 12-07-2015 Discharge Instruction Comments: See Note; NOTES: [facility] Medical Records Department [address] [facility] [address] Discharge Instruction 12/07/15 1522 MR#: [id number] Acct: [id number] Name: JHONNY PACK Rep #: [id number] : 1960 55 From: Ravin Bear MD PCP: Yoanna Chow DO Status: [facility] ER ED Disposition - Plan for ED Patient: Disposition: Home or Assisted Living Chief Complaint: Back Instructions: ED Gastritis Vs. Ulcer, ED Back Pain (Acute Or Chronic) Prescriptions: Diazepam [Valium] 5 mg PO TID #10 tablet Referrals: Yoanna Chow DO [Primary Care Provider] - Keep Will appointment What to do if you have Problems For any increased pain, shortness of breath, bleeding, nausea or vomiting, chest pain, or any unexpected problems, contact your doctor. Call [facility] ([phone]) or report to the closest Emergency Room. Call 911 if necessary. 12/07/15 1527 <Electronically signed by Ravin Bear MD> Date Ravin Bear MD Cosigner Signature (If Indicated): Date CC: Yoanna Saunders Start: 12-05-2015 End: 12-05-2015 Emergency Department Summary Comments: See Note; NOTES: [facility] Medical Records Department [address] [place] [address] Emergency Department Summary MR#: [id number] Acct: [id number] Name: JHONNY PACK Rep #: [id number] : 1960 55 From: Kimberley Hale MD PCP: Yoanna Chow DO Status: [facility] ER DATE OF SERVICE: 12/05/2015 CHIEF COMPLAINT: Right low back pain, right lower quadrant pain. HENNESSY HISTORY: The patient is a 55-year-old female who reports a 1-week history of right low back pain and right lower quadrant pain. It does not radiate down her legs. She denies any fever. No dysuria, but she does leak urine when she first gets up out of bed in the morning. She has no blood in her urine. She does feel that she is urinating frequently. She has had no diarrhea or constipation. She has been taking rptf-krn-rnxzpbs Aleve. She has an appointment to see her doctor on Tuesday, but pain worsened tonight and was not relieved with the Aleve. She does report that she recently got a new mattress. PHYSICAL EXAMINATION: VITAL SIGNS: Unremarkable. GENERAL: The patient is sitting upright in bed. HEART: Regular. LUNGS: Clear. ABDOMEN: Soft with mild suprapubic tenderness. No guarding or rebound. She has mild [...] test results along with a cauda equina. However, there has been no trauma and not significant pain. I do not feel this represents cauda equina. She has good strength and sensation in the lower extremities. She will be treated with some [place] over the weekend as needed and will follow up with her PCP as planned. She and her are both comfortable with this plan. DISPOSITION: Discharge. IMPRESSION: Right lower flank pain, uncertain etiology. Kimberley Hale MD T: NTS JOB: [id number] 12/05/157 <Electronically signed by Kimberley Hale MD> Date Kimberley Hale MD Cosigner Signature (If Indicated): Date CC: Yoanna Chow DO Date Dictated: 12/05/152131 Date Transcribed: 12/05/152131 Core Analyst: Signed Yoanna Claudine Start: 12-05-2015 End: 12-05-2015 Discharge Instruction Comments: See Note; NOTES: [facility] Medical Records Department [address] [place] [address] Discharge Instruction 12/05/152128 MR#: [id number] Acct: [id number] Name: JHONNY PACK Haley Rep #: [id number] : 1960 55 From: Kimberley Hale MD PCP: Yoanna Chow DO Status: REG ER ED Disposition - Plan for ED Patient: Disposition: Home or Assisted Living Chief Complaint: Complaint Instructions: ED Flank Pain, Uncertain Cause Prescriptions: Hydrocodone Bitart/Apap 5-325 [[place] 5/325] 1 - 2 tablet PO Q4H PRN PRN #20 tablet PRN Reason: Pain Referrals: Yoanna Chow DO [Primary Care Provider] - Keep Will appointment What to do if you have Problems For any increased pain, shortness of breath, bleeding, nausea or vomiting, chest pain, or any unexpected problems, contact your doctor. Call [facility] ([phone]) or report to the closest Emergency Room. Call 911 if necessary. 12/05/152129 <Electronically signed by Kimberley Hale MD> Date Kimberley Hale MD Cosigner Signature (If Indicated): Date CC: Yoanna Stallingseen Claudine Start: 12-05-2015 End: 12-05-2015 Abdomen/Pelvis without Cont Comments: See Note; NOTES: [facility] Imaging Services [address] [place] [address] Verdana 4d Abdomen/Pelvis without Cont MR#: [id number] Acct: [id number] Name: JHONNY PACK Rep #: [id number] : 1960 F 55 From: Kobe Gould MD PCP: Yoanna Chow DO Status: REG ER Study: Abdomen/Pelvis without Cont Date of Exam: 12/05/15 Exam# [id number] Ordering Dr: Kimberley Hale MD STUDY: CT ABDOMEN [...] images were reconstructed. Individualized dose optimization techniques were used for this CT. COMPARISON: CT abdomen and pelvis 10/27/14. FINDINGS: Punctate left lower lobe pulmonary granulomas calcification. The visualized portions of the heart are within normal limits. Hepatomegaly. [...] bladder. Normal abdominal wall. Marked disc space narrowing at L5-S1 along with osteopenia. IMPRESSION: No CT evidence of an acute intra-abdominal or pelvic process. Hepatomegaly and redemonstrated left renal cyst.. Status post appendectomy. Old granulomatous disease. Marked disc space narrowing at L5-S1 along with osteopenia. Electronically Signed: Kobe Gould MD at 20:51 EDT , Service support [phone], CC: Kimberley Hale MD; Yoanna Chow DO Core Analyst: Signed Yoanna Chow Start: 01-20-2015 End: 01-20-2015 Lower Ext Joint Only (Routine) Comments: See Note; NOTES: [facility] Imaging Services [address] [place] [address] MRI Report MR#: [id number] Acct: [id number] Name: JHONNY PACK Rep #: [id number] : 1960 F 54 From: Luis Olivier MD PCP: Yoanna Chow DO Status: REG CLI Study: Lower Ext Joint Only (Routine) Date of Exam: 01/20/15 Exam# [id number] Ordering Dr: Ozzy Barrow DO STUDY: MRI LEFT KNEE REASON FOR EXAM: Female, 54 years old. Left knee pain. Posterior knee instability. Symptoms for 3 year. Previous arthroscopy. TECHNIQUE: Standardized fat and water weighted pulse sequences were obtained in all 3 orthogonal [...] Normal hyaline cartilage of the lateral femorotibial compartment. Normal lateral femoral condyle and tibial plateau. Normal proximal tibiofibular articulation. Normal lateral collateral ( fibular ) ligament. Normal popliteus tendon. Normal biceps femoris tendon. He noted is intrasubstance cystic degeneration of the anterior cruciate ligament Normal posterior cruciate ligament (PCL). Normal congruent patellofemoral articulation. Normal hyaline cartilage of the patellofemoral compartment. Normal medial and lateral patellar retinaculum. Normal quadriceps tendon. Normal patellar tendon. There is linear fibrotic scarring of Hoffa's fat pad, consistent with postsurgical changes from prior arthroscopic portal placements. There is a moderate volume joint effusion. The soft tissues are unremarkable. The otherwise visualized osseous structures are unremarkable. IMPRESSION: Status post arthroscopy and partial medial meniscectomy without recurrent tear of the meniscal remnant. 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 Moderate volume joint effusion Electronically Signed: Luis Olivier MD, FACR at 11:45 EDT , Service support [phone], CC: Ozzy Barrow; Yoanna Chow DO Core Analyst: Signed Yoanna Chow Start: 10-26-2014 End: 10-27-2014 Abdomen/Pelvis WITH Contrast Comments: See Note; NOTES: [facility] Imaging Services [address] [place] [id number] CAT Scan Report MR#: [id number] Acct: [id number] Name: JHONNY PACK Rep #: [id number] : 1960 F 54 From: Maryellen Kumar MD PCP: Yoanna Chow DO Status: [facility] ER Study: Abdomen/Pelvis WITH Contrast Date of Exam: 10/27/14 Exam# [id number] Ordering Dr: Ozzy Vizcarra MD STUDY: CT [...] 300 contrast was administered. Sagittal and coronal images were reconstructed. COMPARISON: None. FINDINGS: The visualized lung bases are unremarkable. The visualized portions of the heart are within normal limits. Normal liver. Normal gallbladder and extrahepatic biliary system. Normal spleen. There is a small punctate calcification of the pancreatic body duct. Normal bilateral adrenal glands. Normal right kidney. There is a 1 x 1 cm cyst of the lower pole of the left kidney. Normal visualized stomach. Normal small intestine. Normal colon. There is a tubular, thick-walled appendix (1.6 cm), consistent with acute appendicitis. It is located posterior [...] as described. Disc narrowing and bulging at L5-S1. N.B. : The above information has been verbally conveyed by Maryellen Pena MD to [facility], covering physician, on 10/27/2014 01:23:00 (ET). Electronically Signed: Maryellen Pena MD at 1:23 EDT , Service support [phone], N.B. : The above information has been verbally conveyed by Maryellen Pena MD to [place], covering physician, on 10/27/2014 01:23:00 (ET). CC: Ozzy Vizcarra MD; Yoanna Chow DO Core Analyst: Signed Yoanna Chow Appendectomy Erica Tadeo Plan of Treatment Date Care Activity Detail Author Start: 10-20-2022 Procedure Education Eprescribed prescriptions (G8553) [facility]; [facility] Work Phone: Start: 10-20-2022 Provider Instructions for Treatment Reviewed Diagnostic Tests [facility]; [facility] Work Phone: Start: 09-20-2022 Assay of troponin quantitative Troponin I (92002) [facility]; [facility] Work Phone: Start: 09-20-2022 Comprehensive metabolic panel METABOLIC PANEL, COMPREHENSIVE (36920) [facility]; [facility] Work Phone: Start: 09-20-2022 Blood count complete auto&auto difrntl wbc CBC W/AUTO DIFF WBC (90567) [facility]; [facility] Work Phone: Start: 09-20-2022 Procedure Education Eprescribed prescriptions (G8553) [facility]; [facility] Work Phone: Start: 11-04-2021 Procedure Education Eprescribed prescriptions (G8553) [facility]; [facility] Work Phone: Start: 10-28-2021 Procedure Education Eprescribed prescriptions (G8553) [facility]; [facility] Work Phone: Start: 10-28-2021 Provider Instructions for Treatment [facility]; [facility] Work Phone: Start: 07-20-2021 Procedure Education Eprescribed prescriptions (G8553) [facility]; [facility] Work Phone: Start: 07-20-2021 Provider Instructions for Treatment Follow up - Make appt after diagnostic tests [facility]; [facility] Work Phone: Start: 06-26-2021 Patient Education EFUDEX INSTRUCTIONS [facility]; [facility] Work Phone: Start: 06-26-2021 Procedure Education Eprescribed prescriptions (G8553) [facility]; [facility] Work Phone: Start: 06-26-2021 Provider Instructions for Treatment [facility]; [facility] Work Phone: Start: 06-22-2021 Procedure Education Eprescribed prescriptions (G8553) [facility]; [facility] Work Phone: Start: 06-22-2021 Provider Instructions for Treatment [facility]; [facility] Work Phone: Start: 04-23-2021 Procedure Education Eprescribed prescriptions (G8553) [facility]; [facility] Work Phone: Start: 03-20-2021 Procedure Education Eprescribed prescriptions (G8553) [facility]; [facility] Work Phone: Start: 03-20-2021 Provider Instructions for Treatment Solu Medrol Injection/ Education [facility]; [facility] Work Phone: Start: 09-08-2020 Procedure Education Eprescribed prescriptions (G8553) [facility]; [facility] Work Phone: Start: 09-08-2020 Provider Instructions for Treatment Follow up if no improvement or if symptoms worsen [facility]; [facility] Work Phone: Start: 09-01-2020 Procedure Education Eprescribed prescriptions (G8553) [facility]; [facility] Work Phone: Start: 09-01-2020 Provider Instructions for Treatment Reviewed Lab [facility]; [facility] Work Phone: Start: 08-29-2020 Procedure Education Eprescribed prescriptions (G8553) [facility]; [facility] Work Phone: Start: 08-29-2020 [place]oo influenza 2019 Novel Coronavirus (COVID-19), DAYANA (85494) [facility]; [facility] Work Phone: Start: 07-30-2020 Patient Education EFUDEX INSTRUCTIONS [facility]; [facility] Work Phone: Start: 07-30-2020 Procedure Education Eprescribed prescriptions (G8553) [facility]; [facility] Work Phone: Start: 03-18-2020 [place] influenza 2019 Novel Coronavirus (COVID-19), DAYANA (36428) [facility] Work Phone: Start: 12-27-2019 Procedure Education Eprescribed prescriptions (G8553) [facility] Work Phone: Start: 12-27-2019 Provider Instructions for Treatment Continue Current Prescription(s) [facility] Work Phone: Start: 12-14-2019 Patient Education Shingles (Herpes Zoster) *: pain [facility] Work Phone: Start: 12-14-2019 Procedure Education Eprescribed prescriptions (G8553) [facility] Work Phone: Start: 12-14-2019 Provider Instructions for Treatment Follow up if no improvement or if symptoms worsen [facility] Work Phone: Start: 11-07-2019 Procedure Education Eprescribed prescriptions (G8553) [facility] Work Phone: Start: 09-18-2019 Procedure Education Eprescribed prescriptions (G8553) [facility] Work Phone: Start: 09-18-2019 Provider Instructions for Treatment Follow up if no improvement or if symptoms worsen [facility] Work Phone: Start: 05-17-2019 Patient Education Sinusitis *: allergies [facility] Work Phone: Start: 05-17-2019 Procedure Education Eprescribed prescriptions (G8553) [facility] Work Phone: Start: 05-17-2019 Provider Instructions for Treatment Follow up if no improvement or if symptoms worsen [facility] Work Phone: Start: 04-25-2019 Procedure Education Eprescribed prescriptions (G8553) [facility] Work Phone: Start: 09-04-2018 Provider Instructions for Treatment [facility] Work Phone: Start: 09-04-2018 Protein mass conc LIPOPROTEIN, BLD, BY NMR (38544) [facility] Work Phone: Start: 09-04-2018 Thyrotropin Qn TSH (04732) [facility] Work Phone: Start: 09-04-2018 T4 free mass conc T4, FREE (THYROXINE) (40748) [facility] Work Phone: Start: 09-04-2018 T3 free mass conc T3, FREE (TRIDOTHYRONINE) (22021) [facility] Work Phone: Start: 08-07-2018 Cyclic citrullinated peptide antibody CCP ANTIBODY (28215) [facility] Work Phone: Start: 08-07-2018 Rheumatoid factor quantitative RHEUMATOID FACTOR-QUANT (61013) [facility] Work Phone: Start: 08-04-2018 Procedure Education Eprescribed prescriptions (G8553) [facility] Work Phone: Start: 08-04-2018 Provider Instructions for Treatment [facility] Work Phone: Start: 08-04-2018 Thyrotropin Qn TSH (THYROID STIMULATING HORMONE) (59122) [facility] Work Phone: Start: 08-04-2018 CRP mass conc C-Reactive Protein (80379) [facility] Work Phone: Start: 08-04-2018 Sedimentation rate rbc non-automated SED RATE ERYTHROCYTE (34907) [facility] Work Phone: Start: 08-04-2018 Comprehensive metabolic panel Metabolic Panel, Comprehensive (16030) [facility] Work Phone: Start: 08-04-2018 Blood count complete automated CBC & PLATELETS (AUTO) (82771) [facility] Work Phone: Start: 07-28-2018 Procedure Education Eprescribed prescriptions (G8553) [facility] Work Phone: Start: 07-28-2018 Assay of blood/uric acid URIC ACID BLOOD (80965) [facility] Work Phone: Start: 06-09-2018 Provider Instructions for Treatment [facility] Work Phone: Start: 03-30-2018 Patient Education Yeast Infection (Candidiasis) *: yeast infection [facility] Work Phone: Start: 03-30-2018 Procedure Education Eprescribed prescriptions (G8553) [facility] Work Phone: Start: 03-30-2018 Provider Instructions for Treatment Follow up if no improvement or if symptoms worsen [facility] Work Phone: Start: 03-16-2018 Procedure Education Eprescribed prescriptions (G8553) [facility] Work Phone: Start: 03-16-2018 Cul bact xcpt urine blood/stool aerobic isol Throat Culture (80090) [facility] Work Phone: Start: 03-16-2018 [place] streptococcus group a Rapid Strep Test, Office (83484) [facility]; [facility] Work Phone: Start: 03-16-2018 S. pyogenes Ag IA Ql (Unsp spec) Rapid Strep Test, Office (14020) [facility] Work Phone: Start: 05-28-2016 Procedure Education Eprescribed prescriptions (G8553) [facility] Work Phone: Start: 05-28-2016 Provider Instructions for Treatment [facility] Work Phone: Start: 05-05-2016 Throat culture THROAT CULTURE (28288) [facility] Start: 05-05-2016 Procedure Education Eprescribed prescriptions (G8553) [facility] Work Phone: Start: 05-05-2016 Provider Instructions for Treatment [facility] Work Phone: Start: 05-05-2016 [place] streptococcus group a Rapid Strep Test, Office (87271) [facility]; [facility] Work Phone: Start: 05-05-2016 S. pyogenes Ag IA Ql (Unsp spec) Rapid Strep Test, Office (59609) [facility] Work Phone: Start: 12-29-2015 Procedure Education Eprescribed prescriptions (G8553) [facility] Work Phone: Start: 12-15-2015 Provider Instructions for Treatment [facility] Work Phone: Start: 12-08-2015 Patient Education Urinary Tract Infection in Women *: uti [facility] Work Phone: Start: 12-08-2015 Procedure Education Eprescribed prescriptions (G8553) [facility] Work Phone: Start: 12-08-2015 Provider Instructions for Treatment [facility] Work Phone: Start: 11-10-2015 Procedure Education Eprescribed prescriptions (G8553) [facility] Work Phone: Start: 11-10-2015 Provider Instructions for Treatment [facility] Work Phone: Start: 01-21-2014 Provider Instructions for Treatment Poison Hannah Education [facility] Work Phone: Start: 10-31-2013 Provider Instructions for Treatment *Antibiotic Usage Education - Female [facility] Work Phone: Start: 11-24-2012 Patient Education Allergies: allergies [facility] Work Phone: Start: 11-24-2012 Provider Instructions for Treatment Hip Bursa [facility] Work Phone: Start: 03-10-2012 Renal function panel Renal function Panel (42873) [facility] Work Phone: Start: 03-10-2012 Creatine kinase total Creatine Kinase Total (32420) [facility] Work Phone: Start: 01-20-2011 Provider Instructions for Treatment Continue Current Prescription(s) [facility] Work Phone: Start: 08-10-2010 Assay of thyroid stimulating hormone tsh TSH (86914) [facility]; [facility] Work Phone: Start: 08-10-2010 Thyrotropin Qn TSH (37910) [facility] Work Phone: Start: 08-10-2010 Assay of free thyroxine T4, FREE (THYROXINE) (10611) [facility]; [facility] Work Phone: Start: 08-10-2010 T4 free mass conc T4, FREE (THYROXINE) (50919) [facility] Work Phone: Start: 08-10-2010 Assay of triiodothyronine t3 free T3, FREE (TRIDOTHYRONINE) (48078) [facility]; [facility] Work Phone: Start: 08-10-2010 T3 free mass conc T3, FREE (TRIDOTHYRONINE) (38637) [facility] Work Phone: Start: 10-14-2008 Provider Instructions for Treatment [facility] Work Phone: Start: 01-04-2008 Provider Instructions for Treatment [facility] Work Phone: Start: 01-04-2008 Blood count complete automated CBC (Auto) (23390) [facility] Work Phone: Start: 01-04-2008 Comprehensive metabolic panel Metabolic Panel, Comprehensive (68753) [facility] Work Phone: Start: 01-04-2008 Lipid panel Lipid Panel (33480) [facility] Work Phone: [facility] Work Phone: [facility] Work Phone: [facility] Work Phone: [facility] Work Phone: [facility] Work Phone: [facility]: [facility] Work Phone: [facility] Phone: [facility] Work Phone: [facility] Work Phone: [facility] Work Phone: [facility] Work Phone: [facility] Work Phone: [facility] Work Phone: [facility] Work Phone: [facility] Work Phone[facility] Work Phone[facility] Work Phone[facility] Work Phone: [facility] Work Phone: [facility]; [facility] Work Phone: [facility]; [facility] Work Phone: [facility]; [facility] Work Phone: [facility] Work Phone: [facility] Work Phone: [facility] Work Phone: [facility] Work Phone: [facility]; [facility] Work Phone: [facility]; [facility] Work Phone: Immunizations Immunization Date Immunization Notes Care Provider Fa [facility] 07-01-2022 COVID-19, mRNA, LNP- S, bivalent booster, PF, 30 mcg/0.3 mL dose; Translations: [[employer] [place] COVID-19 (12y+) Bivalent Booster Vaccine PF] DR EDWARD GREY DO [facility] 05-27-2022 influenza, injectabl e, quadrivalent, contains preservative; Translations: [Fluarix PF Quadrivalent ] DR EDWARD GREY DO [facility] 08-24-2021 COVID-19, mRNA, LNP- S, PF, 100 mcg or 50 mcg dose; Translations: [Moderna COVID-[address]] DR EDWARD GREY DO [facility] 06-09-2021 influenza, injectabl e, quadrivalent, contains preservative; Translations: [Fluarix PF Quadrivalent ] DR EDWARD GREY DO [facility] 06-09-2021 tetanus toxoid, redu tr diphtheria toxoid, and acellular pertussis vaccine, adsorbed; Translations: [Boostrix (Tdap)] DR EDWARD GREY DO [facility] 12-04-2020 SARS-CoV-2 (COVID-19 ) mRNA-3[address] EDWARD GREY DO [facility] Payers Date Payer Category Payer [employer] ( and others) [id number] 2015 Unknown [id number] 2014 Private Health Insurance [id number] 1960 Unknown [id number] 1960 Unknown [id number] 1960 Unknown [id number] 1960 Unknown [id number] 1960 Unknown [id number] Private Health Insurance [id number] Unknown Unknown [id number] Social History Date Type Detail Facility Caffeine Use Never smoker [facility] Work Phone: Functional Status Date Assessment Result Facility 03-12-2023 Functional Status Independent [facility] 03-12-2023 Functional Status Standard Safet y ID band on, Call device within reach, Bed in low position, Wheels locked, Safety level maintained [facility] 09-04-2018 LP-IR Score LP-IR Score 29 [facility] Work Phone: Mental Status Date Assessment Result Facility 03-12-2023 Mental Status Orientation Oriented x 4 [facility] Clinical Notes 08-13-2022 to 03-12-2023 Radiology Note Date & Type Note Facility 03-12-2023 Hospital Discharg e instructions Patient Education 03/12/2023 18:43:05 Chest Pain, Noncardiac Noncardiac Chest Pain Based on your visit today, the healthcare provider doesn t know what is causing your chest pain. In most cases, people who come to the emergency department with chest pain don t have a problem with their heart. Instead, the pain is caused by other conditions. It's important for the healthcare team to be sure you are not having a life threatening cause for chest pain such as a heart attack, blood clot in the lungs, collapsed lung, ruptured esophagus, or tearing of the aorta. Once these major causes have been ruled out, you may have further evaluation for non-heart causes of chest pain. These may be problems with the lungs, muscles, bones, digestive tract, nerves, or mental health. Lung problems Inflammation around the lungs (pleurisy) Collapsed lung (pneumothorax) Fluid around the lungs (pleural effusion) Lung cancer (a rare cause of chest pain) Muscle or bone problems Inflamed cartilage between the ribs (costochondritis) Fibromyalgia Rheumatoid arthritis Chest wall strain Digestive system problems Reflux Stomach ulcer Spasms of the esophagus Gall stones Gallbladder inflammation Mental health conditions Panic or anxiety attacks Emotional distress Your condition doesn t seem serious and your pain doesn t appear to be coming from your heart. But sometimes the signs of a serious problem take more time to appear. Watch for the warning signs listed below. Home care Follow these guidelines when caring for yourself at home: Rest today and avoid strenuous activity. Take any prescribed medicine as directed. Follow-up care Follow up with your healthcare provider, or as advised, if you don t start to feel better within 24 hours. When to seek medical advice Call your healthcare provider right away if any of these occur: A change in the type of pain. Call if it feels different, becomes more serious, lasts longer, or begins to spread into your shoulder, arm, neck, jaw, or back. Shortness of breath You feel more pain when you breathe Cough with dark-colored mucus or blood Weakness, dizziness, or fainting Fever of 100.4 F (38 C) or higher, or as directed by your healthcare provider Swelling, pain, or redness in one leg [phone] [employer]. [address] [place] [address], [place] [address]. All rights reserved. This information is not intended as a substitute for professional medical care. Always follow your healthcare professional's instructions. Follow Up Care 03/12/2023 16:32:24 With:EDWARD GREY DO Address: [address] [place] [address] [phone] When:3-5 days [facility] 03-12-2023 Note Discharge Instructions Thank you for allowing [facility] to assist you with your healthcare needs. The following is important discharge information regarding your hospital visit. Diagnosis from Today's Visit Chest wall pain Rib/trunk pain-swelling What to Do Next Instructions from Your Care Team No qualifying data available. Post Acute Orders No qualifying data available. You Need to Schedule the Following Appointments Follow Up with EDWARD GREY DO When Within 3-5 days Where: [address] [place] [address] [phone] Allergies Percocet 5325 Medications Please ask your primary doctor or pharmacist before taking any other medication not listed, including over the counter drugs, herbal medications, vitamins and or supplements as they may interact with your home medications. What How Much When Why Instructions Last Dose New naproxen (naproxen 500 mg oral tablet) 1 tab(s) by mouth Two (2) times a day as needed for as needed for pain Printed Prescription New predniSONE (prednisone 20mg tab (TAPER)) Taper 40-30-20-10 x 2 days each dose by mouth Every day Printed Prescription Unchanged bupropion-naltrexone (Contrave 8 mg-90 mg oral tablet, extended release) See instructions Take 1 tablet p.o. daily x1 week, increase by 1 tablet/ day each subsequent week until daily maintenance dose of 2 tablets twice daily is achieved at the start of week for Unchanged levothyroxine (levothyroxine 88 mcg (0.088 mg) oral tablet) 1 tab(s) by mouth Once a day Unchanged Misc Medication XenoStat, ThyroVen Unchanged zolpidem (zolpidem 12.5 mg oral tablet, extended release) 1 tab(s) by mouth Daily at bedtime as needed for for sleep Insomnia Duration: 30 Days Please take this list to your next doctor s visit. Bring all medications you take, including over the counter medications, herbals and other supplements with you to your doctor s visit. Patients and families are reminded to discard old lists and to update any records with all medication providers or retail pharmacies. Medication Leaflets prednisone ([facility] gianfranco Bonilla What is the most important information I should know about prednisone? You should not use prednisone if you have a fungal infection anywhere in your body. You should not stop using prednisone suddenly. Follow your doctor's instructions about tapering your dose. What is prednisone? Prednisone is a steroid that reduces inflammation in the body, and also suppresses your immune system. Prednisone is used to treat many different conditions such as hormonal disorders, skin diseases, arthritis, lupus, psoriasis, allergic conditions, ulcerative colitis, Crohn's disease, eye diseases, lung diseases, asthma, tuberculosis, blood cell disorders, kidney disorders, leukemia, lymphoma, multiple sclerosis, organ transplant rejection, swelling from a brain tumor or injury. Prednisone may also be used for purposes not listed in this medication guide. What should I discuss with my healthcare provider before taking prednisone? You should not use prednisone if you are allergic to it, or if you have a fungal infection anywhere in your body. Steroid medication can weaken your immune system, making it easier for you to get an infection or worsening an infection you already have. Tell your doctor about any illness or infection you've had within the past several weeks. Tell your doctor if you have ever had: heart problems, high blood pressure, or a heart attack; glaucoma or cataracts; herpes infection of the eyes; past or present tuberculosis; a parasite infection that causes diarrhea (such as threadworms); any illness that causes diarrhea; underactive thyroid; diabetes; a stomach ulcer, diverticulitis; a colostomy or ileostomy; osteoporosis or low bone mineral density (steroid medication can increase your risk of bone loss); low levels of calcium or potassium in your blood; cirrhosis or other liver disease; mental illness or psychosis; or a muscle disorder such as myasthenia gravis. Long-term use of steroids may lead to bone loss (osteoporosis), especially if you smoke or drink alcohol, if you do not exercise, or if you do not get enough vitamin D or calcium in your diet. It is not known whether this medicine will harm an unborn baby. Tell your doctor if you are or plan to become . You should not breastfeed while using prednisone. How should I take prednisone? Follow all directions on your prescription label and read all medication guides or instruction sheets. Your doctor may occasionally change your dose. Use the medicine exactly as directed. Prednisone is taken daily or every other day, depending on the condition being treated. You may need to take the medicine at a certain time of day. Follow your doctor's instructions about when and how often to take this medicine. Take with food if prednisone upsets your stomach. Measure liquid medicine carefully. Use the dosing syringe provided, or use a medicine dose-measuring device (not a kitchen spoon). Swallow the delayed-release tablet whole and do not crush, chew, or break it. Prednisone can weaken (suppress) your immune system, and you may get an infection more easily. Call your doctor if you have signs of infection (fever, weakness, cold or flu symptoms, skin sores, diarrhea, frequent or recurring illness). If you have major surgery or a severe injury or infection, your prednisone dose needs may change. Make sure any doctor caring for you knows you are using this medicine. If you use this medicine long-term, you may need medical tests and vision exams. In case of emergency, wear or carry medical identification to let others know you use a steroid. You should not stop using prednisone suddenly. Follow your doctor's instructions about tapering your dose. Store at room temperature away from moisture, heat, and light. What happens if I miss a dose? Take the medicine as soon as you can, but skip the missed dose if it is almost time for your next dose. Do not take two doses at one time. What happens if I overdose? Seek emergency medical attention or call the Poison Help line at . High doses or long-term use of prednisone can lead to thinning skin, easy bruising, changes in body fat (especially in your face, neck, back, and waist), increased acne or facial hair, menstrual problems, impotence, or loss of interest in sex. What should I avoid while taking prednisone? Do not receive a 'live' vaccine while using prednisone. The vaccine may not work as well and may not fully protect you from disease. Live vaccines include measles, mumps, rubella (MMR), polio, rotavirus, typhoid, yellow fever, varicella (chickenpox), zoster (shingles), and nasal flu (influenza) vaccine. Avoid being near people who are sick or have infections. Call your doctor for preventive treatment if you are exposed to chickenpox or measles. These conditions can be serious or even fatal in people who are using steroid medicine. Avoid drinking alcohol. What are the possible side effects of prednisone? Get emergency medical help if you have signs of an allergic reaction: hives; difficult breathing; swelling of your face, lips, tongue, or throat. Call your doctor at once if you have: muscle pain or weakness; blurred vision, tunnel vision, eye pain, or seeing halos around lights; severe depression, changes in personality, unusual thoughts or behavior; bloody or tarry stools, coughing up blood or vomit that looks like coffee grounds; swelling, rapid weight gain, feeling short of breath; irregular heartbeats; severe headache, pounding in your neck or ears; decreased adrenal gland hormones--muscle weakness, tiredness, diarrhea, nausea, menstrual changes, skin discoloration, craving salty foods, and feeling light-headed; or low potassium level--leg cramps, constipation, irregular heartbeats, fluttering in your chest, increased thirst or urination, numbness or tingling, muscle weakness or limp feeling. Prednisone can affect growth in children. Tell your doctor if your child is not growing at a normal rate while using this medicine. Common side effects may include: weight gain (especially in your face or your upper back and torso); increased appetite; mood changes, trouble sleeping; changes in your menstrual periods; problems with memory or thought; muscle or joint pain; weakness; headache, dizziness, spinning sensation; nausea, bloating, loss of appetite; slow wound healing; or acne, increased sweating, thinning skin, bruising, pinpoint spots under your skin. This is not a complete list of side effects and others may occur. Call your doctor for medical advice about side effects. You may report side effects to FDA at 8-481-OXL-9244. What other drugs will affect prednisone? Sometimes it is not safe to use certain medications at the same time. Some drugs can affect your blood levels of other drugs you take, which may increase side effects or make the medications less effective. Tell your doctor about all your current medicines. Many drugs can affect prednisone, especially: bupropion; cyclosporine; digoxin; ketoconazole; an antibiotic; control pills or hormone replacement therapy; a diuretic or 'water pill'; insulin or oral diabetes medicine; a blood thinner--warfarin, Coumadin, Jantoven; or NSAIDs (nonsteroidal anti-inflammatory drugs)--aspirin, ibuprofen (Advil, Motrin), naproxen (Aleve), celecoxib, diclofenac, indomethacin, meloxicam, and others. This list is not complete and many other drugs may affect prednisone. This includes prescription and mxmr-ejt-akplbta medicines, vitamins, and herbal products. Not all possible drug interactions are listed here. Where can I get more information? Your pharmacist can provide more information about prednisone. Remember, keep this and all other medicines out of the reach of children, never share your medicines with others, and use this medication only for the indication prescribed. Every effort has been made to ensure that the information provided by [employer]. ('[employer]') is accurate, up-to-date, and complete, but no guarantee is made to that effect. Drug information contained herein may be time sensitive. [employer] information has been compiled for use by healthcare practitioners and consumers in the [place] and therefore [employer] does not warrant that uses outside of the [place] are appropriate, unless specifically indicated otherwise. [employer]'s drug information does not endorse drugs, diagnose patients or recommend therapy. [employer] drug information is an informational resource designed to assist licensed healthcare practitioners in caring for their patients and/or to serve consumers viewing this service as a supplement to, and not a substitute for, the expertise, skill, knowledge and judgment of healthcare practitioners. The absence of a warning for a given drug or drug combination in no way should be construed to indicate that the drug or drug combination is safe, effective or appropriate for any given patient. [employer] does not assume any responsibility for any aspect of healthcare administered with the aid of information [employer] provides. The information contained herein is not intended to cover all possible uses, directions, precautions, warnings, drug interactions, allergic reactions, or adverse effects. If you have questions about the drugs you are taking, check with your doctor, nurse or pharmacist. Copyright 6578-7701 [employer]. Version: 10.. Revision Date: 11/09/2018. naproxen (na PROX en) Aleve, Anaprox-DS, Midol Extended Relief, Naprelan 500, Naprosyn What is the most important information I should know about naproxen? Naproxen can increase your risk of fatal heart attack or stroke. Do not use this medicine just before or after heart bypass surgery (coronary artery bypass graft, or CABG). Naproxen may also cause stomach or intestinal bleeding, which can be fatal. What is naproxen? Naproxen is a nonsteroidal anti-inflammatory drug (NSAID). Naproxen is used to treat pain or inflammation caused by conditions such as arthritis, ankylosing spondylitis, tendinitis, bursitis, gout, or menstrual cramps. The delayed-release or extended-release tablets are slower-acting forms of naproxen that are used only for treating chronic conditions such as arthritis or ankylosing spondylitis. These forms of naproxen will not work fast enough to treat acute pain. Naproxen may also be used for purposes not listed in this medication guide. What should I discuss with my healthcare provider before taking naproxen? Naproxen can increase your risk of fatal heart attack or stroke, even if you don't have any risk factors. Do not use this medicine just before or after heart bypass surgery (coronary artery bypass graft, or CABG). Naproxen may also cause stomach or intestinal bleeding, which can be fatal. These conditions can occur without warning while you are using naproxen, especially in older adults. You should not use naproxen if you are allergic to it, or if you have ever had an asthma attack or severe allergic reaction after taking aspirin or an NSAID. Ask a doctor before giving naproxen to a child younger than 12 years old. Ask a doctor or pharmacist if this medicine is safe to use if you have: heart disease, high blood pressure, high cholesterol, diabetes, or if you smoke; a heart attack, stroke, or blood clot; stomach ulcers or bleeding; asthma; liver or kidney disease; fluid retention; or if you take aspirin to prevent heart attack or stroke. If you are , you should not take naproxen unless your doctor tells you to. Taking an NSAID during the last 20 weeks of can cause serious heart or kidney problems in the unborn baby and possible complications with your . It may not be safe to breastfeed while using this medicine. Ask your doctor about any risk. How should I take naproxen? Use exactly as directed on the label, or as prescribed by your doctor. Use the lowest dose that is effective in treating your condition. Shake the oral suspension (liquid) before you measure a dose. Measure a dose with the supplied measuring device (not a kitchen spoon). Take this medicine with food or milk if it upsets your stomach. Always follow directions on the medicine label about giving this medicine to a child. Naproxen doses are based on weight in children. Your child's dose needs may change if the child gains or loses weight. If you use naproxen long-term, you may need frequent medical tests. This medicine can affect the results of certain medical tests. Tell any doctor who treats you that you are using naproxen. Store at room temperature away from moisture, heat, and light. Keep the bottle tightly closed when not in use. What happens if I miss a dose? Since naproxen is used when needed, you may not be on a dosing schedule. Skip any missed dose if it's almost time for your next dose. Do not use two doses at one time. What happens if I overdose? Seek emergency medical attention or call the Poison Help line at . What should I avoid while taking naproxen? Avoid drinking alcohol. It may increase your risk of stomach bleeding. Avoid taking aspirin or other NSAIDs unless your doctor tells you to. Ask a doctor or pharmacist before using other medicines for pain, fever, swelling, or cold/flu symptoms. They may contain ingredients similar to naproxen (such as aspirin, ibuprofen, or ketoprofen). Ask your doctor before using an antacid, and use only the type your doctor recommends. Some antacids can make it harder for your body to absorb naproxen. What are the possible side effects of naproxen? Get emergency medical help if you have signs of an allergic reaction (runny or stuffy nose, wheezing or trouble breathing, hives, swelling in your face or throat) or a severe skin reaction (fever, sore throat, burning eyes, skin pain, red or purple skin rash with blistering and peeling). Stop using naproxen and seek medical treatment if you have a serious drug reaction that can affect many parts of your body. Symptoms may include skin rash, fever, swollen glands, muscle aches, severe weakness, unusual bruising, or yellowing of your skin or eyes. Get emergency medical help if you have signs of a heart attack or stroke: chest pain spreading to your jaw or shoulder, sudden numbness or weakness on one side of the body, slurred speech, leg swelling, feeling short of breath. Stop using naproxen and call your doctor at once if you have: shortness of breath (even with mild exertion); swelling or rapid weight gain; the first sign of any skin rash or blister, no matter how mild; signs of stomach bleeding--bloody or tarry stools, coughing up blood or vomit that looks like coffee grounds; liver problems--nausea, upper stomach pain, loss of appetite, dark urine, sai-colored stools, jaundice (yellowing of the skin or eyes); kidney problems--little or no urination, painful urination, swelling in your feet or ankles; or low red blood cells (anemia)--pale skin, unusual tiredness, feeling light-headed or short of breath, cold hands and feet. Common side effects may include: headache; indigestion, heartburn, stomach pain; or flu symptoms; This is not a complete list of side effects and others may occur. Call your doctor for medical advice about side effects. You may report side effects to FDA at 9-465-OPU-8067. What other drugs will affect naproxen? Ask your doctor before using naproxen if you take an antidepressant. Taking certain antidepressants with an NSAID may cause you to bruise or bleed easily. Ask a doctor or pharmacist before using naproxen with any other medications, especially: other NSAIDs or salicylates (diflunisal, salsalate); antacids and sucralfate; cholestyramine; cyclosporine; digoxin; lithium; methotrexate; pemetrexed; probenecid; warfarin (Coumadin, Jantoven) or similar blood thinners; a diuretic or 'water pill'; or heart or blood pressure medication. This list is not complete. Other drugs may affect naproxen, including prescription and gply-lci-mdvaqfs medicines, vitamins, and herbal products. Not all possible drug interactions are listed here. Where can I get more information? Your pharmacist can provide more information about naproxen. Remember, keep this and all other medicines out of the reach of children, never share your medicines with others, and use this medication only for the indication prescribed. Every effort has been made to ensure that the information provided by [employer]. ('[employer]') is accurate, up-to-date, and complete, but no guarantee is made to that effect. Drug information contained herein may be time sensitive. [employer] information has been compiled for use by healthcare practitioners and consumers in the [place] and therefore [employer] does not warrant that uses outside of the [place] are appropriate, unless specifically indicated otherwise. [employer] drug information does not endorse drugs, diagnose patients or recommend therapy. [employer] drug information is an informational resource designed to assist licensed healthcare practitioners in caring for their patients and/or to serve consumers viewing this service as a supplement to, and not a substitute for, the expertise, skill, knowledge and judgment of healthcare practitioners. The absence of a warning for a given drug or drug combination in no way should be construed to indicate that the drug or drug combination is safe, effective or appropriate for any given patient. [employer] does not assume any responsibility for any aspect of healthcare administered with the aid of information [employer] provides. The information contained herein is not intended to cover all possible uses, directions, precautions, warnings, drug interactions, allergic reactions, or adverse effects. If you have questions about the drugs you are taking, check with your doctor, nurse or pharmacist. Copyright 4865-9896 [employer]. Version: .. Revision Date: 12/22/2021. Education Materials Noncardiac Chest Pain Based on your visit today, the healthcare provider doesn t know what is causing your chest pain. In most cases, people who come to the emergency department with chest pain don t have a problem with their heart. Instead, the pain is caused by other conditions. It's important for the healthcare team to be sure you are not having a life threatening cause for chest pain such as a heart attack, blood clot in the lungs, collapsed lung, ruptured esophagus, or tearing of the aorta. Once these major causes have been ruled out, you may have further evaluation for non-heart causes of chest pain. These may be problems with the lungs, muscles, bones, digestive tract, nerves, or mental health. Lung problems Inflammation around the lungs (pleurisy) Collapsed lung (pneumothorax) Fluid around the lungs (pleural effusion) Lung cancer (a rare cause of chest pain) Muscle or bone problems Inflamed cartilage between the ribs (costochondritis) Fibromyalgia Rheumatoid arthritis Chest wall strain Digestive system problems Reflux Stomach ulcer Spasms of the esophagus Gall stones Gallbladder inflammation Mental health conditions Panic or anxiety attacks Emotional distress Your condition doesn t seem serious and your pain doesn t appear to be coming from your heart. But sometimes the signs of a serious problem take more time to appear. Watch for the warning signs listed below. Home care Follow these guidelines when caring for yourself at home: Rest today and avoid strenuous activity. Take any prescribed medicine as directed. Follow-up care Follow up with your healthcare provider, or as advised, if you don t start to feel better within 24 hours. When to seek medical advice Call your healthcare provider right away if any of these occur: A change in the type of pain. Call if it feels different, becomes more serious, lasts longer, or begins to spread into your shoulder, arm, neck, jaw, or back. Shortness of breath You feel more pain when you breathe Cough with dark-colored mucus or blood Weakness, dizziness, or fainting Fever of 100.4 F (38 C) or higher, or as directed by your healthcare provider Swelling, pain, or redness in one leg [id number] [employer]. [address] [place] [address]. All rights reserved. This information is not intended as a substitute for professional medical care. Always follow your healthcare professional's instructions. Additional Information VACCINATE! IT SAVES LIVES! Members of the community who have not yet received the COVID-19 vaccine and would like to receive it can visit one of [facility] vaccine clinics. There are many vaccine clinic locations within the [facility]. For locations and available times, please visit [email or web address] It is important to note that some COVID mobile vaccine clinics are held outdoors and may be canceled in rainy or stormy conditions. To learn more about pediatric vaccinations (ages 5-11), we invite you to visit the [facility] webpage. [email or web address] To learn more about the COVID-19 vaccine, we invite you to visit the CDC website for a list of frequently asked questions. https://www.cdc.gov/coronavirus/ 2019-ncov/vaccines/faq.html [facility] Patient Portal Access Instructions: Stay connected with your healthcare team and access your personal medical information anytime with the [facility] Patient Portal. If you would like a full copy of your medical records please contact the [facility] Medical Records Department Tuesday through Tuesday between 8a.m. and 4:30p.m. Please follow the directions below to access the portal: 1.Access the email account you provided upon registration to the [facility].2.Look for an invitation email from [facility].3.Open the email and access the invitation link: Accept Invitation to [facility]4.Fill in the required day to create your account. Sign into [email or web address] with your username and password that you created in the above steps to stay up to date. You can then view a summary of results, a summary of your visits, and the ability to download your summaries to your computer or send the information securely to a physician. Remember that your healthcare information is confidential, so carefully consider who you will allow to register on the [facility] Patient Portal for access to your information. You can also access the [facility] Patient Portal on the [employer]. Simply click on Health Records under Health Data and then click on the [employer] logo. HOW TO SAFELY DISPOSE OF PRESCRIPTION MEDICATIONS Please use one of the following methods to safely dispose of your unused medications. 1.Use a drug disposal kit: the drug disposal pouch allows you to safely discard your old and unused drugs. Ask your nurse to give you one when you are discharged.2.Visit a local take-back location: Many local pharmacies and police departments have programs that collect old and unwanted prescription drugs. Call your local pharmacy or go to [email or web address] to find one close to you.3.Make use of household items: Use cat litter or old coffee grounds to dispose medications if other options are not available. Mix your drugs with these household products, seal them in an airtight container and throw it into the garbage. Call [facility]: [phone] to be sure your drugs can be disposed of in this way. Some medicines may require a different approach.4.Never flush your medications down the toilet. IF YOU HAVE BEEN PRESCRIBED AN OPIOIDS FOR PAIN If you have been prescribed an opioid (such as hydrocodone, oxycodone or morphine), it is critical to understand the possible side effects and risks of opioid pain medications. Even when taken as directed, opioids can have several side effects including: Tolerance, meaning you might need to take more of a medication for the same pain relief. Nausea, vomiting and/or constipation. Sleepiness, dizziness, dry mouth, confusion, depression or itching. Physical dependence, meaning you have withdrawal symptoms when a medication is stopped ? this can develop within a few days. KNOW YOUR RESPONSIBILITIES It is important to know exactly how much and how often to take the opioid pain medications you are prescribed. Never take opioids in higher amounts or more often than prescribed. Do not combine opioids with alcohol or other drugs that cause drowsiness, such as benzodiazepines, also known as benzos, including diazepam and alprazolam, muscle relaxants or sleep aids. Never sell or share prescription opioids. This is illegal. Store opioids in a secure place and out of reach of others (including children, family, friends and visitors). The last page(s) of this document has been signed and retained as a CHART COPY [employer] Patient Education Materials Chest Pain, Noncardiac Medication Leaflets prednisone, naproxen My discharge plan and instructions have been reviewed and explained to me and I,JHONNY PACK understand my current condition and have read and understand these discharge instructions. I have received a written copy of the plan/instructions. If I have questions, I am aware that I should contact my doctor. 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 Multiplanar reformatted images are provided for review. MIP images are provided for review. Automated exposure control, iterative reconstruction, and/or weight based adjustment of the mA/kV was utilized to reduce the radiation dose to as low as reasonably achievable. COMPARISON: None. HISTORY: ORDERING SYSTEM PROVIDED HISTORY: Reason for Exam: chest pain; suspect PE FINDINGS: Artifact degraded exam. Pulmonary Arteries: Pulmonary arteries are adequately opacified for evaluation. Artifact degraded exam. No convincing evidence of pulmonary artery embolism within the confines to the segmental level. Mediastinum: No evidence of mediastinal lymphadenopathy. The heart and pericardium demonstrate no acute abnormality. There is no acute abnormality of the thoracic aorta. Lungs/pleura: Areas of mosaic attenuation. Suggested mild bronchial wall thickening. No focal consolidation, pleural effusion or pneumothorax. 0.5 cm pulmonary nodularity in the right lower lobe, which does not require interval follow-up per Fleischner criteria unless the patient is high risk. Scattered areas of subsegmental atelectatic changes. Upper Abdomen: Partially imaged left renal cystic structure. Soft Tissues/Bones: No acute bone or soft tissue abnormality. Degenerative changes of the spine. IMPRESSION: Artifact degraded exam. No convincing evidence of pulmonary artery embolism within the confines to the segmental level. Areas of mosaic attenuation and suggested mild bronchial thickening, could reflect reactive airway disease or bronchitis with air trapping versus phase of breathing. Interpreted by: Faizan Haq Preliminary Report By: Faizan Haq Electronically signed By Faizan Haq Dictated Date: 03/12/2023 6:17:54 PM Prelim Date: 03/12/2023 6:24:26 PM Sign Date: 03/12/2023 6:24:26 PM Ordering Provider: VERA ARREAGA [facility] 03-12-2023 Note Sinus rhythm Low voltage, precordial leads Electronic Signature: VERA ARREAGA MD 03/12/2023 17:04:52 [facility] 08-13-2022 HCoV 229E RNA DAYANA+non-probe Ql (Nph) Not Detected *NA* (08/13/22 4:09 PM) Auto Viro/Sero SS Evaluation + Plan note Future Appointments Appointment Date:11/10/2021 02:20:00 PM Scheduled Provider:EDWARD GREY DO Location:[facility] Appointment Type:PC OV Future Scheduled TestsMA Mammo Screening Bilateral w/ Renzo 06/09/21 [facility] Evaluation + Plan note Future Appointments Appointment Date:05/27/2022 02:00:00 PM Scheduled Provider:EDWARD GREY DO Location:[facility] Appointment Type:PC OV [facility] Evaluation + Plan note Future Appointments Appointment Date:11/25/2022 02:00:00 PM Scheduled Provider:EDWARD GREY DO Location:[facility] Appointment Type:PC OV Follow Up [facility] Evaluation + Plan note Future Appointments Appointment Date:04/01/2023 02:30:00 PM Scheduled Provider:EDWARD GREY DO Location:[facility] Appointment Type:PC OV Appointment Date:05/17/2023 02:00:00 PM Scheduled Provider:EDWARD GREY DO Location:[facility] Appointment Type:PC OV [facility] Hospital course Narrative No data available for this section [facility] Discharge instructions No data available for this section [facility]; [facility] Work Phone: Instructions* Name Dates Details Patient Instructions Indication:BMI 35.0-35.9,adult Start:04-Nov-2021 Instruction Type:Provider Instructions for Treatment How to Access Health Informa tion Online using Patient Portal and 3rd [employer] Apps Indication:BMI 35.0-35.9,adult Start:04-Nov-2021 Instruction Type:Patient Education Patient Instructions Indication:Nonsmoker Start:28-Oct-2021 Instruction Type:Provider Instructions for Treatment How to Access Health Informa tion Online using Patient Portal and 3rd [employer] Apps Indication:Nonsmoker Start:28-Oct-2021 Instruction Type:Patient Education Patient Instructions Indication:Nonsmoker Start:20-Jul-2021 Instruction Type:Provider Instructions for Treatment How to Access Health Informa tion Online using Patient Portal and 3rd [employer] Apps Indication:Nonsmoker Start:20-Jul-2021 Instruction Type:Patient Education Patient Instructions Indication:BMI 35.0-35.9,adult Start:26-Jun-2021 Instruction Type:Provider Instructions for Treatment How to Access Health Informa tion Online using Patient Portal and 3rd [employer] Apps Indication:BMI 35.0-35.9,adult Start:26-Jun-2021 Instruction Type:Patient Education Patient Instructions Indication:BMI 35.0-35.9,adult Start:22-Jun-2021 Instruction Type:Provider Instructions for Treatment How to Access Health Informa tion Online using Patient Portal and 3rd [employer] Apps Indication:BMI 35.0-35.9,adult Start:22-Jun-2021 Instruction Type:Patient Education Patient Instructions Indication:BMI 35.0-35.9,adult Start:23-Apr-2021 Instruction Type:Provider Instructions for Treatment How to Access Health Informa tion Online using Patient Portal and 3rd [employer] Apps Indication:BMI 35.0-35.9,adult Start:23-Apr-2021 Instruction Type:Patient Education Patient Instructions Indication:BMI 35.0-35.9,adult Start:20-Mar-2021 Instruction Type:Provider Instructions for Treatment How to Access Health Informa tion Online using Patient Portal and 3rd [employer] Apps Indication:BMI 35.0-35.9,adult Start:20-Mar-2021 Instruction Type:Patient Education How to Access Health Informa tion Online using Patient Portal and 3rd [employer] Apps Indication:Nonsmoker Start:08-Sep-2020 Instruction Type:Patient Education Patient Instructions Indication:Nonsmoker Start:08-Sep-2020 Instruction Type:Provider Instructions for Treatment How to Access Health Informa tion Online using Patient Portal and 3rd [employer] Apps Indication:Nonsmoker Start:01-Sep-2020 Instruction Type:Patient Education Patient Instructions Indication:Nonsmoker Start:01-Sep-2020 Instruction Type:Provider Instructions for Treatment Patient Instructions Indication:BMI 35.0-35.9,adult Start:29-Aug-2020 Instruction Type:Provider Instructions for Treatment How to Access Health Informa tion Online using Patient Portal and 3rd [employer] Apps Indication:BMI 35.0-35.9,adult Start:29-Aug-2020 Instruction Type:Patient Education Patient Instructions Indication:Nonsmoker Start:30-Jul-2020 Instruction Type:Provider Instructions for Treatment How to Access Health Informa tion Online using Patient Portal and 3rd [employer] Apps Indication:Nonsmoker Start:30-Jul-2020 Instruction Type:Patient Education How to access health informa tion online Indication:Nonsmoker Start:27-Dec-2019 Instruction Type:Patient Education How to access health informa tion online - Detail Indication:Nonsmoker Start:27-Dec-2019 Instruction Type:Patient Education Patient Instructions Indication:Nonsmoker Start:27-Dec-2019 Instruction Type:Provider Instructions for Treatment How to access health informa tion online Indication:BMI 35.0-35.9,adult Start:14-Dec-2019 Instruction Type:Patient Education How to access health informa tion online - Detail Indication:BMI 35.0-35.9,adult Start:14-Dec-2019 Instruction Type:Patient Education Patient Instructions Indication:BMI 35.0-35.9,adult Start:14-Dec-2019 Instruction Type:Provider Instructions for Treatment How to access health informa tion online Indication:Nonsmoker Start:07-Nov-2019 Instruction Type:Patient Education How to access health informa tion online - Detail Indication:Nonsmoker Start:07-Nov-2019 Instruction Type:Patient Education Patient Instructions Indication:Nonsmoker Start:07-Nov-2019 Instruction Type:Provider Instructions for Treatment How to access health informa tion online Indication:BMI 35.0-35.9,adult Start:18-Sep-2019 Instruction Type:Patient Education How to access health informa tion online - Detail Indication:BMI 35.0-35.9,adult Start:18-Sep-2019 Instruction Type:Patient Education Patient Instructions Indication:BMI 35.0-35.9,adult Start:18-Sep-2019 Instruction Type:Provider Instructions for Treatment How to access health informa tion online Indication:Non-smoker Start:17-May-2019 Instruction Type:Patient Education How to access health informa tion online - Detail Indication:Non-smoker Start:17-May-2019 Instruction Type:Patient Education Patient Instructions Indication:Sinusitis, bacterial Start:17-May-2019 Instruction Type:Provider Instructions for Treatment How to access health informa tion online Indication:Tenderness of neck Start:25-Apr-2019 Instruction Type:Patient Education How to access health informa tion online - Detail Indication:Tenderness of neck Start:25-Apr-2019 Instruction Type:Patient Education Patient Instructions Indication:Tenderness of neck Start:25-Apr-2019 Instruction Type:Provider Instructions for Treatment How to access health informa tion online Indication:BMI 32.0-32.9,adult Start:04-Sep-2018 Instruction Type:Patient Education How to access health informa tion online - Detail Indication:BMI 32.0-32.9,adult Start:04-Sep-2018 Instruction Type:Patient Education Patient Instructions Indication:BMI 32.0-32.9,adult Start:04-Sep-2018 Instruction Type:Provider Instructions for Treatment How to access health informa tion online Indication:BMI 31.0-31.9,adult Start:04-Aug-2018 Instruction Type:Patient Education How to access health informa tion online - Detail Indication:BMI 31.0-31.9,adult Start:04-Aug-2018 Instruction Type:Patient Education Patient Instructions Indication:BMI 31.0-31.9,adult Start:04-Aug-2018 Instruction Type:Provider Instructions for Treatment Patient Instructions Indication:Finger pain, left Start:28-Jul-2018 Instruction Type:Provider Instructions for Treatment How to access health informa tion online Indication:Non-smoker Start:28-Jul-2018 Instruction Type:Patient Education How to access health informa tion online - Detail Indication:Non-smoker Start:28-Jul-2018 Instruction Type:Patient Education Patient Instructions Indication:Non-smoker Start:28-Jul-2018 Instruction Type:Provider Instructions for Treatment How to access health informa tion online Indication:BMI 31.0-31.9,adult Start:30-Mar-2018 Instruction Type:Patient Education How to access health informa tion online - Detail Indication:BMI 31.0-31.9,adult Start:30-Mar-2018 Instruction Type:Patient Education Patient Instructions Indication:Vaginal yeast infection Start:30-Mar-2018 Instruction Type:Provider Instructions for Treatment How to access health informa tion online Indication:Non-smoker Start:16-Mar-2018 Instruction Type:Patient Education How to access health informa tion online - Detail Indication:Non-smoker Start:16-Mar-2018 Instruction Type:Patient Education Patient Instructions Indication:Non-smoker Start:16-Mar-2018 Instruction Type:Provider Instructions for Treatment How to access health informa tion online Indication:Bronchitis Start:28-May-2016 Instruction Type:Patient Education How to access health informa tion online - Detail Indication:Bronchitis Start:28-May-2016 Instruction Type:Patient Education How to access health informa tion online Indication:Cough Start:05-May-2016 Instruction Type:Patient Education How to access health informa tion online - Detail Indication:Cough Start:05-May-2016 Instruction Type:Patient Education Patient Instructions Indication:Cough Start:05-May-2016 Instruction Type:Provider Instructions for Treatment How to access health informa tion online Indication:Contact dermatitis, unspecified contact dermatitis type, unspecified trigger Start:29-Dec-2015 Instruction Type:Patient Education How to access health informa tion online - Detail Indication:Contact dermatitis, unspecified contact dermatitis type, unspecified trigger Start:29-Dec-2015 Instruction Type:Patient Education Patient Instructions Indication:Arthralgia of right hip Start:15-Dec-2015 Instruction Type:Provider Instructions for Treatment How to access health informa tion online Indication:Back pain, acute Start:08-Dec-2015 Instruction Type:Patient Education How to access health informa tion online - Detail Indication:Back pain, acute Start:08-Dec-2015 Instruction Type:Patient Education Patient Instructions Indication:Back pain, acute Start:08-Dec-2015 Instruction Type:Provider Instructions for Treatment How to access health informa tion online Indication:Cough Start:10-Nov-2015 Instruction Type:Patient Education How to access health informa tion online - Detail Indication:Cough Start:10-Nov-2015 Instruction Type:Patient Education Patient Instructions Indication:Cough Start:10-Nov-2015 Instruction Type:Provider Instructions for Treatment How to access health informa tion online Indication:Muscle strain Start:15-Jan-2015 Instruction Type:Patient Education How to access health informa tion online - Detail Indication:Muscle strain Start:15-Jan-2015 Instruction Type:Patient Education Patient Instructions Indication:Muscle strain Start:15-Jan-2015 Instruction Type:Provider Instructions for Treatment Patient Instructions Indication:Acute sinusitis, unspecified Start:31-Oct-2013 Instruction Type:Provider Instructions for Treatment Patient Instructions Indication:Rash Start:26-Sep-2013 Instruction Type:Provider Instructions for Treatment Patient Instructions Indication:Pain of toe, unspecified laterality Start:26-Dec-2012 Instruction Type:Provider Instructions for Treatment Patient Instructions Indication:Knee pain, left Start:24-Nov-2012 Instruction Type:Provider Instructions for Treatment [facility]; [facility] Work Phone: Instructions* Name Dates Details Patient Instructions Indication:BMI 35.0-35.9,adult Start:04-Nov-2021 Instruction Type:Provider Instructions for Treatment How to Access Health Informa tion Online using Patient Portal and 3rd [employer] Apps Indication:BMI 35.0-35.9,adult Start:04-Nov-2021 Instruction Type:Patient Education Patient Instructions Indication:Nonsmoker Start:28-Oct-2021 Instruction Type:Provider Instructions for Treatment How to Access Health Informa tion Online using Patient Portal and 3rd [employer] Apps Indication:Nonsmoker Start:28-Oct-2021 Instruction Type:Patient Education Patient Instructions Indication:Nonsmoker Start:20-Jul-2021 Instruction Type:Provider Instructions for Treatment How to Access Health Informa tion Online using Patient Portal and 3rd [employer] Apps Indication:Nonsmoker Start:20-Jul-2021 Instruction Type:Patient Education Patient Instructions Indication:BMI 35.0-35.9,adult Start:26-Jun-2021 Instruction Type:Provider Instructions for Treatment How to Access Health Informa tion Online using Patient Portal and 3rd [employer] Apps Indication:BMI 35.0-35.9,adult Start:26-Jun-2021 Instruction Type:Patient Education Patient Instructions Indication:BMI 35.0-35.9,adult Start:22-Jun-2021 Instruction Type:Provider Instructions for Treatment How to Access Health Informa tion Online using Patient Portal and 3rd [employer] Apps Indication:BMI 35.0-35.9,adult Start:22-Jun-2021 Instruction Type:Patient Education Patient Instructions Indication:BMI 35.0-35.9,adult Start:23-Apr-2021 Instruction Type:Provider Instructions for Treatment How to Access Health Informa tion Online using Patient Portal and 3rd [employer] Apps Indication:BMI 35.0-35.9,adult Start:23-Apr-2021 Instruction Type:Patient Education Patient Instructions Indication:BMI 35.0-35.9,adult Start:20-Mar-2021 Instruction Type:Provider Instructions for Treatment How to Access Health Informa tion Online using Patient Portal and 3rd [employer] Apps Indication:BMI 35.0-35.9,adult Start:20-Mar-2021 Instruction Type:Patient Education How to Access Health Informa tion Online using Patient Portal and 3rd [employer] Apps Indication:Nonsmoker Start:08-Sep-2020 Instruction Type:Patient Education Patient Instructions Indication:Nonsmoker Start:08-Sep-2020 Instruction Type:Provider Instructions for Treatment How to Access Health Informa tion Online using Patient Portal and 3rd [employer] Apps Indication:Nonsmoker Start:01-Sep-2020 Instruction Type:Patient Education Patient Instructions Indication:Nonsmoker Start:01-Sep-2020 Instruction Type:Provider Instructions for Treatment Patient Instructions Indication:BMI 35.0-35.9,adult Start:29-Aug-2020 Instruction Type:Provider Instructions for Treatment How to Access Health Informa tion Online using Patient Portal and 3rd [employer] Apps Indication:BMI 35.0-35.9,adult Start:29-Aug-2020 Instruction Type:Patient Education Patient Instructions Indication:Nonsmoker Start:30-Jul-2020 Instruction Type:Provider Instructions for Treatment How to Access Health Informa tion Online using Patient Portal and 3rd [employer] Apps Indication:Nonsmoker Start:30-Jul-2020 Instruction Type:Patient Education How to access health informa tion online Indication:Nonsmoker Start:27-Dec-2019 Instruction Type:Patient Education How to access health informa tion online - Detail Indication:Nonsmoker Start:27-Dec-2019 Instruction Type:Patient Education Patient Instructions Indication:Nonsmoker Start:27-Dec-2019 Instruction Type:Provider Instructions for Treatment How to access health informa tion online Indication:BMI 35.0-35.9,adult Start:14-Dec-2019 Instruction Type:Patient Education How to access health informa tion online - Detail Indication:BMI 35.0-35.9,adult Start:14-Dec-2019 Instruction Type:Patient Education Patient Instructions Indication:BMI 35.0-35.9,adult Start:14-Dec-2019 Instruction Type:Provider Instructions for Treatment How to access health informa tion online Indication:Nonsmoker Start:07-Nov-2019 Instruction Type:Patient Education How to access health informa tion online - Detail Indication:Nonsmoker Start:07-Nov-2019 Instruction Type:Patient Education Patient Instructions Indication:Nonsmoker Start:07-Nov-2019 Instruction Type:Provider Instructions for Treatment How to access health informa tion online Indication:BMI 35.0-35.9,adult Start:18-Sep-2019 Instruction Type:Patient Education How to access health informa tion online - Detail Indication:BMI 35.0-35.9,adult Start:18-Sep-2019 Instruction Type:Patient Education Patient Instructions Indication:BMI 35.0-35.9,adult Start:18-Sep-2019 Instruction Type:Provider Instructions for Treatment How to access health informa tion online Indication:Non-smoker Start:17-May-2019 Instruction Type:Patient Education How to access health informa tion online - Detail Indication:Non-smoker Start:17-May-2019 Instruction Type:Patient Education Patient Instructions Indication:Sinusitis, bacterial Start:17-May-2019 Instruction Type:Provider Instructions for Treatment How to access health informa tion online Indication:Tenderness of neck Start:25-Apr-2019 Instruction Type:Patient Education How to access health informa tion online - Detail Indication:Tenderness of neck Start:25-Apr-2019 Instruction Type:Patient Education Patient Instructions Indication:Tenderness of neck Start:25-Apr-2019 Instruction Type:Provider Instructions for Treatment How to access health informa tion online Indication:BMI 32.0-32.9,adult Start:04-Sep-2018 Instruction Type:Patient Education How to access health informa tion online - Detail Indication:BMI 32.0-32.9,adult Start:04-Sep-2018 Instruction Type:Patient Education Patient Instructions Indication:BMI 32.0-32.9,adult Start:04-Sep-2018 Instruction Type:Provider Instructions for Treatment How to access health informa tion online Indication:BMI 31.0-31.9,adult Start:04-Aug-2018 Instruction Type:Patient Education How to access health informa tion online - Detail Indication:BMI 31.0-31.9,adult Start:04-Aug-2018 Instruction Type:Patient Education Patient Instructions Indication:BMI 31.0-31.9,adult Start:04-Aug-2018 Instruction Type:Provider Instructions for Treatment Patient Instructions Indication:Finger pain, left Start:28-Jul-2018 Instruction Type:Provider Instructions for Treatment How to access health informa tion online Indication:Non-smoker Start:28-Jul-2018 Instruction Type:Patient Education How to access health informa tion online - Detail Indication:Non-smoker Start:28-Jul-2018 Instruction Type:Patient Education Patient Instructions Indication:Non-smoker Start:28-Jul-2018 Instruction Type:Provider Instructions for Treatment How to access health informa tion online Indication:BMI 31.0-31.9,adult Start:30-Mar-2018 Instruction Type:Patient Education How to access health informa tion online - Detail Indication:BMI 31.0-31.9,adult Start:30-Mar-2018 Instruction Type:Patient Education Patient Instructions Indication:Vaginal yeast infection Start:30-Mar-2018 Instruction Type:Provider Instructions for Treatment How to access health informa tion online Indication:Non-smoker Start:16-Mar-2018 Instruction Type:Patient Education How to access health informa tion online - Detail Indication:Non-smoker Start:16-Mar-2018 Instruction Type:Patient Education Patient Instructions Indication:Non-smoker Start:16-Mar-2018 Instruction Type:Provider Instructions for Treatment How to access health informa tion online Indication:Bronchitis Start:28-May-2016 Instruction Type:Patient Education How to access health informa tion online - Detail Indication:Bronchitis Start:28-May-2016 Instruction Type:Patient Education How to access health informa tion online Indication:Cough Start:05-May-2016 Instruction Type:Patient Education How to access health informa tion online - Detail Indication:Cough Start:05-May-2016 Instruction Type:Patient Education Patient Instructions Indication:Cough Start:05-May-2016 Instruction Type:Provider Instructions for Treatment How to access health informa tion online Indication:Contact dermatitis, unspecified contact dermatitis type, unspecified trigger Start:29-Dec-2015 Instruction Type:Patient Education How to access health informa tion online - Detail Indication:Contact dermatitis, unspecified contact dermatitis type, unspecified trigger Start:29-Dec-2015 Instruction Type:Patient Education Patient Instructions Indication:Arthralgia of right hip Start:15-Dec-2015 Instruction Type:Provider Instructions for Treatment How to access health informa tion online Indication:Back pain, acute Start:08-Dec-2015 Instruction Type:Patient Education How to access health informa tion online - Detail Indication:Back pain, acute Start:08-Dec-2015 Instruction Type:Patient Education Patient Instructions Indication:Back pain, acute Start:08-Dec-2015 Instruction Type:Provider Instructions for Treatment How to access health informa tion online Indication:Cough Start:10-Nov-2015 Instruction Type:Patient Education How to access health informa tion online - Detail Indication:Cough Start:10-Nov-2015 Instruction Type:Patient Education Patient Instructions Indication:Cough Start:10-Nov-2015 Instruction Type:Provider Instructions for Treatment How to access health informa tion online Indication:Muscle strain Start:15-Jan-2015 Instruction Type:Patient Education How to access health informa tion online - Detail Indication:Muscle strain Start:15-Jan-2015 Instruction Type:Patient Education Patient Instructions Indication:Muscle strain Start:15-Jan-2015 Instruction Type:Provider Instructions for Treatment Patient Instructions Indication:Acute sinusitis, unspecified Start:31-Oct-2013 Instruction Type:Provider Instructions for Treatment Patient Instructions Indication:Rash Start:26-Sep-2013 Instruction Type:Provider Instructions for Treatment Patient Instructions Indication:Pain of toe, unspecified laterality Start:26-Dec-2012 Instruction Type:Provider Instructions for Treatment Patient Instructions Indication:Knee pain, left Start:24-Nov-2012 Instruction Type:Provider Instructions for Treatment [facility] [facility]; [facility] Work Phone: Instructions* Name Dates Details Patient Instructions Indication:BMI 35.0-35.9,adult Start:04-Nov-2021 Instruction Type:Provider Instructions for Treatment How to Access Health Informa tion Online using Patient Portal and [employer]rd [employer] Indication:BMI 35.0-35.9,adult Start:04-Nov-2021 Instruction Type:Patient Education Patient Instructions Indication:Nonsmoker Start:28-Oct-2021 Instruction Type:Provider Instructions for Treatment How to Access Health Informa tion Online using Patient Portal and [employer]rd [employer] Apps Indication:Nonsmoker Start:28-Oct-2021 Instruction Type:Patient Education Patient Instructions Indication:Nonsmoker Start:20-Jul-2021 Instruction Type:Provider Instructions for Treatment How to Access Health Informa tion Online using Patient Portal and [employer]rd [employer] Apps Indication:Nonsmoker Start:20-Jul-2021 Instruction Type:Patient Education Patient Instructions Indication:BMI 35.0-35.9,adult Start:26-Jun-2021 Instruction Type:Provider Instructions for Treatment How to Access Health Informa tion Online using Patient Portal and [employer]rd [employer] Apps Indication:BMI 35.0-35.9,adult Start:26-Jun-2021 Instruction Type:Patient Education Patient Instructions Indication:BMI 35.0-35.9,adult Start:22-Jun-2021 Instruction Type:Provider Instructions for Treatment How to Access Health Informa tion Online using Patient Portal and [employer]rd [employer] Apps Indication:BMI 35.0-35.9,adult Start:22-Jun-2021 Instruction Type:Patient Education Patient Instructions Indication:BMI 35.0-35.9,adult Start:23-Apr-2021 Instruction Type:Provider Instructions for Treatment How to Access Health Informa tion Online using Patient Portal and [employer]rd [employer] Apps Indication:BMI 35.0-35.9,adult Start:23-Apr-2021 Instruction Type:Patient Education Patient Instructions Indication:BMI 35.0-35.9,adult Start:20-Mar-2021 Instruction Type:Provider Instructions for Treatment How to Access Health Informa tion Online using Patient Portal and [employer]rd [employer] Apps Indication:BMI 35.0-35.9,adult Start:20-Mar-2021 Instruction Type:Patient Education How to Access Health Informa tion Online using Patient Portal and [employer]rd [employer] Apps Indication:Nonsmoker Start:08-Sep-2020 Instruction Type:Patient Education Patient Instructions Indication:Nonsmoker Start:08-Sep-2020 Instruction Type:Provider Instructions for Treatment How to Access Health Informa tion Online using Patient Portal and [employer]rd [employer] Apps Indication:Nonsmoker Start:01-Sep-2020 Instruction Type:Patient Education Patient Instructions Indication:Nonsmoker Start:01-Sep-2020 Instruction Type:Provider Instructions for Treatment Patient Instructions Indication:BMI 35.0-35.9,adult Start:29-Aug-2020 Instruction Type:Provider Instructions for Treatment How to Access Health Informa tion Online using Patient Portal and [employer]rd [employer] Apps Indication:BMI 35.0-35.9,adult Start:29-Aug-2020 Instruction Type:Patient Education Patient Instructions Indication:Nonsmoker Start:30-Jul-2020 Instruction Type:Provider Instructions for Treatment How to Access Health Informa tion Online using Patient Portal and [employer]rd [employer] Apps Indication:Nonsmoker Start:30-Jul-2020 Instruction Type:Patient Education How to access health informa tion online Indication:Nonsmoker Start:27-Dec-2019 Instruction Type:Patient Education How to access health informa tion online - Detail Indication:Nonsmoker Start:27-Dec-2019 Instruction Type:Patient Education Patient Instructions Indication:Nonsmoker Start:27-Dec-2019 Instruction Type:Provider Instructions for Treatment How to access health informa tion online Indication:BMI 35.0-35.9,adult Start:14-Dec-2019 Instruction Type:Patient Education How to access health informa tion online - Detail Indication:BMI 35.0-35.9,adult Start:14-Dec-2019 Instruction Type:Patient Education Patient Instructions Indication:BMI 35.0-35.9,adult Start:14-Dec-2019 Instruction Type:Provider Instructions for Treatment How to access health informa tion online Indication:Nonsmoker Start:07-Nov-2019 Instruction Type:Patient Education How to access health informa tion online - Detail Indication:Nonsmoker Start:07-Nov-2019 Instruction Type:Patient Education Patient Instructions Indication:Nonsmoker Start:07-Nov-2019 Instruction Type:Provider Instructions for Treatment How to access health informa tion online Indication:BMI 35.0-35.9,adult Start:18-Sep-2019 Instruction Type:Patient Education How to access health informa tion online - Detail Indication:BMI 35.0-35.9,adult Start:18-Sep-2019 Instruction Type:Patient Education Patient Instructions Indication:BMI 35.0-35.9,adult Start:18-Sep-2019 Instruction Type:Provider Instructions for Treatment How to access health informa tion online Indication:Non-smoker Start:17-May-2019 Instruction Type:Patient Education How to access health informa tion online - Detail Indication:Non-smoker Start:17-May-2019 Instruction Type:Patient Education Patient Instructions Indication:Sinusitis, bacterial Start:17-May-2019 Instruction Type:Provider Instructions for Treatment How to access health informa tion online Indication:Tenderness of neck Start:25-Apr-2019 Instruction Type:Patient Education How to access health informa tion online - Detail Indication:Tenderness of neck Start:25-Apr-2019 Instruction Type:Patient Education Patient Instructions Indication:Tenderness of neck Start:25-Apr-2019 Instruction Type:Provider Instructions for Treatment How to access health informa tion online Indication:BMI 32.0-32.9,adult Start:04-Sep-2018 Instruction Type:Patient Education How to access health informa tion online - Detail Indication:BMI 32.0-32.9,adult Start:04-Sep-2018 Instruction Type:Patient Education Patient Instructions Indication:BMI 32.0-32.9,adult Start:04-Sep-2018 Instruction Type:Provider Instructions for Treatment How to access health informa tion online Indication:BMI 31.0-31.9,adult Start:04-Aug-2018 Instruction Type:Patient Education How to access health informa tion online - Detail Indication:BMI 31.0-31.9,adult Start:04-Aug-2018 Instruction Type:Patient Education Patient Instructions Indication:BMI 31.0-31.9,adult Start:04-Aug-2018 Instruction Type:Provider Instructions for Treatment Patient Instructions Indication:Finger pain, left Start:28-Jul-2018 Instruction Type:Provider Instructions for Treatment How to access health informa tion online Indication:Non-smoker Start:28-Jul-2018 Instruction Type:Patient Education How to access health informa tion online - Detail Indication:Non-smoker Start:28-Jul-2018 Instruction Type:Patient Education Patient Instructions Indication:Non-smoker Start:28-Jul-2018 Instruction Type:Provider Instructions for Treatment How to access health informa tion online Indication:BMI 31.0-31.9,adult Start:30-Mar-2018 Instruction Type:Patient Education How to access health informa tion online - Detail Indication:BMI 31.0-31.9,adult Start:30-Mar-2018 Instruction Type:Patient Education Patient Instructions Indication:Vaginal yeast infection Start:30-Mar-2018 Instruction Type:Provider Instructions for Treatment How to access health informa tion online Indication:Non-smoker Start:16-Mar-2018 Instruction Type:Patient Education How to access health informa tion online - Detail Indication:Non-smoker Start:16-Mar-2018 Instruction Type:Patient Education Patient Instructions Indication:Non-smoker Start:16-Mar-2018 Instruction Type:Provider Instructions for Treatment How to access health informa tion online Indication:Bronchitis Start:28-May-2016 Instruction Type:Patient Education How to access health informa tion online - Detail Indication:Bronchitis Start:28-May-2016 Instruction Type:Patient Education How to access health informa tion online Indication:Cough Start:05-May-2016 Instruction Type:Patient Education How to access health informa tion online - Detail Indication:Cough Start:05-May-2016 Instruction Type:Patient Education Patient Instructions Indication:Cough Start:05-May-2016 Instruction Type:Provider Instructions for Treatment How to access health informa tion online Indication:Contact dermatitis, unspecified contact dermatitis type, unspecified trigger Start:29-Dec-2015 Instruction Type:Patient Education How to access health informa tion online - Detail Indication:Contact dermatitis, unspecified contact dermatitis type, unspecified trigger Start:29-Dec-2015 Instruction Type:Patient Education Patient Instructions Indication:Arthralgia of right hip Start:15-Dec-2015 Instruction Type:Provider Instructions for Treatment How to access health informa tion online Indication:Back pain, acute Start:08-Dec-2015 Instruction Type:Patient Education How to access health informa tion online - Detail Indication:Back pain, acute Start:08-Dec-2015 Instruction Type:Patient Education Patient Instructions Indication:Back pain, acute Start:08-Dec-2015 Instruction Type:Provider Instructions for Treatment How to access health informa tion online Indication:Cough Start:10-Nov-2015 Instruction Type:Patient Education How to access health informa tion online - Detail Indication:Cough Start:10-Nov-2015 Instruction Type:Patient Education Patient Instructions Indication:Cough Start:10-Nov-2015 Instruction Type:Provider Instructions for Treatment How to access health informa tion online Indication:Muscle strain Start:15-Jan-2015 Instruction Type:Patient Education How to access health informa tion online - Detail Indication:Muscle strain Start:15-Jan-2015 Instruction Type:Patient Education Patient Instructions Indication:Muscle strain Start:15-Jan-2015 Instruction Type:Provider Instructions for Treatment Patient Instructions Indication:Acute sinusitis, unspecified Start:31-Oct-2013 Instruction Type:Provider Instructions for Treatment Patient Instructions Indication:Rash Start:26-Sep-2013 Instruction Type:Provider Instructions for Treatment Patient Instructions Indication:Pain of toe, unspecified laterality Start:26-Dec-2012 Instruction Type:Provider Instructions for Treatment Patient Instructions Indication:Knee pain, left Start:24-Nov-2012 Instruction Type:Provider Instructions for Treatment [facility]; [facility] Work Phone: Instructions* Name Dates Details Patient Instructions Indication:BMI 35.0-35.9,adult Start:04-Nov-2021 Instruction Type:Provider Instructions for Treatment How to Access Health Informa tion Online using Patient Portal and [employer]rd [employer] Apps Indication:BMI 35.0-35.9,adult Start:04-Nov-2021 Instruction Type:Patient Education Patient Instructions Indication:Nonsmoker Start:28-Oct-2021 Instruction Type:Provider Instructions for Treatment How to Access Health Informa tion Online using Patient Portal and [employer]rd [employer] Apps Indication:Nonsmoker Start:28-Oct-2021 Instruction Type:Patient Education Patient Instructions Indication:Nonsmoker Start:20-Jul-2021 Instruction Type:Provider Instructions for Treatment How to Access Health Informa tion Online using Patient Portal and [employer]rd [employer] Apps Indication:Nonsmoker Start:20-Jul-2021 Instruction Type:Patient Education Patient Instructions Indication:BMI 35.0-35.9,adult Start:26-Jun-2021 Instruction Type:Provider Instructions for Treatment How to Access Health Informa tion Online using Patient Portal and [employer]rd [employer] Apps Indication:BMI 35.0-35.9,adult Start:26-Jun-2021 Instruction Type:Patient Education Patient Instructions Indication:BMI 35.0-35.9,adult Start:22-Jun-2021 Instruction Type:Provider Instructions for Treatment How to Access Health Informa tion Online using Patient Portal and [employer]rd [employer] Apps Indication:BMI 35.0-35.9,adult Start:22-Jun-2021 Instruction Type:Patient Education Patient Instructions Indication:BMI 35.0-35.9,adult Start:23-Apr-2021 Instruction Type:Provider Instructions for Treatment How to Access Health Informa tion Online using Patient Portal and [employer]rd [employer] Apps Indication:BMI 35.0-35.9,adult Start:23-Apr-2021 Instruction Type:Patient Education Patient Instructions Indication:BMI 35.0-35.9,adult Start:20-Mar-2021 Instruction Type:Provider Instructions for Treatment How to Access Health Informa tion Online using Patient Portal and [employer]rd [employer] Apps Indication:BMI 35.0-35.9,adult Start:20-Mar-2021 Instruction Type:Patient Education How to Access Health Informa tion Online using Patient Portal and [employer]rd [employer] Apps Indication:Nonsmoker Start:08-Sep-2020 Instruction Type:Patient Education Patient Instructions Indication:Nonsmoker Start:08-Sep-2020 Instruction Type:Provider Instructions for Treatment How to Access Health Informa tion Online using Patient Portal and [employer]rd [employer] Apps Indication:Nonsmoker Start:01-Sep-2020 Instruction Type:Patient Education Patient Instructions Indication:Nonsmoker Start:01-Sep-2020 Instruction Type:Provider Instructions for Treatment Patient Instructions Indication:BMI 35.0-35.9,adult Start:29-Aug-2020 Instruction Type:Provider Instructions for Treatment How to Access Health Informa tion Online using Patient Portal and [employer]rd [employer] Apps Indication:BMI 35.0-35.9,adult Start:29-Aug-2020 Instruction Type:Patient Education Patient Instructions Indication:Nonsmoker Start:30-Jul-2020 Instruction Type:Provider Instructions for Treatment How to Access Health Informa tion Online using Patient Portal and [employer] Apps Indication:Nonsmoker Start:30-Jul-2020 Instruction Type:Patient Education How to access health informa tion online Indication:Nonsmoker Start:27-Dec-2019 Instruction Type:Patient Education How to access health informa tion online - Detail Indication:Nonsmoker Start:27-Dec-2019 Instruction Type:Patient Education Patient Instructions Indication:Nonsmoker Start:27-Dec-2019 Instruction Type:Provider Instructions for Treatment How to access health informa tion online Indication:BMI 35.0-35.9,adult Start:14-Dec-2019 Instruction Type:Patient Education How to access health informa tion online - Detail Indication:BMI 35.0-35.9,adult Start:14-Dec-2019 Instruction Type:Patient Education Patient Instructions Indication:BMI 35.0-35.9,adult Start:14-Dec-2019 Instruction Type:Provider Instructions for Treatment How to access health informa tion online Indication:Nonsmoker Start:07-Nov-2019 Instruction Type:Patient Education How to access health informa tion online - Detail Indication:Nonsmoker Start:07-Nov-2019 Instruction Type:Patient Education Patient Instructions Indication:Nonsmoker Start:07-Nov-2019 Instruction Type:Provider Instructions for Treatment How to access health informa tion online Indication:BMI 35.0-35.9,adult Start:18-Sep-2019 Instruction Type:Patient Education How to access health informa tion online - Detail Indication:BMI 35.0-35.9,adult Start:18-Sep-2019 Instruction Type:Patient Education Patient Instructions Indication:BMI 35.0-35.9,adult Start:18-Sep-2019 Instruction Type:Provider Instructions for Treatment How to access health informa tion online Indication:Non-smoker Start:17-May-2019 Instruction Type:Patient Education How to access health informa tion online - Detail Indication:Non-smoker Start:17-May-2019 Instruction Type:Patient Education Patient Instructions Indication:Sinusitis, bacterial Start:17-May-2019 Instruction Type:Provider Instructions for Treatment How to access health informa tion online Indication:Tenderness of neck Start:25-Apr-2019 Instruction Type:Patient Education How to access health informa tion online - Detail Indication:Tenderness of neck Start:25-Apr-2019 Instruction Type:Patient Education Patient Instructions Indication:Tenderness of neck Start:25-Apr-2019 Instruction Type:Provider Instructions for Treatment How to access health informa tion online Indication:BMI 32.0-32.9,adult Start:04-Sep-2018 Instruction Type:Patient Education How to access health informa tion online - Detail Indication:BMI 32.0-32.9,adult Start:04-Sep-2018 Instruction Type:Patient Education Patient Instructions Indication:BMI 32.0-32.9,adult Start:04-Sep-2018 Instruction Type:Provider Instructions for Treatment How to access health informa tion online Indication:BMI 31.0-31.9,adult Start:04-Aug-2018 Instruction Type:Patient Education How to access health informa tion online - Detail Indication:BMI 31.0-31.9,adult Start:04-Aug-2018 Instruction Type:Patient Education Patient Instructions Indication:BMI 31.0-31.9,adult Start:04-Aug-2018 Instruction Type:Provider Instructions for Treatment Patient Instructions Indication:Finger pain, left Start:28-Jul-2018 Instruction Type:Provider Instructions for Treatment How to access health informa tion online Indication:Non-smoker Start:28-Jul-2018 Instruction Type:Patient Education How to access health informa tion online - Detail Indication:Non-smoker Start:28-Jul-2018 Instruction Type:Patient Education Patient Instructions Indication:Non-smoker Start:28-Jul-2018 Instruction Type:Provider Instructions for Treatment How to access health informa tion online Indication:BMI 31.0-31.9,adult Start:30-Mar-2018 Instruction Type:Patient Education How to access health informa tion online - Detail Indication:BMI 31.0-31.9,adult Start:30-Mar-2018 Instruction Type:Patient Education Patient Instructions Indication:Vaginal yeast infection Start:30-Mar-2018 Instruction Type:Provider Instructions for Treatment How to access health informa tion online Indication:Non-smoker Start:16-Mar-2018 Instruction Type:Patient Education How to access health informa tion online - Detail Indication:Non-smoker Start:16-Mar-2018 Instruction Type:Patient Education Patient Instructions Indication:Non-smoker Start:16-Mar-2018 Instruction Type:Provider Instructions for Treatment How to access health informa tion online Indication:Bronchitis Start:28-May-2016 Instruction Type:Patient Education How to access health informa tion online - Detail Indication:Bronchitis Start:28-May-2016 Instruction Type:Patient Education How to access health informa tion online Indication:Cough Start:05-May-2016 Instruction Type:Patient Education How to access health informa tion online - Detail Indication:Cough Start:05-May-2016 Instruction Type:Patient Education Patient Instructions Indication:Cough Start:05-May-2016 Instruction Type:Provider Instructions for Treatment How to access health informa tion online Indication:Contact dermatitis, unspecified contact dermatitis type, unspecified trigger Start:29-Dec-2015 Instruction Type:Patient Education How to access health informa tion online - Detail Indication:Contact dermatitis, unspecified contact dermatitis type, unspecified trigger Start:29-Dec-2015 Instruction Type:Patient Education Patient Instructions Indication:Arthralgia of right hip Start:15-Dec-2015 Instruction Type:Provider Instructions for Treatment How to access health informa tion online Indication:Back pain, acute Start:08-Dec-2015 Instruction Type:Patient Education How to access health informa tion online - Detail Indication:Back pain, acute Start:08-Dec-2015 Instruction Type:Patient Education Patient Instructions Indication:Back pain, acute Start:08-Dec-2015 Instruction Type:Provider Instructions for Treatment How to access health informa tion online Indication:Cough Start:10-Nov-2015 Instruction Type:Patient Education How to access health informa tion online - Detail Indication:Cough Start:10-Nov-2015 Instruction Type:Patient Education Patient Instructions Indication:Cough Start:10-Nov-2015 Instruction Type:Provider Instructions for Treatment How to access health informa tion online Indication:Muscle strain Start:15-Jan-2015 Instruction Type:Patient Education How to access health informa tion online - Detail Indication:Muscle strain Start:15-Jan-2015 Instruction Type:Patient Education Patient Instructions Indication:Muscle strain Start:15-Jan-2015 Instruction Type:Provider Instructions for Treatment Patient Instructions Indication:Acute sinusitis, unspecified Start:31-Oct-2013 Instruction Type:Provider Instructions for Treatment Patient Instructions Indication:Rash Start:26-Sep-2013 Instruction Type:Provider Instructions for Treatment Patient Instructions Indication:Pain of toe, unspecified laterality Start:26-Dec-2012 Instruction Type:Provider Instructions for Treatment Patient Instructions Indication:Knee pain, left Start:24-Nov-2012 Instruction Type:Provider Instructions for Treatment [facility]; [facility] Work Phone: Instructions* Name Dates Details Patient Instructions Indication:BMI 36.0-36.9,adult Start:20-Sep-2022 Instruction Type:Provider Instructions for Treatment How to Access Health Informa tion Online using Patient Portal and [employer]rd [employer] Apps Indication:BMI 36.0-36.9,adult Start:20-Sep-2022 Instruction Type:Patient Education Patient Instructions Indication:BMI 35.0-35.9,adult Start:04-Nov-2021 Instruction Type:Provider Instructions for Treatment How to Access Health Informa tion Online using Patient Portal and [employer]rd [employer] Apps Indication:BMI 35.0-35.9,adult Start:04-Nov-2021 Instruction Type:Patient Education Patient Instructions Indication:Nonsmoker Start:28-Oct-2021 Instruction Type:Provider Instructions for Treatment How to Access Health Informa tion Online using Patient Portal and [employer]rd [employer] Apps Indication:Nonsmoker Start:28-Oct-2021 Instruction Type:Patient Education Patient Instructions Indication:Nonsmoker Start:20-Jul-2021 Instruction Type:Provider Instructions for Treatment How to Access Health Informa tion Online using Patient Portal and [employer]rd [employer] Apps Indication:Nonsmoker Start:20-Jul-2021 Instruction Type:Patient Education Patient Instructions Indication:BMI 35.0-35.9,adult Start:26-Jun-2021 Instruction Type:Provider Instructions for Treatment How to Access Health Informa tion Online using Patient Portal and [employer]rd [employer] Apps Indication:BMI 35.0-35.9,adult Start:26-Jun-2021 Instruction Type:Patient Education Patient Instructions Indication:BMI 35.0-35.9,adult Start:22-Jun-2021 Instruction Type:Provider Instructions for Treatment How to Access Health Informa tion Online using Patient Portal and [employer]rd [employer] Apps Indication:BMI 35.0-35.9,adult Start:22-Jun-2021 Instruction Type:Patient Education Patient Instructions Indication:BMI 35.0-35.9,adult Start:23-Apr-2021 Instruction Type:Provider Instructions for Treatment How to Access Health Informa tion Online using Patient Portal and [employer]rd [employer] Apps Indication:BMI 35.0-35.9,adult Start:23-Apr-2021 Instruction Type:Patient Education Patient Instructions Indication:BMI 35.0-35.9,adult Start:20-Mar-2021 Instruction Type:Provider Instructions for Treatment How to Access Health Informa tion Online using Patient Portal and [employer]rd [employer] Apps Indication:BMI 35.0-35.9,adult Start:20-Mar-2021 Instruction Type:Patient Education How to Access Health Informa tion Online using Patient Portal and [employer]rd [employer] Apps Indication:Nonsmoker Start:08-Sep-2020 Instruction Type:Patient Education Patient Instructions Indication:Nonsmoker Start:08-Sep-2020 Instruction Type:Provider Instructions for Treatment How to Access Health Informa tion Online using Patient Portal and [employer]rd [employer] Apps Indication:Nonsmoker Start:01-Sep-2020 Instruction Type:Patient Education Patient Instructions Indication:Nonsmoker Start:01-Sep-2020 Instruction Type:Provider Instructions for Treatment Patient Instructions Indication:BMI 35.0-35.9,adult Start:29-Aug-2020 Instruction Type:Provider Instructions for Treatment How to Access Health Informa tion Online using Patient Portal and [employer]rd [employer] Apps Indication:BMI 35.0-35.9,adult Start:29-Aug-2020 Instruction Type:Patient Education Patient Instructions Indication:Nonsmoker Start:30-Jul-2020 Instruction Type:Provider Instructions for Treatment How to Access Health Informa tion Online using Patient Portal and [employer] Apps Indication:Nonsmoker Start:30-Jul-2020 Instruction Type:Patient Education How to access health informa tion online Indication:Nonsmoker Start:27-Dec-2019 Instruction Type:Patient Education How to access health informa tion online - Detail Indication:Nonsmoker Start:27-Dec-2019 Instruction Type:Patient Education Patient Instructions Indication:Nonsmoker Start:27-Dec-2019 Instruction Type:Provider Instructions for Treatment How to access health informa tion online Indication:BMI 35.0-35.9,adult Start:14-Dec-2019 Instruction Type:Patient Education How to access health informa tion online - Detail Indication:BMI 35.0-35.9,adult Start:14-Dec-2019 Instruction Type:Patient Education Patient Instructions Indication:BMI 35.0-35.9,adult Start:14-Dec-2019 Instruction Type:Provider Instructions for Treatment How to access health informa tion online Indication:Nonsmoker Start:07-Nov-2019 Instruction Type:Patient Education How to access health informa tion online - Detail Indication:Nonsmoker Start:07-Nov-2019 Instruction Type:Patient Education Patient Instructions Indication:Nonsmoker Start:07-Nov-2019 Instruction Type:Provider Instructions for Treatment How to access health informa tion online Indication:BMI 35.0-35.9,adult Start:18-Sep-2019 Instruction Type:Patient Education How to access health informa tion online - Detail Indication:BMI 35.0-35.9,adult Start:18-Sep-2019 Instruction Type:Patient Education Patient Instructions Indication:BMI 35.0-35.9,adult Start:18-Sep-2019 Instruction Type:Provider Instructions for Treatment How to access health informa tion online Indication:Non-smoker Start:17-May-2019 Instruction Type:Patient Education How to access health informa tion online - Detail Indication:Non-smoker Start:17-May-2019 Instruction Type:Patient Education Patient Instructions Indication:Sinusitis, bacterial Start:17-May-2019 Instruction Type:Provider Instructions for Treatment How to access health informa tion online Indication:Tenderness of neck Start:25-Apr-2019 Instruction Type:Patient Education How to access health informa tion online - Detail Indication:Tenderness of neck Start:25-Apr-2019 Instruction Type:Patient Education Patient Instructions Indication:Tenderness of neck Start:25-Apr-2019 Instruction Type:Provider Instructions for Treatment How to access health informa tion online Indication:BMI 32.0-32.9,adult Start:04-Sep-2018 Instruction Type:Patient Education How to access health informa tion online - Detail Indication:BMI 32.0-32.9,adult Start:04-Sep-2018 Instruction Type:Patient Education Patient Instructions Indication:BMI 32.0-32.9,adult Start:04-Sep-2018 Instruction Type:Provider Instructions for Treatment How to access health informa tion online Indication:BMI 31.0-31.9,adult Start:04-Aug-2018 Instruction Type:Patient Education How to access health informa tion online - Detail Indication:BMI 31.0-31.9,adult Start:04-Aug-2018 Instruction Type:Patient Education Patient Instructions Indication:BMI 31.0-31.9,adult Start:04-Aug-2018 Instruction Type:Provider Instructions for Treatment Patient Instructions Indication:Finger pain, left Start:28-Jul-2018 Instruction Type:Provider Instructions for Treatment How to access health informa tion online Indication:Non-smoker Start:28-Jul-2018 Instruction Type:Patient Education How to access health informa tion online - Detail Indication:Non-smoker Start:28-Jul-2018 Instruction Type:Patient Education Patient Instructions Indication:Non-smoker Start:28-Jul-2018 Instruction Type:Provider Instructions for Treatment How to access health informa tion online Indication:BMI 31.0-31.9,adult Start:30-Mar-2018 Instruction Type:Patient Education How to access health informa tion online - Detail Indication:BMI 31.0-31.9,adult Start:30-Mar-2018 Instruction Type:Patient Education Patient Instructions Indication:Vaginal yeast infection Start:30-Mar-2018 Instruction Type:Provider Instructions for Treatment How to access health informa tion online Indication:Non-smoker Start:16-Mar-2018 Instruction Type:Patient Education How to access health informa tion online - Detail Indication:Non-smoker Start:16-Mar-2018 Instruction Type:Patient Education Patient Instructions Indication:Non-smoker Start:16-Mar-2018 Instruction Type:Provider Instructions for Treatment How to access health informa tion online Indication:Bronchitis Start:28-May-2016 Instruction Type:Patient Education How to access health informa tion online - Detail Indication:Bronchitis Start:28-May-2016 Instruction Type:Patient Education How to access health informa tion online Indication:Cough Start:05-May-2016 Instruction Type:Patient Education How to access health informa tion online - Detail Indication:Cough Start:05-May-2016 Instruction Type:Patient Education Patient Instructions Indication:Cough Start:05-May-2016 Instruction Type:Provider Instructions for Treatment How to access health informa tion online Indication:Contact dermatitis, unspecified contact dermatitis type, unspecified trigger Start:29-Dec-2015 Instruction Type:Patient Education How to access health informa tion online - Detail Indication:Contact dermatitis, unspecified contact dermatitis type, unspecified trigger Start:29-Dec-2015 Instruction Type:Patient Education Patient Instructions Indication:Arthralgia of right hip Start:15-Dec-2015 Instruction Type:Provider Instructions for Treatment How to access health informa tion online Indication:Back pain, acute Start:08-Dec-2015 Instruction Type:Patient Education How to access health informa tion online - Detail Indication:Back pain, acute Start:08-Dec-2015 Instruction Type:Patient Education Patient Instructions Indication:Back pain, acute Start:08-Dec-2015 Instruction Type:Provider Instructions for Treatment How to access health informa tion online Indication:Cough Start:10-Nov-2015 Instruction Type:Patient Education How to access health informa tion online - Detail Indication:Cough Start:10-Nov-2015 Instruction Type:Patient Education Patient Instructions Indication:Cough Start:10-Nov-2015 Instruction Type:Provider Instructions for Treatment How to access health informa tion online Indication:Muscle strain Start:15-Jan-2015 Instruction Type:Patient Education How to access health informa tion online - Detail Indication:Muscle strain Start:15-Jan-2015 Instruction Type:Patient Education Patient Instructions Indication:Muscle strain Start:15-Jan-2015 Instruction Type:Provider Instructions for Treatment Patient Instructions Indication:Acute sinusitis, unspecified Start:31-Oct-2013 Instruction Type:Provider Instructions for Treatment Patient Instructions Indication:Rash Start:26-Sep-2013 Instruction Type:Provider Instructions for Treatment Patient Instructions Indication:Pain of toe, unspecified laterality Start:26-Dec-2012 Instruction Type:Provider Instructions for Treatment Patient Instructions Indication:Knee pain, left Start:24-Nov-2012 Instruction Type:Provider Instructions for Treatment [facility]; [facility] Work Phone: Instructions* Name Dates Details Patient Instructions Indication:BMI 36.0-36.9,adult Start:20-Sep-2022 Instruction Type:Provider Instructions for Treatment How to Access Health Informa tion Online using Patient Portal and [employer]rd [employer] Apps Indication:BMI 36.0-36.9,adult Start:20-Sep-2022 Instruction Type:Patient Education Patient Instructions Indication:BMI 35.0-35.9,adult Start:04-Nov-2021 Instruction Type:Provider Instructions for Treatment How to Access Health Informa tion Online using Patient Portal and [employer]rd [employer] Apps Indication:BMI 35.0-35.9,adult Start:04-Nov-2021 Instruction Type:Patient Education Patient Instructions Indication:Nonsmoker Start:28-Oct-2021 Instruction Type:Provider Instructions for Treatment How to Access Health Informa tion Online using Patient Portal and [employer]rd [employer] Apps Indication:Nonsmoker Start:28-Oct-2021 Instruction Type:Patient Education Patient Instructions Indication:Nonsmoker Start:20-Jul-2021 Instruction Type:Provider Instructions for Treatment How to Access Health Informa tion Online using Patient Portal and [employer]rd [employer] Apps Indication:Nonsmoker Start:20-Jul-2021 Instruction Type:Patient Education Patient Instructions Indication:BMI 35.0-35.9,adult Start:26-Jun-2021 Instruction Type:Provider Instructions for Treatment How to Access Health Informa tion Online using Patient Portal and [employer]rd [employer] Apps Indication:BMI 35.0-35.9,adult Start:26-Jun-2021 Instruction Type:Patient Education Patient Instructions Indication:BMI 35.0-35.9,adult Start:22-Jun-2021 Instruction Type:Provider Instructions for Treatment How to Access Health Informa tion Online using Patient Portal and [employer]rd [employer] Apps Indication:BMI 35.0-35.9,adult Start:22-Jun-2021 Instruction Type:Patient Education Patient Instructions Indication:BMI 35.0-35.9,adult Start:23-Apr-2021 Instruction Type:Provider Instructions for Treatment How to Access Health Informa tion Online using Patient Portal and [employer] Apps Indication:BMI 35.0-35.9,adult Start:23-Apr-2021 Instruction Type:Patient Education Patient Instructions Indication:BMI 35.0-35.9,adult Start:20-Mar-2021 Instruction Type:Provider Instructions for Treatment How to Access Health Informa tion Online using Patient Portal and [employer] Indication:BMI 35.0-35.9,adult Start:20-Mar-2021 Instruction Type:Patient Education How to Access Health Informa tion Online using Patient Portal and [employer]rd [employer] Apps Indication:Nonsmoker Start:08-Sep-2020 Instruction Type:Patient Education Patient Instructions Indication:Nonsmoker Start:08-Sep-2020 Instruction Type:Provider Instructions for Treatment How to Access Health Informa tion Online using Patient Portal and [employer] Apps Indication:Nonsmoker Start:01-Sep-2020 Instruction Type:Patient Education Patient Instructions Indication:Nonsmoker Start:01-Sep-2020 Instruction Type:Provider Instructions for Treatment Patient Instructions Indication:BMI 35.0-35.9,adult Start:29-Aug-2020 Instruction Type:Provider Instructions for Treatment How to Access Health Informa tion Online using Patient Portal and [employer] Apps Indication:BMI 35.0-35.9,adult Start:29-Aug-2020 Instruction Type:Patient Education Patient Instructions Indication:Nonsmoker Start:30-Jul-2020 Instruction Type:Provider Instructions for Treatment How to Access Health Informa tion Online using Patient Portal and [employer] Apps Indication:Nonsmoker Start:30-Jul-2020 Instruction Type:Patient Education How to access health informa tion online Indication:Nonsmoker Start:27-Dec-2019 Instruction Type:Patient Education How to access health informa tion online - Detail Indication:Nonsmoker Start:27-Dec-2019 Instruction Type:Patient Education Patient Instructions Indication:Nonsmoker Start:27-Dec-2019 Instruction Type:Provider Instructions for Treatment How to access health informa tion online Indication:BMI 35.0-35.9,adult Start:14-Dec-2019 Instruction Type:Patient Education How to access health informa tion online - Detail Indication:BMI 35.0-35.9,adult Start:14-Dec-2019 Instruction Type:Patient Education Patient Instructions Indication:BMI 35.0-35.9,adult Start:14-Dec-2019 Instruction Type:Provider Instructions for Treatment How to access health informa tion online Indication:Nonsmoker Start:07-Nov-2019 Instruction Type:Patient Education How to access health informa tion online - Detail Indication:Nonsmoker Start:07-Nov-2019 Instruction Type:Patient Education Patient Instructions Indication:Nonsmoker Start:07-Nov-2019 Instruction Type:Provider Instructions for Treatment How to access health informa tion online Indication:BMI 35.0-35.9,adult Start:18-Sep-2019 Instruction Type:Patient Education How to access health informa tion online - Detail Indication:BMI 35.0-35.9,adult Start:18-Sep-2019 Instruction Type:Patient Education Patient Instructions Indication:BMI 35.0-35.9,adult Start:18-Sep-2019 Instruction Type:Provider Instructions for Treatment How to access health informa tion online Indication:Non-smoker Start:17-May-2019 Instruction Type:Patient Education How to access health informa tion online - Detail Indication:Non-smoker Start:17-May-2019 Instruction Type:Patient Education Patient Instructions Indication:Sinusitis, bacterial Start:17-May-2019 Instruction Type:Provider Instructions for Treatment How to access health informa tion online Indication:Tenderness of neck Start:25-Apr-2019 Instruction Type:Patient Education How to access health informa tion online - Detail Indication:Tenderness of neck Start:25-Apr-2019 Instruction Type:Patient Education Patient Instructions Indication:Tenderness of neck Start:25-Apr-2019 Instruction Type:Provider Instructions for Treatment How to access health informa tion online Indication:BMI 32.0-32.9,adult Start:04-Sep-2018 Instruction Type:Patient Education How to access health informa tion online - Detail Indication:BMI 32.0-32.9,adult Start:04-Sep-2018 Instruction Type:Patient Education Patient Instructions Indication:BMI 32.0-32.9,adult Start:04-Sep-2018 Instruction Type:Provider Instructions for Treatment How to access health informa tion online Indication:BMI 31.0-31.9,adult Start:04-Aug-2018 Instruction Type:Patient Education How to access health informa tion online - Detail Indication:BMI 31.0-31.9,adult Start:04-Aug-2018 Instruction Type:Patient Education Patient Instructions Indication:BMI 31.0-31.9,adult Start:04-Aug-2018 Instruction Type:Provider Instructions for Treatment Patient Instructions Indication:Finger pain, left Start:28-Jul-2018 Instruction Type:Provider Instructions for Treatment How to access health informa tion online Indication:Non-smoker Start:28-Jul-2018 Instruction Type:Patient Education How to access health informa tion online - Detail Indication:Non-smoker Start:28-Jul-2018 Instruction Type:Patient Education Patient Instructions Indication:Non-smoker Start:28-Jul-2018 Instruction Type:Provider Instructions for Treatment How to access health informa tion online Indication:BMI 31.0-31.9,adult Start:30-Mar-2018 Instruction Type:Patient Education How to access health informa tion online - Detail Indication:BMI 31.0-31.9,adult Start:30-Mar-2018 Instruction Type:Patient Education Patient Instructions Indication:Vaginal yeast infection Start:30-Mar-2018 Instruction Type:Provider Instructions for Treatment How to access health informa tion online Indication:Non-smoker Start:16-Mar-2018 Instruction Type:Patient Education How to access health informa tion online - Detail Indication:Non-smoker Start:16-Mar-2018 Instruction Type:Patient Education Patient Instructions Indication:Non-smoker Start:16-Mar-2018 Instruction Type:Provider Instructions for Treatment How to access health informa tion online Indication:Bronchitis Start:28-May-2016 Instruction Type:Patient Education How to access health informa tion online - Detail Indication:Bronchitis Start:28-May-2016 Instruction Type:Patient Education How to access health informa tion online Indication:Cough Start:05-May-2016 Instruction Type:Patient Education How to access health informa tion online - Detail Indication:Cough Start:05-May-2016 Instruction Type:Patient Education Patient Instructions Indication:Cough Start:05-May-2016 Instruction Type:Provider Instructions for Treatment How to access health informa tion online Indication:Contact dermatitis, unspecified contact dermatitis type, unspecified trigger Start:29-Dec-2015 Instruction Type:Patient Education How to access health informa tion online - Detail Indication:Contact dermatitis, unspecified contact dermatitis type, unspecified trigger Start:29-Dec-2015 Instruction Type:Patient Education Patient Instructions Indication:Arthralgia of right hip Start:15-Dec-2015 Instruction Type:Provider Instructions for Treatment How to access health informa tion online Indication:Back pain, acute Start:08-Dec-2015 Instruction Type:Patient Education How to access health informa tion online - Detail Indication:Back pain, acute Start:08-Dec-2015 Instruction Type:Patient Education Patient Instructions Indication:Back pain, acute Start:08-Dec-2015 Instruction Type:Provider Instructions for Treatment How to access health informa tion online Indication:Cough Start:10-Nov-2015 Instruction Type:Patient Education How to access health informa tion online - Detail Indication:Cough Start:10-Nov-2015 Instruction Type:Patient Education Patient Instructions Indication:Cough Start:10-Nov-2015 Instruction Type:Provider Instructions for Treatment How to access health informa tion online Indication:Muscle strain Start:15-Jan-2015 Instruction Type:Patient Education How to access health informa tion online - Detail Indication:Muscle strain Start:15-Jan-2015 Instruction Type:Patient Education Patient Instructions Indication:Muscle strain Start:15-Jan-2015 Instruction Type:Provider Instructions for Treatment Patient Instructions Indication:Acute sinusitis, unspecified Start:31-Oct-2013 Instruction Type:Provider Instructions for Treatment Patient Instructions Indication:Rash Start:26-Sep-2013 Instruction Type:Provider Instructions for Treatment Patient Instructions Indication:Pain of toe, unspecified laterality Start:26-Dec-2012 Instruction Type:Provider Instructions for Treatment Patient Instructions Indication:Knee pain, left Start:24-Nov-2012 Instruction Type:Provider Instructions for Treatment [facility]; [facility] Work Phone: Instructions* Name Dates Details Patient Instructions Indication:BMI 36.0-36.9,adult Start:20-Sep-2022 Instruction Type:Provider Instructions for Treatment How to Access Health Informa tion Online using Patient Portal and [employer]rd [employer] Apps Indication:BMI 36.0-36.9,adult Start:20-Sep-2022 Instruction Type:Patient Education Patient Instructions Indication:BMI 35.0-35.9,adult Start:04-Nov-2021 Instruction Type:Provider Instructions for Treatment How to Access Health Informa tion Online using Patient Portal and [employer]rd [employer] Indication:BMI 35.0-35.9,adult Start:04-Nov-2021 Instruction Type:Patient Education Patient Instructions Indication:Nonsmoker Start:28-Oct-2021 Instruction Type:Provider Instructions for Treatment How to Access Health Informa tion Online using Patient Portal and [employer]rd [employer] Apps Indication:Nonsmoker Start:28-Oct-2021 Instruction Type:Patient Education Patient Instructions Indication:Nonsmoker Start:20-Jul-2021 Instruction Type:Provider Instructions for Treatment How to Access Health Informa tion Online using Patient Portal and [employer] Apps Indication:Nonsmoker Start:20-Jul-2021 Instruction Type:Patient Education Patient Instructions Indication:BMI 35.0-35.9,adult Start:26-Jun-2021 Instruction Type:Provider Instructions for Treatment How to Access Health Informa tion Online using Patient Portal and [employer]rd [employer] Apps Indication:BMI 35.0-35.9,adult Start:26-Jun-2021 Instruction Type:Patient Education Patient Instructions Indication:BMI 35.0-35.9,adult Start:22-Jun-2021 Instruction Type:Provider Instructions for Treatment How to Access Health Informa tion Online using Patient Portal and [employer] Apps Indication:BMI 35.0-35.9,adult Start:22-Jun-2021 Instruction Type:Patient Education Patient Instructions Indication:BMI 35.0-35.9,adult Start:23-Apr-2021 Instruction Type:Provider Instructions for Treatment How to Access Health Informa tion Online using Patient Portal and [employer] Apps Indication:BMI 35.0-35.9,adult Start:23-Apr-2021 Instruction Type:Patient Education Patient Instructions Indication:BMI 35.0-35.9,adult Start:20-Mar-2021 Instruction Type:Provider Instructions for Treatment How to Access Health Informa tion Online using Patient Portal and [employer]rd [employer] Indication:BMI 35.0-35.9,adult Start:20-Mar-2021 Instruction Type:Patient Education How to Access Health Informa tion Online using Patient Portal and [employer]rd [employer] Apps Indication:Nonsmoker Start:08-Sep-2020 Instruction Type:Patient Education Patient Instructions Indication:Nonsmoker Start:08-Sep-2020 Instruction Type:Provider Instructions for Treatment How to Access Health Informa tion Online using Patient Portal and [employer]rd [employer] Apps Indication:Nonsmoker Start:01-Sep-2020 Instruction Type:Patient Education Patient Instructions Indication:Nonsmoker Start:01-Sep-2020 Instruction Type:Provider Instructions for Treatment Patient Instructions Indication:BMI 35.0-35.9,adult Start:29-Aug-2020 Instruction Type:Provider Instructions for Treatment How to Access Health Informa tion Online using Patient Portal and [employer]rd [employer] Apps Indication:BMI 35.0-35.9,adult Start:29-Aug-2020 Instruction Type:Patient Education Patient Instructions Indication:Nonsmoker Start:30-Jul-2020 Instruction Type:Provider Instructions for Treatment How to Access Health Informa tion Online using Patient Portal and [employer] Apps Indication:Nonsmoker Start:30-Jul-2020 Instruction Type:Patient Education How to access health informa tion online Indication:Nonsmoker Start:27-Dec-2019 Instruction Type:Patient Education How to access health informa tion online - Detail Indication:Nonsmoker Start:27-Dec-2019 Instruction Type:Patient Education Patient Instructions Indication:Nonsmoker Start:27-Dec-2019 Instruction Type:Provider Instructions for Treatment How to access health informa tion online Indication:BMI 35.0-35.9,adult Start:14-Dec-2019 Instruction Type:Patient Education How to access health informa tion online - Detail Indication:BMI 35.0-35.9,adult Start:14-Dec-2019 Instruction Type:Patient Education Patient Instructions Indication:BMI 35.0-35.9,adult Start:14-Dec-2019 Instruction Type:Provider Instructions for Treatment How to access health informa tion online Indication:Nonsmoker Start:07-Nov-2019 Instruction Type:Patient Education How to access health informa tion online - Detail Indication:Nonsmoker Start:07-Nov-2019 Instruction Type:Patient Education Patient Instructions Indication:Nonsmoker Start:07-Nov-2019 Instruction Type:Provider Instructions for Treatment How to access health informa tion online Indication:BMI 35.0-35.9,adult Start:18-Sep-2019 Instruction Type:Patient Education How to access health informa tion online - Detail Indication:BMI 35.0-35.9,adult Start:18-Sep-2019 Instruction Type:Patient Education Patient Instructions Indication:BMI 35.0-35.9,adult Start:18-Sep-2019 Instruction Type:Provider Instructions for Treatment How to access health informa tion online Indication:Non-smoker Start:17-May-2019 Instruction Type:Patient Education How to access health informa tion online - Detail Indication:Non-smoker Start:17-May-2019 Instruction Type:Patient Education Patient Instructions Indication:Sinusitis, bacterial Start:17-May-2019 Instruction Type:Provider Instructions for Treatment How to access health informa tion online Indication:Tenderness of neck Start:25-Apr-2019 Instruction Type:Patient Education How to access health informa tion online - Detail Indication:Tenderness of neck Start:25-Apr-2019 Instruction Type:Patient Education Patient Instructions Indication:Tenderness of neck Start:25-Apr-2019 Instruction Type:Provider Instructions for Treatment How to access health informa tion online Indication:BMI 32.0-32.9,adult Start:04-Sep-2018 Instruction Type:Patient Education How to access health informa tion online - Detail Indication:BMI 32.0-32.9,adult Start:04-Sep-2018 Instruction Type:Patient Education Patient Instructions Indication:BMI 32.0-32.9,adult Start:04-Sep-2018 Instruction Type:Provider Instructions for Treatment How to access health informa tion online Indication:BMI 31.0-31.9,adult Start:04-Aug-2018 Instruction Type:Patient Education How to access health informa tion online - Detail Indication:BMI 31.0-31.9,adult Start:04-Aug-2018 Instruction Type:Patient Education Patient Instructions Indication:BMI 31.0-31.9,adult Start:04-Aug-2018 Instruction Type:Provider Instructions for Treatment Patient Instructions Indication:Finger pain, left Start:28-Jul-2018 Instruction Type:Provider Instructions for Treatment How to access health informa tion online Indication:Non-smoker Start:28-Jul-2018 Instruction Type:Patient Education How to access health informa tion online - Detail Indication:Non-smoker Start:28-Jul-2018 Instruction Type:Patient Education Patient Instructions Indication:Non-smoker Start:28-Jul-2018 Instruction Type:Provider Instructions for Treatment How to access health informa tion online Indication:BMI 31.0-31.9,adult Start:30-Mar-2018 Instruction Type:Patient Education How to access health informa tion online - Detail Indication:BMI 31.0-31.9,adult Start:30-Mar-2018 Instruction Type:Patient Education Patient Instructions Indication:Vaginal yeast infection Start:30-Mar-2018 Instruction Type:Provider Instructions for Treatment How to access health informa tion online Indication:Non-smoker Start:16-Mar-2018 Instruction Type:Patient Education How to access health informa tion online - Detail Indication:Non-smoker Start:16-Mar-2018 Instruction Type:Patient Education Patient Instructions Indication:Non-smoker Start:16-Mar-2018 Instruction Type:Provider Instructions for Treatment How to access health informa tion online Indication:Bronchitis Start:28-May-2016 Instruction Type:Patient Education How to access health informa tion online - Detail Indication:Bronchitis Start:28-May-2016 Instruction Type:Patient Education How to access health informa tion online Indication:Cough Start:05-May-2016 Instruction Type:Patient Education How to access health informa tion online - Detail Indication:Cough Start:05-May-2016 Instruction Type:Patient Education Patient Instructions Indication:Cough Start:05-May-2016 Instruction Type:Provider Instructions for Treatment How to access health informa tion online Indication:Contact dermatitis, unspecified contact dermatitis type, unspecified trigger Start:29-Dec-2015 Instruction Type:Patient Education How to access health informa tion online - Detail Indication:Contact dermatitis, unspecified contact dermatitis type, unspecified trigger Start:29-Dec-2015 Instruction Type:Patient Education Patient Instructions Indication:Arthralgia of right hip Start:15-Dec-2015 Instruction Type:Provider Instructions for Treatment How to access health informa tion online Indication:Back pain, acute Start:08-Dec-2015 Instruction Type:Patient Education How to access health informa tion online - Detail Indication:Back pain, acute Start:08-Dec-2015 Instruction Type:Patient Education Patient Instructions Indication:Back pain, acute Start:08-Dec-2015 Instruction Type:Provider Instructions for Treatment How to access health informa tion online Indication:Cough Start:10-Nov-2015 Instruction Type:Patient Education How to access health informa tion online - Detail Indication:Cough Start:10-Nov-2015 Instruction Type:Patient Education Patient Instructions Indication:Cough Start:10-Nov-2015 Instruction Type:Provider Instructions for Treatment How to access health informa tion online Indication:Muscle strain Start:15-Jan-2015 Instruction Type:Patient Education How to access health informa tion online - Detail Indication:Muscle strain Start:15-Jan-2015 Instruction Type:Patient Education Patient Instructions Indication:Muscle strain Start:15-Jan-2015 Instruction Type:Provider Instructions for Treatment Patient Instructions Indication:Acute sinusitis, unspecified Start:31-Oct-2013 Instruction Type:Provider Instructions for Treatment Patient Instructions Indication:Rash Start:26-Sep-2013 Instruction Type:Provider Instructions for Treatment Patient Instructions Indication:Pain of toe, unspecified laterality Start:26-Dec-2012 Instruction Type:Provider Instructions for Treatment Patient Instructions Indication:Knee pain, left Start:24-Nov-2012 Instruction Type:Provider Instructions for Treatment [facility]; [facility] Work Phone: Instructions* Name Dates Details Patient Instructions Indication:Nonsmoker Start:20-Oct-2022 Instruction Type:Provider Instructions for Treatment How to Access Health Informa tion Online using Patient Portal and [employer]rd [employer] Apps Indication:Nonsmoker Start:20-Oct-2022 Instruction Type:Patient Education Patient Instructions Indication:BMI 36.0-36.9,adult Start:20-Sep-2022 Instruction Type:Provider Instructions for Treatment How to Access Health Informa tion Online using Patient Portal and [employer]rd [employer] Apps Indication:BMI 36.0-36.9,adult Start:20-Sep-2022 Instruction Type:Patient Education Patient Instructions Indication:BMI 35.0-35.9,adult Start:04-Nov-2021 Instruction Type:Provider Instructions for Treatment How to Access Health Informa tion Online using Patient Portal and [employer]rd [employer] Apps Indication:BMI 35.0-35.9,adult Start:04-Nov-2021 Instruction Type:Patient Education Patient Instructions Indication:Nonsmoker Start:28-Oct-2021 Instruction Type:Provider Instructions for Treatment How to Access Health Informa tion Online using Patient Portal and [employer]rd [employer] Apps Indication:Nonsmoker Start:28-Oct-2021 Instruction Type:Patient Education Patient Instructions Indication:Nonsmoker Start:20-Jul-2021 Instruction Type:Provider Instructions for Treatment How to Access Health Informa tion Online using Patient Portal and [employer]rd [employer] Apps Indication:Nonsmoker Start:20-Jul-2021 Instruction Type:Patient Education Patient Instructions Indication:BMI 35.0-35.9,adult Start:26-Jun-2021 Instruction Type:Provider Instructions for Treatment How to Access Health Informa tion Online using Patient Portal and [employer]rd [employer] Apps Indication:BMI 35.0-35.9,adult Start:26-Jun-2021 Instruction Type:Patient Education Patient Instructions Indication:BMI 35.0-35.9,adult Start:22-Jun-2021 Instruction Type:Provider Instructions for Treatment How to Access Health Informa tion Online using Patient Portal and [employer]rd [employer] Apps Indication:BMI 35.0-35.9,adult Start:22-Jun-2021 Instruction Type:Patient Education Patient Instructions Indication:BMI 35.0-35.9,adult Start:23-Apr-2021 Instruction Type:Provider Instructions for Treatment How to Access Health Informa tion Online using Patient Portal and [employer]rd [employer] Apps Indication:BMI 35.0-35.9,adult Start:23-Apr-2021 Instruction Type:Patient Education Patient Instructions Indication:BMI 35.0-35.9,adult Start:20-Mar-2021 Instruction Type:Provider Instructions for Treatment How to Access Health Informa tion Online using Patient Portal and [employer]rd [employer] Apps Indication:BMI 35.0-35.9,adult Start:20-Mar-2021 Instruction Type:Patient Education How to Access Health Informa tion Online using Patient Portal and [employer]rd [employer] Apps Indication:Nonsmoker Start:08-Sep-2020 Instruction Type:Patient Education Patient Instructions Indication:Nonsmoker Start:08-Sep-2020 Instruction Type:Provider Instructions for Treatment How to Access Health Informa tion Online using Patient Portal and [employer]rd [employer] Apps Indication:Nonsmoker Start:01-Sep-2020 Instruction Type:Patient Education Patient Instructions Indication:Nonsmoker Start:01-Sep-2020 Instruction Type:Provider Instructions for Treatment Patient Instructions Indication:BMI 35.0-35.9,adult Start:29-Aug-2020 Instruction Type:Provider Instructions for Treatment How to Access Health Informa tion Online using Patient Portal and [employer]rd [employer] Apps Indication:BMI 35.0-35.9,adult Start:29-Aug-2020 Instruction Type:Patient Education Patient Instructions Indication:Nonsmoker Start:30-Jul-2020 Instruction Type:Provider Instructions for Treatment How to Access Health Informa tion Online using Patient Portal and [employer] Apps Indication:Nonsmoker Start:30-Jul-2020 Instruction Type:Patient Education How to access health informa tion online Indication:Nonsmoker Start:27-Dec-2019 Instruction Type:Patient Education How to access health informa tion online - Detail Indication:Nonsmoker Start:27-Dec-2019 Instruction Type:Patient Education Patient Instructions Indication:Nonsmoker Start:27-Dec-2019 Instruction Type:Provider Instructions for Treatment How to access health informa tion online Indication:BMI 35.0-35.9,adult Start:14-Dec-2019 Instruction Type:Patient Education How to access health informa tion online - Detail Indication:BMI 35.0-35.9,adult Start:14-Dec-2019 Instruction Type:Patient Education Patient Instructions Indication:BMI 35.0-35.9,adult Start:14-Dec-2019 Instruction Type:Provider Instructions for Treatment How to access health informa tion online Indication:Nonsmoker Start:07-Nov-2019 Instruction Type:Patient Education How to access health informa tion online - Detail Indication:Nonsmoker Start:07-Nov-2019 Instruction Type:Patient Education Patient Instructions Indication:Nonsmoker Start:07-Nov-2019 Instruction Type:Provider Instructions for Treatment How to access health informa tion online Indication:BMI 35.0-35.9,adult Start:18-Sep-2019 Instruction Type:Patient Education How to access health informa tion online - Detail Indication:BMI 35.0-35.9,adult Start:18-Sep-2019 Instruction Type:Patient Education Patient Instructions Indication:BMI 35.0-35.9,adult Start:18-Sep-2019 Instruction Type:Provider Instructions for Treatment How to access health informa tion online Indication:Non-smoker Start:17-May-2019 Instruction Type:Patient Education How to access health informa tion online - Detail Indication:Non-smoker Start:17-May-2019 Instruction Type:Patient Education Patient Instructions Indication:Sinusitis, bacterial Start:17-May-2019 Instruction Type:Provider Instructions for Treatment How to access health informa tion online Indication:Tenderness of neck Start:25-Apr-2019 Instruction Type:Patient Education How to access health informa tion online - Detail Indication:Tenderness of neck Start:25-Apr-2019 Instruction Type:Patient Education Patient Instructions Indication:Tenderness of neck Start:25-Apr-2019 Instruction Type:Provider Instructions for Treatment How to access health informa tion online Indication:BMI 32.0-32.9,adult Start:04-Sep-2018 Instruction Type:Patient Education How to access health informa tion online - Detail Indication:BMI 32.0-32.9,adult Start:04-Sep-2018 Instruction Type:Patient Education Patient Instructions Indication:BMI 32.0-32.9,adult Start:04-Sep-2018 Instruction Type:Provider Instructions for Treatment How to access health informa tion online Indication:BMI 31.0-31.9,adult Start:04-Aug-2018 Instruction Type:Patient Education How to access health informa tion online - Detail Indication:BMI 31.0-31.9,adult Start:04-Aug-2018 Instruction Type:Patient Education Patient Instructions Indication:BMI 31.0-31.9,adult Start:04-Aug-2018 Instruction Type:Provider Instructions for Treatment Patient Instructions Indication:Finger pain, left Start:28-Jul-2018 Instruction Type:Provider Instructions for Treatment How to access health informa tion online Indication:Non-smoker Start:28-Jul-2018 Instruction Type:Patient Education How to access health informa tion online - Detail Indication:Non-smoker Start:28-Jul-2018 Instruction Type:Patient Education Patient Instructions Indication:Non-smoker Start:28-Jul-2018 Instruction Type:Provider Instructions for Treatment How to access health informa tion online Indication:BMI 31.0-31.9,adult Start:30-Mar-2018 Instruction Type:Patient Education How to access health informa tion online - Detail Indication:BMI 31.0-31.9,adult Start:30-Mar-2018 Instruction Type:Patient Education Patient Instructions Indication:Vaginal yeast infection Start:30-Mar-2018 Instruction Type:Provider Instructions for Treatment How to access health informa tion online Indication:Non-smoker Start:16-Mar-2018 Instruction Type:Patient Education How to access health informa tion online - Detail Indication:Non-smoker Start:16-Mar-2018 Instruction Type:Patient Education Patient Instructions Indication:Non-smoker Start:16-Mar-2018 Instruction Type:Provider Instructions for Treatment How to access health informa tion online Indication:Bronchitis Start:28-May-2016 Instruction Type:Patient Education How to access health informa tion online - Detail Indication:Bronchitis Start:28-May-2016 Instruction Type:Patient Education How to access health informa tion online Indication:Cough Start:05-May-2016 Instruction Type:Patient Education How to access health informa tion online - Detail Indication:Cough Start:05-May-2016 Instruction Type:Patient Education Patient Instructions Indication:Cough Start:05-May-2016 Instruction Type:Provider Instructions for Treatment How to access health informa tion online Indication:Contact dermatitis, unspecified contact dermatitis type, unspecified trigger Start:29-Dec-2015 Instruction Type:Patient Education How to access health informa tion online - Detail Indication:Contact dermatitis, unspecified contact dermatitis type, unspecified trigger Start:29-Dec-2015 Instruction Type:Patient Education Patient Instructions Indication:Arthralgia of right hip Start:15-Dec-2015 Instruction Type:Provider Instructions for Treatment How to access health informa tion online Indication:Back pain, acute Start:08-Dec-2015 Instruction Type:Patient Education How to access health informa tion online - Detail Indication:Back pain, acute Start:08-Dec-2015 Instruction Type:Patient Education Patient Instructions Indication:Back pain, acute Start:08-Dec-2015 Instruction Type:Provider Instructions for Treatment How to access health informa tion online Indication:Cough Start:10-Nov-2015 Instruction Type:Patient Education How to access health informa tion online - Detail Indication:Cough Start:10-Nov-2015 Instruction Type:Patient Education Patient Instructions Indication:Cough Start:10-Nov-2015 Instruction Type:Provider Instructions for Treatment How to access health informa tion online Indication:Muscle strain Start:15-Jan-2015 Instruction Type:Patient Education How to access health informa tion online - Detail Indication:Muscle strain Start:15-Jan-2015 Instruction Type:Patient Education Patient Instructions Indication:Muscle strain Start:15-Jan-2015 Instruction Type:Provider Instructions for Treatment Patient Instructions Indication:Acute sinusitis, unspecified Start:31-Oct-2013 Instruction Type:Provider Instructions for Treatment Patient Instructions Indication:Rash Start:26-Sep-2013 Instruction Type:Provider Instructions for Treatment Patient Instructions Indication:Pain of toe, unspecified laterality Start:26-Dec-2012 Instruction Type:Provider Instructions for Treatment Patient Instructions Indication:Knee pain, left Start:24-Nov-2012 Instruction Type:Provider Instructions for Treatment [facility]; [facility] Work Phone: Instructions* Name Dates Details Patient Instructions Indication:Nonsmoker Start:20-Oct-2022 Instruction Type:Provider Instructions for Treatment How to Access Health Informa tion Online using Patient Portal and [employer]rd [employer] Apps Indication:Nonsmoker Start:20-Oct-2022 Instruction Type:Patient Education Patient Instructions Indication:BMI 36.0-36.9,adult Start:20-Sep-2022 Instruction Type:Provider Instructions for Treatment How to Access Health Informa tion Online using Patient Portal and [employer]rd [employer] Apps Indication:BMI 36.0-36.9,adult Start:20-Sep-2022 Instruction Type:Patient Education Patient Instructions Indication:BMI 35.0-35.9,adult Start:04-Nov-2021 Instruction Type:Provider Instructions for Treatment How to Access Health Informa tion Online using Patient Portal and [employer]rd [employer] Apps Indication:BMI 35.0-35.9,adult Start:04-Nov-2021 Instruction Type:Patient Education Patient Instructions Indication:Nonsmoker Start:28-Oct-2021 Instruction Type:Provider Instructions for Treatment How to Access Health Informa tion Online using Patient Portal and [employer]rd [employer] Apps Indication:Nonsmoker Start:28-Oct-2021 Instruction Type:Patient Education Patient Instructions Indication:Nonsmoker Start:20-Jul-2021 Instruction Type:Provider Instructions for Treatment How to Access Health Informa tion Online using Patient Portal and [employer] Apps Indication:Nonsmoker Start:20-Jul-2021 Instruction Type:Patient Education Patient Instructions Indication:BMI 35.0-35.9,adult Start:26-Jun-2021 Instruction Type:Provider Instructions for Treatment How to Access Health Informa tion Online using Patient Portal and [employer]rd [employer] Apps Indication:BMI 35.0-35.9,adult Start:26-Jun-2021 Instruction Type:Patient Education Patient Instructions Indication:BMI 35.0-35.9,adult Start:22-Jun-2021 Instruction Type:Provider Instructions for Treatment How to Access Health Informa tion Online using Patient Portal and [employer]rd [employer] Apps Indication:BMI 35.0-35.9,adult Start:22-Jun-2021 Instruction Type:Patient Education Patient Instructions Indication:BMI 35.0-35.9,adult Start:23-Apr-2021 Instruction Type:Provider Instructions for Treatment How to Access Health Informa tion Online using Patient Portal and [employer]rd [employer] Apps Indication:BMI 35.0-35.9,adult Start:23-Apr-2021 Instruction Type:Patient Education Patient Instructions Indication:BMI 35.0-35.9,adult Start:20-Mar-2021 Instruction Type:Provider Instructions for Treatment How to Access Health Informa tion Online using Patient Portal and [employer]rd [employer] Apps Indication:BMI 35.0-35.9,adult Start:20-Mar-2021 Instruction Type:Patient Education How to Access Health Informa tion Online using Patient Portal and [employer]rd [employer] Apps Indication:Nonsmoker Start:08-Sep-2020 Instruction Type:Patient Education Patient Instructions Indication:Nonsmoker Start:08-Sep-2020 Instruction Type:Provider Instructions for Treatment How to Access Health Informa tion Online using Patient Portal and [employer]rd [employer] Apps Indication:Nonsmoker Start:01-Sep-2020 Instruction Type:Patient Education Patient Instructions Indication:Nonsmoker Start:01-Sep-2020 Instruction Type:Provider Instructions for Treatment Patient Instructions Indication:BMI 35.0-35.9,adult Start:29-Aug-2020 Instruction Type:Provider Instructions for Treatment How to Access Health Informa tion Online using Patient Portal and [employer]rd [employer] Apps Indication:BMI 35.0-35.9,adult Start:29-Aug-2020 Instruction Type:Patient Education Patient Instructions Indication:Nonsmoker Start:30-Jul-2020 Instruction Type:Provider Instructions for Treatment How to Access Health Informa tion Online using Patient Portal and [employer] Apps Indication:Nonsmoker Start:30-Jul-2020 Instruction Type:Patient Education How to access health informa tion online Indication:Nonsmoker Start:27-Dec-2019 Instruction Type:Patient Education How to access health informa tion online - Detail Indication:Nonsmoker Start:27-Dec-2019 Instruction Type:Patient Education Patient Instructions Indication:Nonsmoker Start:27-Dec-2019 Instruction Type:Provider Instructions for Treatment How to access health informa tion online Indication:BMI 35.0-35.9,adult Start:14-Dec-2019 Instruction Type:Patient Education How to access health informa tion online - Detail Indication:BMI 35.0-35.9,adult Start:14-Dec-2019 Instruction Type:Patient Education Patient Instructions Indication:BMI 35.0-35.9,adult Start:14-Dec-2019 Instruction Type:Provider Instructions for Treatment How to access health informa tion online Indication:Nonsmoker Start:07-Nov-2019 Instruction Type:Patient Education How to access health informa tion online - Detail Indication:Nonsmoker Start:07-Nov-2019 Instruction Type:Patient Education Patient Instructions Indication:Nonsmoker Start:07-Nov-2019 Instruction Type:Provider Instructions for Treatment How to access health informa tion online Indication:BMI 35.0-35.9,adult Start:18-Sep-2019 Instruction Type:Patient Education How to access health informa tion online - Detail Indication:BMI 35.0-35.9,adult Start:18-Sep-2019 Instruction Type:Patient Education Patient Instructions Indication:BMI 35.0-35.9,adult Start:18-Sep-2019 Instruction Type:Provider Instructions for Treatment How to access health informa tion online Indication:Non-smoker Start:17-May-2019 Instruction Type:Patient Education How to access health informa tion online - Detail Indication:Non-smoker Start:17-May-2019 Instruction Type:Patient Education Patient Instructions Indication:Sinusitis, bacterial Start:17-May-2019 Instruction Type:Provider Instructions for Treatment How to access health informa tion online Indication:Tenderness of neck Start:25-Apr-2019 Instruction Type:Patient Education How to access health informa tion online - Detail Indication:Tenderness of neck Start:25-Apr-2019 Instruction Type:Patient Education Patient Instructions Indication:Tenderness of neck Start:25-Apr-2019 Instruction Type:Provider Instructions for Treatment How to access health informa tion online Indication:BMI 32.0-32.9,adult Start:04-Sep-2018 Instruction Type:Patient Education How to access health informa tion online - Detail Indication:BMI 32.0-32.9,adult Start:04-Sep-2018 Instruction Type:Patient Education Patient Instructions Indication:BMI 32.0-32.9,adult Start:04-Sep-2018 Instruction Type:Provider Instructions for Treatment How to access health informa tion online Indication:BMI 31.0-31.9,adult Start:04-Aug-2018 Instruction Type:Patient Education How to access health informa tion online - Detail Indication:BMI 31.0-31.9,adult Start:04-Aug-2018 Instruction Type:Patient Education Patient Instructions Indication:BMI 31.0-31.9,adult Start:04-Aug-2018 Instruction Type:Provider Instructions for Treatment Patient Instructions Indication:Finger pain, left Start:28-Jul-2018 Instruction Type:Provider Instructions for Treatment How to access health informa tion online Indication:Non-smoker Start:28-Jul-2018 Instruction Type:Patient Education How to access health informa tion online - Detail Indication:Non-smoker Start:28-Jul-2018 Instruction Type:Patient Education Patient Instructions Indication:Non-smoker Start:28-Jul-2018 Instruction Type:Provider Instructions for Treatment How to access health informa tion online Indication:BMI 31.0-31.9,adult Start:30-Mar-2018 Instruction Type:Patient Education How to access health informa tion online - Detail Indication:BMI 31.0-31.9,adult Start:30-Mar-2018 Instruction Type:Patient Education Patient Instructions Indication:Vaginal yeast infection Start:30-Mar-2018 Instruction Type:Provider Instructions for Treatment How to access health informa tion online Indication:Non-smoker Start:16-Mar-2018 Instruction Type:Patient Education How to access health informa tion online - Detail Indication:Non-smoker Start:16-Mar-2018 Instruction Type:Patient Education Patient Instructions Indication:Non-smoker Start:16-Mar-2018 Instruction Type:Provider Instructions for Treatment How to access health informa tion online Indication:Bronchitis Start:28-May-2016 Instruction Type:Patient Education How to access health informa tion online - Detail Indication:Bronchitis Start:28-May-2016 Instruction Type:Patient Education How to access health informa tion online Indication:Cough Start:05-May-2016 Instruction Type:Patient Education How to access health informa tion online - Detail Indication:Cough Start:05-May-2016 Instruction Type:Patient Education Patient Instructions Indication:Cough Start:05-May-2016 Instruction Type:Provider Instructions for Treatment How to access health informa tion online Indication:Contact dermatitis, unspecified contact dermatitis type, unspecified trigger Start:29-Dec-2015 Instruction Type:Patient Education How to access health informa tion online - Detail Indication:Contact dermatitis, unspecified contact dermatitis type, unspecified trigger Start:29-Dec-2015 Instruction Type:Patient Education Patient Instructions Indication:Arthralgia of right hip Start:15-Dec-2015 Instruction Type:Provider Instructions for Treatment How to access health informa tion online Indication:Back pain, acute Start:08-Dec-2015 Instruction Type:Patient Education How to access health informa tion online - Detail Indication:Back pain, acute Start:08-Dec-2015 Instruction Type:Patient Education Patient Instructions Indication:Back pain, acute Start:08-Dec-2015 Instruction Type:Provider Instructions for Treatment How to access health informa tion online Indication:Cough Start:10-Nov-2015 Instruction Type:Patient Education How to access health informa tion online - Detail Indication:Cough Start:10-Nov-2015 Instruction Type:Patient Education Patient Instructions Indication:Cough Start:10-Nov-2015 Instruction Type:Provider Instructions for Treatment How to access health informa tion online Indication:Muscle strain Start:15-Jan-2015 Instruction Type:Patient Education How to access health informa tion online - Detail Indication:Muscle strain Start:15-Jan-2015 Instruction Type:Patient Education Patient Instructions Indication:Muscle strain Start:15-Jan-2015 Instruction Type:Provider Instructions for Treatment Patient Instructions Indication:Acute sinusitis, unspecified Start:31-Oct-2013 Instruction Type:Provider Instructions for Treatment Patient Instructions Indication:Rash Start:26-Sep-2013 Instruction Type:Provider Instructions for Treatment Patient Instructions Indication:Pain of toe, unspecified laterality Start:26-Dec-2012 Instruction Type:Provider Instructions for Treatment Patient Instructions Indication:Knee pain, left Start:24-Nov-2012 Instruction Type:Provider Instructions for Treatment [facility] Work Phone: Instructions* Name Dates Details Patient Instructions Indication:Nonsmoker Start:20-Oct-2022 Instruction Type:Provider Instructions for Treatment How to Access Health Informa tion Online using Patient Portal and 3rd [employer] Apps Indication:Nonsmoker Start:20-Oct-2022 Instruction Type:Patient Education Patient Instructions Indication:BMI 36.0-36.9,adult Start:20-Sep-2022 Instruction Type:Provider Instructions for Treatment How to Access Health Informa tion Online using Patient Portal and [employer]rd [employer] Apps Indication:BMI 36.0-36.9,adult Start:20-Sep-2022 Instruction Type:Patient Education Patient Instructions Indication:BMI 35.0-35.9,adult Start:04-Nov-2021 Instruction Type:Provider Instructions for Treatment How to Access Health Informa tion Online using Patient Portal and [employer]rd [employer] Apps Indication:BMI 35.0-35.9,adult Start:04-Nov-2021 Instruction Type:Patient Education Patient Instructions Indication:Nonsmoker Start:28-Oct-2021 Instruction Type:Provider Instructions for Treatment How to Access Health Informa tion Online using Patient Portal and [employer]rd [employer] Apps Indication:Nonsmoker Start:28-Oct-2021 Instruction Type:Patient Education Patient Instructions Indication:Nonsmoker Start:20-Jul-2021 Instruction Type:Provider Instructions for Treatment How to Access Health Informa tion Online using Patient Portal and [employer]rd [employer] Apps Indication:Nonsmoker Start:20-Jul-2021 Instruction Type:Patient Education Patient Instructions Indication:BMI 35.0-35.9,adult Start:26-Jun-2021 Instruction Type:Provider Instructions for Treatment How to Access Health Informa tion Online using Patient Portal and [employer]rd [employer] Apps Indication:BMI 35.0-35.9,adult Start:26-Jun-2021 Instruction Type:Patient Education Patient Instructions Indication:BMI 35.0-35.9,adult Start:22-Jun-2021 Instruction Type:Provider Instructions for Treatment How to Access Health Informa tion Online using Patient Portal and [employer]rd [employer] Apps Indication:BMI 35.0-35.9,adult Start:22-Jun-2021 Instruction Type:Patient Education Patient Instructions Indication:BMI 35.0-35.9,adult Start:23-Apr-2021 Instruction Type:Provider Instructions for Treatment How to Access Health Informa tion Online using Patient Portal and [employer]rd [employer] Apps Indication:BMI 35.0-35.9,adult Start:23-Apr-2021 Instruction Type:Patient Education Patient Instructions Indication:BMI 35.0-35.9,adult Start:20-Mar-2021 Instruction Type:Provider Instructions for Treatment How to Access Health Informa tion Online using Patient Portal and [employer]rd [employer] Apps Indication:BMI 35.0-35.9,adult Start:20-Mar-2021 Instruction Type:Patient Education How to Access Health Informa tion Online using Patient Portal and [employer]rd [employer] Apps Indication:Nonsmoker Start:08-Sep-2020 Instruction Type:Patient Education Patient Instructions Indication:Nonsmoker Start:08-Sep-2020 Instruction Type:Provider Instructions for Treatment How to Access Health Informa tion Online using Patient Portal and [employer]rd [employer] Apps Indication:Nonsmoker Start:01-Sep-2020 Instruction Type:Patient Education Patient Instructions Indication:Nonsmoker Start:01-Sep-2020 Instruction Type:Provider Instructions for Treatment Patient Instructions Indication:BMI 35.0-35.9,adult Start:29-Aug-2020 Instruction Type:Provider Instructions for Treatment How to Access Health Informa tion Online using Patient Portal and [employer]rd [employer] Apps Indication:BMI 35.0-35.9,adult Start:29-Aug-2020 Instruction Type:Patient Education Patient Instructions Indication:Nonsmoker Start:30-Jul-2020 Instruction Type:Provider Instructions for Treatment How to Access Health Informa tion Online using Patient Portal and [employer]rd [employer] Apps Indication:Nonsmoker Start:30-Jul-2020 Instruction Type:Patient Education How to access health informa tion online Indication:Nonsmoker Start:27-Dec-2019 Instruction Type:Patient Education How to access health informa tion online - Detail Indication:Nonsmoker Start:27-Dec-2019 Instruction Type:Patient Education Patient Instructions Indication:Nonsmoker Start:27-Dec-2019 Instruction Type:Provider Instructions for Treatment How to access health informa tion online Indication:BMI 35.0-35.9,adult Start:14-Dec-2019 Instruction Type:Patient Education How to access health informa tion online - Detail Indication:BMI 35.0-35.9,adult Start:14-Dec-2019 Instruction Type:Patient Education Patient Instructions Indication:BMI 35.0-35.9,adult Start:14-Dec-2019 Instruction Type:Provider Instructions for Treatment How to access health informa tion online Indication:Nonsmoker Start:07-Nov-2019 Instruction Type:Patient Education How to access health informa tion online - Detail Indication:Nonsmoker Start:07-Nov-2019 Instruction Type:Patient Education Patient Instructions Indication:Nonsmoker Start:07-Nov-2019 Instruction Type:Provider Instructions for Treatment How to access health informa tion online Indication:BMI 35.0-35.9,adult Start:18-Sep-2019 Instruction Type:Patient Education How to access health informa tion online - Detail Indication:BMI 35.0-35.9,adult Start:18-Sep-2019 Instruction Type:Patient Education Patient Instructions Indication:BMI 35.0-35.9,adult Start:18-Sep-2019 Instruction Type:Provider Instructions for Treatment How to access health informa tion online Indication:Non-smoker Start:17-May-2019 Instruction Type:Patient Education How to access health informa tion online - Detail Indication:Non-smoker Start:17-May-2019 Instruction Type:Patient Education Patient Instructions Indication:Sinusitis, bacterial Start:17-May-2019 Instruction Type:Provider Instructions for Treatment How to access health informa tion online Indication:Tenderness of neck Start:25-Apr-2019 Instruction Type:Patient Education How to access health informa tion online - Detail Indication:Tenderness of neck Start:25-Apr-2019 Instruction Type:Patient Education Patient Instructions Indication:Tenderness of neck Start:25-Apr-2019 Instruction Type:Provider Instructions for Treatment How to access health informa tion online Indication:BMI 32.0-32.9,adult Start:04-Sep-2018 Instruction Type:Patient Education How to access health informa tion online - Detail Indication:BMI 32.0-32.9,adult Start:04-Sep-2018 Instruction Type:Patient Education Patient Instructions Indication:BMI 32.0-32.9,adult Start:04-Sep-2018 Instruction Type:Provider Instructions for Treatment How to access health informa tion online Indication:BMI 31.0-31.9,adult Start:04-Aug-2018 Instruction Type:Patient Education How to access health informa tion online - Detail Indication:BMI 31.0-31.9,adult Start:04-Aug-2018 Instruction Type:Patient Education Patient Instructions Indication:BMI 31.0-31.9,adult Start:04-Aug-2018 Instruction Type:Provider Instructions for Treatment Patient Instructions Indication:Finger pain, left Start:28-Jul-2018 Instruction Type:Provider Instructions for Treatment How to access health informa tion online Indication:Non-smoker Start:28-Jul-2018 Instruction Type:Patient Education How to access health informa tion online - Detail Indication:Non-smoker Start:28-Jul-2018 Instruction Type:Patient Education Patient Instructions Indication:Non-smoker Start:28-Jul-2018 Instruction Type:Provider Instructions for Treatment How to access health informa tion online Indication:BMI 31.0-31.9,adult Start:30-Mar-2018 Instruction Type:Patient Education How to access health informa tion online - Detail Indication:BMI 31.0-31.9,adult Start:30-Mar-2018 Instruction Type:Patient Education Patient Instructions Indication:Vaginal yeast infection Start:30-Mar-2018 Instruction Type:Provider Instructions for Treatment How to access health informa tion online Indication:Non-smoker Start:16-Mar-2018 Instruction Type:Patient Education How to access health informa tion online - Detail Indication:Non-smoker Start:16-Mar-2018 Instruction Type:Patient Education Patient Instructions Indication:Non-smoker Start:16-Mar-2018 Instruction Type:Provider Instructions for Treatment How to access health informa tion online Indication:Bronchitis Start:28-May-2016 Instruction Type:Patient Education How to access health informa tion online - Detail Indication:Bronchitis Start:28-May-2016 Instruction Type:Patient Education How to access health informa tion online Indication:Cough Start:05-May-2016 Instruction Type:Patient Education How to access health informa tion online - Detail Indication:Cough Start:05-May-2016 Instruction Type:Patient Education Patient Instructions Indication:Cough Start:05-May-2016 Instruction Type:Provider Instructions for Treatment How to access health informa tion online Indication:Contact dermatitis, unspecified contact dermatitis type, unspecified trigger Start:29-Dec-2015 Instruction Type:Patient Education How to access health informa tion online - Detail Indication:Contact dermatitis, unspecified contact dermatitis type, unspecified trigger Start:29-Dec-2015 Instruction Type:Patient Education Patient Instructions Indication:Arthralgia of right hip Start:15-Dec-2015 Instruction Type:Provider Instructions for Treatment How to access health informa tion online Indication:Back pain, acute Start:08-Dec-2015 Instruction Type:Patient Education How to access health informa tion online - Detail Indication:Back pain, acute Start:08-Dec-2015 Instruction Type:Patient Education Patient Instructions Indication:Back pain, acute Start:08-Dec-2015 Instruction Type:Provider Instructions for Treatment How to access health informa tion online Indication:Cough Start:10-Nov-2015 Instruction Type:Patient Education How to access health informa tion online - Detail Indication:Cough Start:10-Nov-2015 Instruction Type:Patient Education Patient Instructions Indication:Cough Start:10-Nov-2015 Instruction Type:Provider Instructions for Treatment How to access health informa tion online Indication:Muscle strain Start:15-Jan-2015 Instruction Type:Patient Education How to access health informa tion online - Detail Indication:Muscle strain Start:15-Jan-2015 Instruction Type:Patient Education Patient Instructions Indication:Muscle strain Start:15-Jan-2015 Instruction Type:Provider Instructions for Treatment Patient Instructions Indication:Acute sinusitis, unspecified Start:31-Oct-2013 Instruction Type:Provider Instructions for Treatment Patient Instructions Indication:Rash Start:26-Sep-2013 Instruction Type:Provider Instructions for Treatment Patient Instructions Indication:Pain of toe, unspecified laterality Start:26-Dec-2012 Instruction Type:Provider Instructions for Treatment Patient Instructions Indication:Knee pain, left Start:24-Nov-2012 Instruction Type:Provider Instructions for Treatment [facility]; [facility] Work Phone: Instructions* Name Dates Details Patient Instructions Indication:Nonsmoker Start:20-Oct-2022 Instruction Type:Provider Instructions for Treatment How to Access Health Informa tion Online using Patient Portal and [employer]rd [employer] Apps Indication:Nonsmoker Start:20-Oct-2022 Instruction Type:Patient Education Patient Instructions Indication:BMI 36.0-36.9,adult Start:20-Sep-2022 Instruction Type:Provider Instructions for Treatment How to Access Health Informa tion Online using Patient Portal and [employer]rd [employer] Apps Indication:BMI 36.0-36.9,adult Start:20-Sep-2022 Instruction Type:Patient Education Patient Instructions Indication:BMI 35.0-35.9,adult Start:04-Nov-2021 Instruction Type:Provider Instructions for Treatment How to Access Health Informa tion Online using Patient Portal and [employer]rd [employer] Apps Indication:BMI 35.0-35.9,adult Start:04-Nov-2021 Instruction Type:Patient Education Patient Instructions Indication:Nonsmoker Start:28-Oct-2021 Instruction Type:Provider Instructions for Treatment How to Access Health Informa tion Online using Patient Portal and [employer]rd [employer] Apps Indication:Nonsmoker Start:28-Oct-2021 Instruction Type:Patient Education Patient Instructions Indication:Nonsmoker Start:20-Jul-2021 Instruction Type:Provider Instructions for Treatment How to Access Health Informa tion Online using Patient Portal and [employer]rd [employer] Apps Indication:Nonsmoker Start:20-Jul-2021 Instruction Type:Patient Education Patient Instructions Indication:BMI 35.0-35.9,adult Start:26-Jun-2021 Instruction Type:Provider Instructions for Treatment How to Access Health Informa tion Online using Patient Portal and [employer]rd [employer] Apps Indication:BMI 35.0-35.9,adult Start:26-Jun-2021 Instruction Type:Patient Education Patient Instructions Indication:BMI 35.0-35.9,adult Start:22-Jun-2021 Instruction Type:Provider Instructions for Treatment How to Access Health Informa tion Online using Patient Portal and [employer]rd [employer] Apps Indication:BMI 35.0-35.9,adult Start:22-Jun-2021 Instruction Type:Patient Education Patient Instructions Indication:BMI 35.0-35.9,adult Start:23-Apr-2021 Instruction Type:Provider Instructions for Treatment How to Access Health Informa tion Online using Patient Portal and [employer]rd [employer] Apps Indication:BMI 35.0-35.9,adult Start:23-Apr-2021 Instruction Type:Patient Education Patient Instructions Indication:BMI 35.0-35.9,adult Start:20-Mar-2021 Instruction Type:Provider Instructions for Treatment How to Access Health Informa tion Online using Patient Portal and [employer]rd [employer] Apps Indication:BMI 35.0-35.9,adult Start:20-Mar-2021 Instruction Type:Patient Education How to Access Health Informa tion Online using Patient Portal and [employer]rd [employer] Apps Indication:Nonsmoker Start:08-Sep-2020 Instruction Type:Patient Education Patient Instructions Indication:Nonsmoker Start:08-Sep-2020 Instruction Type:Provider Instructions for Treatment How to Access Health Informa tion Online using Patient Portal and [employer]rd [employer] Apps Indication:Nonsmoker Start:01-Sep-2020 Instruction Type:Patient Education Patient Instructions Indication:Nonsmoker Start:01-Sep-2020 Instruction Type:Provider Instructions for Treatment Patient Instructions Indication:BMI 35.0-35.9,adult Start:29-Aug-2020 Instruction Type:Provider Instructions for Treatment How to Access Health Informa tion Online using Patient Portal and [employer]rd [employer] Apps Indication:BMI 35.0-35.9,adult Start:29-Aug-2020 Instruction Type:Patient Education Patient Instructions Indication:Nonsmoker Start:30-Jul-2020 Instruction Type:Provider Instructions for Treatment How to Access Health Informa tion Online using Patient Portal and [employer] Apps Indication:Nonsmoker Start:30-Jul-2020 Instruction Type:Patient Education How to access health informa tion online Indication:Nonsmoker Start:27-Dec-2019 Instruction Type:Patient Education How to access health informa tion online - Detail Indication:Nonsmoker Start:27-Dec-2019 Instruction Type:Patient Education Patient Instructions Indication:Nonsmoker Start:27-Dec-2019 Instruction Type:Provider Instructions for Treatment How to access health informa tion online Indication:BMI 35.0-35.9,adult Start:14-Dec-2019 Instruction Type:Patient Education How to access health informa tion online - Detail Indication:BMI 35.0-35.9,adult Start:14-Dec-2019 Instruction Type:Patient Education Patient Instructions Indication:BMI 35.0-35.9,adult Start:14-Dec-2019 Instruction Type:Provider Instructions for Treatment How to access health informa tion online Indication:Nonsmoker Start:07-Nov-2019 Instruction Type:Patient Education How to access health informa tion online - Detail Indication:Nonsmoker Start:07-Nov-2019 Instruction Type:Patient Education Patient Instructions Indication:Nonsmoker Start:07-Nov-2019 Instruction Type:Provider Instructions for Treatment How to access health informa tion online Indication:BMI 35.0-35.9,adult Start:18-Sep-2019 Instruction Type:Patient Education How to access health informa tion online - Detail Indication:BMI 35.0-35.9,adult Start:18-Sep-2019 Instruction Type:Patient Education Patient Instructions Indication:BMI 35.0-35.9,adult Start:18-Sep-2019 Instruction Type:Provider Instructions for Treatment How to access health informa tion online Indication:Non-smoker Start:17-May-2019 Instruction Type:Patient Education How to access health informa tion online - Detail Indication:Non-smoker Start:17-May-2019 Instruction Type:Patient Education Patient Instructions Indication:Sinusitis, bacterial Start:17-May-2019 Instruction Type:Provider Instructions for Treatment How to access health informa tion online Indication:Tenderness of neck Start:25-Apr-2019 Instruction Type:Patient Education How to access health informa tion online - Detail Indication:Tenderness of neck Start:25-Apr-2019 Instruction Type:Patient Education Patient Instructions Indication:Tenderness of neck Start:25-Apr-2019 Instruction Type:Provider Instructions for Treatment How to access health informa tion online Indication:BMI 32.0-32.9,adult Start:04-Sep-2018 Instruction Type:Patient Education How to access health informa tion online - Detail Indication:BMI 32.0-32.9,adult Start:04-Sep-2018 Instruction Type:Patient Education Patient Instructions Indication:BMI 32.0-32.9,adult Start:04-Sep-2018 Instruction Type:Provider Instructions for Treatment How to access health informa tion online Indication:BMI 31.0-31.9,adult Start:04-Aug-2018 Instruction Type:Patient Education How to access health informa tion online - Detail Indication:BMI 31.0-31.9,adult Start:04-Aug-2018 Instruction Type:Patient Education Patient Instructions Indication:BMI 31.0-31.9,adult Start:04-Aug-2018 Instruction Type:Provider Instructions for Treatment Patient Instructions Indication:Finger pain, left Start:28-Jul-2018 Instruction Type:Provider Instructions for Treatment How to access health informa tion online Indication:Non-smoker Start:28-Jul-2018 Instruction Type:Patient Education How to access health informa tion online - Detail Indication:Non-smoker Start:28-Jul-2018 Instruction Type:Patient Education Patient Instructions Indication:Non-smoker Start:28-Jul-2018 Instruction Type:Provider Instructions for Treatment How to access health informa tion online Indication:BMI 31.0-31.9,adult Start:30-Mar-2018 Instruction Type:Patient Education How to access health informa tion online - Detail Indication:BMI 31.0-31.9,adult Start:30-Mar-2018 Instruction Type:Patient Education Patient Instructions Indication:Vaginal yeast infection Start:30-Mar-2018 Instruction Type:Provider Instructions for Treatment How to access health informa tion online Indication:Non-smoker Start:16-Mar-2018 Instruction Type:Patient Education How to access health informa tion online - Detail Indication:Non-smoker Start:16-Mar-2018 Instruction Type:Patient Education Patient Instructions Indication:Non-smoker Start:16-Mar-2018 Instruction Type:Provider Instructions for Treatment How to access health informa tion online Indication:Bronchitis Start:28-May-2016 Instruction Type:Patient Education How to access health informa tion online - Detail Indication:Bronchitis Start:28-May-2016 Instruction Type:Patient Education How to access health informa tion online Indication:Cough Start:05-May-2016 Instruction Type:Patient Education How to access health informa tion online - Detail Indication:Cough Start:05-May-2016 Instruction Type:Patient Education Patient Instructions Indication:Cough Start:05-May-2016 Instruction Type:Provider Instructions for Treatment How to access health informa tion online Indication:Contact dermatitis, unspecified contact dermatitis type, unspecified trigger Start:29-Dec-2015 Instruction Type:Patient Education How to access health informa tion online - Detail Indication:Contact dermatitis, unspecified contact dermatitis type, unspecified trigger Start:29-Dec-2015 Instruction Type:Patient Education Patient Instructions Indication:Arthralgia of right hip Start:15-Dec-2015 Instruction Type:Provider Instructions for Treatment How to access health informa tion online Indication:Back pain, acute Start:08-Dec-2015 Instruction Type:Patient Education How to access health informa tion online - Detail Indication:Back pain, acute Start:08-Dec-2015 Instruction Type:Patient Education Patient Instructions Indication:Back pain, acute Start:08-Dec-2015 Instruction Type:Provider Instructions for Treatment How to access health informa tion online Indication:Cough Start:10-Nov-2015 Instruction Type:Patient Education How to access health informa tion online - Detail Indication:Cough Start:10-Nov-2015 Instruction Type:Patient Education Patient Instructions Indication:Cough Start:10-Nov-2015 Instruction Type:Provider Instructions for Treatment How to access health informa tion online Indication:Muscle strain Start:15-Jan-2015 Instruction Type:Patient Education How to access health informa tion online - Detail Indication:Muscle strain Start:15-Jan-2015 Instruction Type:Patient Education Patient Instructions Indication:Muscle strain Start:15-Jan-2015 Instruction Type:Provider Instructions for Treatment Patient Instructions Indication:Acute sinusitis, unspecified Start:31-Oct-2013 Instruction Type:Provider Instructions for Treatment Patient Instructions Indication:Rash Start:26-Sep-2013 Instruction Type:Provider Instructions for Treatment Patient Instructions Indication:Pain of toe, unspecified laterality Start:26-Dec-2012 Instruction Type:Provider Instructions for Treatment Patient Instructions Indication:Knee pain, left Start:24-Nov-2012 Instruction Type:Provider Instructions for Treatment [facility]; [facility] Work Phone: progress note No data available for this section [facility] Family History Unknown Family Member Name Dates Details Father Comments:kidney cancer, dece ased age 65 Status:Active First Degree Relatives Comments:paternal uncles wit hType II diabetes Status:Active Unknown Family Member Name Dates Details Father Comments:kidney cancer, dece ased age 65 Status:Active First Degree Relatives Comments:paternal uncles wit hType II diabetes Status:Active Unknown Family Member Name Dates Details Father Comments:kidney cancer, dece ased age 65 Status:Active First Degree Relatives Comments:paternal uncles wit hType II diabetes Status:Active Unknown Family Member Name Dates Details Father Comments:kidney cancer, dece ased age 65 Status:Active First Degree Relatives Comments:paternal uncles wit hType II diabetes Status:Active Unknown Family Member Name Dates Details Father Comments:kidney cancer, dece ased age 65 Status:Active First Degree Relatives Comments:paternal uncles wit hType II diabetes Status:Active Unknown Family Member Name Dates Details Father Comments:kidney cancer, dece ased age 65 Status:Active First Degree Relatives Comments:paternal uncles wit hType II diabetes Status:Active Unknown Family Member Name Dates Details Father Comments:kidney cancer, dece ased age 65 Status:Active First Degree Relatives Comments:paternal uncles wit hType II diabetes Status:Active Unknown Family Member Name Dates Details Father Comments:kidney cancer, dece ased age 65 Status:Active First Degree Relatives Comments:paternal uncles wit hType II diabetes Status:Active Unknown Family Member Name Dates Details Father Comments:kidney cancer, dece ased age 65 Status:Active First Degree Relatives Comments:paternal uncles wit hType II diabetes Status:Active Unknown Family Member Name Dates Details Father Comments:kidney cancer, dece ased age 65 Status:Active First Degree Relatives Comments:paternal uncles wit hType II diabetes Status:Active Unknown Family Member Name Dates Details Father Comments:kidney cancer, dece ased age 65 Status:Active First Degree Relatives Comments:paternal uncles wit hType II diabetes Status:Active Unknown Family Member Name Dates Details Father Comments:kidney cancer, dece ased age 65 Status:Active First Degree Relatives Comments:paternal uncles wit hType II diabetes Status:Active Unknown Family Member Name Dates Details Father Comments:kidney cancer, dece ased age 65 Status:Active First Degree Relatives Comments:paternal uncles wit hType II diabetes Status:Active Unknown Family Member Name Dates Details Father Comments:kidney cancer, dece ased age 65 Status:Active First Degree Relatives Comments:paternal uncles wit hType II diabetes Status:Active Unknown Family Member Name Dates Details Father Comments:kidney cancer, dece ased age 65 Status:Active First Degree Relatives Comments:paternal uncles wit hType II diabetes Status:Active Unknown Family Member Name Dates Details Father Comments:kidney cancer, dece ased age 65 Status:Active First Degree Relatives Comments:paternal uncles wit hType II diabetes Status:Active Unknown Family Member Name Dates Details Father Comments:kidney cancer, dece ased age 65 Status:Active First Degree Relatives Comments:paternal uncles wit hType II diabetes Status:Active Unknown Family Member Name Dates Details Father Comments:kidney cancer, dece ased age 65 Status:Active First Degree Relatives Comments:paternal uncles wit hType II diabetes Status:Active Unknown Family Member Name Dates Details Father Comments:kidney cancer, dece ased age 65 Status:Active First Degree Relatives Comments:paternal uncles wit hType II diabetes Status:Active Unknown Family Member Name Dates Details Father Comments:kidney cancer, dece ased age 65 Status:Active First Degree Relatives Comments:paternal uncles wit hType II diabetes Status:Active Unknown Family Member Name Dates Details Father Comments:kidney cancer, dece ased age 65 Status:Active First Degree Relatives Comments:paternal uncles wit hType II diabetes Status:Active Unknown Family Member Name Dates Details Father Comments:kidney cancer, dece ased age 65 Status:Active First Degree Relatives Comments:paternal uncles wit hType II diabetes Status:Active Unknown Family Member Name Dates Details Father Comments:kidney cancer, dece ased age 65 Status:Active First Degree Relatives Comments:paternal uncles wit hType II diabetes Status:Active Unknown Family Member Name Dates Details Father Comments:kidney cancer, dece ased age 65 Status:Active First Degree Relatives Comments:paternal uncles wit hType II diabetes Status:Active Unknown Family Member Name Dates Details Father Comments:kidney cancer, dece ased age 65 Status:Active First Degree Relatives Comments:paternal uncles wit hType II diabetes Status:Active Unknown Family Member Name Dates Details Father Comments:kidney cancer, dece ased age 65 Status:Active First Degree Relatives Comments:paternal uncles wit hType II diabetes Status:Active Unknown Family Member Name Dates Details Father Comments:kidney cancer, dece ased age 65 Status:Active First Degree Relatives Comments:paternal uncles wit hType II diabetes Status:Active Instructions Name Dates Details BMI 31.0-31.9,adult : How to access health information online Indication:BMI 31.0-31.9,adult BMI 31.0-31.9,adult : How to access health information online - Detail Indication:BMI 31.0-31.9,adult Vaginal yeast infection : Pa farida Instructions Indication:Vaginal yeast infection Non-smoker : How to access h ealth information online Indication:Non-smoker Non-smoker : How to access h ealth information online - Detail Indication:Non-smoker Non-smoker : Patient Instruc tions Indication:Non-smoker Bronchitis : How to access h ealth information online Indication:Bronchitis Bronchitis : How to access h ealth information online - Detail Indication:Bronchitis Cough : How to access health information online Indication:Cough Cough : How to access health information online - Detail Indication:Cough Cough : Patient Instructions Indication:Cough Contact dermatitis, unspecif ied contact dermatitis type, unspecified trigger : How to access health information online Indication:Contact dermatitis, unspecified contact dermatitis type, unspecified trigger Contact dermatitis, unspecif ied contact dermatitis type, unspecified trigger : How to access health information online - Detail Indication:Contact dermatitis, unspecified contact dermatitis type, unspecified trigger Arthralgia of right hip : Misael iqbal Instructions Indication:Arthralgia of right hip Back pain, acute : How to ac cess health information online Indication:Back pain, acute Back pain, acute : How to ac cess health information online - Detail Indication:Back pain, acute Back pain, acute : Patient I nstructions Indication:Back pain, acute Muscle strain : How to acces s health information online Indication:Muscle strain Muscle strain : How to acces s health information online - Detail Indication:Muscle strain Muscle strain : Patient Inst ructions Indication:Muscle strain Acute sinusitis, unspecified : Patient Instructions Indication:Acute sinusitis, unspecified Rash : Patient Instructions Indication:Rash Pain of toe, unspecified lat erality : Patient Instructions Indication:Pain of toe, unspecified laterality Knee pain, left : Patient In structions Indication:Knee pain, left Name Dates Details Finger pain, left : Patient Instructions Indication:Finger pain, left Non-smoker : How to access h ealth information online Indication:Non-smoker Non-smoker : How to access h ealth information online - Detail Indication:Non-smoker Non-smoker : Patient Instruc tions Indication:Non-smoker BMI 31.0-31.9,adult : How to access health information online Indication:BMI 31.0-31.9,adult BMI 31.0-31.9,adult : How to access health information online - Detail Indication:BMI 31.0-31.9,adult Vaginal yeast infection : Pa tient Instructions Indication:Vaginal yeast infection Bronchitis : How to access h ealth information online Indication:Bronchitis Bronchitis : How to access h ealth information online - Detail Indication:Bronchitis Cough : How to access health information online Indication:Cough Cough : How to access health information online - Detail Indication:Cough Cough : Patient Instructions Indication:Cough Contact dermatitis, unspecif ied contact dermatitis type, unspecified trigger : How to access health information online Indication:Contact dermatitis, unspecified contact dermatitis type, unspecified trigger Contact dermatitis, unspecif ied contact dermatitis type, unspecified trigger : How to access health information online - Detail Indication:Contact dermatitis, unspecified contact dermatitis type, unspecified trigger Arthralgia of right hip : Pa tient Instructions Indication:Arthralgia of right hip Back pain, acute : How to ac cess health information online Indication:Back pain, acute Back pain, acute : How to ac cess health information online - Detail Indication:Back pain, acute Back pain, acute : Patient I nstructions Indication:Back pain, acute Muscle strain : How to acces s health information online Indication:Muscle strain Muscle strain : How to acces s health information online - Detail Indication:Muscle strain Muscle strain : Patient Inst ructions Indication:Muscle strain Acute sinusitis, unspecified : Patient Instructions Indication:Acute sinusitis, unspecified Rash : Patient Instructions Indication:Rash Pain of toe, unspecified lat erality : Patient Instructions Indication:Pain of toe, unspecified laterality Knee pain, left : Patient In structions Indication:Knee pain, left Name Dates Details BMI 31.0-31.9,adult : How to access health information online Indication:BMI 31.0-31.9,adult BMI 31.0-31.9,adult : How to access health information online - Detail Indication:BMI 31.0-31.9,adult BMI 31.0-31.9,adult : Patien t Instructions Indication:BMI 31.0-31.9,adult Finger pain, left : Patient Instructions Indication:Finger pain, left Non-smoker : How to access h ealth information online Indication:Non-smoker Non-smoker : How to access h ealth information online - Detail Indication:Non-smoker Non-smoker : Patient Instruc tions Indication:Non-smoker Vaginal yeast infection : Pa farida Instructions Indication:Vaginal yeast infection Bronchitis : How to access h ealth information online Indication:Bronchitis Bronchitis : How to access h ealth information online - Detail Indication:Bronchitis Cough : How to access health information online Indication:Cough Cough : How to access health information online - Detail Indication:Cough Cough : Patient Instructions Indication:Cough Contact dermatitis, unspecif ied contact dermatitis type, unspecified trigger : How to access health information online Indication:Contact dermatitis, unspecified contact dermatitis type, unspecified trigger Contact dermatitis, unspecif ied contact dermatitis type, unspecified trigger : How to access health information online - Detail Indication:Contact dermatitis, unspecified contact dermatitis type, unspecified trigger Arthralgia of right hip : Misael nolascont Instructions Indication:Arthralgia of right hip Back pain, acute : How to ac cess health information online Indication:Back pain, acute Back pain, acute : How to ac cess health information online - Detail Indication:Back pain, acute Back pain, acute : Patient I nstructions Indication:Back pain, acute Muscle strain : How to acces s health information online Indication:Muscle strain Muscle strain : How to acces s health information online - Detail Indication:Muscle strain Muscle strain : Patient Inst ructions Indication:Muscle strain Acute sinusitis, unspecified : Patient Instructions Indication:Acute sinusitis, unspecified Rash : Patient Instructions Indication:Rash Pain of toe, unspecified lat erality : Patient Instructions Indication:Pain of toe, unspecified laterality Knee pain, left : Patient In structions Indication:Knee pain, left Name Dates Details BMI 31.0-31.9,adult : How to access health information online Indication:BMI 31.0-31.9,adult BMI 31.0-31.9,adult : How to access health information online - Detail Indication:BMI 31.0-31.9,adult BMI 31.0-31.9,adult : Patien t Instructions Indication:BMI 31.0-31.9,adult Finger pain, left : Patient Instructions Indication:Finger pain, left Non-smoker : How to access h ealth information online Indication:Non-smoker Non-smoker : How to access h ealth information online - Detail Indication:Non-smoker Non-smoker : Patient Instruc tions Indication:Non-smoker Vaginal yeast infection : Misael iqbal Instructions Indication:Vaginal yeast infection Bronchitis : How to access h ealth information online Indication:Bronchitis Bronchitis : How to access h ealth information online - Detail Indication:Bronchitis Cough : How to access health information online Indication:Cough Cough : How to access health information online - Detail Indication:Cough Cough : Patient Instructions Indication:Cough Contact dermatitis, unspecif ied contact dermatitis type, unspecified trigger : How to access health information online Indication:Contact dermatitis, unspecified contact dermatitis type, unspecified trigger Contact dermatitis, unspecif ied contact dermatitis type, unspecified trigger : How to access health information online - Detail Indication:Contact dermatitis, unspecified contact dermatitis type, unspecified trigger Arthralgia of right hip : Misael iqbal Instructions Indication:Arthralgia of right hip Back pain, acute : How to ac cess health information online Indication:Back pain, acute Back pain, acute : How to ac cess health information online - Detail Indication:Back pain, acute Back pain, acute : Patient I nstructions Indication:Back pain, acute Muscle strain : How to acces s health information online Indication:Muscle strain Muscle strain : How to acces s health information online - Detail Indication:Muscle strain Muscle strain : Patient Inst ructions Indication:Muscle strain Acute sinusitis, unspecified : Patient Instructions Indication:Acute sinusitis, unspecified Rash : Patient Instructions Indication:Rash Pain of toe, unspecified lat erality : Patient Instructions Indication:Pain of toe, unspecified laterality Knee pain, left : Patient In structions Indication:Knee pain, left Name Dates Details BMI 32.0-32.9,adult : How to access health information online Indication:BMI 32.0-32.9,adult BMI 32.0-32.9,adult : How to access health information online - Detail Indication:BMI 32.0-32.9,adult BMI 32.0-32.9,adult : Patien t Instructions Indication:BMI 32.0-32.9,adult BMI 31.0-31.9,adult : How to access health information online Indication:BMI 31.0-31.9,adult BMI 31.0-31.9,adult : How to access health information online - Detail Indication:BMI 31.0-31.9,adult BMI 31.0-31.9,adult : Patien t Instructions Indication:BMI 31.0-31.9,adult Finger pain, left : Patient Instructions Indication:Finger pain, left Non-smoker : How to access h ealth information online Indication:Non-smoker Non-smoker : How to access h ealth information online - Detail Indication:Non-smoker Non-smoker : Patient Instruc tions Indication:Non-smoker Vaginal yeast infection : Pa farida Instructions Indication:Vaginal yeast infection Bronchitis : How to access h ealth information online Indication:Bronchitis Bronchitis : How to access h ealth information online - Detail Indication:Bronchitis Cough : How to access health information online Indication:Cough Cough : How to access health information online - Detail Indication:Cough Cough : Patient Instructions Indication:Cough Contact dermatitis, unspecif ied contact dermatitis type, unspecified trigger : How to access health information online Indication:Contact dermatitis, unspecified contact dermatitis type, unspecified trigger Contact dermatitis, unspecif ied contact dermatitis type, unspecified trigger : How to access health information online - Detail Indication:Contact dermatitis, unspecified contact dermatitis type, unspecified trigger Arthralgia of right hip : Pa farida Instructions Indication:Arthralgia of right hip Back pain, acute : How to ac cess health information online Indication:Back pain, acute Back pain, acute : How to ac cess health information online - Detail Indication:Back pain, acute Back pain, acute : Patient I nstructions Indication:Back pain, acute Muscle strain : How to acces s health information online Indication:Muscle strain Muscle strain : How to acces s health information online - Detail Indication:Muscle strain Muscle strain : Patient Inst ructions Indication:Muscle strain Acute sinusitis, unspecified : Patient Instructions Indication:Acute sinusitis, unspecified Rash : Patient Instructions Indication:Rash Pain of toe, unspecified lat erality : Patient Instructions Indication:Pain of toe, unspecified laterality Knee pain, left : Patient In structions Indication:Knee pain, left Name Dates Details BMI 32.0-32.9,adult : How to access health information online Indication:BMI 32.0-32.9,adult BMI 32.0-32.9,adult : How to access health information online - Detail Indication:BMI 32.0-32.9,adult BMI 32.0-32.9,adult : Patien t Instructions Indication:BMI 32.0-32.9,adult BMI 31.0-31.9,adult : How to access health information online Indication:BMI 31.0-31.9,adult BMI 31.0-31.9,adult : How to access health information online - Detail Indication:BMI 31.0-31.9,adult BMI 31.0-31.9,adult : Patien t Instructions Indication:BMI 31.0-31.9,adult Finger pain, left : Patient Instructions Indication:Finger pain, left Non-smoker : How to access h ealth information online Indication:Non-smoker Non-smoker : How to access h ealth information online - Detail Indication:Non-smoker Non-smoker : Patient Instruc tions Indication:Non-smoker Vaginal yeast infection : Misael iqbal Instructions Indication:Vaginal yeast infection Bronchitis : How to access h ealth information online Indication:Bronchitis Bronchitis : How to access h ealth information online - Detail Indication:Bronchitis Cough : How to access health information online Indication:Cough Cough : How to access health information online - Detail Indication:Cough Cough : Patient Instructions Indication:Cough Contact dermatitis, unspecif ied contact dermatitis type, unspecified trigger : How to access health information online Indication:Contact dermatitis, unspecified contact dermatitis type, unspecified trigger Contact dermatitis, unspecif ied contact dermatitis type, unspecified trigger : How to access health information online - Detail Indication:Contact dermatitis, unspecified contact dermatitis type, unspecified trigger Arthralgia of right hip : Misael iqbal Instructions Indication:Arthralgia of right hip Back pain, acute : How to ac cess health information online Indication:Back pain, acute Back pain, acute : How to ac cess health information online - Detail Indication:Back pain, acute Back pain, acute : Patient I nstructions Indication:Back pain, acute Muscle strain : How to acces s health information online Indication:Muscle strain Muscle strain : How to acces s health information online - Detail Indication:Muscle strain Muscle strain : Patient Inst ructions Indication:Muscle strain Acute sinusitis, unspecified : Patient Instructions Indication:Acute sinusitis, unspecified Rash : Patient Instructions Indication:Rash Pain of toe, unspecified lat erality : Patient Instructions Indication:Pain of toe, unspecified laterality Knee pain, left : Patient In structions Indication:Knee pain, left Name Dates Details How to access health informa tion online Indication:BMI 32.0-32.9,adult Start:04-Sep-2018 Instruction Type:Patient Education How to access health informa tion online - Detail Indication:BMI 32.0-32.9,adult Start:04-Sep-2018 Instruction Type:Patient Education Patient Instructions Indication:BMI 32.0-32.9,adult Start:04-Sep-2018 Instruction Type:Provider Instructions for Treatment How to access health informa tion online Indication:BMI 31.0-31.9,adult Start:04-Aug-2018 Instruction Type:Patient Education How to access health informa tion online - Detail Indication:BMI 31.0-31.9,adult Start:04-Aug-2018 Instruction Type:Patient Education Patient Instructions Indication:BMI 31.0-31.9,adult Start:04-Aug-2018 Instruction Type:Provider Instructions for Treatment Patient Instructions Indication:Finger pain, left Start:28-Jul-2018 Instruction Type:Provider Instructions for Treatment How to access health informa tion online Indication:Non-smoker Start:28-Jul-2018 Instruction Type:Patient Education How to access health informa tion online - Detail Indication:Non-smoker Start:28-Jul-2018 Instruction Type:Patient Education Patient Instructions Indication:Non-smoker Start:28-Jul-2018 Instruction Type:Provider Instructions for Treatment How to access health informa tion online Indication:BMI 31.0-31.9,adult Start:30-Mar-2018 Instruction Type:Patient Education How to access health informa tion online - Detail Indication:BMI 31.0-31.9,adult Start:30-Mar-2018 Instruction Type:Patient Education Patient Instructions Indication:Vaginal yeast infection Start:30-Mar-2018 Instruction Type:Provider Instructions for Treatment How to access health informa tion online Indication:Non-smoker Start:16-Mar-2018 Instruction Type:Patient Education How to access health informa tion online - Detail Indication:Non-smoker Start:16-Mar-2018 Instruction Type:Patient Education Patient Instructions Indication:Non-smoker Start:16-Mar-2018 Instruction Type:Provider Instructions for Treatment How to access health informa tion online Indication:Bronchitis Start:28-May-2016 Instruction Type:Patient Education How to access health informa tion online - Detail Indication:Bronchitis Start:28-May-2016 Instruction Type:Patient Education How to access health informa tion online Indication:Cough Start:05-May-2016 Instruction Type:Patient Education How to access health informa tion online - Detail Indication:Cough Start:05-May-2016 Instruction Type:Patient Education Patient Instructions Indication:Cough Start:05-May-2016 Instruction Type:Provider Instructions for Treatment How to access health informa tion online Indication:Contact dermatitis, unspecified contact dermatitis type, unspecified trigger Start:29-Dec-2015 Instruction Type:Patient Education How to access health informa tion online - Detail Indication:Contact dermatitis, unspecified contact dermatitis type, unspecified trigger Start:29-Dec-2015 Instruction Type:Patient Education Patient Instructions Indication:Arthralgia of right hip Start:15-Dec-2015 Instruction Type:Provider Instructions for Treatment How to access health informa tion online Indication:Back pain, acute Start:08-Dec-2015 Instruction Type:Patient Education How to access health informa tion online - Detail Indication:Back pain, acute Start:08-Dec-2015 Instruction Type:Patient Education Patient Instructions Indication:Back pain, acute Start:08-Dec-2015 Instruction Type:Provider Instructions for Treatment How to access health informa tion online Indication:Cough Start:10-Nov-2015 Instruction Type:Patient Education How to access health informa tion online - Detail Indication:Cough Start:10-Nov-2015 Instruction Type:Patient Education Patient Instructions Indication:Cough Start:10-Nov-2015 Instruction Type:Provider Instructions for Treatment How to access health informa tion online Indication:Muscle strain Start:15-Jan-2015 Instruction Type:Patient Education How to access health informa tion online - Detail Indication:Muscle strain Start:15-Jan-2015 Instruction Type:Patient Education Patient Instructions Indication:Muscle strain Start:15-Jan-2015 Instruction Type:Provider Instructions for Treatment Patient Instructions Indication:Acute sinusitis, unspecified Start:31-Oct-2013 Instruction Type:Provider Instructions for Treatment Patient Instructions Indication:Rash Start:26-Sep-2013 Instruction Type:Provider Instructions for Treatment Patient Instructions Indication:Pain of toe, unspecified laterality Start:26-Dec-2012 Instruction Type:Provider Instructions for Treatment Patient Instructions Indication:Knee pain, left Start:24-Nov-2012 Instruction Type:Provider Instructions for Treatment Name Dates Details How to access health informa tion online Indication:Tenderness of neck Start:25-Apr-2019 Instruction Type:Patient Education How to access health informa tion online - Detail Indication:Tenderness of neck Start:25-Apr-2019 Instruction Type:Patient Education Patient Instructions Indication:Tenderness of neck Start:25-Apr-2019 Instruction Type:Provider Instructions for Treatment How to access health informa tion online Indication:BMI 32.0-32.9,adult Start:04-Sep-2018 Instruction Type:Patient Education How to access health informa tion online - Detail Indication:BMI 32.0-32.9,adult Start:04-Sep-2018 Instruction Type:Patient Education Patient Instructions Indication:BMI 32.0-32.9,adult Start:04-Sep-2018 Instruction Type:Provider Instructions for Treatment How to access health informa tion online Indication:BMI 31.0-31.9,adult Start:04-Aug-2018 Instruction Type:Patient Education How to access health informa tion online - Detail Indication:BMI 31.0-31.9,adult Start:04-Aug-2018 Instruction Type:Patient Education Patient Instructions Indication:BMI 31.0-31.9,adult Start:04-Aug-2018 Instruction Type:Provider Instructions for Treatment Patient Instructions Indication:Finger pain, left Start:28-Jul-2018 Instruction Type:Provider Instructions for Treatment How to access health informa tion online Indication:Non-smoker Start:28-Jul-2018 Instruction Type:Patient Education How to access health informa tion online - Detail Indication:Non-smoker Start:28-Jul-2018 Instruction Type:Patient Education Patient Instructions Indication:Non-smoker Start:28-Jul-2018 Instruction Type:Provider Instructions for Treatment How to access health informa tion online Indication:BMI 31.0-31.9,adult Start:30-Mar-2018 Instruction Type:Patient Education How to access health informa tion online - Detail Indication:BMI 31.0-31.9,adult Start:30-Mar-2018 Instruction Type:Patient Education Patient Instructions Indication:Vaginal yeast infection Start:30-Mar-2018 Instruction Type:Provider Instructions for Treatment How to access health informa tion online Indication:Non-smoker Start:16-Mar-2018 Instruction Type:Patient Education How to access health informa tion online - Detail Indication:Non-smoker Start:16-Mar-2018 Instruction Type:Patient Education Patient Instructions Indication:Non-smoker Start:16-Mar-2018 Instruction Type:Provider Instructions for Treatment How to access health informa tion online Indication:Bronchitis Start:28-May-2016 Instruction Type:Patient Education How to access health informa tion online - Detail Indication:Bronchitis Start:28-May-2016 Instruction Type:Patient Education How to access health informa tion online Indication:Cough Start:05-May-2016 Instruction Type:Patient Education How to access health informa tion online - Detail Indication:Cough Start:05-May-2016 Instruction Type:Patient Education Patient Instructions Indication:Cough Start:05-May-2016 Instruction Type:Provider Instructions for Treatment How to access health informa tion online Indication:Contact dermatitis, unspecified contact dermatitis type, unspecified trigger Start:29-Dec-2015 Instruction Type:Patient Education How to access health informa tion online - Detail Indication:Contact dermatitis, unspecified contact dermatitis type, unspecified trigger Start:29-Dec-2015 Instruction Type:Patient Education Patient Instructions Indication:Arthralgia of right hip Start:15-Dec-2015 Instruction Type:Provider Instructions for Treatment How to access health informa tion online Indication:Back pain, acute Start:08-Dec-2015 Instruction Type:Patient Education How to access health informa tion online - Detail Indication:Back pain, acute Start:08-Dec-2015 Instruction Type:Patient Education Patient Instructions Indication:Back pain, acute Start:08-Dec-2015 Instruction Type:Provider Instructions for Treatment How to access health informa tion online Indication:Cough Start:10-Nov-2015 Instruction Type:Patient Education How to access health informa tion online - Detail Indication:Cough Start:10-Nov-2015 Instruction Type:Patient Education Patient Instructions Indication:Cough Start:10-Nov-2015 Instruction Type:Provider Instructions for Treatment How to access health informa tion online Indication:Muscle strain Start:15-Jan-2015 Instruction Type:Patient Education How to access health informa tion online - Detail Indication:Muscle strain Start:15-Jan-2015 Instruction Type:Patient Education Patient Instructions Indication:Muscle strain Start:15-Jan-2015 Instruction Type:Provider Instructions for Treatment Patient Instructions Indication:Acute sinusitis, unspecified Start:31-Oct-2013 Instruction Type:Provider Instructions for Treatment Patient Instructions Indication:Rash Start:26-Sep-2013 Instruction Type:Provider Instructions for Treatment Patient Instructions Indication:Pain of toe, unspecified laterality Start:26-Dec-2012 Instruction Type:Provider Instructions for Treatment Patient Instructions Indication:Knee pain, left Start:24-Nov-2012 Instruction Type:Provider Instructions for Treatment Name Dates Details How to access health informa tion online Indication:Tenderness of neck Start:25-Apr-2019 Instruction Type:Patient Education How to access health informa tion online - Detail Indication:Tenderness of neck Start:25-Apr-2019 Instruction Type:Patient Education Patient Instructions Indication:Tenderness of neck Start:25-Apr-2019 Instruction Type:Provider Instructions for Treatment How to access health informa tion online Indication:BMI 32.0-32.9,adult Start:04-Sep-2018 Instruction Type:Patient Education How to access health informa tion online - Detail Indication:BMI 32.0-32.9,adult Start:04-Sep-2018 Instruction Type:Patient Education Patient Instructions Indication:BMI 32.0-32.9,adult Start:04-Sep-2018 Instruction Type:Provider Instructions for Treatment How to access health informa tion online Indication:BMI 31.0-31.9,adult Start:04-Aug-2018 Instruction Type:Patient Education How to access health informa tion online - Detail Indication:BMI 31.0-31.9,adult Start:04-Aug-2018 Instruction Type:Patient Education Patient Instructions Indication:BMI 31.0-31.9,adult Start:04-Aug-2018 Instruction Type:Provider Instructions for Treatment Patient Instructions Indication:Finger pain, left Start:28-Jul-2018 Instruction Type:Provider Instructions for Treatment How to access health informa tion online Indication:Non-smoker Start:28-Jul-2018 Instruction Type:Patient Education How to access health informa tion online - Detail Indication:Non-smoker Start:28-Jul-2018 Instruction Type:Patient Education Patient Instructions Indication:Non-smoker Start:28-Jul-2018 Instruction Type:Provider Instructions for Treatment How to access health informa tion online Indication:BMI 31.0-31.9,adult Start:30-Mar-2018 Instruction Type:Patient Education How to access health informa tion online - Detail Indication:BMI 31.0-31.9,adult Start:30-Mar-2018 Instruction Type:Patient Education Patient Instructions Indication:Vaginal yeast infection Start:30-Mar-2018 Instruction Type:Provider Instructions for Treatment How to access health informa tion online Indication:Non-smoker Start:16-Mar-2018 Instruction Type:Patient Education How to access health informa tion online - Detail Indication:Non-smoker Start:16-Mar-2018 Instruction Type:Patient Education Patient Instructions Indication:Non-smoker Start:16-Mar-2018 Instruction Type:Provider Instructions for Treatment How to access health informa tion online Indication:Bronchitis Start:28-May-2016 Instruction Type:Patient Education How to access health informa tion online - Detail Indication:Bronchitis Start:28-May-2016 Instruction Type:Patient Education How to access health informa tion online Indication:Cough Start:05-May-2016 Instruction Type:Patient Education How to access health informa tion online - Detail Indication:Cough Start:05-May-2016 Instruction Type:Patient Education Patient Instructions Indication:Cough Start:05-May-2016 Instruction Type:Provider Instructions for Treatment How to access health informa tion online Indication:Contact dermatitis, unspecified contact dermatitis type, unspecified trigger Start:29-Dec-2015 Instruction Type:Patient Education How to access health informa tion online - Detail Indication:Contact dermatitis, unspecified contact dermatitis type, unspecified trigger Start:29-Dec-2015 Instruction Type:Patient Education Patient Instructions Indication:Arthralgia of right hip Start:15-Dec-2015 Instruction Type:Provider Instructions for Treatment How to access health informa tion online Indication:Back pain, acute Start:08-Dec-2015 Instruction Type:Patient Education How to access health informa tion online - Detail Indication:Back pain, acute Start:08-Dec-2015 Instruction Type:Patient Education Patient Instructions Indication:Back pain, acute Start:08-Dec-2015 Instruction Type:Provider Instructions for Treatment How to access health informa tion online Indication:Cough Start:10-Nov-2015 Instruction Type:Patient Education How to access health informa tion online - Detail Indication:Cough Start:10-Nov-2015 Instruction Type:Patient Education Patient Instructions Indication:Cough Start:10-Nov-2015 Instruction Type:Provider Instructions for Treatment How to access health informa tion online Indication:Muscle strain Start:15-Jan-2015 Instruction Type:Patient Education How to access health informa tion online - Detail Indication:Muscle strain Start:15-Jan-2015 Instruction Type:Patient Education Patient Instructions Indication:Muscle strain Start:15-Jan-2015 Instruction Type:Provider Instructions for Treatment Patient Instructions Indication:Acute sinusitis, unspecified Start:31-Oct-2013 Instruction Type:Provider Instructions for Treatment Patient Instructions Indication:Rash Start:26-Sep-2013 Instruction Type:Provider Instructions for Treatment Patient Instructions Indication:Pain of toe, unspecified laterality Start:26-Dec-2012 Instruction Type:Provider Instructions for Treatment Patient Instructions Indication:Knee pain, left Start:24-Nov-2012 Instruction Type:Provider Instructions for Treatment Name Dates Details How to access health informa tion online Indication:Non-smoker Start:17-May-2019 Instruction Type:Patient Education How to access health informa tion online - Detail Indication:Non-smoker Start:17-May-2019 Instruction Type:Patient Education Patient Instructions Indication:Sinusitis, bacterial Start:17-May-2019 Instruction Type:Provider Instructions for Treatment How to access health informa tion online Indication:Tenderness of neck Start:25-Apr-2019 Instruction Type:Patient Education How to access health informa tion online - Detail Indication:Tenderness of neck Start:25-Apr-2019 Instruction Type:Patient Education Patient Instructions Indication:Tenderness of neck Start:25-Apr-2019 Instruction Type:Provider Instructions for Treatment How to access health informa tion online Indication:BMI 32.0-32.9,adult Start:04-Sep-2018 Instruction Type:Patient Education How to access health informa tion online - Detail Indication:BMI 32.0-32.9,adult Start:04-Sep-2018 Instruction Type:Patient Education Patient Instructions Indication:BMI 32.0-32.9,adult Start:04-Sep-2018 Instruction Type:Provider Instructions for Treatment How to access health informa tion online Indication:BMI 31.0-31.9,adult Start:04-Aug-2018 Instruction Type:Patient Education How to access health informa tion online - Detail Indication:BMI 31.0-31.9,adult Start:04-Aug-2018 Instruction Type:Patient Education Patient Instructions Indication:BMI 31.0-31.9,adult Start:04-Aug-2018 Instruction Type:Provider Instructions for Treatment Patient Instructions Indication:Finger pain, left Start:28-Jul-2018 Instruction Type:Provider Instructions for Treatment How to access health informa tion online Indication:Non-smoker Start:28-Jul-2018 Instruction Type:Patient Education How to access health informa tion online - Detail Indication:Non-smoker Start:28-Jul-2018 Instruction Type:Patient Education Patient Instructions Indication:Non-smoker Start:28-Jul-2018 Instruction Type:Provider Instructions for Treatment How to access health informa tion online Indication:BMI 31.0-31.9,adult Start:30-Mar-2018 Instruction Type:Patient Education How to access health informa tion online - Detail Indication:BMI 31.0-31.9,adult Start:30-Mar-2018 Instruction Type:Patient Education Patient Instructions Indication:Vaginal yeast infection Start:30-Mar-2018 Instruction Type:Provider Instructions for Treatment How to access health informa tion online Indication:Non-smoker Start:16-Mar-2018 Instruction Type:Patient Education How to access health informa tion online - Detail Indication:Non-smoker Start:16-Mar-2018 Instruction Type:Patient Education Patient Instructions Indication:Non-smoker Start:16-Mar-2018 Instruction Type:Provider Instructions for Treatment How to access health informa tion online Indication:Bronchitis Start:28-May-2016 Instruction Type:Patient Education How to access health informa tion online - Detail Indication:Bronchitis Start:28-May-2016 Instruction Type:Patient Education How to access health informa tion online Indication:Cough Start:05-May-2016 Instruction Type:Patient Education How to access health informa tion online - Detail Indication:Cough Start:05-May-2016 Instruction Type:Patient Education Patient Instructions Indication:Cough Start:05-May-2016 Instruction Type:Provider Instructions for Treatment How to access health informa tion online Indication:Contact dermatitis, unspecified contact dermatitis type, unspecified trigger Start:29-Dec-2015 Instruction Type:Patient Education How to access health informa tion online - Detail Indication:Contact dermatitis, unspecified contact dermatitis type, unspecified trigger Start:29-Dec-2015 Instruction Type:Patient Education Patient Instructions Indication:Arthralgia of right hip Start:15-Dec-2015 Instruction Type:Provider Instructions for Treatment How to access health informa tion online Indication:Back pain, acute Start:08-Dec-2015 Instruction Type:Patient Education How to access health informa tion online - Detail Indication:Back pain, acute Start:08-Dec-2015 Instruction Type:Patient Education Patient Instructions Indication:Back pain, acute Start:08-Dec-2015 Instruction Type:Provider Instructions for Treatment How to access health informa tion online Indication:Cough Start:10-Nov-2015 Instruction Type:Patient Education How to access health informa tion online - Detail Indication:Cough Start:10-Nov-2015 Instruction Type:Patient Education Patient Instructions Indication:Cough Start:10-Nov-2015 Instruction Type:Provider Instructions for Treatment How to access health informa tion online Indication:Muscle strain Start:15-Jan-2015 Instruction Type:Patient Education How to access health informa tion online - Detail Indication:Muscle strain Start:15-Jan-2015 Instruction Type:Patient Education Patient Instructions Indication:Muscle strain Start:15-Jan-2015 Instruction Type:Provider Instructions for Treatment Patient Instructions Indication:Acute sinusitis, unspecified Start:31-Oct-2013 Instruction Type:Provider Instructions for Treatment Patient Instructions Indication:Rash Start:26-Sep-2013 Instruction Type:Provider Instructions for Treatment Patient Instructions Indication:Pain of toe, unspecified laterality Start:26-Dec-2012 Instruction Type:Provider Instructions for Treatment Patient Instructions Indication:Knee pain, left Start:24-Nov-2012 Instruction Type:Provider Instructions for Treatment Name Dates Details How to access health informa tion online Indication:Nonsmoker Start:27-Dec-2019 Instruction Type:Patient Education How to access health informa tion online - Detail Indication:Nonsmoker Start:27-Dec-2019 Instruction Type:Patient Education Patient Instructions Indication:Nonsmoker Start:27-Dec-2019 Instruction Type:Provider Instructions for Treatment How to access health informa tion online Indication:BMI 35.0-35.9,adult Start:14-Dec-2019 Instruction Type:Patient Education How to access health informa tion online - Detail Indication:BMI 35.0-35.9,adult Start:14-Dec-2019 Instruction Type:Patient Education Patient Instructions Indication:BMI 35.0-35.9,adult Start:14-Dec-2019 Instruction Type:Provider Instructions for Treatment How to access health informa tion online Indication:Nonsmoker Start:07-Nov-2019 Instruction Type:Patient Education How to access health informa tion online - Detail Indication:Nonsmoker Start:07-Nov-2019 Instruction Type:Patient Education Patient Instructions Indication:Nonsmoker Start:07-Nov-2019 Instruction Type:Provider Instructions for Treatment How to access health informa tion online Indication:BMI 35.0-35.9,adult Start:18-Sep-2019 Instruction Type:Patient Education How to access health informa tion online - Detail Indication:BMI 35.0-35.9,adult Start:18-Sep-2019 Instruction Type:Patient Education Patient Instructions Indication:BMI 35.0-35.9,adult Start:18-Sep-2019 Instruction Type:Provider Instructions for Treatment How to access health informa tion online Indication:Non-smoker Start:17-May-2019 Instruction Type:Patient Education How to access health informa tion online - Detail Indication:Non-smoker Start:17-May-2019 Instruction Type:Patient Education Patient Instructions Indication:Sinusitis, bacterial Start:17-May-2019 Instruction Type:Provider Instructions for Treatment How to access health informa tion online Indication:Tenderness of neck Start:25-Apr-2019 Instruction Type:Patient Education How to access health informa tion online - Detail Indication:Tenderness of neck Start:25-Apr-2019 Instruction Type:Patient Education Patient Instructions Indication:Tenderness of neck Start:25-Apr-2019 Instruction Type:Provider Instructions for Treatment How to access health informa tion online Indication:BMI 32.0-32.9,adult Start:04-Sep-2018 Instruction Type:Patient Education How to access health informa tion online - Detail Indication:BMI 32.0-32.9,adult Start:04-Sep-2018 Instruction Type:Patient Education Patient Instructions Indication:BMI 32.0-32.9,adult Start:04-Sep-2018 Instruction Type:Provider Instructions for Treatment How to access health informa tion online Indication:BMI 31.0-31.9,adult Start:04-Aug-2018 Instruction Type:Patient Education How to access health informa tion online - Detail Indication:BMI 31.0-31.9,adult Start:04-Aug-2018 Instruction Type:Patient Education Patient Instructions Indication:BMI 31.0-31.9,adult Start:04-Aug-2018 Instruction Type:Provider Instructions for Treatment Patient Instructions Indication:Finger pain, left Start:28-Jul-2018 Instruction Type:Provider Instructions for Treatment How to access health informa tion online Indication:Non-smoker Start:28-Jul-2018 Instruction Type:Patient Education How to access health informa tion online - Detail Indication:Non-smoker Start:28-Jul-2018 Instruction Type:Patient Education Patient Instructions Indication:Non-smoker Start:28-Jul-2018 Instruction Type:Provider Instructions for Treatment How to access health informa tion online Indication:BMI 31.0-31.9,adult Start:30-Mar-2018 Instruction Type:Patient Education How to access health informa tion online - Detail Indication:BMI 31.0-31.9,adult Start:30-Mar-2018 Instruction Type:Patient Education Patient Instructions Indication:Vaginal yeast infection Start:30-Mar-2018 Instruction Type:Provider Instructions for Treatment How to access health informa tion online Indication:Non-smoker Start:16-Mar-2018 Instruction Type:Patient Education How to access health informa tion online - Detail Indication:Non-smoker Start:16-Mar-2018 Instruction Type:Patient Education Patient Instructions Indication:Non-smoker Start:16-Mar-2018 Instruction Type:Provider Instructions for Treatment How to access health informa tion online Indication:Bronchitis Start:28-May-2016 Instruction Type:Patient Education How to access health informa tion online - Detail Indication:Bronchitis Start:28-May-2016 Instruction Type:Patient Education How to access health informa tion online Indication:Cough Start:05-May-2016 Instruction Type:Patient Education How to access health informa tion online - Detail Indication:Cough Start:05-May-2016 Instruction Type:Patient Education Patient Instructions Indication:Cough Start:05-May-2016 Instruction Type:Provider Instructions for Treatment How to access health informa tion online Indication:Contact dermatitis, unspecified contact dermatitis type, unspecified trigger Start:29-Dec-2015 Instruction Type:Patient Education How to access health informa tion online - Detail Indication:Contact dermatitis, unspecified contact dermatitis type, unspecified trigger Start:29-Dec-2015 Instruction Type:Patient Education Patient Instructions Indication:Arthralgia of right hip Start:15-Dec-2015 Instruction Type:Provider Instructions for Treatment How to access health informa tion online Indication:Back pain, acute Start:08-Dec-2015 Instruction Type:Patient Education How to access health informa tion online - Detail Indication:Back pain, acute Start:08-Dec-2015 Instruction Type:Patient Education Patient Instructions Indication:Back pain, acute Start:08-Dec-2015 Instruction Type:Provider Instructions for Treatment How to access health informa tion online Indication:Cough Start:10-Nov-2015 Instruction Type:Patient Education How to access health informa tion online - Detail Indication:Cough Start:10-Nov-2015 Instruction Type:Patient Education Patient Instructions Indication:Cough Start:10-Nov-2015 Instruction Type:Provider Instructions for Treatment How to access health informa tion online Indication:Muscle strain Start:15-Jan-2015 Instruction Type:Patient Education How to access health informa tion online - Detail Indication:Muscle strain Start:15-Jan-2015 Instruction Type:Patient Education Patient Instructions Indication:Muscle strain Start:15-Jan-2015 Instruction Type:Provider Instructions for Treatment Patient Instructions Indication:Acute sinusitis, unspecified Start:31-Oct-2013 Instruction Type:Provider Instructions for Treatment Patient Instructions Indication:Rash Start:26-Sep-2013 Instruction Type:Provider Instructions for Treatment Patient Instructions Indication:Pain of toe, unspecified laterality Start:26-Dec-2012 Instruction Type:Provider Instructions for Treatment Patient Instructions Indication:Knee pain, left Start:24-Nov-2012 Instruction Type:Provider Instructions for Treatment Name Dates Details Patient Instructions Indication:Nonsmoker Start:30-Jul-2020 Instruction Type:Provider Instructions for Treatment How to Access Health Informa tion Online using Patient Portal and [employer]rd [employer] Apps Indication:Nonsmoker Start:30-Jul-2020 Instruction Type:Patient Education How to access health informa tion online Indication:Nonsmoker Start:27-Dec-2019 Instruction Type:Patient Education How to access health informa tion online - Detail Indication:Nonsmoker Start:27-Dec-2019 Instruction Type:Patient Education Patient Instructions Indication:Nonsmoker Start:27-Dec-2019 Instruction Type:Provider Instructions for Treatment How to access health informa tion online Indication:BMI 35.0-35.9,adult Start:14-Dec-2019 Instruction Type:Patient Education How to access health informa tion online - Detail Indication:BMI 35.0-35.9,adult Start:14-Dec-2019 Instruction Type:Patient Education Patient Instructions Indication:BMI 35.0-35.9,adult Start:14-Dec-2019 Instruction Type:Provider Instructions for Treatment How to access health informa tion online Indication:Nonsmoker Start:07-Nov-2019 Instruction Type:Patient Education How to access health informa tion online - Detail Indication:Nonsmoker Start:07-Nov-2019 Instruction Type:Patient Education Patient Instructions Indication:Nonsmoker Start:07-Nov-2019 Instruction Type:Provider Instructions for Treatment How to access health informa tion online Indication:BMI 35.0-35.9,adult Start:18-Sep-2019 Instruction Type:Patient Education How to access health informa tion online - Detail Indication:BMI 35.0-35.9,adult Start:18-Sep-2019 Instruction Type:Patient Education Patient Instructions Indication:BMI 35.0-35.9,adult Start:18-Sep-2019 Instruction Type:Provider Instructions for Treatment How to access health informa tion online Indication:Non-smoker Start:17-May-2019 Instruction Type:Patient Education How to access health informa tion online - Detail Indication:Non-smoker Start:17-May-2019 Instruction Type:Patient Education Patient Instructions Indication:Sinusitis, bacterial Start:17-May-2019 Instruction Type:Provider Instructions for Treatment How to access health informa tion online Indication:Tenderness of neck Start:25-Apr-2019 Instruction Type:Patient Education How to access health informa tion online - Detail Indication:Tenderness of neck Start:25-Apr-2019 Instruction Type:Patient Education Patient Instructions Indication:Tenderness of neck Start:25-Apr-2019 Instruction Type:Provider Instructions for Treatment How to access health informa tion online Indication:BMI 32.0-32.9,adult Start:04-Sep-2018 Instruction Type:Patient Education How to access health informa tion online - Detail Indication:BMI 32.0-32.9,adult Start:04-Sep-2018 Instruction Type:Patient Education Patient Instructions Indication:BMI 32.0-32.9,adult Start:04-Sep-2018 Instruction Type:Provider Instructions for Treatment How to access health informa tion online Indication:BMI 31.0-31.9,adult Start:04-Aug-2018 Instruction Type:Patient Education How to access health informa tion online - Detail Indication:BMI 31.0-31.9,adult Start:04-Aug-2018 Instruction Type:Patient Education Patient Instructions Indication:BMI 31.0-31.9,adult Start:04-Aug-2018 Instruction Type:Provider Instructions for Treatment Patient Instructions Indication:Finger pain, left Start:28-Jul-2018 Instruction Type:Provider Instructions for Treatment How to access health informa tion online Indication:Non-smoker Start:28-Jul-2018 Instruction Type:Patient Education How to access health informa tion online - Detail Indication:Non-smoker Start:28-Jul-2018 Instruction Type:Patient Education Patient Instructions Indication:Non-smoker Start:28-Jul-2018 Instruction Type:Provider Instructions for Treatment How to access health informa tion online Indication:BMI 31.0-31.9,adult Start:30-Mar-2018 Instruction Type:Patient Education How to access health informa tion online - Detail Indication:BMI 31.0-31.9,adult Start:30-Mar-2018 Instruction Type:Patient Education Patient Instructions Indication:Vaginal yeast infection Start:30-Mar-2018 Instruction Type:Provider Instructions for Treatment How to access health informa tion online Indication:Non-smoker Start:16-Mar-2018 Instruction Type:Patient Education How to access health informa tion online - Detail Indication:Non-smoker Start:16-Mar-2018 Instruction Type:Patient Education Patient Instructions Indication:Non-smoker Start:16-Mar-2018 Instruction Type:Provider Instructions for Treatment How to access health informa tion online Indication:Bronchitis Start:28-May-2016 Instruction Type:Patient Education How to access health informa tion online - Detail Indication:Bronchitis Start:28-May-2016 Instruction Type:Patient Education How to access health informa tion online Indication:Cough Start:05-May-2016 Instruction Type:Patient Education How to access health informa tion online - Detail Indication:Cough Start:05-May-2016 Instruction Type:Patient Education Patient Instructions Indication:Cough Start:05-May-2016 Instruction Type:Provider Instructions for Treatment How to access health informa tion online Indication:Contact dermatitis, unspecified contact dermatitis type, unspecified trigger Start:29-Dec-2015 Instruction Type:Patient Education How to access health informa tion online - Detail Indication:Contact dermatitis, unspecified contact dermatitis type, unspecified trigger Start:29-Dec-2015 Instruction Type:Patient Education Patient Instructions Indication:Arthralgia of right hip Start:15-Dec-2015 Instruction Type:Provider Instructions for Treatment How to access health informa tion online Indication:Back pain, acute Start:08-Dec-2015 Instruction Type:Patient Education How to access health informa tion online - Detail Indication:Back pain, acute Start:08-Dec-2015 Instruction Type:Patient Education Patient Instructions Indication:Back pain, acute Start:08-Dec-2015 Instruction Type:Provider Instructions for Treatment How to access health informa tion online Indication:Cough Start:10-Nov-2015 Instruction Type:Patient Education How to access health informa tion online - Detail Indication:Cough Start:10-Nov-2015 Instruction Type:Patient Education Patient Instructions Indication:Cough Start:10-Nov-2015 Instruction Type:Provider Instructions for Treatment How to access health informa tion online Indication:Muscle strain Start:15-Jan-2015 Instruction Type:Patient Education How to access health informa tion online - Detail Indication:Muscle strain Start:15-Jan-2015 Instruction Type:Patient Education Patient Instructions Indication:Muscle strain Start:15-Jan-2015 Instruction Type:Provider Instructions for Treatment Patient Instructions Indication:Acute sinusitis, unspecified Start:31-Oct-2013 Instruction Type:Provider Instructions for Treatment Patient Instructions Indication:Rash Start:26-Sep-2013 Instruction Type:Provider Instructions for Treatment Patient Instructions Indication:Pain of toe, unspecified laterality Start:26-Dec-2012 Instruction Type:Provider Instructions for Treatment Patient Instructions Indication:Knee pain, left Start:24-Nov-2012 Instruction Type:Provider Instructions for Treatment Name Dates Details Patient Instructions Indication:Nonsmoker Start:30-Jul-2020 Instruction Type:Provider Instructions for Treatment How to Access Health Informa tion Online using Patient Portal and [employer]rd [employer] Apps Indication:Nonsmoker Start:30-Jul-2020 Instruction Type:Patient Education How to access health informa tion online Indication:Nonsmoker Start:27-Dec-2019 Instruction Type:Patient Education How to access health informa tion online - Detail Indication:Nonsmoker Start:27-Dec-2019 Instruction Type:Patient Education Patient Instructions Indication:Nonsmoker Start:27-Dec-2019 Instruction Type:Provider Instructions for Treatment How to access health informa tion online Indication:BMI 35.0-35.9,adult Start:14-Dec-2019 Instruction Type:Patient Education How to access health informa tion online - Detail Indication:BMI 35.0-35.9,adult Start:14-Dec-2019 Instruction Type:Patient Education Patient Instructions Indication:BMI 35.0-35.9,adult Start:14-Dec-2019 Instruction Type:Provider Instructions for Treatment How to access health informa tion online Indication:Nonsmoker Start:07-Nov-2019 Instruction Type:Patient Education How to access health informa tion online - Detail Indication:Nonsmoker Start:07-Nov-2019 Instruction Type:Patient Education Patient Instructions Indication:Nonsmoker Start:07-Nov-2019 Instruction Type:Provider Instructions for Treatment How to access health informa tion online Indication:BMI 35.0-35.9,adult Start:18-Sep-2019 Instruction Type:Patient Education How to access health informa tion online - Detail Indication:BMI 35.0-35.9,adult Start:18-Sep-2019 Instruction Type:Patient Education Patient Instructions Indication:BMI 35.0-35.9,adult Start:18-Sep-2019 Instruction Type:Provider Instructions for Treatment How to access health informa tion online Indication:Non-smoker Start:17-May-2019 Instruction Type:Patient Education How to access health informa tion online - Detail Indication:Non-smoker Start:17-May-2019 Instruction Type:Patient Education Patient Instructions Indication:Sinusitis, bacterial Start:17-May-2019 Instruction Type:Provider Instructions for Treatment How to access health informa tion online Indication:Tenderness of neck Start:25-Apr-2019 Instruction Type:Patient Education How to access health informa tion online - Detail Indication:Tenderness of neck Start:25-Apr-2019 Instruction Type:Patient Education Patient Instructions Indication:Tenderness of neck Start:25-Apr-2019 Instruction Type:Provider Instructions for Treatment How to access health informa tion online Indication:BMI 32.0-32.9,adult Start:04-Sep-2018 Instruction Type:Patient Education How to access health informa tion online - Detail Indication:BMI 32.0-32.9,adult Start:04-Sep-2018 Instruction Type:Patient Education Patient Instructions Indication:BMI 32.0-32.9,adult Start:04-Sep-2018 Instruction Type:Provider Instructions for Treatment How to access health informa tion online Indication:BMI 31.0-31.9,adult Start:04-Aug-2018 Instruction Type:Patient Education How to access health informa tion online - Detail Indication:BMI 31.0-31.9,adult Start:04-Aug-2018 Instruction Type:Patient Education Patient Instructions Indication:BMI 31.0-31.9,adult Start:04-Aug-2018 Instruction Type:Provider Instructions for Treatment Patient Instructions Indication:Finger pain, left Start:28-Jul-2018 Instruction Type:Provider Instructions for Treatment How to access health informa tion online Indication:Non-smoker Start:28-Jul-2018 Instruction Type:Patient Education How to access health informa tion online - Detail Indication:Non-smoker Start:28-Jul-2018 Instruction Type:Patient Education Patient Instructions Indication:Non-smoker Start:28-Jul-2018 Instruction Type:Provider Instructions for Treatment How to access health informa tion online Indication:BMI 31.0-31.9,adult Start:30-Mar-2018 Instruction Type:Patient Education How to access health informa tion online - Detail Indication:BMI 31.0-31.9,adult Start:30-Mar-2018 Instruction Type:Patient Education Patient Instructions Indication:Vaginal yeast infection Start:30-Mar-2018 Instruction Type:Provider Instructions for Treatment How to access health informa tion online Indication:Non-smoker Start:16-Mar-2018 Instruction Type:Patient Education How to access health informa tion online - Detail Indication:Non-smoker Start:16-Mar-2018 Instruction Type:Patient Education Patient Instructions Indication:Non-smoker Start:16-Mar-2018 Instruction Type:Provider Instructions for Treatment How to access health informa tion online Indication:Bronchitis Start:28-May-2016 Instruction Type:Patient Education How to access health informa tion online - Detail Indication:Bronchitis Start:28-May-2016 Instruction Type:Patient Education How to access health informa tion online Indication:Cough Start:05-May-2016 Instruction Type:Patient Education How to access health informa tion online - Detail Indication:Cough Start:05-May-2016 Instruction Type:Patient Education Patient Instructions Indication:Cough Start:05-May-2016 Instruction Type:Provider Instructions for Treatment How to access health informa tion online Indication:Contact dermatitis, unspecified contact dermatitis type, unspecified trigger Start:29-Dec-2015 Instruction Type:Patient Education How to access health informa tion online - Detail Indication:Contact dermatitis, unspecified contact dermatitis type, unspecified trigger Start:29-Dec-2015 Instruction Type:Patient Education Patient Instructions Indication:Arthralgia of right hip Start:15-Dec-2015 Instruction Type:Provider Instructions for Treatment How to access health informa tion online Indication:Back pain, acute Start:08-Dec-2015 Instruction Type:Patient Education How to access health informa tion online - Detail Indication:Back pain, acute Start:08-Dec-2015 Instruction Type:Patient Education Patient Instructions Indication:Back pain, acute Start:08-Dec-2015 Instruction Type:Provider Instructions for Treatment How to access health informa tion online Indication:Cough Start:10-Nov-2015 Instruction Type:Patient Education How to access health informa tion online - Detail Indication:Cough Start:10-Nov-2015 Instruction Type:Patient Education Patient Instructions Indication:Cough Start:10-Nov-2015 Instruction Type:Provider Instructions for Treatment How to access health informa tion online Indication:Muscle strain Start:15-Jan-2015 Instruction Type:Patient Education How to access health informa tion online - Detail Indication:Muscle strain Start:15-Jan-2015 Instruction Type:Patient Education Patient Instructions Indication:Muscle strain Start:15-Jan-2015 Instruction Type:Provider Instructions for Treatment Patient Instructions Indication:Acute sinusitis, unspecified Start:31-Oct-2013 Instruction Type:Provider Instructions for Treatment Patient Instructions Indication:Rash Start:26-Sep-2013 Instruction Type:Provider Instructions for Treatment Patient Instructions Indication:Pain of toe, unspecified laterality Start:26-Dec-2012 Instruction Type:Provider Instructions for Treatment Patient Instructions Indication:Knee pain, left Start:24-Nov-2012 Instruction Type:Provider Instructions for Treatment Name Dates Details How to Access Health Informa tion Online using Patient Portal and [employer]rd [employer] Apps Indication:Nonsmoker Start:08-Sep-2020 Instruction Type:Patient Education Patient Instructions Indication:Nonsmoker Start:08-Sep-2020 Instruction Type:Provider Instructions for Treatment How to Access Health Informa tion Online using Patient Portal and [employer]rd [employer] Apps Indication:Nonsmoker Start:01-Sep-2020 Instruction Type:Patient Education Patient Instructions Indication:Nonsmoker Start:01-Sep-2020 Instruction Type:Provider Instructions for Treatment Patient Instructions Indication:BMI 35.0-35.9,adult Start:29-Aug-2020 Instruction Type:Provider Instructions for Treatment How to Access Health Informa tion Online using Patient Portal and [employer]rd [employer] Apps Indication:BMI 35.0-35.9,adult Start:29-Aug-2020 Instruction Type:Patient Education Patient Instructions Indication:Nonsmoker Start:30-Jul-2020 Instruction Type:Provider Instructions for Treatment How to Access Health Informa tion Online using Patient Portal and [employer]rd [employer] Apps Indication:Nonsmoker Start:30-Jul-2020 Instruction Type:Patient Education How to access health informa tion online Indication:Nonsmoker Start:27-Dec-2019 Instruction Type:Patient Education How to access health informa tion online - Detail Indication:Nonsmoker Start:27-Dec-2019 Instruction Type:Patient Education Patient Instructions Indication:Nonsmoker Start:27-Dec-2019 Instruction Type:Provider Instructions for Treatment How to access health informa tion online Indication:BMI 35.0-35.9,adult Start:14-Dec-2019 Instruction Type:Patient Education How to access health informa tion online - Detail Indication:BMI 35.0-35.9,adult Start:14-Dec-2019 Instruction Type:Patient Education Patient Instructions Indication:BMI 35.0-35.9,adult Start:14-Dec-2019 Instruction Type:Provider Instructions for Treatment How to access health informa tion online Indication:Nonsmoker Start:07-Nov-2019 Instruction Type:Patient Education How to access health informa tion online - Detail Indication:Nonsmoker Start:07-Nov-2019 Instruction Type:Patient Education Patient Instructions Indication:Nonsmoker Start:07-Nov-2019 Instruction Type:Provider Instructions for Treatment How to access health informa tion online Indication:BMI 35.0-35.9,adult Start:18-Sep-2019 Instruction Type:Patient Education How to access health informa tion online - Detail Indication:BMI 35.0-35.9,adult Start:18-Sep-2019 Instruction Type:Patient Education Patient Instructions Indication:BMI 35.0-35.9,adult Start:18-Sep-2019 Instruction Type:Provider Instructions for Treatment How to access health informa tion online Indication:Non-smoker Start:17-May-2019 Instruction Type:Patient Education How to access health informa tion online - Detail Indication:Non-smoker Start:17-May-2019 Instruction Type:Patient Education Patient Instructions Indication:Sinusitis, bacterial Start:17-May-2019 Instruction Type:Provider Instructions for Treatment How to access health informa tion online Indication:Tenderness of neck Start:25-Apr-2019 Instruction Type:Patient Education How to access health informa tion online - Detail Indication:Tenderness of neck Start:25-Apr-2019 Instruction Type:Patient Education Patient Instructions Indication:Tenderness of neck Start:25-Apr-2019 Instruction Type:Provider Instructions for Treatment How to access health informa tion online Indication:BMI 32.0-32.9,adult Start:04-Sep-2018 Instruction Type:Patient Education How to access health informa tion online - Detail Indication:BMI 32.0-32.9,adult Start:04-Sep-2018 Instruction Type:Patient Education Patient Instructions Indication:BMI 32.0-32.9,adult Start:04-Sep-2018 Instruction Type:Provider Instructions for Treatment How to access health informa tion online Indication:BMI 31.0-31.9,adult Start:04-Aug-2018 Instruction Type:Patient Education How to access health informa tion online - Detail Indication:BMI 31.0-31.9,adult Start:04-Aug-2018 Instruction Type:Patient Education Patient Instructions Indication:BMI 31.0-31.9,adult Start:04-Aug-2018 Instruction Type:Provider Instructions for Treatment Patient Instructions Indication:Finger pain, left Start:28-Jul-2018 Instruction Type:Provider Instructions for Treatment How to access health informa tion online Indication:Non-smoker Start:28-Jul-2018 Instruction Type:Patient Education How to access health informa tion online - Detail Indication:Non-smoker Start:28-Jul-2018 Instruction Type:Patient Education Patient Instructions Indication:Non-smoker Start:28-Jul-2018 Instruction Type:Provider Instructions for Treatment How to access health informa tion online Indication:BMI 31.0-31.9,adult Start:30-Mar-2018 Instruction Type:Patient Education How to access health informa tion online - Detail Indication:BMI 31.0-31.9,adult Start:30-Mar-2018 Instruction Type:Patient Education Patient Instructions Indication:Vaginal yeast infection Start:30-Mar-2018 Instruction Type:Provider Instructions for Treatment How to access health informa tion online Indication:Non-smoker Start:16-Mar-2018 Instruction Type:Patient Education How to access health informa tion online - Detail Indication:Non-smoker Start:16-Mar-2018 Instruction Type:Patient Education Patient Instructions Indication:Non-smoker Start:16-Mar-2018 Instruction Type:Provider Instructions for Treatment How to access health informa tion online Indication:Bronchitis Start:28-May-2016 Instruction Type:Patient Education How to access health informa tion online - Detail Indication:Bronchitis Start:28-May-2016 Instruction Type:Patient Education How to access health informa tion online Indication:Cough Start:05-May-2016 Instruction Type:Patient Education How to access health informa tion online - Detail Indication:Cough Start:05-May-2016 Instruction Type:Patient Education Patient Instructions Indication:Cough Start:05-May-2016 Instruction Type:Provider Instructions for Treatment How to access health informa tion online Indication:Contact dermatitis, unspecified contact dermatitis type, unspecified trigger Start:29-Dec-2015 Instruction Type:Patient Education How to access health informa tion online - Detail Indication:Contact dermatitis, unspecified contact dermatitis type, unspecified trigger Start:29-Dec-2015 Instruction Type:Patient Education Patient Instructions Indication:Arthralgia of right hip Start:15-Dec-2015 Instruction Type:Provider Instructions for Treatment How to access health informa tion online Indication:Back pain, acute Start:08-Dec-2015 Instruction Type:Patient Education How to access health informa tion online - Detail Indication:Back pain, acute Start:08-Dec-2015 Instruction Type:Patient Education Patient Instructions Indication:Back pain, acute Start:08-Dec-2015 Instruction Type:Provider Instructions for Treatment How to access health informa tion online Indication:Cough Start:10-Nov-2015 Instruction Type:Patient Education How to access health informa tion online - Detail Indication:Cough Start:10-Nov-2015 Instruction Type:Patient Education Patient Instructions Indication:Cough Start:10-Nov-2015 Instruction Type:Provider Instructions for Treatment How to access health informa tion online Indication:Muscle strain Start:15-Jan-2015 Instruction Type:Patient Education How to access health informa tion online - Detail Indication:Muscle strain Start:15-Jan-2015 Instruction Type:Patient Education Patient Instructions Indication:Muscle strain Start:15-Jan-2015 Instruction Type:Provider Instructions for Treatment Patient Instructions Indication:Acute sinusitis, unspecified Start:31-Oct-2013 Instruction Type:Provider Instructions for Treatment Patient Instructions Indication:Rash Start:26-Sep-2013 Instruction Type:Provider Instructions for Treatment Patient Instructions Indication:Pain of toe, unspecified laterality Start:26-Dec-2012 Instruction Type:Provider Instructions for Treatment Patient Instructions Indication:Knee pain, left Start:24-Nov-2012 Instruction Type:Provider Instructions for Treatment Name Dates Details Patient Instructions Indication:BMI 35.0-35.9,adult Start:29-Aug-2020 Instruction Type:Provider Instructions for Treatment How to Access Health Informa tion Online using Patient Portal and [employer]rd [employer] Apps Indication:BMI 35.0-35.9,adult Start:29-Aug-2020 Instruction Type:Patient Education Patient Instructions Indication:Nonsmoker Start:30-Jul-2020 Instruction Type:Provider Instructions for Treatment How to Access Health Informa tion Online using Patient Portal and [employer]rd [employer] Apps Indication:Nonsmoker Start:30-Jul-2020 Instruction Type:Patient Education How to access health informa tion online Indication:Nonsmoker Start:27-Dec-2019 Instruction Type:Patient Education How to access health informa tion online - Detail Indication:Nonsmoker Start:27-Dec-2019 Instruction Type:Patient Education Patient Instructions Indication:Nonsmoker Start:27-Dec-2019 Instruction Type:Provider Instructions for Treatment How to access health informa tion online Indication:BMI 35.0-35.9,adult Start:14-Dec-2019 Instruction Type:Patient Education How to access health informa tion online - Detail Indication:BMI 35.0-35.9,adult Start:14-Dec-2019 Instruction Type:Patient Education Patient Instructions Indication:BMI 35.0-35.9,adult Start:14-Dec-2019 Instruction Type:Provider Instructions for Treatment How to access health informa tion online Indication:Nonsmoker Start:07-Nov-2019 Instruction Type:Patient Education How to access health informa tion online - Detail Indication:Nonsmoker Start:07-Nov-2019 Instruction Type:Patient Education Patient Instructions Indication:Nonsmoker Start:07-Nov-2019 Instruction Type:Provider Instructions for Treatment How to access health informa tion online Indication:BMI 35.0-35.9,adult Start:18-Sep-2019 Instruction Type:Patient Education How to access health informa tion online - Detail Indication:BMI 35.0-35.9,adult Start:18-Sep-2019 Instruction Type:Patient Education Patient Instructions Indication:BMI 35.0-35.9,adult Start:18-Sep-2019 Instruction Type:Provider Instructions for Treatment How to access health informa tion online Indication:Non-smoker Start:17-May-2019 Instruction Type:Patient Education How to access health informa tion online - Detail Indication:Non-smoker Start:17-May-2019 Instruction Type:Patient Education Patient Instructions Indication:Sinusitis, bacterial Start:17-May-2019 Instruction Type:Provider Instructions for Treatment How to access health informa tion online Indication:Tenderness of neck Start:25-Apr-2019 Instruction Type:Patient Education How to access health informa tion online - Detail Indication:Tenderness of neck Start:25-Apr-2019 Instruction Type:Patient Education Patient Instructions Indication:Tenderness of neck Start:25-Apr-2019 Instruction Type:Provider Instructions for Treatment How to access health informa tion online Indication:BMI 32.0-32.9,adult Start:04-Sep-2018 Instruction Type:Patient Education How to access health informa tion online - Detail Indication:BMI 32.0-32.9,adult Start:04-Sep-2018 Instruction Type:Patient Education Patient Instructions Indication:BMI 32.0-32.9,adult Start:04-Sep-2018 Instruction Type:Provider Instructions for Treatment How to access health informa tion online Indication:BMI 31.0-31.9,adult Start:04-Aug-2018 Instruction Type:Patient Education How to access health informa tion online - Detail Indication:BMI 31.0-31.9,adult Start:04-Aug-2018 Instruction Type:Patient Education Patient Instructions Indication:BMI 31.0-31.9,adult Start:04-Aug-2018 Instruction Type:Provider Instructions for Treatment Patient Instructions Indication:Finger pain, left Start:28-Jul-2018 Instruction Type:Provider Instructions for Treatment How to access health informa tion online Indication:Non-smoker Start:28-Jul-2018 Instruction Type:Patient Education How to access health informa tion online - Detail Indication:Non-smoker Start:28-Jul-2018 Instruction Type:Patient Education Patient Instructions Indication:Non-smoker Start:28-Jul-2018 Instruction Type:Provider Instructions for Treatment How to access health informa tion online Indication:BMI 31.0-31.9,adult Start:30-Mar-2018 Instruction Type:Patient Education How to access health informa tion online - Detail Indication:BMI 31.0-31.9,adult Start:30-Mar-2018 Instruction Type:Patient Education Patient Instructions Indication:Vaginal yeast infection Start:30-Mar-2018 Instruction Type:Provider Instructions for Treatment How to access health informa tion online Indication:Non-smoker Start:16-Mar-2018 Instruction Type:Patient Education How to access health informa tion online - Detail Indication:Non-smoker Start:16-Mar-2018 Instruction Type:Patient Education Patient Instructions Indication:Non-smoker Start:16-Mar-2018 Instruction Type:Provider Instructions for Treatment How to access health informa tion online Indication:Bronchitis Start:28-May-2016 Instruction Type:Patient Education How to access health informa tion online - Detail Indication:Bronchitis Start:28-May-2016 Instruction Type:Patient Education How to access health informa tion online Indication:Cough Start:05-May-2016 Instruction Type:Patient Education How to access health informa tion online - Detail Indication:Cough Start:05-May-2016 Instruction Type:Patient Education Patient Instructions Indication:Cough Start:05-May-2016 Instruction Type:Provider Instructions for Treatment How to access health informa tion online Indication:Contact dermatitis, unspecified contact dermatitis type, unspecified trigger Start:29-Dec-2015 Instruction Type:Patient Education How to access health informa tion online - Detail Indication:Contact dermatitis, unspecified contact dermatitis type, unspecified trigger Start:29-Dec-2015 Instruction Type:Patient Education Patient Instructions Indication:Arthralgia of right hip Start:15-Dec-2015 Instruction Type:Provider Instructions for Treatment How to access health informa tion online Indication:Back pain, acute Start:08-Dec-2015 Instruction Type:Patient Education How to access health informa tion online - Detail Indication:Back pain, acute Start:08-Dec-2015 Instruction Type:Patient Education Patient Instructions Indication:Back pain, acute Start:08-Dec-2015 Instruction Type:Provider Instructions for Treatment How to access health informa tion online Indication:Cough Start:10-Nov-2015 Instruction Type:Patient Education How to access health informa tion online - Detail Indication:Cough Start:10-Nov-2015 Instruction Type:Patient Education Patient Instructions Indication:Cough Start:10-Nov-2015 Instruction Type:Provider Instructions for Treatment How to access health informa tion online Indication:Muscle strain Start:15-Jan-2015 Instruction Type:Patient Education How to access health informa tion online - Detail Indication:Muscle strain Start:15-Jan-2015 Instruction Type:Patient Education Patient Instructions Indication:Muscle strain Start:15-Jan-2015 Instruction Type:Provider Instructions for Treatment Patient Instructions Indication:Acute sinusitis, unspecified Start:31-Oct-2013 Instruction Type:Provider Instructions for Treatment Patient Instructions Indication:Rash Start:26-Sep-2013 Instruction Type:Provider Instructions for Treatment Patient Instructions Indication:Pain of toe, unspecified laterality Start:26-Dec-2012 Instruction Type:Provider Instructions for Treatment Patient Instructions Indication:Knee pain, left Start:24-Nov-2012 Instruction Type:Provider Instructions for Treatment Summary Purpose Advance Directives No Advanced Directives Records FoundNo Advanced Directives Records FoundNo Advanced Directives Records Found Additional Source Comments INFORMATION SOURCE (unrecogn ized section and content) DATE CREATED AUTHOR AUTHOR'S ORGANIZ ATION 10/22/2022 [facility] DATE CREATED AUTHOR AUTHOR'S ORGANIZ ATION 03/17/2023 [facility] [place] ([place] Care Team (unrecognized sect ion and content) Personnel Name: EDWARD GREY DO Address: [address] [place] [address] Care Team Personnel Name: EDWARD GREY DO Position: P4 Physician - Primary Care Member Role: Primary Care Physician Address: Address: [address] [place] [address] Name: Lou Plascencia RN Position: AO RN Member Role: ED RN Name: VERA ARREAGA MD Position: ED Physician Member Role: ED Physician Address: Address: [address] [place] [address] Care Team Related Persons Name: ROBINA PACK Address: Home [address] [place] [address] [address] [place] [id number] Care Team (unrecognized sect ion and content) Care Team Personnel Name: EDWARD GREY DO Position: P4 Physician - Primary Care Member Role: Primary Care Physician Address: Address: [address] [place] [address] Care Team Related Persons Name: ROBINA PACK Address: Home [address] [place], [place] [id number] FOR RECORDS PERTAINING TO PATIENTS WHO ARE OR HAVE BEEN ENROLLED IN A CHEMICAL DEPENDENCY/SUBSTANCEABUSE PROGRAM, SOME INFORMATION MAY BE OMITTED. This clinical summary was aggregated from multiple sources. Caution should be exercised in using it in the provision of clinical care. This summary normalizes information from multiple sources, and as a consequence, information in this document may materially change the coding, format and clinical context of patient data. In addition, data may be omitted in some cases. CLINICAL DECISIONS SHOULD BE BASED ON THE PRIMARY CLINICAL RECORDS. [facility] provides no warranty or guarantee of the accuracy or completeness of information in this document.
== END | disposition home or self-care (01) ==
LOC: PSN 07:07
PROVIDERS: Referring Provider Student in an Organized Health Care Education/Training Program; Visit Provider Student in an Organized Health Care Education/Training Program
DX: Z01.818 Encounter for other preprocedural examination (principal)
CPT/HCPCS: 93005

== ENCOUNTER 2023-12-07 13:01 | Outpatient (CLI) | payer OTHER, SELFPAY ==
--- NOTE | 2023-12-07 13:03 | VDLE_ITS ---
Reason For Study: BLE Varicose Veins RIGHT LEFT CFV is compressible, spontaneous, phasic, CFV is compressible, spontaneous, phasic, competent and demonstrates normal competent, and demonstrates normal augmentation. augmentation. FV is compressible, spontaneous, phasic, FV is compressible, spontaneous, phasic, competent and demonstrates normal competent and demonstrates normal augmentation. augmentation. POP V is compressible, spontaneous, phasic, POP V is compressible, spontaneous, phasic, competent and demonstrates normal competent and demonstrates normal augmentation. augmentation. T/P Trunk is compressible. T/P Trunk is compressible. PTV is compressible. PTV is compressible. RT PerV is compressible. LT PerV is compressible. SFJ is competent and measures 0.98 cm. SFJ is competent and measures 0.72 cm. GSV proximal thigh measures 0.44 x 0.50 cm. GSV proximal thigh measures 0.37 x 0.45 cm. GSV at knee measures 0.38 x 0.41 cm. GSV above knee is competent. SSV proximal calf is competent and measures ASV distal thigh is INCOMPETENT for greater 0.32 x 0.29 cm. than 0.5 seconds and measures 0.46 x 0.48 cm. GSV above knee is competent. ASV at knee is INCOMPETENT for greater than GSV below knee is INCOMPETENT for greater 0.5 seconds and measures 0.68 x 0.75 cm. than 0.5 seconds. SSV proximal calf is INCOMPETENT for greater Procedure than 0.5 seconds and measures 0.30 x 0.30 cm. Exam performed in department. HX GSV EVLA mid thigh to ankle. ASV appears This is a venous duplex using B-mode, color to connect with GSV at prox thigh. ASV flow and spectral Doppler. appears incompetent througout LLE with The exam was diagnostic. tortuosity at knee and multiple branches in Patient was scanned in reverse Trendelenburg calf. position during reflux assessment. VL/Venous Duplex US - Chris Extrem Interpretation Summary Deep veins of the bilateral lower extremities are patent and compressible segme ntally. There is no evidence of bilateral lower extremity deep vein thrombosis. The bilateral great saphenous veins appear patent and compressible segmentally. Positive for reflux in the right great saphenous vein below the knee Positive for reflux in accessory saphenous veins at distal thigh and knee, smal l saphenous vein. Ordering Physician: Haily Cruz Referring Physician: Renee Grey Performed By: Abraham Ferguson RVT
== END 2023-12-07 23:59 | disposition home or self-care (01) ==
LOC: CVS 13:02
PROVIDERS: Referring Provider Physician Assistant; Visit Provider Physician Assistant
DX: I83.819 Varicose veins of unspecified lower extremity with pain (principal)
CPT/HCPCS: 93970

== ENCOUNTER → 2024-05-31 | Outpatient (CLI) | payer OTHER, SELFPAY ==
--- NOTE | 2024-05-31 13:16 | BI_ITS ---
MAMMOGRAPHY - BILATERAL SCREENING 3-D TOMOSYNTHESIS REASON FOR EXAM: Female, 64 years old. screening PERTINENT HISTORY: No significant family history. TECHNIQUE: 2-D mammograms and 3-D Tomosynthesis of the breast (s) were performed. CAD was performed. COMPARISON: None. FINDINGS: The breast composition is composed of scattered fibroglandular density. Scattered benign calcifications are seen. No dense spiculated masses or suspicious microcalcifications are identified. No architectural distortion is identified. There is no skin thickening or retraction. There has been no significant change since the prior study. BI/SCRN MAMM (CAD)W/JOMAR BILAT IMPRESSION: No mammographic signs of malignancy. Routine yearly mammograms recommended. ASSESSMENT CATEGORY: BIRADS Category 1: Negative. A letter regarding these results will be sent to the patient by the facility within 30 days. FOLLOW UP RECOMMENDATION: Yearly follow up mammogram recommended. (A) Approximately 10% of breast cancers are not detected by mammography. A normal mammogram should not delay biopsy of a clinically suspicious abnormality. Electronically Signed: Pan Ospina MD at 13:49 EDT ,
== END | disposition home or self-care (01) ==
LOC: OPBI 13:14
DX: Z12.31 Encounter for screening mammogram for malignant neoplasm of breast (principal)
CPT/HCPCS: 77063; 77067

== ENCOUNTER 2025-01-28 16:24 | Emergency (ER) | payer OTHER, SELFPAY ==
[2025-01-28 16:25] VITALS: BP 150/104; PULSE 87; RESP 16; TEMP 35.8; O2SAT 97; BMI 33.5
== END 2025-01-28 16:57 | disposition left against medical advice (07) ==
LOC: ED 17:17
DX: Z53.21 Procedure and treatment not carried out due to patient leaving prior to being seen by health care provider (principal)

== ENCOUNTER 2025-02-14 13:09 | Emergency (ER) | payer OTHER, SELFPAY ==
[2025-02-14 13:10] VITALS: BP 151/102; PULSE 79; RESP 18; TEMP 35.9; O2SAT 98; BMI 33.5
[2025-02-14 15:11] VITALS: BP 133/88; PULSE 75; RESP 18; TEMP 35.9; O2SAT 98
== END 2025-02-14 15:22 | disposition home or self-care (01) ==
PROVIDERS: Emergency Provider Emergency Medicine; Visit Provider Emergency Medicine
DX: M79.672 Pain in left foot (principal); Z91.81 History of falling
CPT/HCPCS: 73630; 99283